=== PATIENT | male | born 1940 | race Caucasian/White ===

== ENCOUNTER 2024-10-03 23:11 | Inpatient (IN) | payer OTHER, SELFPAY ==
[2024-10-03] VITALS (21 sets, daily range): BP systolic 63–106; BP diastolic 36–62; BMI 32.9
[2024-10-03 18:25] LABS: % Basophils 0.9 % (0-2); % Eosinophils 1.9 % (0-6); % Immature Granulocytes 0.3 % (0-0.5); % Lymphocytes 10.5 % (20.5-51.1); % Monocytes 11.3 % (1.7-9.3); % Neutrophils 75.1 % (42.2-75.2); Absolute Basophils 0.1 10^3/uL (0-0.2); Absolute Eosinophils 0.1 10^3/uL (0-0.7); Absolute Lymphocytes 0.7 10^3/uL (1.2-3.4); Absolute Monocytes 0.7 10^3/uL (0.1-0.6); Absolute Neutrophils 4.9 10^3/uL (1.4-6.5); Hemoglobin 9.8 g/dL (13.0-18.0); Mean Corp Hgb Conc. 30.6 g/dL (33.0-37.0); Mean Corpuscular Hgb 30.9 pg (27.0-31.0); Mean Corpuscular Volume 100.9 fL (80.0-94.0); Mean Platelet Volume 10.1 fL (7.4-10.4); Nucleated Red Blood Cells % 0 % (-); Platelet Count 202 10^3/uL (130-400); Red Blood Cell Count 3.17 10^6/uL (4.70-6.10); White Blood Cell Count 6.5 10^3/uL (4.8-10.8)
[2024-10-03 18:32] LABS: ALT (SGPT) 16 U/L (0-50); AST (SGOT) 26 U/L (17-59); Albumin 3.2 g/dl (3.5-5.0); Alkaline Phosphatase 149 U/L (38-126); Blood Urea Nitrogen 16 mg/dl (9-20); Calcium 9.2 mg/dl (8.4-10.2); Carbon Dioxide 31 mmol/L (22-30); Chloride 95 mmol/L (98-107); Glucose 102 mg/dl (70-99); Potassium 4.2 mmol/L (3.5-5.1); Sodium 132 mmol/L (135-145); Total Protein 6.1 g/dl (6.3-8.2); eGFR 28.81
[2024-10-03 19:33] LABS: NT-proBNP > 27000 pg/ml
--- NOTE | 2024-10-03 21:00 | ED.GENMED ---
History of Present Illness
General
Chief Complaint: Breathing Problem
Source: patient and records
Exam Limitations: none
Time Seen by Provider: 10/03/24 20:30
History of Present Illness
History of Present Illness:
84-year-old male with COPD on 2 L chronically A-fib status post bypass surgery end-stage renal disease on dialysis had dialysis today with short of breath afterward, received a neb now is feeling better, has chronic low blood pressure on midodrine,
states he maybe had some fevers, denies vomiting he makes no urine
Past History
Past History
ED Past Medical History: Arrthythmia, COPD and Renal failure
ED Past Surgical History: Cardiac
Social History
Tobacco: Non-smoker
Alcohol: None
Drug: None
Living: usp
Employment: Not employed
Review of Systems
Review of Systems
All Other Systems: Not applicable
Constitutional: Reports fatigue; Denies fever
Respiratory: Reports cough and trouble breathing
Cardiac: Reports no symptoms
ABD/GI: Reports no symptoms
: Reports no symptoms
Musculoskeletal: Reports no symptoms
Phy Exam
Physical Exam
Physical Exam:
Physical Exam
General: Chronically ill-appearing male
Neck: No jaundice
Heart: Regular
Lungs: Rhonchi right greater than
Abdomen: Obese nontender
Neuro: alert and oriented. no focal neurological deficits
Skin: no rash
Psychiatric: ooperative
Extremities: 1+ edema
Scores
Heart Failure Risk
Heart Failure Risk Score: Not Applicable
Course
Orders/Labs/Results
Orders:
Orders
10/03/24 18:09
Complete Blood Count/With Diff Urgent
Comprehensive Metabolic Panel Urgent
NT-proBNP Urgent
Comment: ADD ON
Troponin I Urgent
Comment: ADD ON
10/03/24 18:12
Add On- LAB Urgent
Tests Added?: Pro-bnp on SST
10/03/24 20:30
CR Chest Portable - 1 View Urgent
Comment:
Reason For Exam: sooob
Reason Study Needs to be Portable: Patient Unstable
10/03/24 21:08
0.9% Sodium Chloride 500 ml [Nss] 500 ml IV BOLUS
Ipratropium/Albuterol Sulfate [Duoneb] 3 ml INH R NOW STA
10/03/24 21:26
Prothrombin Time Urgent
10/03/24 21:32
Rectal Temp- Treatment ONCE
10/03/24 21:33
Piperacillin/Tazo 2.25 Gram [Zosyn] 2.25 grams in 50 ml IV NOW
Vancomycin 1 Gram/200 ml [Vancocin] 1 gram in 200 ml IV NOW
10/03/24 21:34
Influenza A+B Rapid Molecular Urgent
MANISHA Source: Nasal Swab
Specimen Description:
10/03/24 21:45
Lactic Acid Q4H
Comment: CANCEL 2nd LACTIC ACID IF 1st LACTIC ACID IS LESS THAN 2
Blood Culture Q30M
MANISHA Source: Blood/Venous
Specimen Description:
10/03/24 21:49
Add On- LAB Urgent
Tests Added?: procal
COVID-19 Antigen Urgent
Source: Nasal Swab
10/03/24 21:58
Add On- LAB Urgent
Tests Added?: troponin
EKG [Electrocardiogram (*1)] Urgent
Reason for Study: Shortness of Breath
10/03/24 22:15
Blood Culture Q30M
MANISHA Source: Blood/Venous
Specimen Description:
10/04/24 01:45
Lactic Acid Q4H
Comment: CANCEL 2nd LACTIC ACID IF 1st LACTIC ACID IS LESS THAN 2
Abnormal Lab Results
10/03/24 10/03/24
18:09 21:26
RBC 3.17 L 10^6/uL
(4.70-6.10)
Hgb 9.8 L g/dL
(13.0-18.0)
Hct 32.0 L %
(39.0-52.0)
MCV 100.9 H fL
(80.0-94.0)
MCHC 30.6 L g/dL
(33.0-37.0)
RDW 16.0 H %
(11.5-14.5)
Absolute Lymphs (auto) 0.7 L 10^3/uL
(1.2-3.4)
Absolute Monos (auto) 0.7 H 10^3/uL
(0.1-0.6)
Lymphocytes % 10.5 L %
(20.5-51.1)
Monocytes % 11.3 H %
(1.7-9.3)
PT 18.4 H Sec
(11.4-14.6)
Sodium 132 L mmol/L
(135-145)
Chloride 95 L mmol/L
(98-107)
Carbon Dioxide 31 H mmol/L
(22-30)
Creatinine 2.2 H mg/dL
(0.7-1.3)
Glucose 102 H mg/dl
(70-99)
Alkaline Phosphatase 149 H U/L
(38-126)
Total Protein 6.1 L g/dl
(6.3-8.2)
Albumin 3.2 L g/dl
(3.5-5.0)
10/03/24 18:09
10/03/24 18:09
Vital Signs
Initial and Last Documented VS:
Initial Vital Signs
Temp Pulse Resp BP Pulse Ox
98 F 70 18 88/48 96
10/03/24 17:58 10/03/24 17:58 10/03/24 17:58 10/03/24 17:58 10/03/24 17:58
Last Documented Vital Signs
Temp Pulse Resp BP Pulse Ox
98 F 61 28 89/55 94
10/03/24 17:58 10/03/24 21:16 10/03/24 21:16 10/03/24 21:16 10/03/24 21:16
MDM/Problems Addressed
Differential Diagnosis Includes:
Heart failure pneumonia valvulopathy pericardial effusion pleural effusion PE sepsis
MDM/Problems Addressed:
Shortness of breath low blood pressure
Chronic conditions affecting care: CAD, Cardiomyopathy, Arrhythmia, COPD and Kidney disease
Acute Exacerbation and/or Progression of Chronic Illness: CAD, Cardiomyopathy, Arrhythmia, COPD and Kidney disease
*Radiology
Radiology exam reviewed: preliminary read by ED provider
*Pulse Oximetry
Patient hypoxic: no
*EKG
Interpreted by ED Provider?: Yes
Interpretation: abnormal
Comparison EKG: no comparison EKG present
Heart Rate: 78
Rate: normal
Rhythm: sinus
Ischemia: non-specific ST changes
*Industrial Retrofit Designer Interpretation
Rate: normal
Interpretation: normal
Heart Rate: 74
Rhythm: sinus
*Critical Care Note
Total Time (30-74mins, 75-104mins- exclusive of procedures): 34
Data Reviewed
Review of Other/Old Records Reveals: Records
Update Note
Update Note:
935 chest x-ray noted poor inspiration looks like it could be pneumonia on the right will start on antibiotics give volume admit
ED Attending Note
-
Portions of this chart may have been created with voice recognition software.� Occasional wrong word or��sound alike� substitutions may have occurred due to the inherent limitations of voice recognition software.
Discharge Plan
Departure
Patient Disposition: Admit
Date of Disposition: 10/03/24
Time of Disposition: 21:35
Admit to: IMU
Presentation/result/management discussed w/ accepting MD/DO: Hospitalist
Patient with high blood pressure during this ER visit?: No
Condition: Fair
Covid-19: Not Applicable
Discharge Problem:
Pneumonia, Sepsis, End-stage renal disease (ESRD), Low blood pressure
Prescriptions:
No Action
atorvastatin 40 MG tablet
40 mg PO QPM
omeprazole 20 MG capsule,delayed release(DR/EC)
20 mg PO HS
acetaminophen 325 MG tablet
650 mg PO Q6HPRN PRN (Reason: mild pain/fever) Qty: 0 0RF
aspirin 81 MG tablet,delayed release (DR/EC)
81 mg PO DAILY Qty: 0 0RF
sennosides [senna] 8.6 mg Tablet
8.6 mg PO DAILY
sodium chloride 3 % Solution For Nebulization
4 ml INHALATION R DAILYPRN PRN (Reason: sob)
cyanocobalamin (vitamin B-12) 1,000 mcg Tablet
1,000 mcg PO DAILY
allopurinol 100 mg Tablet
100 mg PO DAILY
bisacodyl 10 mg Suppository
10 mg ID DAILYPRN PRN (Reason: constipation if sorbitol is ineffective)
Fleet Enema 19-7 gram/118 mL Enema
118 ml ID DAILYPRN PRN (Reason: if suppository is ineffective)
gabapentin 100 mg Capsule
100 mg PO DAILY
gabapentin 100 mg Capsule
200 mg PO HS
levalbuterol HCl 1.25 mg/3 mL Solution For Nebulization
1.25 mg INHALATION R Q8HPRN PRN (Reason: sob)
sorbitol 70 % Solution
30 ml PO [id number] PRN (Reason: if no bm x3 days)
ipratropium bromide 0.02 % Solution
2.5 ml INHALATION R Q4HPRN PRN (Reason: sob)
midodrine 10 mg Tablet
10 mg PO Q2HPRN PRN (Reason: hypotension during dialysis)
midodrine 10 mg Tablet
10 mg PO MOWEFR
metoprolol tartrate 25 mg Tablet
25 mg PO BID
calcium acetate 667 mg Tablet
1,334 mg PO MEALS
Referrals:
Stuart Martinez, DO [Family Provider] -
Interventions
Interventions:
*Risk Screen - Suicide Last Done: 10/03/24 17:58
*General Assessment Last Done: 10/03/24 17:58
*Neglect/Abuse Screening Last Done: 10/03/24 17:58
*ED- Fall Risk Assessment Last Done: 10/03/24 21:08
*ED COVID-19 Vaccine History Last Done: 10/03/24 21:08
ED- Cardiac Assessment Last Done: 10/03/24 21:08
ED- Pulmonary Assessment Last Done: 10/03/24 21:08
Discharge Date and Time
Print Language: PERSIAN
[2024-10-03] MEDS: NSS 500 IV (21:11)
[2024-10-03] MEDS: DUONEB 3 ML INH (21:14)
[2024-10-03 21:44] LABS: INR 1.51; PT 18.4 Sec (11.4-14.6)
--- NOTE | 2024-10-03 21:44 | HPS.HSE ---
Family Physician
-
Family Physician: Stuart Martinez, DO
Chief Complaint
-
Shortness of breath, leg edema, hypotension
History of Present Illness
84-year-old male who reports shortness of breath after dialysis today,but improved after a nebulizer treatment.He reports a chronic productive yellow cough, chills sob. He was admitted to [facility] 09/21 - 09/26/2024 for FLu A and unspecified PNA. He
then was transferred to [facility] 2 weeks ago on 09/26/24. He reports chronic hypotension with sbp baseline is 104-106 range and is on midodrine 10mg tid but only took once today at 7pm. He is fluid overloaded with 10 pound wt gain
with leg edema +3 edema from lower legs up to mons pubis area. He has a dry slightly excoriated scrotum that is tender to touch. Preventive ointment was applied which seemed to help the pain. I spoke with the patient's nurse Katelyn who states she
was off of the past couple days during that time there was an order placed into the chart from cardiology to stop patient's Coumadin and start aspirin 81 mg on 09/29/2024. There is no explanation as to why the Coumadin was being stopped she was
unable to find any progress note from cardiology and or the attending nurse practitioner. She states his last INR was 2.57 on 09/29. She denies any falls since his arrival at the facility on 09/26/2024.
He has past medical history of COPD 2 liters depdendent , end-stage renal disease on dialysis MoWeFR x 2 years via dialysis cath left upper chest wall, anemia of CKD, HTN, HLD, permanent A-fib, BOBBY noncompliant CPAP, Pulm HTN, DM2, obesity, CAD/CABG
x 3 vessel left internal mammary to LAD and saphenous vein graft to obtuse marginal 1 sequentially to obtuse marginal [address]. Salmeron 03/26/2015.
Medical History
Past Medical History
Past Medical History: Reports Other
Additional Past Medical History:
COPD 2 liters dependent
end-stage renal disease on dialysis MoWeFR x 2 years via dialysis cath left upper chest wall
anemia of CKD
HTN
Orthostatic hypotension with dialysis
HLD
permanent A-fib
BOBBY noncompliant CPAP
Pulm HTN
Obesity
CAD/CABG x 3 vessel left internal mammary to LAD and saphenous vein graft to obtuse marginal 1 sequentially to obtuse marginal [address]. Salmeron 03/26/2015.
Past Surgical History: Reports Other
Additional Past Surgical History:
CAD/CABG x 3 vessel left internal mammary to LAD and saphenous vein graft to obtuse marginal 1 sequentially to obtuse marginal [address] Salmeron 03/26/2015.
Septoplasty
Kidney stone extraction 1970s
Social History
Tobacco: Former Smoker (15 years 1/2 pack/day quit 50 years ago)
Alcohol: None
Drug: None
Living: Other (Currently at [facility] post influenza A and unspecified pneumonia)
Employment: Retired
Family History
Family History: Other (Father age 45 alcohol abuse [place], mother age 86 [place])
Allergies / Home Medications
Allergies reflects when Allergies were last updated in [employer].
Home Medications with original date entered in [employer]
Allergy/Medication List:
Allergies
Allergy/AdvReac Type Severity Reaction Status Date / Time
No Known Allergies Allergy Unverified 03/25/15 08:48
Home Medications
atorvastatin 40 mg tablet 40 mg PO QPM 03/09/15
omeprazole 20 mg capsule,delayed release 20 mg PO HS 03/09/15
acetaminophen 325 mg tablet 650 mg (2 x 325 mg) PO Q6HPRN PRN mild pain/fever ##0 04/01/15
aspirin 81 mg tablet,delayed release 81 mg PO DAILY ##0 04/01/15
allopurinol 100 mg tablet 100 mg PO DAILY 10/03/24
bisacodyl 10 mg rectal suppository 10 mg UT DAILYPRN PRN constipation if sorbitol is ineffective 10/03/24
calcium acetate 667 mg tablet 1,334 mg PO MEALS 10/03/24
cyanocobalamin (vitamin B-12) 1,000 mcg tablet 1,000 mcg PO DAILY 10/03/24
gabapentin 100 mg capsule 100 mg PO DAILY 10/03/24
gabapentin 100 mg capsule 200 mg PO HS 10/03/24
ipratropium bromide 0.02 % solution for inhalation 2.5 ml inhalation R Q4HPRN PRN sob 10/03/24
levalbuterol HCl 1.25 mg/3 mL solution for nebulization 1.25 mg inhalation R Q8HPRN PRN sob 10/03/24
metoprolol tartrate 25 mg tablet 25 mg PO BID 10/03/24
midodrine 10 mg tablet 10 mg PO MOWEFR 10/03/24
midodrine 10 mg tablet 10 mg PO Q2HPRN PRN hypotension during dialysis 10/03/24
sennosides 8.6 mg tablet (senna) 8.6 mg PO DAILY 10/03/24
sodium chloride 3 % for nebulization 4 ml inhalation R DAILYPRN PRN sob 10/03/24
sodium phosphates 19 gram-7 gram/118 mL enema (Fleet Enema) 118 ml UT DAILYPRN PRN if suppository is ineffective 10/03/24
sorbitol 70 % solution 30 ml PO [id number] PRN if no bm x3 days 10/03/24
Review of Systems
-
History Source: Patient and Family (Son at bedside)
A 12 point ROS was completed and negative except as noted: Yes
Constitutional: Reports Weight Gain (10 pounds) and Chills
EENT: Denies Sore Throat or Runny Nose
Respiratory: Reports Cough (Productive yellow in color) and Trouble Breathing
Cardiac: Denies Chest Pain, Diaphoresis, Palpitations or Syncope
Abdomen/GI: Denies Abdominal Pain, Nausea, Vomiting, Diarrhea, Constipated, Bloody Stools or Black Stools
: Reports Other (Patient does not make urine, scrotum is dry and excoriated and tender there is no fungal rash)
Musculoskeletal: Reports Edema (+3 pitting edema from feet up to mons pubis); Denies Joint Pain
Skin: Denies Itching or Rash
Neurological: Reports Headache; Denies Dizzy
Endocrine: Reports No Symptoms
Hematologic/Lymphatic: Reports No Symptoms
Psych: Reports Calm
Physical Exam
Vital Signs
Vital Signs
Temp Pulse Resp BP Pulse Ox
98 F 61 28 89/55 94
10/03/24 17:58 10/03/24 21:16 10/03/24 21:16 10/03/24 21:16 10/03/24 21:16
Physical Exam
General: Conversant, Obese and Other (Short of breath with chronic cough); No Pain or Fever
HEENT: NormoCephalic, Anicteric, Moist mucous membranes, PERRLA, Burke Conjunctivae, No Ptosis, Neck Nontender and Oxygen (2 L nasal cannula); No Pharyngeal Erythema
Respiratory: Rales (Right lower to mid lung, left lung)
Cardiac: S1/S2, Murmur (Holosystolic 2 out of 6) and Peripheral Edema (+3 pitting feet up to thighs and mons pubis); No Rub or Gallop
Breast: Deferred by me
GI: Soft, Non Tender, Non Distended, Normal Bowel Sounds and No Hepatosplenomegaly
Rectal: Deferred by Provider
Genito-urinary: Other (Patient does not make urine, scrotum is dry and excoriated and tender there is no fungal rash)
Musculoskeletal: No Clubbing, No Cyanosis, Edema, Left Lower Extremity (+3 pedal up to knees up to thighs and mons pubis) and Edema, Right Lower Extremity (+3 pedal up to knees up to thighs and mons pubis); No Edema, Left Upper Extremity or Edema,
Right Upper Extremity
Skin: Warm and Dry; No Rash
Neuro: AO x 3, No Motor Deficits, Cranial Nerves Intact, No Sensory Deficits and Other; No Slurred Speech, Facial Droop, Tremors or Sedated
Psych: Calm
Laboratory Results
-
10/03/24 18:09
10/03/24 18:09
Laboratory Results
Total Bilirubin 1.0 mg/dl (0.2-1.3) 10/03/24 18:09
AST 26 U/L (17-59) 10/03/24 18:09
ALT 16 U/L (0-50) 10/03/24 18:09
Alkaline Phosphatase 149 U/L (38-126) H 10/03/24 18:09
Data Reviewed
-
Lab Data: Labs Reviewed by me
Impression/Plan
-
Impression/plan:
Admit to IMU
#Septic shock secondary to PNA
#Acute dyspnea secondary to right lower lobe PNA possible left lower lung PNA
#Recent influenza A/unspecified PNA [facility] 09/21 - 09/26/2024
Check COVID and flu swab
Check lactic acid, Pro-Remi, blood cultures x 2
-Check EKG, troponin
94% RA
-Vanco, Zosyn renal dose
-sputum culture
follow cbc, cmp,
PT/OT/case mgmt
CXR:Limited examination with hypoinflation.
Parenchymal airspace opacity within both lower lungs, main differential considerations of atelectasis and/or pneumonia.
Cardiomegaly. Vasculature does not appear to be actively congested.
#Hypotension secondary to septic shock/Hx essential HTN/orthostatic hypotension post dialysis
Pt reports baseline sbp is 104-106
BP 63/38 > 89/55 after 1 L IV NSS
-Continue midodrine 10 mg Sunday and 10 mg every 2 hours as needed during dialysis with hypotension
- Give Stat Midodrin 10 mg now
- levophed start
#End-stage renal disease with volume overload secondary to acute on chronic hypotension
on dialysis MoweFR x 2 years via dialysis cath left upper chest wall
-Had dialysis today 10/03/2024
-Patient does not make urine
-Consult Nephro
-Continue calcium acetate 1334 mg p.o. with meals
#Excoriation to scrotum
-Nursing to apply prevention barrier ointment twice daily
#Permanent A-fib HX
His coumdin was stoppe on 09-29-24 By a cardiology order at [facility] and he was placed on Asa 81 mg but NO REASON was Listed. I spoke with the Nurse who cannot find any Cardiology progress note or Note in chart
#COPD- no acute exacerbation
-Continue lev albuterol 2.5 mL every 4 hours as needed shortness of breath
#Anemia of CKD
-Hgb 9.8 appears baseline
#Neuropathy
-Continue gabapentin 100 mg in a.m., 200 mg at bedtime
#GERD
-Continue omeprazole 20 mg at bedtime
#HLD
- no currrent meds
# BOBBY noncompliant CPAP
#Pulm HTN obesity
#CAD/CABG x 3 vessel
#left internal mammary to LAD and saphenous vein graft to obtuse marginal 1 sequentially to obtuse marginal [address] Dr. salmeron 03/26/2015
-Continue aspirin 81 mg daily, atorvastatin 40 mg every afternoon hold metoprolol tartrate 25 mg twice daily secondary to Hypotension
#Vit B12 deficiency
-Continue B12 supplement
#Gout
-Continue allopurinol 100 mg daily
dvt proph
Sq heparin q12h
Full code
--- NOTE | 2024-10-03 22:07 | W.PN.UPDATE ---
Update Note
Progress Note Update
Patient seen in conjunction with MOBILE PARAMEDICAL EXAMINER. I agree the findings and physical and concur with assessment plan listed otherwise.
Briefly, this is a 84-year-old with past medical history of CAD status post CABG, diastolic CHF, ESRD on hemodialysis Sunday, chronic hypotension requiring midodrine, COPD on 2 to 3 L home O2, permanent atrial fibrillation who was
well up until recently on anticoagulation with Coumadin 1.5 mg daily DC'd about 5 days ago and history of recent admission and discharge at [facility] for influenza or pneumonia who presents to the emergency department with episode of
worsening shortness of breath after finishing dialysis today.
Patient reported that after discharge from [facility] he had continued to have productive cough and shortness of breath with dyspnea on exertion. He reports more recently over the last 3 to 4 days intermittent chills with Tmax of 99 at the rehab
facility where he was discharged 2. He reports that he has gained about 10 pounds from his baseline of around 189 pounds to 199 pounds recently. He does not know his usual UF and dry weight after dialysis. Patient reports that he arose this
morning generally in his usual state of health with ongoing cough and some shortness of breath underwent his usual dialysis without any complications but reported feeling cold at dialysis. Afterwards he had an episode of cough and shortness of
breath at the nurses at rehab. He was given 2 neb treatments and he reported some improvement however patient was transferred to the emergency department. No record of increased oxygen requirement but on arrival in the emergency department the
patient was on 3 L of oxygen.
He denied having any chest pain. He denied palpitations. He denied feeling lightheaded or dizzy. He reports intermittent constipation but had normal bowel movements recently.
On arrival here in the emergency department he was hypotensive to low BP at 63/38, currently 89/53 with a pulse of 61 and irregular. He is satting 93 to 98% on 3 L. CBC was unremarkable for him with a white count of 6.5 hemoglobin of 9.8 and
platelet of 202. His electrolytes are consistent with his recent hemodialysis session showing no acute abnormalities. His chest x-ray shows right lower lobe and right middle lobe rounded opacity which could be a new infiltrate, sequela of prior
pneumonia or atelectasis. There is some findings of opacity as well on the left side and some increased interstitial markings suggestive of some [place] [address].
On my exam the patient has and no significant JVD appreciated. He has a right lower lobe crackles. There are no wheezes on exam auscultation. His heart was irregular but otherwise unremarkable. Abdomen appears to be bloated slightly distended.
He has pitting edema to the knees 2+ bilaterally.
Disease 84-year-old male with complex past medical history including ESRD, COPD on 2 L, diastolic CHF, chronic hypotension requiring midodrine, permanent atrial fibrillation on anticoagulation, recent influenza and pneumonia admission at [facility] 2 weeks ago who comes in with worsening of his baseline shortness of breath and ongoing productive cough. X-ray is suggestive of a right sided pneumonia with pulmonary edema and some pleural effusion. He clearly appears total body
volume overloaded and his BNP is markedly elevated. He is intermittently hypotensive here and his last dose of midodrine was over 12 hours ago.
Assessment and plan
1. SOB - Possible post infectious pneumonia with volume overload. No evidence of COPD. Hypotension could be sepsis versus his chronic low BP.
- admit to imu
- blood cultures
- sputum cultures
- check covid 19 ag
- check mrsa
- continue vancomycin/zosyn
- check procalcitonin, lactic acid
- O2 appears at baseline
- continue nebs RTC and prn. No indication for steroids
2. Hypotension - sepsis versus chronic hypotension. He is volume overloaded despite dialysis today
- Midodrine BID for now
- admit to imu, will start on levophed to keep MAP > 60, SBP > 90
3. AFIB - permanent afib rate controlled
- states off coumadin 1.5mg daily since 5 days for unclear reason (will obtain records fromrehab), question falls
- hold coumadin for now
- aspirin 81
- hold metoprolol for now
4. CHF - chronic diastolic CHF, no renal function. 10 Ib weight gain and appears volume overloaded on exam. May need additional UF as tolerated
- fluid/salt restriction
- renal consult for possible additional UF as bp tolerates
- check tsh
- BP cannot tolerage GDMT unfortunately
DVT PPX - heparin sq
Code status - Full Code
[2024-10-03] MEDS: ProAmatine 10 MG PO (23:00)
[2024-10-03 23:04] LABS: COVID-19 Antigen Negative (Negative)
[2024-10-03 23:07] LABS: Troponin I 0.039 ng/ml
[2024-10-03] MEDS: ZOSYN 50 IV (23:30)
[2024-10-03] MEDS: FLUSH (NSS) 1 FLUSH IV (23:33)
[2024-10-03] MEDS: LEVOPHED 250 IV (23:37)
[2024-10-03 23:39] LABS: Lactic Acid 1.4 mmol/L (0.7-2.0)
[2024-10-03] MEDS: VANCOCIN 200 IV (23:57)
[2024-10-04] VITALS (51 sets, daily range): BP systolic 46–124; BP diastolic 23–85; BMI 32.9; BMI 32.6
--- NOTE | 2024-10-04 00:54 | PTCARENOTE ---
Received pt from ED via stretcher. Pt oriented but lethargic; falling asleep during conversation. No slurred or garbled speech. Pupils reactive. Levo running at 5mcg/min to maintain MAP >65. +2 pitting edema in lower extremities up to scrotum.
Foam applied to sacral area for protection; healed wound on sacrum. Pt SOB on 3L NC with pulse ox 92%. Lungs b/l crackles; occasional moist cough. Resting in bed with call zapata in reach.
[2024-10-04] MEDS: VANCOCIN 200 IV (02:01)
[2024-10-04] MEDS: NEURONTIN PO (02:02)
[2024-10-04 02:33] LABS: Troponin I 0.032 ng/ml
[2024-10-04 05:15] LABS: % Basophils 1.2 % (0-2); % Eosinophils 2.7 % (0-6); % Immature Granulocytes 0.4 % (0-0.5); % Lymphocytes 11.1 % (20.5-51.1); % Monocytes 13.9 % (1.7-9.3); % Neutrophils 70.7 % (42.2-75.2); Absolute Basophils 0.1 10^3/uL (0-0.2); Absolute Eosinophils 0.2 10^3/uL (0-0.7); Absolute Lymphocytes 0.8 10^3/uL (1.2-3.4); Absolute Neutrophils 5.3 10^3/uL (1.4-6.5); Hematocrit 32.9 % (39.0-52.0); Hemoglobin 10.2 g/dL (13.0-18.0); Mean Corpuscular Hgb 31.5 pg (27.0-31.0); Mean Corpuscular Volume 101.5 fL (80.0-94.0); Nucleated Red Blood Cells % 0 % (-); Platelet Count 233 10^3/uL (130-400); Red Blood Cell Count 3.24 10^6/uL (4.70-6.10); Red Cell Dist. Width 16.1 % (11.5-14.5); White Blood Cell Count 7.5 10^3/uL (4.8-10.8)
[2024-10-04 05:42] LABS: ALT (SGPT) 16 U/L (0-50); AST (SGOT) 23 U/L (17-59); Albumin 3.4 g/dl (3.5-5.0); Alkaline Phosphatase 152 U/L (38-126); Blood Urea Nitrogen 18 mg/dl (9-20); Calcium 8.8 mg/dl (8.4-10.2); Carbon Dioxide 29 mmol/L (22-30); Chloride 94 mmol/L (98-107); Estimated Creatinine Clearance 22 ml/min; Glucose 139 mg/dl (70-99); HDL Cholesterol 35 mg/dl; LDL Cholesterol, Calculated 43 mg/dl; Magnesium 1.9 mg/dl (1.6-2.3); Phosphorus 3.2 mg/dl (2.5-4.5); Potassium 4.2 mmol/L (3.5-5.1); Sodium 132 mmol/L (135-145); Total Bilirubin 1.2 mg/dl (0.2-1.3); Total Cholesterol 96 mg/dl (50-199); Total Protein 6.2 g/dl (6.3-8.2); Triglyceride 93 mg/dl (10-149); Very Low Density Lipoprotein 18 mg/dl (0-30); eGFR 23.58
[2024-10-04] MEDS: ZOSYN 50 IV ×3 (06:03→18:11)
--- NOTE | 2024-10-04 08:58 | PTCARENOTE ---
Patient received from paralegal supervisor. Patient resting comfortably in bed. AAO although drowsy, VSS on Levo. No events noted overnight. No complaints of pain at this time. Currently on 4L N/C, will attempt to wean. Levo @ 7 mcg/min, will attempt
to wean based off MAPs. HD planned for late morning. No further testing at this time. Call zapata in reach.
[2024-10-04] MEDS: PHOSLO 1334 MG PO ×3 (09:35→18:11)
[2024-10-04] MEDS: HEPARIN 5000 UNITS SC ×2 (09:35→20:14)
[2024-10-04] MEDS: ZYLOPRIM 100 MG PO (09:37)
[2024-10-04] MEDS: ASPIR LOW (ENTERIC COATED) PO ×2 (09:37→09:39)
[2024-10-04] MEDS: VITAMIN B-12 1000 MCG PO (09:37)
[2024-10-04] MEDS: NEURONTIN 100 MG PO (09:37)
[2024-10-04] MEDS: LEVOPHED 250 IV ×2 (10:07→20:15)
--- NOTE | 2024-10-04 10:56 | W.CON.NEPH ---
Consultation
-
Date/Time Consultation Requested: 10/04/2024 7 AM
Date/Time Consultation Performed: 10/04/2024 10 AM
Requesting Provider: Dr. Mckinnon
Performing Provider: Dr. Sky
Reason for Consultation: ESRD
Medical History
-
Chief Complaint: Shortness of breath
History of Present Illness:
This is an 84-year-old gentleman who has been on dialysis for 2 years time. He believes his ESRD was caused by cardiac issues. He does have a left upper extremity AV fistula though this has been poorly functional and he currently is dialyzing
through a right chest wall catheter. He previously dialyzed up in [place] at [facility]. He had 2 admissions to [facility] recently. Both were for respiratory issues. It appears that he was diagnosed with influenza A during the
first admission. He ultimately was sent to rehab here [place] but then was readmitted to [facility] for respiratory issues again. With the second admission he says that his ability to walk worsened. He had already been using a walker and
electric wheelchair at home but but now even weaker. He was then sent to [facility] for further rehab. He had dialysis on Sunday he believes without incident but then developed severe shortness of breath and productive cough and was sent back to
the emergency room this time to [place]. He is being treated presumptively for pneumonia. We are asked to assist with management of his ESRD
Past Medical History
COPD 2 liters dependent
end-stage renal disease on dialysis MoWeFR x 2 years via dialysis cath left upper chest wall
anemia of CKD
Orthostatic hypotension with dialysis
HLD
permanent A-fib
BOBBY noncompliant CPAP
Pulm HTN
Obesity
CAD/CABG x 3 vessel left internal mammary to LAD and saphenous vein graft to obtuse marginal 1 sequentially to obtuse marginal [address] Salmeron 03/26/2015.
Septoplasty
Kidney stone extraction 1970s
Social History
Tobacco: Former Smoker
Alcohol: None
Family History
Family History: Not Pertinent
Allergies / Home Medications
Allergy/AdvReac Type Severity Reaction Status Date / Time
No Known Allergies Allergy Unverified 03/25/15 08:48
�Medication �Instructions �Recorded �Confirmed �Type
atorvastatin 40 mg tablet 40 mg PO QPM 03/09/15 10/03/24 History
omeprazole 20 mg capsule,delayed 20 mg PO HS 03/09/15 10/03/24 History
release
acetaminophen 325 mg tablet 650 mg (2 x 325 mg) PO Q6HPRN PRN 04/01/15 10/03/24 Rx
mild pain/fever ##0
aspirin 81 mg tablet,delayed 81 mg PO DAILY ##0 04/01/15 10/03/24 Rx
release
allopurinol 100 mg tablet 100 mg PO DAILY 10/03/24 10/03/24 History
bisacodyl 10 mg rectal suppository 10 mg NE DAILYPRN PRN constipation 10/03/24 10/03/24 History
if sorbitol is ineffective
calcium acetate 667 mg tablet 1,334 mg PO MEALS 10/03/24 10/03/24 History
cyanocobalamin (vitamin B-12) 1,000 mcg PO DAILY 10/03/24 10/03/24 History
1,000 mcg tablet
gabapentin 100 mg capsule 100 mg PO DAILY 10/03/24 10/03/24 History
gabapentin 100 mg capsule 200 mg PO HS 10/03/24 10/03/24 History
ipratropium bromide 0.02 % 2.5 ml inhalation R Q4HPRN PRN sob 10/03/24 10/03/24 History
solution for inhalation
levalbuterol HCl 1.25 mg/3 mL 1.25 mg inhalation R Q8HPRN PRN sob 10/03/24 10/03/24 History
solution for nebulization
metoprolol tartrate 25 mg tablet 25 mg PO BID 10/03/24 10/03/24 History
midodrine 10 mg tablet 10 mg PO MOWEFR 10/03/24 10/03/24 History
midodrine 10 mg tablet 10 mg PO Q2HPRN PRN hypotension 10/03/24 10/03/24 History
during dialysis
sennosides 8.6 mg tablet (senna) 8.6 mg PO DAILY 10/03/24 10/03/24 History
sodium chloride 3 % for 4 ml inhalation R DAILYPRN PRN sob 10/03/24 10/03/24 History
nebulization
sodium phosphates 19 gram-7 118 ml NE DAILYPRN PRN if 10/03/24 10/03/24 History
gram/118 mL enema (Fleet Enema) suppository is ineffective
sorbitol 70 % solution 30 ml PO [id number] PRN if no bm x3 10/03/24 10/03/24 History
days
Review of Systems
-
Mild shortness of breath. No chest pain. No urine output
All other systems: Negative unless noted
Physical Exam
Vital Signs
Vital Signs
Temp Pulse Resp BP Pulse Ox
97.6 F 84 25 98/58 95
10/04/24 07:42 10/04/24 08:45 10/04/24 08:45 10/04/24 08:30 10/04/24 09:58
Lab Results
WBC 7.5 10^3/uL (4.8-10.8) 10/04/24 04:55
RBC 3.24 10^6/uL (4.70-6.10) L 10/04/24 04:55
Hgb 10.2 g/dL (13.0-18.0) L 10/04/24 04:55
Hct 32.9 % (39.0-52.0) L 10/04/24 04:55
Plt Count 233 10^3/uL (130-400) 10/04/24 04:55
Sodium 132 mmol/L (135-145) L 10/04/24 04:55
Potassium 4.2 mmol/L (3.5-5.1) 10/04/24 04:55
Chloride 94 mmol/L (98-107) L 10/04/24 04:55
Carbon Dioxide 29 mmol/L (22-30) 10/04/24 04:55
BUN 18 mg/dl (9-20) 10/04/24 04:55
Creatinine 2.6 mg/dL (0.7-1.3) H 10/04/24 04:55
eGFR 23.58 10/04/24 04:55
Glucose 139 mg/dl (70-99) H 10/04/24 04:55
Calcium 8.8 mg/dl (8.4-10.2) 10/04/24 04:55
Phosphorus 3.2 mg/dl (2.5-4.5) 10/04/24 04:55
Euf-O-Ylwtnupeljp Pept > 23171 pg/ml 10/03/24 18:09
Albumin 3.4 g/dl (3.5-5.0) L 10/04/24 04:55
Physical Exam
Patient is awake alert oriented and in no distress. Mood and affect were pleasant, insight and judgment were good. Pupils are equal round and reactive to light, extraocular movements are intact, sclera were anicteric. Hearing was normal, ears and
nose are intact. Oropharynx was clear. Neck was supple with trachea midline and no thyromegaly. Heart was regular rate and rhythm without rubs. Lower extremities with 2+ edema. Lungs were coarse with rhonchi to auscultation bilaterally and with
normal excursion. Abdomen was soft, nontender, with normal active bowel sounds, and no hepatosplenomegaly. Skin was without rash and with normal turgor. AV fistula left upper arm was with thrill and bruit
Data Reviewed
-
Radiology: Image Personally Visualized and interpreted (Chest x-ray 10/03/2024 by my reading shows hypoinflation, vascular prominence, bilateral lower lobe opacity)
Medical Tests (Nuc Med, Echo etc): Image Personally Visualized and interpreted (EKG 10/03/2024 by my reading showsWide QRS rhythm with PVCs )
Labs: Labs Reviewed by me
Old Records: Requested
Assessment/Plan
-
Assessment
ESRD
Volume overload
Shortness of breath
Hypotension
Heart failure preserved EF
Coronary artery disease
Plan
Ultrafiltration treatment today, remove 3 kg as possible
Next dialysis Sunday
Antibiotics per primary team
Midodrine with dialysis
Pressors as required
Critical care time spent 31 minutes
[2024-10-04] MEDS: ProAmatine 10 MG PO (11:28)
[2024-10-04 11:55] LABS: Vancomycin Random 24.9 ug/ml
--- NOTE | 2024-10-04 12:33 | PHA.VAN.IN ---
Assessment
- Assessment
Renal Function: Patient has ESRD, on chronic Hemodialysis
Hemodialysis Schedule: MWF
Concomitant Antimicrobials: PIPERACILLIN/TAZOBACTAM
Plan
- Plan
Initial / Loading Dose: SPLIT LOAD VANCO 1000MG X2, 10/04 RANDOM LEVEL PRIOR TO HD 24.9
Monitoring: RANDOM 10/06 @0600
Pharmacokinetics Vancomycin I
- -
Patient Age: 84
Patient Sex: Male
Vancomycin Day #: 1
Indication: Pulmonary/Respiratory
Requesting Provider: DENIS SALMON
Height / Weight:
Height 5 ft 6 in
Actual Weight 91.6 kg
Pertinent Past Medical History: ESRD - HD MWF, COPD
- Vital Signs / Lab Results
Temp Pulse Resp BP Pulse Ox
97.6 F 66 25 105/59 95
10/04/24 07:42 10/04/24 11:28 10/04/24 08:45 10/04/24 11:28 10/04/24 09:58
Lab Results - Hematology
10/03/24 10/04/24
18:09 04:55
WBC 6.5 7.5
Lab Results - Chemistry
10/03/24 10/04/24
18:09 04:55
BUN 16 18
Creatinine 2.2 H 2.6 H
Estimated Creat Clear 22
Albumin 3.2 L 3.4 L
10/03/24 10/04/24
22:33 01:45
Lactic Acid 1.4 Cancelled
Microbiology Results
10/03/24 22:33 Influenza Types A & B (JOHN) - Final
Nasal Swab Negative for Influenza A & B, NAAT
Negative results must be combined with clinical observations
and patient history.
Nucleic Acid Amplification test (NAAT)performed on the
[employer] platform.
--- NOTE | 2024-10-04 12:42 | CM ---
Reviewed the chart notes and spoke with the patient at the bedside. Patient receives HD at [facility]. The patient reports being in [facility] and transferred to [facility] two weeks ago. Prior to SNF/rehab placement the
patient resided alone in a one story home with a ramp to enter. The patient reports being on continuous O2. The patient has a rolling walker, wheelchair, and an electric wheelchair. CM continues to be available to patient/family and is monitoring
medical plan for needs at discharge.
Plan: Discharge plans will depend on the patient's progress. Most likely back to [facility] for rehab.
[2024-10-04] MEDS: HEPARIN 5100 UNITS INTRACATH (13:14)
--- NOTE | 2024-10-04 13:36 | W.PN.HOSP.TC ---
Today's Communication/Plan
-
see outlined plan
Assessment / Plan
Assessment / Plan
Assessment:
Septic shock
- on Levophed @ 7mcg/hr - wean as able
- source: HAP (bilateral). Noted recent hospitalization at [facility] early September 2024 for influenza A and pneumonia
- continue Vancomycin - requires intensive monitoring of levels
- continue Zosyn
- follow cultures
Acute on chronic hypoxic respiratory failure
- wean O2 to 2L baseline
Multifactorial hypotension from known orthostasis with active sepsis
- continue Midodrine
- wean pressors as able
- baseline BP low 100s
ESRD on HD M//
- Nephrology following
- for UF today 3kg goal
- resume usual HD Sunday
Hyponatremia, acute
- monitor
Nonischemic myocardial injury in setting of sepsis in ESRD patient
- trop peaked .039
CAD/CABG x 3 vessel
- continue BB/Statin
- patient reports not being on ASA
Chronic HFpEF
Permanent A. Fib
- per records, taken off Coumadin and patient himself reports not on ASA
- obtain records
COPD- no acute exacerbation
- Continue lev albuterol 2.5 mL every 4 hours as needed shortness of breath
Anemia of CKD
- Hb 9.8 appears baseline
Neuropathy
- continue gabapentin 100 mg in a.m., 200 mg at bedtime
GERD
- continue omeprazole 20 mg at bedtime
HLD
- no currrent meds
BOBBY noncompliant CPAP
Pulm HTN
obesity
Vit B12 deficiency
- continue B12 supplement
Gout
- continue allopurinol 100 mg daily
DVT ppx: SC heparin
Code: Full
Total Critical Care Time 45 minutes. I was immediately available to the patient and staff. I personally examined, reviewed labs, diagnostic images/reports, interpretations, treatment plans, discussed patient care with other providers and family
or caregivers (if patient is unable to make decisions), entered orders as appropriate and documented the medical record.
Anticipated Discharge: > 48 hours
Subjective/Interval History
-
Date of Service: October 04, 2024
on UF, tolerating well
no complaints
Objective Data
-
Labs:
Laboratory Results
10/04/24
04:55
WBC 7.5
Hgb 10.2 L
Hct 32.9 L
Plt Count 233
Sodium 132 L
Potassium 4.2
Chloride 94 L
Carbon Dioxide 29
BUN 18
Creatinine 2.6 H
Glucose 139 H
Calcium 8.8
Total Bilirubin 1.2
AST 23
ALT 16
Alkaline Phosphatase 152 H
Vital Signs:
Vital Signs
Temp Pulse Resp BP Pulse Ox
97.6 F 66 25 105/59 95
10/04/24 11:31 10/04/24 11:28 10/04/24 08:45 10/04/24 11:28 10/04/24 09:58
Physical Exam
-
General: No Apparent Distress
HEENT: Normocephalic and Atraumatic
Respiratory: Rhonchi
Cardiac: Irregular Rhythm
GI: Soft
Genito-urinary: No Costovertebral Tender
Neuro: AO x 3
Hematologic / Lymphatic: No Lymphadenopathy
Psych: Calm
Data Reviewed
-
Critical Care Time (in minutes): 45
Labs: Labs Reviewed by me
--- NOTE | 2024-10-04 14:11 | W.PN.NEPH.HD ---
Assessment
-
Seen on HD. no new complaints. VSS, access ok
Progress Note - Hemodialysis
-
Date of Service: October 04, 2024
Duration: 2 hours
Opti-Dialyzer: 160
Ultrafiltration: Other (3kg)
Blood Flow: 250
Heparin: 0
EPO: 0
[2024-10-04] MEDS: LIPITOR 40 MG PO (18:11)
[2024-10-04] MEDS: PROTONIX 40 MG PO (20:15)
[2024-10-04] MEDS: NEURONTIN 200 MG PO (20:15)
[2024-10-04] MEDS: SENOKOT-S 1 TABLET PO (21:39)
[2024-10-04] MEDS: TYLENOL 650 MG PO (21:39)
[2024-10-05] VITALS (30 sets, daily range): BP systolic 70–116; BP diastolic 17–94; PULSE 81–92; O2SAT 96–97; BMI 32.7
[2024-10-05] MEDS: ZOSYN 50 IV ×4 (00:13→16:48)
[2024-10-05 05:00] LABS: % Basophils 1.5 % (0-2); % Eosinophils 2.9 % (0-6); % Immature Granulocytes 0.3 % (0-0.5); % Lymphocytes 11.8 % (20.5-51.1); % Monocytes 15.6 % (1.7-9.3); % Neutrophils 67.9 % (42.2-75.2); Absolute Basophils 0.1 10^3/uL (0-0.2); Absolute Eosinophils 0.2 10^3/uL (0-0.7); Absolute Lymphocytes 0.7 10^3/uL (1.2-3.4); Absolute Monocytes 0.9 10^3/uL (0.1-0.6); Hematocrit 30.4 % (39.0-52.0); Hemoglobin 9.5 g/dL (13.0-18.0); Mean Corp Hgb Conc. 31.3 g/dL (33.0-37.0); Mean Corpuscular Hgb 31.1 pg (27.0-31.0); Mean Corpuscular Volume 99.7 fL (80.0-94.0); Mean Platelet Volume 9.8 fL (7.4-10.4); Nucleated Red Blood Cells % 0 % (-); Platelet Count 174 10^3/uL (130-400); Red Blood Cell Count 3.05 10^6/uL (4.70-6.10); Red Cell Dist. Width 15.9 % (11.5-14.5); White Blood Cell Count 5.9 10^3/uL (4.8-10.8)
[2024-10-05] MEDS: LEVOPHED 250 IV ×2 (05:05→13:59)
--- NOTE | 2024-10-05 05:07 | PTCARENOTE ---
Received pt at change of shift. Pt AAOx3. Minimal lethargy at start of shift. Pt states difficulty sleeping. Attempted to wean Levo down to 7 mcg/min. Pts MAP did not maintain goal of >65. Levo back up to 8 mcg/min. Difficulty obtaining BPs
with b/l limb alert from previous fistula in left arm and new midline in right upper arm. Pt resting in bed with call zapata in reach.
[2024-10-05 05:17] LABS: ALT (SGPT) 14 U/L (0-50); AST (SGOT) 19 U/L (17-59); Albumin 3.2 g/dl (3.5-5.0); Alkaline Phosphatase 132 U/L (38-126); Blood Urea Nitrogen 25 mg/dl (9-20); Calcium 8.7 mg/dl (8.4-10.2); Carbon Dioxide 27 mmol/L (22-30); Chloride 92 mmol/L (98-107); Estimated Creatinine Clearance 18 ml/min; Glucose 140 mg/dl (70-99); Potassium 4.3 mmol/L (3.5-5.1); Sodium 130 mmol/L (135-145); Total Protein 5.8 g/dl (6.3-8.2); eGFR 18.38
[2024-10-05] MEDS: HEPARIN 5000 UNITS SC ×2 (08:20→20:40)
[2024-10-05] MEDS: PHOSLO 1334 MG PO ×3 (08:20→16:48)
[2024-10-05] MEDS: NEURONTIN 100 MG PO (08:20)
[2024-10-05] MEDS: VITAMIN B-12 1000 MCG PO (08:20)
[2024-10-05] MEDS: ZYLOPRIM 100 MG PO (08:20)
[2024-10-05] MEDS: MIRALAX 17 GRAMS PO (08:20)
[2024-10-05] MEDS: ASPIR LOW (ENTERIC COATED) 81 MG PO (08:20)
[2024-10-05] MEDS: ProAmatine 10 MG PO ×2 (09:31→16:48)
--- NOTE | 2024-10-05 09:48 | W.PN.NEPH.PH ---
Today's Communication / Plan
-
Dialysis tomorrow
Assessment/Plan
-
Assessment
ESRD
Volume overload
Shortness of breath
Hypotension
Heart failure preserved EF
Coronary artery disease
Plan
Next dialysis Sunday
Antibiotics per primary team
Midodrine with dialysis
Add midodrine [id number]
Pressors as required, wean as possible
Critical care time spent 31 minutes
-
-
Date of Service: October 05, 2024
CC / HPI / ROS
-
Chief Complaint:
ESRD
History of Present Illness:
Tolerated ultrafiltration yesterday
BP remains low, on Levophed drip
Critically ill
Hemoglobin stable 9.5
Remains on supplemental oxygen
Review of Systems:
No chest pain, no fever
Labs
-
Labs:
WBC 5.9 10^3/uL (4.8-10.8) 10/05/24 04:36
RBC 3.05 10^6/uL (4.70-6.10) L 10/05/24 04:36
Hgb 9.5 g/dL (13.0-18.0) L 10/05/24 04:36
Hct 30.4 % (39.0-52.0) L 10/05/24 04:36
Plt Count 174 10^3/uL (130-400) D 10/05/24 04:36
Sodium 130 mmol/L (135-145) L 10/05/24 04:36
Potassium 4.3 mmol/L (3.5-5.1) 10/05/24 04:36
Chloride 92 mmol/L (98-107) L 10/05/24 04:36
Carbon Dioxide 27 mmol/L (22-30) 10/05/24 04:36
BUN 25 mg/dl (9-20) H 10/05/24 04:36
Creatinine 3.2 mg/dL (0.7-1.3) H 10/05/24 04:36
eGFR 18.38 10/05/24 04:36
Glucose 140 mg/dl (70-99) H 10/05/24 04:36
Calcium 8.7 mg/dl (8.4-10.2) 10/05/24 04:36
Phosphorus 3.2 mg/dl (2.5-4.5) 10/04/24 04:55
Zje-W-Smyrcruzyrw Pept > 45706 pg/ml 10/03/24 18:09
Albumin 3.2 g/dl (3.5-5.0) L 10/05/24 04:36
Physical Exam
-
Vital Signs:
Vital Signs
Temp Pulse Resp BP Pulse Ox
98.9 F 95 28 98/81 91
10/05/24 08:04 10/05/24 09:31 10/05/24 09:15 10/05/24 09:31 10/05/24 09:15
Cardiovascular:: Regular rate and rhythm
Respiratory:: Bilateral: Coarse
Lung Excursion:: Normal
Abdomen:: Nontender and Soft
Bowel Sounds:: Normal
Extremity Edema:: +3: Bilateral:
[2024-10-05] MEDS: ProAmatine PO (10:29)
--- NOTE | 2024-10-05 10:42 | W.PN.HOSP.TC ---
Today's Communication/Plan
-
Zosyn monotherapy, stop Vanco with negative MRSA swab
wean pressors; make midodrine TID
Bowel regimen scheduled
Assessment / Plan
Assessment / Plan
Assessment:
Septic shock
- on Levophed @ 7mcg/hr - wean as able
- source: HAP (bilateral). Noted recent hospitalization at [facility] early September 2024 for influenza A and pneumonia
- continue Zosyn, day 2
- Vanco stopped; negative MRSA swab
- follow cultures
Acute on chronic hypoxic respiratory failure
- wean O2 to 2L baseline
Multifactorial hypotension from known orthostasis with active sepsis
- continue Midodrine - now increased to TID
- wean pressors as able
- baseline BP low 100s
ESRD on HD M/W/
- Nephrology following
- s/p UF today (3kg) on 10/04
- resume usual HD Sunday
Hyponatremia, acute
- monitor
Nonischemic myocardial injury in setting of sepsis in ESRD patient
- trop peaked .039
CAD/CABG x 3 vessel
- continue BB/Statin
- patient reports not being on ASA
Chronic HFpEF
Permanent A. Fib
- per records, taken off Coumadin and patient himself reports not on ASA
- obtain records
COPD- no acute exacerbation
- Continue lev albuterol 2.5 mL every 4 hours as needed shortness of breath
Anemia of CKD
- Hb 9.5 appears baseline
Neuropathy
- continue gabapentin 100 mg in a.m., 200 mg at bedtime
GERD
- continue omeprazole 20 mg at bedtime
HLD
- no currrent meds
BOBBY noncompliant CPAP
Pulm HTN
obesity
Vit B12 deficiency
- continue B12 supplement
Gout
- continue allopurinol 100 mg daily
DVT ppx: SC heparin
Code: Full
Total Critical Care Time 44 minutes. I was immediately available to the patient and staff. I personally examined, reviewed labs, diagnostic images/reports, interpretations, treatment plans, discussed patient care with other providers and family
or caregivers (if patient is unable to make decisions), entered orders as appropriate and documented the medical record.
Anticipated Discharge: > 48 hours
Subjective/Interval History
-
Date of Service: October 05, 2024
anxious and SOB due to anxiety
no cough
reports constipation otherwise no complaints
Objective Data
-
Labs:
Laboratory Results
10/05/24
04:36
WBC 5.9
Hgb 9.5 L
Hct 30.4 L
Plt Count 174 D
Sodium 130 L
Potassium 4.3
Chloride 92 L
Carbon Dioxide 27
BUN 25 H
Creatinine 3.2 H
Glucose 140 H
Calcium 8.7
Total Bilirubin 1.0
AST 19
ALT 14
Alkaline Phosphatase 132 H
Vital Signs:
Vital Signs
Temp Pulse Resp BP Pulse Ox
98.9 F 95 28 98/81 91
10/05/24 08:04 10/05/24 09:31 10/05/24 09:15 10/05/24 09:31 10/05/24 09:15
I&O
10/04/24 10/05/24 10/06/24
06:59 06:59 06:59
Intake Total 1927
Balance 1927
Physical Exam
-
General: No Apparent Distress
HEENT: Normocephalic and Atraumatic
Respiratory: Rhonchi
Cardiac: Irregular Rhythm
GI: Soft and Nontender
Neuro: AO x 3
Psych: Anxious
Data Reviewed
-
Critical Care Time (in minutes): 44
Labs: Labs Reviewed by me
[2024-10-05] MEDS: MIRALAX PO (11:28)
[2024-10-05] MEDS: SENOKOT-S 1 TABLET PO ×2 (13:06→20:40)
[2024-10-05] MEDS: LIPITOR 40 MG PO (16:48)
[2024-10-05 19:59] LABS: Hepatitis B Surface Antigen Negative (Negative)
[2024-10-05 20:17] LABS: Hepatitis B Surface Antibody Positive
[2024-10-05] MEDS: PROTONIX 40 MG PO (22:38)
[2024-10-05] MEDS: NEURONTIN 200 MG PO (22:38)
--- NOTE | 2024-10-05 23:23 | PTCARENOTE ---
Assumed care of pt from day shift RN. pt AAOx3. afib on monitor. Pt remains on levo gtt, currently running at 6 mcg/min, per orders to keep map >65. see medication titration intervention on worklist. HS oral care complete. Assessment as documented.
Call light in reach.
[2024-10-06] VITALS (52 sets, daily range): BP systolic 39–137; BP diastolic 14–127; BMI 33.1
[2024-10-06] MEDS: ZOSYN 50 IV ×4 (00:14→23:04)
[2024-10-06] MEDS: LEVOPHED 250 IV ×2 (00:42→15:54)
[2024-10-06] MEDS: ProAmatine 10 MG PO ×4 (02:18→17:32)
[2024-10-06] MEDS: MIRALAX 17 GRAMS PO (08:06)
[2024-10-06] MEDS: HEPARIN 5000 UNITS SC ×2 (08:07→20:09)
[2024-10-06] MEDS: NEURONTIN 100 MG PO (08:07)
[2024-10-06] MEDS: ZYLOPRIM 100 MG PO (08:07)
[2024-10-06] MEDS: PHOSLO 1334 MG PO ×3 (08:07→17:32)
[2024-10-06] MEDS: ASPIR LOW (ENTERIC COATED) 81 MG PO (08:07)
[2024-10-06 08:36] LABS: % Basophils 0.9 % (0-2); % Immature Granulocytes 0.6 % (0-0.5); % Lymphocytes 12.4 % (20.5-51.1); % Monocytes 11.7 % (1.7-9.3); % Neutrophils 72.4 % (42.2-75.2); Absolute Basophils 0.1 10^3/uL (0-0.2); Absolute Eosinophils 0.1 10^3/uL (0-0.7); Absolute Lymphocytes 0.9 10^3/uL (1.2-3.4); Absolute Monocytes 0.8 10^3/uL (0.1-0.6); Hematocrit 32.7 % (39.0-52.0); Hemoglobin 10.1 g/dL (13.0-18.0); Mean Corp Hgb Conc. 30.9 g/dL (33.0-37.0); Mean Corpuscular Hgb 31.5 pg (27.0-31.0); Mean Corpuscular Volume 101.9 fL (80.0-94.0); Mean Platelet Volume 10.1 fL (7.4-10.4); Nucleated Red Blood Cells % 0 % (-); Platelet Count 186 10^3/uL (130-400); Red Blood Cell Count 3.21 10^6/uL (4.70-6.10); Red Cell Dist. Width 15.9 % (11.5-14.5); White Blood Cell Count 6.9 10^3/uL (4.8-10.8)
[2024-10-06] MEDS: MANNITOL 25% 12.5 GRAMS IV ×2 (08:47→09:58)
[2024-10-06] MEDS: FLEXBUMIN 25% FOR HEMODIALYSIS 12.5 GRAMS IV ×2 (08:47→09:58)
--- NOTE | 2024-10-06 08:47 | W.PN.HOSP.TC ---
Addendum entered and electronically signed by Mal Hall DO 10/06/24 15:43:
Still trying to figure out whether or not this patient should be on warfarin and why was it stopped recently.
I spoke to his daughter and she does not know why. She believes that warfarin should continue.
I spoke with his refractory specialist's office and the last record that they have is that he should stay on warfarin.
I then called [facility] and the nurse told me that it was discontinued recently and aspirin was started but she could not explain why this was done. I gave her my cell phone number for the nurse practitioner or physician at the
facility to call me with more information.
Original Note:
Today's Communication/Plan
-
Bowel regimen
PT/OT
Chest x-ray
Assessment / Plan
Assessment / Plan
Gen-AAOx3, NAD
HEENT-NC, AT, anicteric, clear oral mm
Neck-supple
CV-reg, no M, +S1/S2
Lungs-clear B/L
Abd-soft, NT, ND
Ext-1+ bilateral lower extremity edema, hyperpigmentation
Musculoskeletal-no cyanosis, clubbing
Skin-warm and dry
Neuro-grossly non-focal
Psych-calm, cooperative
Shock -improved on vasopressors. I am not convinced that he has septic shock. Difficult to assess volume status but may be intravascularly depleted with third spacing. Did not meet any SIRS criteria on presentation. Procalcitonin unreliable in
the setting of ESRD. Blood cultures negative. At baseline patient runs hypotensive according to him.
-Wean Levophed, continue midodrine.
-Reportedly recently bolus to [facility] for pneumonia/influenza. Has had a cough since. Patient states cough has improved since admission to our hospital.
COVID/influenza negative. Will check chest x-ray two-view today.
Acute on chronic hypoxic respiratory failure
- wean O2 to 2L baseline
ESRD on HD M/W/F
- Nephrology following
- s/p UF today (3kg) on 10/04
Hyponatremia, acute
- monitor
Acute nonischemic myocardial injury in setting of sepsis in ESRD patient
- trop peaked .039
CAD/CABG x 3 vessel
- continue BB/Statin
- patient reports not being on ASA
Chronic HFpEF
Permanent A. Fib
- per records, taken off Coumadin and patient himself reports not on ASA
-His refractory specialist is Dr. Diamond, will try to contact.
COPD without exacerbation -uses 2 L nasal cannula oxygen at home chronically. Currently on [facility]. He is
- Continue lev albuterol 2.5 mL every 4 hours as needed shortness of breath
Chronic anemia of CKD
- Hb 9.5 appears baseline
Peripheral neuropathy
- continue gabapentin 100 mg in a.m., 200 mg at bedtime
GERD
- continue omeprazole 20 mg at bedtime
HLD
- no currrent meds
BOBBY noncompliant CPAP
Pulm HTN
Obesity due to excess calories
Vit B12 deficiency
- continue B12 supplement
Gout
- continue allopurinol 100 mg daily
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
DVT ppx: SC heparin
Full code
Dispo -PT/OT to be consulted. Patient prefers to go home from the hospital, not interested in going back to his [facility]. His grandson stays with him in the house but grandson does work full-time. Does not appear to be a safe discharge,
discussed with patient. Will ask case management to intervene.
Anticipated Discharge: > 48 hours
Subjective/Interval History
-
Date of Service: October 06, 2024
Patient seen and examined. Currently on dialysis. No complaints.
Objective Data
-
Labs:
Laboratory Results
10/06/24
08:22
WBC 6.9
Hgb 10.1 L
Hct 32.7 L
Plt Count 186
Sodium Pending
Potassium Pending
Chloride Pending
Carbon Dioxide Pending
BUN Pending
Creatinine Pending
Glucose Pending
Calcium Pending
Total Bilirubin Pending
AST Pending
ALT Pending
Alkaline Phosphatase Pending
Vital Signs:
Vital Signs
Temp Pulse Resp BP Pulse Ox
97.5 F 93 23 93/73 98
10/06/24 03:30 10/06/24 05:37 10/06/24 05:37 10/06/24 05:37 10/06/24 05:37
I&O
10/05/24 10/06/24 10/07/24
06:59 06:59 06:59
Intake Total 1927
Balance 1927
Review of Systems
-
History Source: Patient
All other systems: Reviewed and negative
[2024-10-06] MEDS: RETACRIT 10000 UNITS IV (09:17)
--- NOTE | 2024-10-06 09:24 | PTCARENOTE ---
Order received for 2view CXR. D/W Dr. Hall, as pt is on levo at this time; okay to wait for XR until weaned off drip.
[2024-10-06 10:38] LABS: ALT (SGPT) 13 U/L (0-50); AST (SGOT) 20 U/L (17-59); Albumin 3.4 g/dl (3.5-5.0); Alkaline Phosphatase 133 U/L (38-126); Blood Urea Nitrogen 33 mg/dl (9-20); Calcium 8.7 mg/dl (8.4-10.2); Carbon Dioxide 26 mmol/L (22-30); Chloride 92 mmol/L (98-107); Estimated Creatinine Clearance 14 ml/min; Glucose 152 mg/dl (70-99); Potassium 4.8 mmol/L (3.5-5.1); Sodium 128 mmol/L (135-145); Total Protein 6.5 g/dl (6.3-8.2); eGFR 13.65
--- NOTE | 2024-10-06 10:42 | W.PN.NEPH.HD ---
Assessment
-
Seen on dialysis stable ultrafiltration 3.5 L continue midodrine
Progress Note - Hemodialysis
-
Date of Service: October 06, 2024
Duration: 30 minutes and 3 hours
Potassium Bath: 2
Calcium Bath: 2.5
Opti-Dialyzer: 160
Ultrafiltration: Other (3kg)
Blood Flow: 350
Dialysate Flow: 600
Heparin: 0
EPO: 0
[2024-10-06] MEDS: HEPARIN 5100 UNITS INTRACATH (11:28)
[2024-10-06] MEDS: SENOKOT-S 1 TABLET PO ×2 (12:25→20:08)
[2024-10-06] MEDS: VITAMIN B-12 1000 MCG PO (12:26)
--- NOTE | 2024-10-06 13:20 | PTCARENOTE ---
Pt's assessment as documented. Tolerated HD. Levo titrated per protocol to keep map over 65, see intervention. NSR with PVC's on tele monitor. Sating low 90's on 5L NC. Ringing appropriately, call zapata within reach.
--- NOTE | 2024-10-06 14:06 | PTCARENOTE ---
Addendum entered by Callie Gaytan 10/06/24 15:03:
Pt to [facility] for PICC placement.
Original Note:
IVT at bedside to exchange midline for PICC.
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
--- NOTE | 2024-10-06 17:25 | PTCARENOTE ---
Per [facility], PICC placed under fluro- okay to use. Levo switched to PICC.
[2024-10-06] MEDS: LIPITOR 40 MG PO (17:32)
[2024-10-06] MEDS: PROTONIX 40 MG PO (20:08)
[2024-10-06] MEDS: NEURONTIN 200 MG PO (20:09)
--- NOTE | 2024-10-06 21:38 | PTCARENOTE ---
patient has upper right and upper left arm restrictions. BPs are taken on legs. Cannot get good reading with bp on leg, CERTIFIED ORTHOTIC FITTER made aware. Manual taken and was 94/58 map of 70. Levo at 5.
[2024-10-07] VITALS (29 sets, daily range): BP systolic 61–140; BP diastolic 20–85; BMI 32.6
[2024-10-07] MEDS: ProAmatine 10 MG PO ×3 (01:59→17:39)
[2024-10-07 03:40] LABS: % Basophils 1.2 % (0-2); % Eosinophils 1.2 % (0-6); % Immature Granulocytes 0.6 % (0-0.5); % Lymphocytes 11.2 % (20.5-51.1); % Monocytes 13.6 % (1.7-9.3); % Neutrophils 72.2 % (42.2-75.2); Absolute Basophils 0.1 10^3/uL (0-0.2); Absolute Eosinophils 0.1 10^3/uL (0-0.7); Absolute Lymphocytes 0.8 10^3/uL (1.2-3.4); Absolute Monocytes 0.9 10^3/uL (0.1-0.6); Absolute Neutrophils 4.8 10^3/uL (1.4-6.5); Hematocrit 29.8 % (39.0-52.0); Hemoglobin 9.3 g/dL (13.0-18.0); Mean Corp Hgb Conc. 31.2 g/dL (33.0-37.0); Mean Corpuscular Hgb 31.5 pg (27.0-31.0); Mean Platelet Volume 9.9 fL (7.4-10.4); Nucleated Red Blood Cells % 0 % (-); Platelet Count 176 10^3/uL (130-400); Red Blood Cell Count 2.95 10^6/uL (4.70-6.10); Red Cell Dist. Width 16.1 % (11.5-14.5); White Blood Cell Count 6.7 10^3/uL (4.8-10.8)
[2024-10-07 04:06] LABS: ALT (SGPT) 11 U/L (0-50); AST (SGOT) 16 U/L (17-59); Albumin 3.3 g/dl (3.5-5.0); Alkaline Phosphatase 120 U/L (38-126); Blood Urea Nitrogen 22 mg/dl (9-20); Calcium 9.1 mg/dl (8.4-10.2); Carbon Dioxide 29 mmol/L (22-30); Chloride 94 mmol/L (98-107); Estimated Creatinine Clearance 20 ml/min; Glucose 198 mg/dl (70-99); Potassium 4.4 mmol/L (3.5-5.1); Sodium 129 mmol/L (135-145); Total Bilirubin 0.9 mg/dl (0.2-1.3); Total Protein 5.9 g/dl (6.3-8.2); eGFR 20.68
[2024-10-07] MEDS: LEVOPHED 250 IV ×2 (05:34→23:36)
[2024-10-07] MEDS: DULCOLAX 10 MG RECTAL (06:09)
--- NOTE | 2024-10-07 06:13 | PTCARENOTE ---
patient complaining of constipation and discomfort, prn suppository given.
[2024-10-07] MEDS: ZOSYN 50 IV (08:00)
[2024-10-07] MEDS: NEURONTIN 100 MG PO (08:02)
[2024-10-07] MEDS: PHOSLO 1334 MG PO ×3 (08:02→17:49)
[2024-10-07] MEDS: ASPIR LOW (ENTERIC COATED) 81 MG PO (08:02)
[2024-10-07] MEDS: ZYLOPRIM 100 MG PO (08:02)
[2024-10-07] MEDS: MIRALAX 17 GRAMS PO (08:02)
[2024-10-07] MEDS: VITAMIN B-12 1000 MCG PO (08:03)
[2024-10-07] MEDS: HEPARIN 5000 UNITS SC (08:03)
[2024-10-07] MEDS: SENOKOT-S 1 TABLET PO ×2 (08:03→20:36)
--- NOTE | 2024-10-07 08:25 | PN.CDI ---
CDI
- -
CDI:
Physician Documentation Request
Admit Date: 10/03/24 23:11
Dear Doctor Isabel,
Please review the following and provide your response in the progress notes.
Clinical Indicators:
- Patient admit with shortness of breath after dialysis
- 10/03 H&P 'fluid overloaded with 10 pound wt gain with leg edema +3 edema from lower legs up to mons pubis area'
- pmh ESRD and HFpEF on midodrine
- 10/06 PN indicates shock
Laboratory Tests
10/03/24
18:09
Mxm-Q-Eomkhavjzmr Pept > 81086
Please clarify which of the following accurately represents the acuity of the HFpEF
Acute on chronic HFpEF
Chronic HFpEF
Other (please specify)
Use of terms such as suspected, likely, concern for, or probable (associated with a specific diagnosis that is being evaluated, monitored, or treated as if it exists) are acceptable and can be coded in the inpatient setting, when documented at the
time of discharge.
Thank you,
Travis Degroot RN
CDI Specialist
Please use your independent medical judgment in providing your response.
--- NOTE | 2024-10-07 09:05 | W.PN.HOSP.TC ---
Today's Communication/Plan
-
Stop antibiotics
Abdominal ultrasound
Assessment / Plan
Assessment / Plan
Gen-AAOx3, NAD
HEENT-NC, AT, anicteric, clear oral mm
Neck-supple
CV-reg, no M, +S1/S2
Lungs-clear B/L
Abd-soft, NT, mild distention
Ext-1+ bilateral lower extremity edema, hyperpigmentation
Musculoskeletal-no cyanosis, clubbing
Skin-warm and dry
Neuro-grossly non-focal
Psych-calm, cooperative
Shock -improved on vasopressors. I am not convinced that he has septic shock. Difficult to assess volume status but may be intravascularly depleted with third spacing. Did not meet any SIRS criteria on presentation. Procalcitonin unreliable in
the setting of ESRD. Blood cultures negative. At baseline patient runs hypotensive according to him.
-Wean Levophed, continue midodrine. I do not believe his blood pressures are accurate as we cannot use left upper extremity due to AV fistula, cannot use right upper extremity due to PICC line, we are left with lower extremity pressures which are
unreliable.
-Reportedly recently bolus to [facility] for pneumonia/influenza. Has had a cough since. Patient states cough has improved since admission to our hospital.
COVID/influenza negative.
Chest x-ray 10/06 demonstrates improvement in the right basilar opacity. Left basilar opacification obscured by left hemidiaphragm.
Clinically doubt pneumonia. Will hold further antibiotics and observe closely.
Acute on chronic hypoxic respiratory failure -suspect related to pulmonary edema due to ESRD, possible component of acute on chronic heart failure.
Currently on 5 L nasal cannula oxygen.
- wean O2 to 2L baseline as able.
ESRD on HD M/W/F
- Nephrology following
- s/p UF today (3kg) on 10/04
Hyponatremia, acute
- monitor
Acute nonischemic myocardial injury in setting of sepsis in ESRD patient
- trop peaked .039
CAD/CABG x 3 vessel
- continue BB/Statin
- patient reports not being on ASA
Acute on chronic HFpEF -weight appears to be down 1.5 kg overnight. Continue hemodialysis. Still looks volume overloaded with bilateral lower extremity edema.
Check abdominal ultrasound as patient states he has had paracentesis in the past.
Permanent A. Fib
- per records, taken off Coumadin and patient himself reports not on ASA
I managed to contact his shelter physician (Dr. Lanie Salinas, ) and she states that she will call me back with information regarding his warfarin.
COPD without exacerbation -uses 2 L nasal cannula oxygen at home chronically. Currently on [facility]. He is
- Continue lev albuterol 2.5 mL every 4 hours as needed shortness of breath
Chronic anemia of CKD
- Hb appears baseline
Peripheral neuropathy
- continue gabapentin 100 mg in a.m., 200 mg at bedtime
GERD
- continue omeprazole 20 mg at bedtime
HLD
- no currrent meds
BOBBY noncompliant CPAP
Pulm HTN
Obesity due to excess calories
Vit B12 deficiency
- continue B12 supplement
Gout
- continue allopurinol 100 mg daily
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
DVT ppx: SC heparin
Full code
Dispo -PT/OT to be consulted. Patient prefers to go home from the hospital, not interested in going back to his shelter. His grandson stays with him in the house but grandson does work full-time. Does not appear to be a safe discharge,
discussed with patient. Will ask case management to intervene.
Anticipated Discharge: 24 - 48 hours
Subjective/Interval History
-
Date of Service: October 07, 2024
Patient seen and examined. No new complaints.
Objective Data
-
Labs:
Laboratory Results
10/07/24
03:32
WBC 6.7
Hgb 9.3 L
Hct 29.8 L
Plt Count 176
Sodium 129 L
Potassium 4.4
Chloride 94 L
Carbon Dioxide 29
BUN 22 H
Creatinine 2.9 H
Glucose 198 H
Calcium 9.1
Total Bilirubin 0.9
AST 16 L
ALT 11
Alkaline Phosphatase 120
Vital Signs:
Vital Signs
Temp Pulse Resp BP Pulse Ox
97.8 F 96 29 86/23 97
10/07/24 07:54 10/07/24 08:11 10/07/24 08:11 10/07/24 08:11 10/07/24 01:00
I&O
10/06/24 10/07/24 10/08/24
06:59 06:59 06:59
Intake Total 530 / 530
Balance 530 / 530
Review of Systems
-
History Source: Patient
All other systems: Reviewed and negative
--- NOTE | 2024-10-07 09:43 | PTCARENOTE ---
Low BP noted, pt AAOx3, asymptomatic- adjusted Levophed gtt - HD RN came and checking BP on HD noted much higher . Will taper Levo per HD VS.
--- NOTE | 2024-10-07 10:54 | W.PN.NEPH.HD ---
Assessment
-
Patient seen on dialysis extra ultrafiltration only today 2 L blood pressure stable
Dialysis again tomorrow
Progress Note - Hemodialysis
-
Date of Service: October 07, 2024
Duration: 30 minutes and 3 hours
Potassium Bath: 2
Calcium Bath: 2.5
Opti-Dialyzer: 160
Ultrafiltration: Other (3kg)
Blood Flow: 350
Dialysate Flow: 600
Heparin: 0
EPO: 0
--- NOTE | 2024-10-07 11:58 | CM ---
Patient with Hx ESRD on HD with Dx Acute on chronic hypoxic respiratory failure. O2 5L. PICC. Receiving Levophed gtt, midodrine. Receiving HD today.
Spoke with Frida Hutton [facility] ([phone] x [phone]); they are interested in the patient however he would need to provide his own transport to his HD Center for dialysis.
Spoke with Micheline, patient's daughter; she would be interested in [facility] however there is no one available in the family who can provide transport at this time to HD, and daughter is home sick with the flu.
Met with patient and spoke with Micheline about [facility]; both agree to this SNF as they do in-house HD.
Spoke with [facility]; they are able to accept. HD flow sheets need to be faxed to them at [phone] and they will forward them to [facility] (sent).
Plan [facility] when medically ready.
--- NOTE | 2024-10-07 14:45 | PTCARENOTE ---
BP were not correlating with HD- Dinamap used and better readings obtained- manually entering into vs and Levophed flow sheet. Timeful came and recalibrated X2 box- will monitor
[2024-10-07] MEDS: LIPITOR 40 MG PO (17:39)
[2024-10-07] MEDS: COUMADIN 3 MG PO (17:40)
--- NOTE | 2024-10-07 18:44 | PTCARENOTE ---
BP reading more accurate since calibrated- right calf reg cuff. Remains on Levo IV at 4mcg keeping maps >65 via PICC right arm. LAV fistula weak thrill noted. Appetite good. US requested portably d/t levo and inaccurate BP.
[2024-10-07] MEDS: NEURONTIN 200 MG PO (20:37)
[2024-10-07] MEDS: PROTONIX 40 MG PO (20:37)
--- NOTE | 2024-10-07 22:41 | PTCARENOTE ---
Abdominal Ultrasound down at bedside without issue. Patient resting in bed with call zapata in reach.
--- NOTE | 2024-10-07 23:42 | PTCARENOTE ---
Addendum entered by Deisy Hoang RN 10/07/24 23:43:
bp of 128/39 with a map of 69
Original Note:
patient bp low on monitor, bp being taken onleg due to upper extremities restrictions. Took bp using dinamap and got 128/39 with a map of 60
[2024-10-08] VITALS (19 sets, daily range): BP systolic 84–135; BP diastolic 23–82; BMI 31.8
[2024-10-08] MEDS: ProAmatine 10 MG PO ×3 (02:47→17:31)
--- NOTE | 2024-10-08 04:23 | DOWNTIME ---
There was a [employer] Manager Downtime on 10/08/2024 from 0100 to 10/09/2023 at 0420 . Downtime documentation of patient's care, including medication administrations, has been reconciled in the electronic record per guidelines. Refer to the
patient's paper chart under the miscellaneous tab to see printed paper medication records and downtime forms.
--- NOTE | 2024-10-08 04:28 | PTCARENOTE ---
Taking bp with dinamap on left calf every hour and entering manually. maps have sustained over 65. Levo still at 4.
[2024-10-08 05:13] LABS: INR 1.29; PT 16.3 Sec (11.4-14.6)
[2024-10-08 05:18] LABS: % Basophils 1.1 % (0-2); % Eosinophils 1.3 % (0-6); % Immature Granulocytes 0.9 % (0-0.5); % Lymphocytes 12.1 % (20.5-51.1); % Monocytes 13.7 % (1.7-9.3); % Neutrophils 70.9 % (42.2-75.2); Absolute Basophils 0.1 10^3/uL (0-0.2); Absolute Eosinophils 0.1 10^3/uL (0-0.7); Absolute Immature Granulocytes 0.1 10^3/uL (0-0.05); Absolute Lymphocytes 0.9 10^3/uL (1.2-3.4); Absolute Neutrophils 5.3 10^3/uL (1.4-6.5); Hematocrit 31.4 % (39.0-52.0); Hemoglobin 9.6 g/dL (13.0-18.0); Mean Corp Hgb Conc. 30.6 g/dL (33.0-37.0); Mean Corpuscular Hgb 31.1 pg (27.0-31.0); Mean Corpuscular Volume 101.6 fL (80.0-94.0); Mean Platelet Volume 9.8 fL (7.4-10.4); Nucleated Red Blood Cells % 0 % (-); Platelet Count 207 10^3/uL (130-400); Red Blood Cell Count 3.09 10^6/uL (4.70-6.10); White Blood Cell Count 7.4 10^3/uL (4.8-10.8)
[2024-10-08 05:29] LABS: ALT (SGPT) < 10 U/L (0-50); AST (SGOT) 14 U/L (17-59); Albumin 3.3 g/dl (3.5-5.0); Alkaline Phosphatase 118 U/L (38-126); Blood Urea Nitrogen 28 mg/dl (9-20); Calcium 9.6 mg/dl (8.4-10.2); Carbon Dioxide 25 mmol/L (22-30); Chloride 93 mmol/L (98-107); Estimated Creatinine Clearance 16 ml/min; Glucose 196 mg/dl (70-99); Potassium 4.5 mmol/L (3.5-5.1); Sodium 129 mmol/L (135-145); Total Bilirubin 0.8 mg/dl (0.2-1.3); eGFR 15.44
[2024-10-08] MEDS: PHOSLO 1334 MG PO ×2 (08:05→17:31)
[2024-10-08] MEDS: VITAMIN B-12 1000 MCG PO (08:05)
[2024-10-08] MEDS: ASPIR LOW (ENTERIC COATED) 81 MG PO (08:05)
[2024-10-08] MEDS: MIRALAX 17 GRAMS PO (08:05)
[2024-10-08] MEDS: SENOKOT-S 1 TABLET PO ×2 (08:06→20:45)
[2024-10-08] MEDS: ZYLOPRIM 100 MG PO (08:06)
[2024-10-08] MEDS: NEURONTIN 100 MG PO (08:06)
--- NOTE | 2024-10-08 08:39 | W.PN.HOSP.TC ---
Addendum entered and electronically signed by Mal Hall DO 10/08/24 13:38:
Paracentesis completed, 4.9 L of fluid removed. IV albumin ordered.
Echocardiogram completed, LVEF 42%, RV dilation with reduced systolic function, biatrial enlargement, mild to moderate MR. Moderate to severe TR. I requested previous echocardiogram from patient's diver's tender, Dr. Diamond.
Will check CT chest to rule out pulm embolism. Nephrology okay with contrast exposure.
Original Note:
Today's Communication/Plan
-
IR consult
Echo
Assessment / Plan
Assessment / Plan
Gen-AAOx3, NAD
HEENT-NC, AT, anicteric, clear oral mm
Neck-supple
CV-reg, no M, +S1/S2, rub
Lungs-clear B/L
Abd-soft, NT, mild distention
Ext-1+ bilateral lower extremity edema, hyperpigmentation
Musculoskeletal-no cyanosis, clubbing
Skin-warm and dry
Neuro-grossly non-focal
Psych-calm, cooperative
Shock -improved on vasopressors. I am not convinced that he has septic shock. Difficult to assess volume status but may be intravascularly depleted with third spacing. Did not meet any SIRS criteria on presentation. Procalcitonin unreliable in
the setting of ESRD. Blood cultures negative. At baseline patient runs hypotensive according to him.
-Wean Levophed, continue midodrine. I do not believe his blood pressures are accurate as we cannot use left upper extremity due to AV fistula, cannot use right upper extremity due to PICC line, we are left with lower extremity pressures which are
unreliable.
-Reportedly recently bolus to [facility] for pneumonia/influenza. Has had a cough since. Patient states cough has improved since admission to our hospital.
COVID/influenza negative.
Chest x-ray 10/06 demonstrates improvement in the right basilar opacity. Left basilar opacification obscured by left hemidiaphragm.
Clinically doubt pneumonia. Will hold further antibiotics and observe closely.
Acute on chronic hypoxic respiratory failure -suspect related to pulmonary edema due to ESRD, possible component of acute on chronic heart failure.
Currently on 5 L nasal cannula oxygen.
- wean O2 to 2L baseline as able.
ESRD on HD M/W/F
- Nephrology following
- s/p UF today (3kg) on 10/04
Hyponatremia, acute
- monitor
Acute nonischemic myocardial injury in setting of sepsis in ESRD patient
- trop peaked .039
CAD/CABG x 3 vessel
- continue BB/Statin
- patient reports not being on ASA
Acute on chronic HFpEF -weight trending down, 89 kg today. Continue hemodialysis. Still looks volume overloaded with bilateral lower extremity edema.
Abdominal ultrasound confirms moderate to large amount of ascites. Consult IR for paracentesis.
Check Echo.
Permanent A. Fib
- per records, taken off Coumadin and patient himself reports not on ASA
I managed to contact his snf physician (Dr. Lanie Salinas, ) and she states that when the patient came to the snf from the hospital he was not discharged on warfarin for unclear reasons. Patient denies bleeding
history. Warfarin resumed in the hospital now. Monitor INR.
COPD without exacerbation -uses 2 L nasal cannula oxygen at home chronically. Currently on [facility]. He is
- Continue lev albuterol 2.5 mL every 4 hours as needed shortness of breath
Chronic anemia of CKD
- Hb appears baseline
Peripheral neuropathy
- continue gabapentin 100 mg in a.m., 200 mg at bedtime
GERD
- continue omeprazole 20 mg at bedtime
HLD
- no currrent meds
BOBBY noncompliant CPAP
Pulm HTN
Obesity due to excess calories
Vit B12 deficiency
- continue B12 supplement
Gout
- continue allopurinol 100 mg daily
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
DVT ppx: SC heparin
Full code
Dispo -SNF when medically stable.
Anticipated Discharge: > 48 hours
Subjective/Interval History
-
Date of Service: October 08, 2024
Patient seen and examined. Complaining of abdominal distention. Shortness of breath.
Objective Data
-
Labs:
Laboratory Results
10/08/24
04:39
WBC 7.4
Hgb 9.6 L
Hct 31.4 L
Plt Count 207
PT 16.3 H
INR 1.29
Sodium 129 L
Potassium 4.5
Chloride 93 L
Carbon Dioxide 25
BUN 28 H
Creatinine 3.7 H
Glucose 196 H
Calcium 9.6
Total Bilirubin 0.8
AST 14 L
ALT < 10
Alkaline Phosphatase 118
Vital Signs:
Vital Signs
Temp Pulse Resp BP Pulse Ox
97.7 F 93 23 109/49 97
10/08/24 06:37 10/08/24 08:00 10/08/24 08:00 10/08/24 08:31 10/08/24 08:00
I&O
10/07/24 10/08/24 10/09/24
06:59 06:59 06:59
Intake Total 530 / 530 240 / 240
Balance 530 / 530 240 / 240
Review of Systems
-
History Source: Patient
All other systems: Reviewed and negative
[2024-10-08 10:50] LABS: Body Fluid Mononuclear 62.3 %; Body Fluid Polymorphonuclear 37.7 %; Body Fluid WBC 435 /CUMM
[2024-10-08 10:55] LABS: Body Fluid Second Tech AMA
--- NOTE | 2024-10-08 11:17 | PTCARENOTE ---
Late entry: 0840 Escorted via bed to IRAD, remains on Levophed at 3mcg, MAP 69- O2 at 5L NC sao2 93%, slightly labored breathing this am, RR26-30, diminished throughout. AF/ frequent ectopy -couplets/ bigeminy/ trigeminy/ MF PVCs. Handoff to
Vipra in IRAD.
1110 Escorted with Vipra back to 3347. Sleepy, arouses with stimulation- BP 114/52 MAP 73. Unchanged on tele. Pox 95% on 5L- failed attempted to wean 89% on 3-4L). Will encourage pulm toileting. Strong harsh moist prod cough noted- uses
Cristiana to expectorate at times. Echo being done bedside- HD scheduled for noon today.
[2024-10-08 11:28] LABS: Body Fluid Albumin 1.7 g/dl; Body Fluid LDH < 90 U/L; Body Fluid Protein 3.4 g/dl
[2024-10-08] MEDS: PHOSLO PO (12:02)
[2024-10-08] MEDS: FLEXBUMIN 100 IV (12:34)
[2024-10-08 13:08] LABS: Glucose - Point of Care 160 mg/dl (70-99)
--- NOTE | 2024-10-08 14:22 | CON.CAR ---
Addendum entered and electronically signed by Everett Briggs MD 10/08/24 16:53:
I saw and examined the patient.
The Manager Training's note was reviewed and I agree with the note.
Comment: Briefly, 84-year-old man past medical history of ischemic cardiomyopathy with prior CABG in 2014, permanent atrial fibrillation on warfarin and end-stage renal disease on dialysis who was brought in from his rehab facility with worsening
dyspnea and cough admitted for volume overload which has been managed with paracentesis as well as aggressive hemodialysis.
Transthoracic echocardiogram checked yesterday with mildly reduced left ventricular systolic function, dilated and hypokinetic right ventricle and severely elevated PA systolic pressures
Unfortunately GDMT for systolic heart failure is severely limited given his marginal blood pressure, patient is currently requiring pressor support with norepinephrine as well as midodrine 10 mg 3 times daily
Recommend aggressive volume removal via dialysis as planned
Continue aspirin and high intensity statin given known CAD
Resume warfarin for permanent atrial fibrillation, INR has been subtherapeutic here
Should follow-up with his primary registered nurse maternal child at [facility] following discharge
Original Note:
Consultation
Consultation Request
Date/Time Consultation Performed: 10/08/24
Requesting Provider: Dr. Hall
Performing Provider: Adia Medley PA-C for Dr. Briggs
Reason for Consultation: CHF
Medical History
-
Chief Complaint: SOB
History of Present Illness:
Patient is an 84 yo M with PMH of CAD s/p CABG 2014, permanent atrial fibrillation on chronic coumadin therapy, right sided heart failure, HTN, untreated BOBBY, HLD, DM2, ESRD on HD for ~2 years. He reports he has had 2 recent admissions to [facility]. Initial was for influenza A and he was sent to a rehab facility in [place], however then readmitted with continued respiratory issues. He was then discharged to [facility] for further rehab. After dialysis on Tuesday 10/03 he
developed significant shortness of breath and cough and was sent to [facility] ER and admitted. proBNP greater than 27,000. Also had significant ascites and underwent paracentesis for 4900 cc earlier today. Cardiology consulted for
evaluation. Currently requiring midodrine 10 mg every 8 hours and levo at 3. Echo completed this admission with EF 42%.
PMH:
CAD status post CABG x 3 03/2015 DIGNA, SVG�[id number]
Permanent atrial fibrillation
Chronic Coumadin therapy
Chronic right-sided heart failure with pulmonary hypertension
Hypertension
Hyperlipidemia
Type 2 diabetes
History of bradycardia on metoprolol during dialysis
Untreated obstructive sleep apnea
ESRD on hemodialysis, approximately 2 years
Chronic venous insufficiency
History of falls
Past Medical History
Past Medical History: Other (in HPI)
Social History
Tobacco: Former Smoker
Alcohol: None
Living: [facility] (SNF post recent hospitalizations)
Employment: Retired
Family History
Family History: Reviewed & Not Pertinent
Allergies / Home Medications
Allergy/AdvReac Type Severity Reaction Status Date / Time
No Known Allergies Allergy Unverified 03/25/15 08:48
�Medication �Instructions �Recorded �Confirmed �Type
atorvastatin 40 mg tablet 40 mg PO QPM High Cholesterol 03/09/15 10/03/24 History
omeprazole 20 mg capsule,delayed 20 mg PO HS Gastrointestinal Issue 03/09/15 10/03/24 History
release
acetaminophen 325 mg tablet 650 mg (2 x 325 mg) PO Q6HPRN PRN 04/01/15 10/03/24 Rx
mild pain/fever ##0
aspirin 81 mg tablet,delayed 81 mg PO DAILY ##0 04/01/15 10/03/24 Rx
release
allopurinol 100 mg tablet 100 mg PO DAILY Gout 10/03/24 10/03/24 History
bisacodyl 10 mg rectal suppository 10 mg WA DAILYPRN PRN constipation 10/03/24 10/03/24 History
if sorbitol is ineffective
calcium acetate 667 mg tablet 1,334 mg PO MEALS Supplement 10/03/24 10/03/24 History
cyanocobalamin (vitamin B-12) 1,000 mcg PO DAILY Supplement 10/03/24 10/03/24 History
1,000 mcg tablet
gabapentin 100 mg capsule 100 mg PO DAILY Pain 10/03/24 10/03/24 History
gabapentin 100 mg capsule 200 mg PO HS Pain 10/03/24 10/03/24 History
ipratropium bromide 0.02 % 2.5 ml inhalation R Q4HPRN PRN sob 10/03/24 10/03/24 History
solution for inhalation
levalbuterol HCl 1.25 mg/3 mL 1.25 mg inhalation R Q8HPRN PRN sob 10/03/24 10/03/24 History
solution for nebulization
metoprolol tartrate 25 mg tablet 25 mg PO BID Heart 10/03/24 10/03/24 History
Disease/Condition
midodrine 10 mg tablet 10 mg PO MOWEFR Blood Pressure 10/03/24 10/03/24 History
midodrine 10 mg tablet 10 mg PO Q2HPRN PRN hypotension 10/03/24 10/03/24 History
during dialysis
sennosides 8.6 mg tablet (senna) 8.6 mg PO DAILY Constipation 10/03/24 10/03/24 History
sodium chloride 3 % for 4 ml inhalation R DAILYPRN PRN sob 10/03/24 10/03/24 History
nebulization
sodium phosphates 19 gram-7 118 ml WA DAILYPRN PRN if 10/03/24 10/03/24 History
gram/118 mL enema (Fleet Enema) suppository is ineffective
sorbitol 70 % solution 30 ml PO [id number] PRN if no bm x3 10/03/24 10/03/24 History
days
Review of Systems
-
History Source: Patient
All other systems: Negative unless noted
Physical Exam
Vital Signs
Temp Pulse Resp BP Pulse Ox
97.6 F 94 22 114/52 98
10/08/24 09:25 10/08/24 10:29 10/08/24 10:29 10/08/24 11:12 10/08/24 10:15
Lab Results
10/08/24 04:39
10/08/24 04:39
Troponin I 0.032 ng/ml 10/04/24 01:52
Mub-X-Pdohzefffsh Pept > 93497 pg/ml 10/03/24 18:09
Physical Exam
General: Other (lethargic. on supp O2. chronically ill appearing. on HD)
HEENT: Normocephalic, Anicteric and Moist Mucous Membranes
Respiratory: Crackles (at bases) and Non Labored Respirations
Cardiac: S1/S2 and Irregular Rhythm
GI: Soft, Non Tender, Non Distended and Normal Bowel Sounds
Musculoskeletal: No Clubbing, No Cyanosis and Edema (4+ edema to level of thighs B/L)
Skin: Warm, Dry and Other (L chest HD catheter)
Neuro: AO x 3
Impression / Plan
-
Primary Middleware Developer: Dr. Diamond of [facility]
Assessment:
Presentation with SOB
Acute HFrEF
Cardiomyopathy EF 42%
Chronic right-sided heart failure with pulmonary hypertension
Ascites s/p paracentesis for 4900cc 10/08/24
CAD status post CABG x 3 03/2015 BARRERA�LAD, SVG�OM1�OM2
Permanent atrial fibrillation
Chronic Coumadin therapy
Hypertension
Hyperlipidemia
Type 2 diabetes
History of bradycardia on metoprolol during dialysis
Untreated obstructive sleep apnea
ESRD on hemodialysis, approximately 2 years
Chronic venous insufficiency
Anemic of chronic disease
History of falls
Hyponatremia
Gout
Several admissions to [facility] in last several months by patient report, further details unknown
Echo 11/27/2023 at [facility]: EF 50 to 55%, severe RV dysfunction, moderate , severe TR, RVSP 64 mmHg, small pericardial effusion
ECHO 10/08/24: EF 42%, septal flattening due to RV pressure and volume overload, RV dilated, biatrial enlargement, mild to moderate MR, aortic sclerosis, moderate to severe TR, PASP 65 mmHg, mildly dilated ascending aorta 4.0 cm
Plan:
-Patient presented due to significant shortness of breath and coughing after HD completed on 10/03/2024
-proBNP greater than 27,000. Attempting aggressive ultrafiltration through dialysis. Medically complex as hypotension limiting this, currently on midodrine 10 mg every 8 hours as well as Levophed at 3
-also underwent paracentesis for 4900cc 10/08/24. awaiting fluid analysis
-Etiology of hypotension unclear. Several admissions to [facility] in last several months, initially for flu, then for ongoing respiratory issues. Would attempt to obtain records for review.
-Echocardiogram with results as above, EF newly reduced at 42%. Hypotension and end-stage renal disease significantly limit guideline directed medical therapy
-Troponin peaked at 0.039 on admission and downtrending. Patient without chest pain. does not presently appear to be a candidate for procedures/interventions such as cardiac cath
-He has permanent atrial fibrillation with frequent ectopy versus aberrancy on review of telemetry. Heart rates presently adequately controlled off outpatient lopressor 25mg BID. K stable. check mag
-Continue aspirin, Coumadin. INR today 1.29. will give 5mg coumadin tonight
-continue statin
-records obtained and reviewed from [facility] including last office note and EKG 04/28/24, last echo 11/27/23
-presently a full code
-d/w nursing, nephrology
Data Reviewed
-
EKG: Tracing Personally Visualized and interpreted
Medical Tests (Nuc Med, Echo etc): Report Reviewed by me
Labs: Labs Reviewed by me
Old Records: Requested and Reviewed
[2024-10-08] MEDS: RETACRIT 8000 UNITS IV (14:23)
--- NOTE | 2024-10-08 14:25 | W.PN.NEPH.HD ---
Assessment
-
Seen on HD. remains on levophed. VSS with ectopy. Access tunnelled CVC ok
Progress Note - Hemodialysis
-
Date of Service: October 08, 2024
Duration: 30 minutes and 3 hours
Potassium Bath: 3
Calcium Bath: 2.5
Opti-Dialyzer: 160
Ultrafiltration: Other (2.5)
Blood Flow: 400
Dialysate Flow: 600
Heparin: no
EPO: 8000 units
--- NOTE | 2024-10-08 14:27 | W.PN.NEPH.PH ---
Today's Communication / Plan
-
UF tomorrow
Assessment/Plan
-
Assessment
ESRD
Volume overload
Shortness of breath
Hypotension
Heart failure preserved EF
Coronary artery disease
Plan
Dialysis today, UF as allowed
Maintain Levophed for hypotension
Plan for ultrafiltration again tomorrow
He is volume overloaded, is uncertain whether or not this is because of inability to pull fluid off during outpatient dialysis or if there is a new issue
Check CT of the abdomen and pelvis given significant ascites that may not be entirely from heart failure
For CT chest PE protocol as well
IV albumin
Prognosis guarded
Critical care time spent 31 minutes
-
-
Date of Service: October 08, 2024
CC / HPI / ROS
-
Chief Complaint:
ESRD
History of Present Illness:
Tolerated ultrafiltration yesterday
BP remains low, on Levophed drip still
Critically ill
Hemoglobin stable 9.6
Remains on supplemental oxygen
s/p LVP /18 for 4.9L
Review of Systems:
No chest pain, no fever
ectopy on HD
Labs
-
Labs:
WBC 7.4 10^3/uL (4.8-10.8) 10/08/24 04:39
RBC 3.09 10^6/uL (4.70-6.10) L 10/08/24 04:39
Hgb 9.6 g/dL (13.0-18.0) L 10/08/24 04:39
Hct 31.4 % (39.0-52.0) L 10/08/24 04:39
Plt Count 207 10^3/uL (130-400) 10/08/24 04:39
Sodium 129 mmol/L (135-145) L 10/08/24 04:39
Potassium 4.5 mmol/L (3.5-5.1) 10/08/24 04:39
Chloride 93 mmol/L (98-107) L 10/08/24 04:39
Carbon Dioxide 25 mmol/L (22-30) 10/08/24 04:39
BUN 28 mg/dl (9-20) H 10/08/24 04:39
Creatinine 3.7 mg/dL (0.7-1.3) H 10/08/24 04:39
eGFR 15.44 10/08/24 04:39
Glucose 196 mg/dl (70-99) H 10/08/24 04:39
Calcium 9.6 mg/dl (8.4-10.2) 10/08/24 04:39
Phosphorus 3.2 mg/dl (2.5-4.5) 10/04/24 04:55
Qqs-K-Onekuagtrsx Pept > 50092 pg/ml 10/03/24 18:09
Albumin 3.3 g/dl (3.5-5.0) L 10/08/24 04:39
Physical Exam
-
Vital Signs:
Vital Signs
Temp Pulse Resp BP Pulse Ox
97.6 F 94 22 114/52 98
10/08/24 09:25 10/08/24 10:29 10/08/24 10:29 10/08/24 11:12 10/08/24 10:15
[2024-10-08] MEDS: FLEXBUMIN 25% FOR HEMODIALYSIS 12.5 GRAMS IV (15:13)
[2024-10-08] MEDS: HEPARIN 4000 UNITS INTRACATH (16:38)
[2024-10-08] MEDS: LEVOPHED 250 IV (17:30)
[2024-10-08] MEDS: COUMADIN 5 MG PO (17:31)
[2024-10-08] MEDS: LIPITOR 40 MG PO (17:31)
--- NOTE | 2024-10-08 19:45 | PTCARENOTE ---
Received pt from shazia PEÑA. Pt aaox3. afib on monitor with frequent PVCs. 95% on 5L NC. Pt has harsh productive cough with thick yellow sputum, pt utilizes yankauer. Levo infusing @ 3mcg. Hygiene completed. Pt resting in bed with bed alarm on and
call zapata in reach.
--- NOTE | 2024-10-08 19:45 | PTCARENOTE ---
Completed HD this afternoon and then escorted to CT scan. Remains on 5L NC, tele unchanged. IV Levo remains at 3mcg. LAV fistula has weak thrill. LCW HD cath patent and used for HD. IV Albumin given as ordered post paracentesis. He is more
awake and alert this pm.
[2024-10-08] MEDS: DULCOLAX 10 MG RECTAL (20:45)
[2024-10-08] MEDS: PROTONIX 40 MG PO (20:45)
[2024-10-08] MEDS: NEURONTIN 200 MG PO (20:45)
[2024-10-09] VITALS (89 sets, daily range): BP systolic 72–147; BP diastolic 20–122; BMI 29.5
[2024-10-09] MEDS: ProAmatine 10 MG PO ×3 (02:07→16:56)
--- NOTE | 2024-10-09 03:21 | W.PN.UPDATE ---
Update Note
Progress Note Update
~ 23:30 Notified by RN, Pt w/ beat run Vtach while bearing down trying to have a bowel movement.
Denies any symptoms such as palpitations, chest discomfort, SOB. Ordered EKG and Mag in am. Continue to monitor.
--- NOTE | 2024-10-09 03:38 | PTCARENOTE ---
Pt had a 28 beat run of VTach. Pt resting in bed and stated he was bearing down. Pt is now afib on monitor with frequent PVCs. ANJANA Ansari made aware. Received Rx for EKG and Mg to drawn with morning labs.
--- NOTE | 2024-10-09 08:17 | PTCARENOTE ---
Patient is in afb with a lot of pvc's, discussed with Dr. Hall. Patient is asymptomatic receiving dialysis at this time.
--- NOTE | 2024-10-09 09:00 | W.PN.HOSP.TC ---
Addendum entered and electronically signed by Mal Hall DO 10/09/24 18:11:
Patient was discharged from [facility] on warfarin 1.5 mg daily. I reviewed discharge records.
Unclear why warfarin was not continued in [facility].
INR today is 1.73. He received 5 mg of warfarin last night. Will give 3 mg tonight and check INR tomorrow.
Addendum entered and electronically signed by Mal Hall DO 10/09/24 18:00:
We obtain records from [facility] in [facility].
Ralf was admitted to the hospital on September 17 for shortness of breath, discharged September 26. Diagnosed with pneumonia in both lower lobes. There is mention that family signed the patient out AGAINST MEDICAL ADVICE from the skilled rehab facility
prior to admission to the hospital.
There was mention of a recent admission September 02 for influenza A infection.
CTA of chest was performed, no pulmonary embolus noted. Small right pleural effusion, trace left pleural effusion. Bibasilar airspace consolidation suspicious for pneumonia. Possibly related to aspiration. Probable right-sided heart failure
noted, unchanged mild mediastinal lymphadenopathy that is probably reactive, unchanged moderate upper abdominal ascites not be related to right-sided heart failure. Probable pulmonary hypertension.
Echocardiogram demonstrated LVEF 50 to 55%. Diastolic flattening of the interventricular septum consistent with RV volume overload. Moderate to severe TR, mild MR. Aortic valve area 1.43 cm�. RV size is moderate to severely dilated with
moderately reduced systolic function.
His active problems were pneumonia both lower lobes, with other diagnoses including chronic atrial fibrillation, chronic ascites, type 2 diabetes, ESRD on dialysis, hyponatremia, chronic anemia, chronic hypoxic respiratory failure, nonsustained
ventricular tachycardia. He was seen by nephrology and cardiology.
Cardiology mentioned that he has frequent ventricular ectopy with PVCs, couplets, rare triplets. Treated with Lopressor. Received 1 dose of amiodarone but cardiology did not continue.
He did undergo paracentesis on September 25, 4.4 L removed. Fluid was clear yellow.
Addendum entered and electronically signed by Mal Hall DO 10/09/24 14:50:
Shock -possibly multifactorial etiology including cardiogenic. Doubt septic shock.
Original Note:
Today's Communication/Plan
-
Continue current care
Assessment / Plan
Assessment / Plan
Gen-AAOx3, NAD
HEENT-NC, AT, anicteric, clear oral mm
Neck-supple
CV-reg, no M, +S1/S2, rub
Lungs-clear B/L
Abd-soft, NT, less distention
Ext-1+ bilateral lower extremity edema, hyperpigmentation
Musculoskeletal-no cyanosis, clubbing
Skin-warm and dry
Neuro-grossly non-focal
Psych-calm, cooperative
Shock -improved on vasopressors. Still on low-dose Levophed, 3 mcg. I am not convinced that he has septic shock. Did not meet any SIRS criteria on presentation. Procalcitonin unreliable in the setting of ESRD. Blood cultures negative. At
baseline patient runs hypotensive according to him.
-Wean Levophed, continue midodrine. I do not believe his blood pressures are accurate as we cannot use left upper extremity due to AV fistula, cannot use right upper extremity due to PICC line, we are left with lower extremity pressures which are
unreliable.
-Reportedly recently bolus to [facility] for pneumonia/influenza. Has had a cough since. Patient states cough has improved since admission to our hospital. Records requested, so far no luck.
COVID/influenza negative.
Chest x-ray 10/06 demonstrates improvement in the right basilar opacity. Left basilar opacification obscured by left hemidiaphragm.
Clinically doubt pneumonia. Will hold further antibiotics and observe closely. CT chest completed and does not demonstrate definitive findings of pneumonia. Atelectasis noted in the bases.
Acute on chronic hypoxic respiratory failure -suspect related to pulmonary edema due to ESRD, possible component of acute on chronic heart failure.
Currently on 5 L nasal cannula oxygen. Wean down as able.
-At baseline he is on 2 L of oxygen chronically.
ESRD on HD M/W/F- Nephrology following
Weight is down to 83 kg today, admission weight was 92 kg. 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 5 L removed.
Hyponatremia, acute
- monitor
Acute nonischemic myocardial injury -due to acute illness.
- trop peaked .039
CAD/CABG x 3 vessel
- continue BB/Statin
- patient reports not being on ASA
Acute on chronic HFpEF -weight trending down, 83 kg today. Continue hemodialysis. Still looks volume overloaded with bilateral lower extremity edema.
Recurrent ascites -suspect etiology is driven by ESRD as well as right heart failure. Paracentesis completed. Patient states he has had 3 paracenteses in the past. Records requested.
4.9 L removed via paracentesis by IR. Fluid analysis consistent with transudative source, suspect due to cardiogenic etiology given significant RV dilation on echocardiogram with moderate/severe TR.
Cardiology following.
CT abdomen/pelvis completed with no obvious explanation for ascites. Incidental bilateral kidney masses noted. Differential diagnosis includes hyperdense cysts versus renal cell carcinoma. Findings discussed with patient's family and recommend
outpatient follow-up.
Permanent A. Fib
- per records, taken off Coumadin prior to admission for unclear reasons.
I managed to contact his [facility] physician (Dr. Lanie Salinas, ) and she states that when the patient came to the [facility] from the hospital he was not discharged on warfarin for unclear reasons. Patient denies bleeding
history. Warfarin resumed in the hospital now. Monitor INR.
Runs of asymptomatic ventricular tachycardia overnight. Electrolytes ordered and pending.
COPD without exacerbation -uses 2 L nasal cannula oxygen at home chronically. Currently on [facility]. He is
- Continue lev albuterol 2.5 mL every 4 hours as needed shortness of breath
Chronic anemia of CKD
- Hb appears baseline
Peripheral neuropathy
- continue gabapentin 100 mg in a.m., 200 mg at bedtime
GERD
- continue omeprazole 20 mg at bedtime
HLD
- no currrent meds
BOBBY noncompliant CPAP
Pulm HTN
Obesity due to excess calories
Vit B12 deficiency
- continue B12 supplement
Gout
- continue allopurinol 100 mg daily
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
DVT ppx: SC heparin
Full code
Dispo -SNF when medically stable.
Goals of care addressed with patient today and I gave him the option of hospice if he gets tired of fighting. This would mean he would have to discontinue dialysis. At this point in time he is not willing to do so and wants to continue active
treatment. We discussed that it is unlikely that we can manage to completely keep all his fluid off and I suspect that he will have recurrent ascites and will require recurrent paracentesis in the future.
At his age and his comorbidities including heart failure and ESRD his prognosis is poor. This was discussed with patient and family. Updated nephrology.
Updated patient's [id number] Micheline on the phone. All questions answered.
Anticipated Discharge: > 48 hours
Subjective/Interval History
-
Date of Service: October 09, 2024
Patient seen and examined. Denies shortness of breath. Complaining of diarrhea.
Objective Data
-
Labs:
Laboratory Results
10/09/24 10/09/24
06:00 07:54
WBC Pending
Hgb Pending
Hct Pending
Plt Count Pending
PT Pending
INR Pending
Sodium Pending
Potassium Pending
Chloride Pending
Carbon Dioxide Pending
Vital Signs:
Vital Signs
Temp Pulse Resp BP Pulse Ox
97.8 F 99 26 120/56 96
10/09/24 03:05 10/09/24 06:16 10/09/24 06:16 10/09/24 06:16 10/09/24 06:16
I&O
10/08/24 10/09/24 10/10/24
06:59 06:59 06:59
Intake Total 240 / 240 935.6 / 935.6
Output Total 0 / 0
Balance 240 / 240 935.6 / 935.6
Review of Systems
-
History Source: Patient
All other systems: Reviewed and negative
[2024-10-09 09:43] LABS: Hematocrit 32.9 % (39.0-52.0); Hemoglobin 9.9 g/dL (13.0-18.0); Mean Corp Hgb Conc. 30.1 g/dL (33.0-37.0); Mean Corpuscular Hgb 30.7 pg (27.0-31.0); Mean Corpuscular Volume 102.2 fL (80.0-94.0); Mean Platelet Volume 10.4 fL (7.4-10.4); Platelet Count 232 10^3/uL (130-400); Red Blood Cell Count 3.22 10^6/uL (4.70-6.10); Red Cell Dist. Width 16.4 % (11.5-14.5); White Blood Cell Count 9.3 10^3/uL (4.8-10.8)
--- NOTE | 2024-10-09 09:47 | W.PN.NEPH.PH ---
Today's Communication / Plan
-
UF
Assessment/Plan
-
Assessment
ESRD
Volume overload
Shortness of breath
Hypotension
Heart failure preserved EF
Coronary artery disease
Plan
Ultrafiltration today
Dialysis tomorrow
Maintain Levophed for hypotension increase to maintain mean arterial pressure
He is volume overloaded. The cause of his severe volume overload is uncertain. It does appear that this may be multifactorial as no individual issue can explain the severity of his volume retention
Check CT of the abdomen and pelvis given significant ascites that may not be entirely from heart failure
We will discuss with cardiology if catheterization has utility given his persistent ectopy
Prognosis guarded
Critical care time spent 31 minutes
-
-
Date of Service: October 09, 2024
CC / HPI / ROS
-
Chief Complaint:
ESRD
History of Present Illness:
Tolerated ultrafiltration yesterday
BP remains low, on Levophed drip still, dose increased on dialysis
Critically ill
Hemoglobin stable 9.9
Remains on supplemental oxygen
s/p LVP 3/18 for 4.9L
Prolonged VT overnight
Review of Systems:
No chest pain, no fever
ectopy on HD
Labs
-
Labs:
WBC 9.3 10^3/uL (4.8-10.8) 10/09/24 07:54
RBC 3.22 10^6/uL (4.70-6.10) L 10/09/24 07:54
Hgb 9.9 g/dL (13.0-18.0) L 10/09/24 07:54
Hct 32.9 % (39.0-52.0) L 10/09/24 07:54
Plt Count 232 10^3/uL (130-400) 10/09/24 07:54
BUN 28 mg/dl (9-20) H 10/08/24 04:39
Creatinine 3.7 mg/dL (0.7-1.3) H 10/08/24 04:39
eGFR 15.44 10/08/24 04:39
Glucose 196 mg/dl (70-99) H 10/08/24 04:39
Calcium 9.6 mg/dl (8.4-10.2) 10/08/24 04:39
Phosphorus 3.2 mg/dl (2.5-4.5) 10/04/24 04:55
Rjd-B-Nloxadvlwxd Pept > 09477 pg/ml 10/03/24 18:09
Albumin 3.3 g/dl (3.5-5.0) L 10/08/24 04:39
Physical Exam
-
Vital Signs:
Vital Signs
Temp Pulse Resp BP Pulse Ox
97.6 F 94 30 94/62 92
10/09/24 07:02 10/09/24 09:17 10/09/24 09:17 10/09/24 09:17 10/09/24 09:17
Cardiovascular:: Regular rate and rhythm
Respiratory:: Bilateral: Coarse
Lung Excursion:: Normal
Abdomen:: Nontender and Soft
Bowel Sounds:: Normal
Extremity Edema:: +3: Bilateral:
--- NOTE | 2024-10-09 09:49 | W.PN.NEPH.HD ---
Assessment
-
Seen on HD. no new complaints. VSS on levophed, access ok
Progress Note - Hemodialysis
-
Date of Service: October 09, 2024
Duration: 2 hours
Ultrafiltration: Other (2.5)
Blood Flow: 250
Heparin: No
EPO: No
--- NOTE | 2024-10-09 10:07 | PTCARENOTE ---
During dialysis patient blood pressure dropped to 89/48. Levophed drip increased to 4 mcg and Midodrine 10mg administered. Blood press is now 116/64, MAP 78.
[2024-10-09] MEDS: HEPARIN 5100 UNITS INTRACATH (10:09)
[2024-10-09 10:10] LABS: Carbon Dioxide 29 mmol/L (22-30); Chloride 92 mmol/L (98-107); Potassium 4.4 mmol/L (3.5-5.1); Sodium 132 mmol/L (135-145)
--- NOTE | 2024-10-09 10:10 | PN.CDI ---
CDI
- -
CDI:
Physician Documentation Request
Admit Date: 10/03/24 23:11
Dear Doctor Isabel,
Please review the following and provide your response in the progress notes.
Current documentation includes a diagnosis of Shock.
Clinical Indicators:
- 10/03 H&P 'Septic shock secondary to PNA'
- 10/09 PN 'Shock -improved on vasopressors...I am not convinced that he has septic shock'
- 'Clinically doubt pneumonia'
- Fluid overload on admission
- 10/03-10/09 levophed, labile MAPs
Please clarify which of the following is the most likely etiology of the above symptoms and treatment rendered:
Septic shock
Cardiogenic shock
Shock, unknown type
Other
Use of terms such as suspected, likely, concern for, or probable (associated with a specific diagnosis that is being evaluated, monitored, or treated as if it exists) are acceptable and can be coded in the inpatient setting, when documented at the
time of discharge.
Thank you,
Travis Degroot RN
CDI Specialist
Please use your independent medical judgment in providing your response.
[2024-10-09] MEDS: ZYLOPRIM 100 MG PO (11:02)
[2024-10-09] MEDS: VITAMIN B-12 1000 MCG PO (11:02)
[2024-10-09] MEDS: ASPIR LOW (ENTERIC COATED) 81 MG PO (11:02)
[2024-10-09] MEDS: PHOSLO 1334 MG PO ×2 (11:02→17:09)
[2024-10-09] MEDS: SENOKOT-S 1 TABLET PO ×2 (11:03→20:28)
[2024-10-09] MEDS: NEURONTIN 100 MG PO (11:03)
[2024-10-09] MEDS: MIRALAX 17 GRAMS PO (11:03)
--- NOTE | 2024-10-09 12:07 | W.PN.CARDCBS ---
Addendum entered and electronically signed by Donis Sanchez MD 10/09/24 13:42:
I saw and examined the patient.
The Elevator Starter's note was reviewed and I agree with the note.
Comment:
GEN: No distress, awake
HEENT: supple, anicteric, mmm
LUNGS: CTA, no wheezes/rales
CV: Irreg, S1/S2, 1/6 syst LSB, S3+
ABD: soft, BS+, NT/ND
EXT: No edema
NEURO: Gross non-focal
SKIN: No rash
PLan:
Overall doing very poorly. Blood pressure remains marginal. Volume removal through hemodialysis and recent paracentesis.
Remains on Levophed. Mental status seems poor as well.
Afterload reduction is limited due to hypotension.
Could consider inotrope for help with RV failure, although no clear long-term benefit for this.
Would continue goals of care discussions. Palliative care/hospice would be reasonable.
Original Note:
Today's Communication / Plan
-
continue attempts at volume removal through UF/HD
hypotension limiting GDMT of CHF/CM
goal of care conversations ongoing. currently remains full code
prognosis poor
Impression / Plan
-
Primary Inspector Crystal: Dr. Diamond of [facility]
Assessment:
Presentation with SOB
Acute HFrEF
Cardiomyopathy EF 42%
Chronic right-sided heart failure with pulmonary hypertension
Ascites s/p paracentesis for 4900cc 10/08/24
CAD status post CABG x 3 03/2015 DIGNA, [id number]
Permanent atrial fibrillation
Chronic Coumadin therapy
Hypertension
Hyperlipidemia
Type 2 diabetes
History of bradycardia on metoprolol during dialysis
Untreated obstructive sleep apnea
ESRD on hemodialysis, approximately 2 years
Chronic venous insufficiency
Anemic of chronic disease
History of falls
Hyponatremia
Gout
Several admissions to [facility] in last several months by patient report, further details unknown
Echo 11/27/2023 at [facility]: EF 50 to 55%, severe RV dysfunction, moderate , severe TR, RVSP 64 mmHg, small pericardial effusion
ECHO 10/08/24: EF 42%, septal flattening due to RV pressure and volume overload, RV dilated, biatrial enlargement, mild to moderate MR, aortic sclerosis, moderate to severe TR, PASP 65 mmHg, mildly dilated ascending aorta 4.0 cm
Plan:
-Patient presented due to significant shortness of breath and coughing after HD completed on 10/03/2024
-proBNP greater than 27,000. Attempting aggressive ultrafiltration through dialysis. Medically complex as hypotension limiting this, currently on midodrine 10 mg every 8 hours as well as Levophed at 4 and remains with low BP, 72/30 most recently.
patient somnolent
-also underwent paracentesis for 4900cc 10/08/24.
-Etiology of hypotension unclear. Several admissions to [facility] in last several months, initially for flu, then for ongoing respiratory issues. Would attempt to obtain records for review.
-Echocardiogram with results as above, EF newly reduced at 42%. Hypotension and end-stage renal disease significantly limit guideline directed medical therapy
-Troponin peaked at 0.039 on admission and downtrending. Patient without chest pain. does not presently appear to be a candidate for procedures/interventions such as cardiac cath
-He has permanent atrial fibrillation with frequent ectopy versus aberrancy on review of telemetry. Heart rates presently adequately controlled off outpatient lopressor 25mg BID. K/mag stable.
-Continue aspirin, Coumadin. INR pending 10/09.
-continue statin
-presently a full code. d/w patient's daugther in law Micheline via telephone for 5:40. We discussed that treatment of his cardiac conditions is limited by hypotension requiring pressors and high dose midodrine and his end-stage renal disease. We
discussed that at this point he would be very high risk for any procedures including cardiac catheterization. Discussed poor prognosis. She states he has been adamant about not wanting hospice. We discussed daily re-evaluation, but expressed
concerns for him tolerating HD outside of hospital setting at this time and that he is high risk for readmissions. She expressed understanding and stated she would talk to her about this.
Progress Note - Inspector Crystal
Subjective
Date of Service: October 09, 2024
patient somnolent.
Objective
Labs:
10/09/24 07:54
10/09/24 07:54
Labs
Hgb 9.9 g/dL (13.0-18.0) L 10/09/24 07:54
Hct 32.9 % (39.0-52.0) L 10/09/24 07:54
Plt Count 232 10^3/uL (130-400) 10/09/24 07:54
PT 16.3 Sec (11.4-14.6) H 10/08/24 04:39
INR 1.29 10/08/24 04:39
Sodium 132 mmol/L (135-145) L 10/09/24 07:54
Potassium 4.4 mmol/L (3.5-5.1) 10/09/24 07:54
BUN 28 mg/dl (9-20) H 10/08/24 04:39
Creatinine 3.7 mg/dL (0.7-1.3) H 10/08/24 04:39
Glucose 196 mg/dl (70-99) H 10/08/24 04:39
Vital Signs and I&O:
Vital Signs
Temp Pulse Resp BP Pulse Ox
97.8 F 104 24 122/74 94
10/09/24 11:40 10/09/24 11:00 10/09/24 11:00 10/09/24 11:00 10/09/24 11:18
Vital Signs
Temp Pulse Resp BP Pulse Ox
97.8 F 104 24 122/74 94
10/09/24 11:40 10/09/24 11:00 10/09/24 11:00 10/09/24 11:00 10/09/24 11:18
Intake & Output
10/07/24 10/08/24 10/09/24 10/10/24
07:59 07:59 07:59 07:59
Intake Total 530 / 530 240 / 240 935.6 / 935.6 360 / 360
Output Total 0 / 0
Balance 530 / 530 240 / 240 935.6 / 935.6 360 / 360
Physical Exam
Physical Exam
GEN: No distress, somnolent. on supp O2. chronically ill appearing. somewhat awakens to sternal rub
HEENT: supple, mmm
LUNGS: Decreased BS B/L, no wheezes
CV: Irreg, S1/S2, no murmur
ABD: soft, BS+, NT/ND
EXT: No cyanosis, clubbing. 2+ edema of B/L LE
NEURO: somnolent
SKIN: Warm, pink, dry. No rash. L chest HD catheter
[2024-10-09] MEDS: PHOSLO PO (13:34)
--- NOTE | 2024-10-09 13:37 | PTCARENOTE ---
Discussed the inability to monitor blood pressure on arms due to restrictions, blood pressure readings are variable from leg sites, Levophed continues to be titrated. Discussed with Dr. Hall, IV team to attempt peripheral site and remove PICC
line so arm blood pressures can be resumed on arms.
[2024-10-09] MEDS: LEVOPHED 250 IV (13:52)
--- NOTE | 2024-10-09 14:57 | PTCARENOTE ---
Bedside discussion regarding blood pressure monitoring limitations with IV team and nurse educator. Orders obtained to monitor blood pressure via right forearm for 24 hours to wean Levophed.
[2024-10-09] MEDS: LIPITOR 40 MG PO (16:56)
--- NOTE | 2024-10-09 17:01 | CM ---
Patient with Hx ESRD on HD with Dx Acute on chronic hypoxic respiratory failure, paracentesis yesterday. Per MD notes: goals of care conversations ongoing. O2 5. PICC. Receiving Levophed gtt, midodrine. Seen by PT/OT 10/05; recommend skilled
rehab -PT/OT on hold due to low BP.
Spoke with [facility]; provided update that patient is not medically ready for d/c.
Plan [facility] when medically ready.
[2024-10-09 18:09] LABS: INR 1.73; PT 20.7 Sec (11.4-14.6)
[2024-10-09] MEDS: COUMADIN 3 MG PO (18:18)
--- NOTE | 2024-10-09 18:41 | PTCARENOTE ---
Patient has been successfully weaned down to 3 liters oxygen via nasal cannula and Levophed weaned to 1mcg with blood pressure monitoring on right forearm as per doctors orders. Will endorse to next shift.
[2024-10-09] MEDS: PROTONIX 40 MG PO (20:28)
[2024-10-09] MEDS: NEURONTIN 200 MG PO (20:28)
[2024-10-10] VITALS (19 sets, daily range): BP systolic 82–136; BP diastolic 46–108; BMI 29.3
--- NOTE | 2024-10-10 00:30 | PTCARENOTE ---
Assumed care of pt from shazia RN. Pt aaox3 and is MARSHALL. Pt afib on monitor. 95% on 3L NC. Pt is incontinent and has had multiple bowel movements so far this shift. Hygiene completed including CHG wipes. Levophed gtt off at 2020 since pt remained
at goal. MAP has remained >65. Pt resting in bed with call zapata in reach.
[2024-10-10] MEDS: ProAmatine 10 MG PO ×3 (01:23→17:05)
[2024-10-10 04:18] LABS: INR 2.22; PT 25.1 Sec (11.4-14.6)
[2024-10-10 04:27] LABS: Blood Urea Nitrogen 25 mg/dl (9-20); Calcium 9.7 mg/dl (8.4-10.2); Carbon Dioxide 26 mmol/L (22-30); Chloride 90 mmol/L (98-107); Estimated Creatinine Clearance 16 ml/min; Glucose 119 mg/dl (70-99); Potassium 5.1 mmol/L (3.5-5.1); Sodium 128 mmol/L (135-145); eGFR 19.09
--- NOTE | 2024-10-10 08:09 | W.PN.HOSP.TC ---
Today's Communication/Plan
-
Change bowel medications to as needed only
Assessment / Plan
Assessment / Plan
Gen-AAOx3, NAD
HEENT-NC, AT, anicteric, clear oral mm
Neck-supple
CV-reg, no M, +S1/S2, rub
Lungs-clear B/L
Abd-soft, NT, less distention
Ext-bilateral lower extremity edema improving
Musculoskeletal-no cyanosis, clubbing
Skin-warm and dry
Neuro-grossly non-focal
Psych-calm, cooperative
Iatrogenic diarrhea -will change bowel medications to as needed only.
Shock -resolved. Off IV vasopressors. Continue midodrine.
I am not convinced that he has septic shock. Did not meet any SIRS criteria on presentation. Procalcitonin unreliable in the setting of ESRD. Blood cultures negative. At baseline patient runs hypotensive according to him.
I do not believe his blood pressures are accurate as we cannot use left upper extremity due to AV fistula, cannot use right upper extremity due to PICC line, we are left with lower extremity pressures which are unreliable.
COVID/influenza negative.
Chest x-ray 10/06 demonstrates improvement in the right basilar opacity. Left basilar opacification obscured by left hemidiaphragm.
Clinically doubt pneumonia. Will hold further antibiotics and observe closely. CT chest completed and does not demonstrate definitive findings of pneumonia. Atelectasis noted in the bases.
Acute on chronic hypoxic respiratory failure -suspect related to pulmonary edema due to ESRD, possible component of acute on chronic heart failure.
Currently on 3 L nasal cannula oxygen. Wean down as able.
-At baseline he is on 2 L of oxygen chronically.
ESRD on HD M/W/F- Nephrology following
Weight is down to 82 kg today, admission weight was 92 kg. 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 5 L removed.
Hyponatremia -sodium 128. Defer to nephrology. Getting dialysis.
Acute nonischemic myocardial injury -due to acute illness.
- trop peaked .039
CAD/CABG x 3 vessel
- continue BB/Statin
- patient reports not being on ASA
Acute on chronic HFpEF -clinically improving. Shortness of breath resolved. Oxygenation improving. Weight is down. Lower extremity edema improving.
NSVT -electrolytes are normal. This was noted in [facility] recently and he was treated with metoprolol 25 mg twice daily. Currently not on metoprolol as he has been hypotensive, although blood pressures may not be completely accurate.
Can resume if okay with cardiology.
Recurrent ascites -suspect etiology is driven by ESRD as well as right heart failure. Paracentesis completed. Patient states he has had 3 paracenteses in the past. Records requested.
4.9 L removed via paracentesis by IR. Fluid analysis consistent with transudative source, suspect due to cardiogenic etiology given significant RV dilation on echocardiogram with moderate/severe TR.
Cardiology following.
CT abdomen/pelvis completed with no obvious explanation for ascites. Incidental bilateral kidney masses noted. Differential diagnosis includes hyperdense cysts versus renal cell carcinoma. Findings discussed with patient's family and recommend
outpatient follow-up.
Permanent A. Fib -warfarin resumed, 1.5 mg daily. This was the discharge dose from [facility]. Records reviewed. INR now therapeutic, 2.2 to.
I managed to contact his senior living physician (Dr. Lanie Salinas, ) and she states that when the patient came to the senior living from the hospital he was not discharged on warfarin for unclear reasons. Patient denies bleeding
history.
COPD without exacerbation -uses 2 L nasal cannula oxygen at home chronically. Currently on [facility]. He is
- Continue lev albuterol 2.5 mL every 4 hours as needed shortness of breath
Chronic anemia of CKD
- Hb appears baseline
Peripheral neuropathy
- continue gabapentin 100 mg in a.m., 200 mg at bedtime
GERD
- continue omeprazole 20 mg at bedtime
HLD
- no currrent meds
BOBBY noncompliant CPAP
Pulm HTN
Obesity due to excess calories
Vit B12 deficiency
- continue B12 supplement
Gout
- continue allopurinol 100 mg daily
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
DVT ppx: SC heparin
Full code
Dispo -SNF when medically stable, possibly in the next 24 to 48 hours if he remains stable. Today he looks clinically better than he has in the past few days.
Left a voicemail for patient's [id number] to call me back.
Anticipated Discharge: 24 - 48 hours
Subjective/Interval History
-
Date of Service: October 10, 2024
Patient seen and examined, complaining of diarrhea. Denies shortness of breath.
Objective Data
-
Labs:
Laboratory Results
10/10/24
03:42
PT 25.1 H
INR 2.22
Sodium 128 L
Potassium 5.1
Chloride 90 L
Carbon Dioxide 26
BUN 25 H
Creatinine 3.1 H
Glucose 119 H
Calcium 9.7
Vital Signs:
Vital Signs
Temp Pulse Resp BP Pulse Ox
97.5 F 84 22 101/62 95
10/09/24 23:45 10/10/24 06:19 10/10/24 06:19 10/10/24 06:19 10/10/24 06:19
I&O
10/09/24 10/10/24 10/11/24
06:59 06:59 06:59
Intake Total 935.6 / 935.6 600 / 600
Output Total 0 / 0
Balance 935.6 / 935.6 600 / 600
Review of Systems
-
History Source: Patient
All other systems: Reviewed and negative
[2024-10-10] MEDS: ZYLOPRIM 100 MG PO (08:35)
[2024-10-10] MEDS: PHOSLO 1334 MG PO ×3 (08:35→17:05)
[2024-10-10] MEDS: NEURONTIN 100 MG PO (08:35)
[2024-10-10] MEDS: ASPIR LOW (ENTERIC COATED) 81 MG PO (08:35)
[2024-10-10] MEDS: VITAMIN B-12 1000 MCG PO (08:35)
[2024-10-10] MEDS: FLEXBUMIN 25% FOR HEMODIALYSIS 12.5 GRAMS IV ×2 (09:08→10:49)
[2024-10-10] MEDS: RETACRIT 8000 UNITS IV (09:08)
[2024-10-10] MEDS: MANNITOL 25% 12.5 GRAMS IV ×2 (09:08→10:49)
[2024-10-10] MEDS: MIRALAX PO (09:34)
[2024-10-10] MEDS: SENOKOT-S PO (09:35)
[2024-10-10] MEDS: HEPARIN 5100 UNITS INTRACATH (11:31)
--- NOTE | 2024-10-10 12:34 | W.PN.NEPH.HD ---
Assessment
-
Seen on dialysis next planned treatment will be Sunday unless otherwise indicated through the weekend
Progress Note - Hemodialysis
-
Date of Service: October 10, 2024
Duration: 3 hours
Potassium Bath: 2
Calcium Bath: 2.5
Opti-Dialyzer: 160
Ultrafiltration: Other (2.5)
Blood Flow: 350
Dialysate Flow: 600
Heparin: No
EPO: No
--- NOTE | 2024-10-10 14:31 | W.PN.CARDCBS ---
Addendum entered and electronically signed by Donis Sanchez MD 10/10/24 17:15:
I saw and examined the patient.
[employer]'s note was reviewed and I agree with the note.
Comment:
GEN: No distress, awake, Ox3
HEENT: supple, anicteric, mmm
LUNGS: CTA, no wheezes/rales
CV: Reg, S1/S2, 1/6 syst LSB, no gallop
ABD: soft, BS+, +mild distended
EXT: No edema
NEURO: Gross non-focal
SKIN: No rash
Plan:
Continues to do poorly. Blood pressure is slightly improved today. Continue volume removal via hemodialysis/ultrafiltration.
Ultimately hopefully adding low-dose beta-cristine if blood pressure tolerates. Remains on high-dose midodrine 10 mg p.o. 3 times daily
Continue aspirin and Coumadin.
Long-term prognosis is very poor.
Original Note:
Today's Communication / Plan
-
continue volume removal through HD/UF
follow BPs. hopefully can add low dose toprol prior to DC
continue asa, coumadin
Impression / Plan
-
Primary Supervisor Remelt: Dr. Diamond of [facility]
Assessment:
Presentation with SOB
Acute HFrEF
Cardiomyopathy EF 42%
Chronic right-sided heart failure with pulmonary hypertension
Ascites s/p paracentesis for 4900cc 10/08/24
CAD status post CABG x 3 03/2015 BARRERA�LAD, [id number]
Permanent atrial fibrillation
Chronic Coumadin therapy
Hypertension
Hyperlipidemia
Type 2 diabetes
History of bradycardia on metoprolol during dialysis
Untreated obstructive sleep apnea
ESRD on hemodialysis, approximately 2 years
Chronic venous insufficiency
Anemic of chronic disease
History of falls
Hyponatremia
Gout
Several admissions to [facility] in last several months by patient report, further details unknown
Echo 11/27/2023 at [facility]: EF 50 to 55%, severe RV dysfunction, moderate , severe TR, RVSP 64 mmHg, small pericardial effusion
ECHO 10/08/24: EF 42%, septal flattening due to RV pressure and volume overload, RV dilated, biatrial enlargement, mild to moderate MR, aortic sclerosis, moderate to severe TR, PASP 65 mmHg, mildly dilated ascending aorta 4.0 cm
Plan:
-Patient presented due to significant shortness of breath and coughing after HD completed on 10/03/2024
-Records obtained and reviewed from [facility] as with several admissions there in the last several months. He was admitted to [facility] 09/02 - 09/09/2024 for influenza A. He was discharged to SNF. His family reportedly signed him out AMA on
09/17/2024 and he was brought back to the emergency room and admitted from 09/17 through 09/26/2024 for pneumonia. During this admission he was seen by cardiology due to frequent ectopy noted on telemetry. He was considered for amiodarone, however
this was never started. He was maintained on Lopressor 25 mg twice daily. He is chronically on Coumadin for permanent atrial fibrillation. During that admission he was noted to have non-FL troponin elevation in addition which was medically
managed. He has noted to have history of chronic ascites which occasionally requires paracenteses.
-proBNP greater than 27,000. Continue aggressive ultrafiltration through dialysis.
-Appears to be improving. He was able to be weaned off levo. Continues on midodrine. He is the most alert I have seen him this admission today.
-also underwent paracentesis for 4900cc 10/08/24.
-Echocardiogram with results as above, EF newly reduced at 42%. Hypotension and end-stage renal disease significantly limit guideline directed medical therapy
-Troponin peaked at 0.039 on admission and downtrending. Patient without chest pain. does not presently appear to be a candidate for procedures/interventions such as cardiac cath
-He has permanent atrial fibrillation with frequent ectopy on review of telemetry. Heart rates presently adequately controlled off outpatient lopressor 25mg BID. K/mag stable. Given low EF, would attempt to place on Toprol if blood pressure allows
prior to discharge.
-Continue aspirin, Coumadin. INR 2.22 on 10/10.
-continue statin
-presently a full code. Will continue ongoing discussions regarding goals of care pending patient's clinical progress. Patient's daughter in law relayed 10/09 that patient historically has been against hospice
-will need PT/OT
Progress Note - Supervisor Remelt
Subjective
Date of Service: October 10, 2024
Reports shortness of breath improving from admission. No chest pain
Objective
Labs:
10/09/24 07:54
10/10/24 03:42
Labs
Hgb 9.9 g/dL (13.0-18.0) L 10/09/24 07:54
Hct 32.9 % (39.0-52.0) L 10/09/24 07:54
Plt Count 232 10^3/uL (130-400) 10/09/24 07:54
PT 25.1 Sec (11.4-14.6) H 10/10/24 03:42
INR 2.22 10/10/24 03:42
Sodium 128 mmol/L (135-145) L 10/10/24 03:42
Potassium 5.1 mmol/L (3.5-5.1) 10/10/24 03:42
BUN 25 mg/dl (9-20) H 10/10/24 03:42
Creatinine 3.1 mg/dL (0.7-1.3) H 10/10/24 03:42
Glucose 119 mg/dl (70-99) H 10/10/24 03:42
Vital Signs and I&O:
Vital Signs
Temp Pulse Resp BP Pulse Ox
97.4 F 84 24 129/86 96
10/10/24 11:33 10/10/24 13:00 10/10/24 13:00 10/10/24 12:25 10/10/24 13:00
Vital Signs
Temp Pulse Resp BP Pulse Ox
97.4 F 84 24 129/86 96
10/10/24 11:33 10/10/24 13:00 10/10/24 13:00 10/10/24 12:25 10/10/24 13:00
Intake & Output
10/08/24 10/09/24 10/10/24 10/11/24
07:59 07:59 07:59 07:59
Intake Total 240 / 240 935.6 / 935.6 600 / 600
Output Total 0 / 0
Balance 240 / 240 935.6 / 935.6 600 / 600
Physical Exam
Physical Exam
GEN: No distress, awake, alert, oriented to self, place. on supp O2. chronically ill appearing.
HEENT: supple, mmm, eomi
LUNGS: Decreased BS B/L, no wheezes
CV: Irreg with ectopy, S1/S2, no murmur
ABD: soft, BS+, NT/ND
EXT: No cyanosis, clubbing. 2+ edema of B/L LE
NEURO: somnolent
SKIN: Warm, pink, dry. No rash. L chest HD catheter
--- NOTE | 2024-10-10 14:59 | PTOTSP ---
Dysphagia Evaluation
Patient has acute on chronic dysphagia risk factors (i.e., acute on chronic respiratory failure, acute on chronic heart failure; COPD, GERD). History of dysphagia noted per transfer records from [place] [facility]. Patient denied this.
Patient with non-productive cough x1 w/ puree. Cannot r/o unrelated cough (from COPD, CHF) vs aspiration bedside. Passed 3 oz swallow. Continue diet below.
Recommend:
1. Regular, Thin Liquids
2. Medications: as best tolerated
3. Strategies: upright to 90 degrees, small single sips/bites, slow rate w/ breaks for breathing, reflux precautions
4. Oral care 3-5x daily
5. If concerned for aspiration component consider video swallow study given risk factors. Patient consented to this as needed.
--- NOTE | 2024-10-10 16:32 | W.PN.NEPH.PH ---
Today's Communication / Plan
-
completed hd today , nxt tx sunday unless needed for UF over wknd
Assessment/Plan
-
Assessment
ESRD
Volume overload
Shortness of breath
Hypotension
Heart failure preserved EF
Coronary artery disease
Plan
HD earlier today tolerated 2L
re eval through wknd for furthur UF as needed
Maintain Levophed for hypotension increase to maintain mean arterial pressure
s/p para 4.9 L 10/08
Critical care time spent 31 minutes
Total Time Spent with Patient (in minutes): 31
-
-
Date of Service: October 10, 2024
CC / HPI / ROS
-
Chief Complaint:
ESRD
History of Present Illness:
Tolerated ultrafiltration yesterday
BP remains low, on Levophed drip still, dose increased on dialysis
Critically ill
Hemoglobin stable 9.9
Remains on supplemental oxygen
s/p LVP 10/07 for 4.9L
Prolonged VT overnight
Review of Systems:
No chest pain, no fever
ectopy on HD
Labs
-
Labs:
WBC 9.3 10^3/uL (4.8-10.8) 10/09/24 07:54
RBC 3.22 10^6/uL (4.70-6.10) L 10/09/24 07:54
Hgb 9.9 g/dL (13.0-18.0) L 10/09/24 07:54
Hct 32.9 % (39.0-52.0) L 10/09/24 07:54
Plt Count 232 10^3/uL (130-400) 10/09/24 07:54
Sodium 128 mmol/L (135-145) L 10/10/24 03:42
Potassium 5.1 mmol/L (3.5-5.1) 10/10/24 03:42
Chloride 90 mmol/L (98-107) L 10/10/24 03:42
Carbon Dioxide 26 mmol/L (22-30) 10/10/24 03:42
BUN 25 mg/dl (9-20) H 10/10/24 03:42
Creatinine 3.1 mg/dL (0.7-1.3) H 10/10/24 03:42
eGFR 19.09 10/10/24 03:42
Glucose 119 mg/dl (70-99) H 10/10/24 03:42
Calcium 9.7 mg/dl (8.4-10.2) 10/10/24 03:42
Phosphorus 3.2 mg/dl (2.5-4.5) 10/04/24 04:55
Aez-A-Pfxvllzcavl Pept > 18318 pg/ml 10/03/24 18:09
Albumin 3.3 g/dl (3.5-5.0) L 10/08/24 04:39
Physical Exam
-
Vital Signs:
Vital Signs
Temp Pulse Resp BP Pulse Ox
97.4 F 84 24 129/86 96
10/10/24 11:33 10/10/24 13:00 10/10/24 13:00 10/10/24 12:25 10/10/24 13:00
Respiratory:: Bilateral: Coarse
[2024-10-10] MEDS: LIPITOR 40 MG PO (17:05)
[2024-10-10] MEDS: COUMADIN 1.5 MG PO (17:08)
--- NOTE | 2024-10-10 19:11 | PTCARENOTE ---
AAOx3, tolerated HD today. Dozing intermittently . O2 2L NC 95% failed further weaning (89% on 1.5L) . LCTA encouraged IS acupella. 1 BM this am no further stool today. Anuric. Appetite good. Some BPs done on Dinamap and HD machine and
manually placed in vital signs.
[2024-10-10] MEDS: NEURONTIN 200 MG PO (20:21)
[2024-10-10] MEDS: PROTONIX 40 MG PO (20:21)
--- NOTE | 2024-10-10 21:28 | PTCARENOTE ---
Caring for pt overnight. aaox3, forgetful. NSR PVC, 2LNC. LAVF LUE restriction. Q2T. Incontinent BM. Denies pain or SOB. Took pills whole with water, no issues. Pt currently sleeping, BA on. Will continue to monitor.
[2024-10-11] VITALS (28 sets, daily range): BP systolic 88–160; BP diastolic 36–101; BMI 29.2
[2024-10-11] MEDS: ProAmatine 10 MG PO ×3 (02:45→17:33)
[2024-10-11 05:40] LABS: INR 3.06; PT 31.5 Sec (11.4-14.6)
[2024-10-11 06:12] LABS: Blood Urea Nitrogen 16 mg/dl (9-20); Calcium 9.6 mg/dl (8.4-10.2); Carbon Dioxide 25 mmol/L (22-30); Chloride 94 mmol/L (98-107); Estimated Creatinine Clearance 21 ml/min; Glucose 132 mg/dl (70-99); Potassium 4.6 mmol/L (3.5-5.1); Sodium 129 mmol/L (135-145); eGFR 25.96
[2024-10-11] MEDS: ASPIR LOW (ENTERIC COATED) 81 MG PO (07:51)
[2024-10-11] MEDS: PHOSLO 1334 MG PO ×3 (07:51→17:33)
[2024-10-11] MEDS: NEURONTIN 100 MG PO (07:51)
[2024-10-11] MEDS: VITAMIN B-12 1000 MCG PO (07:52)
[2024-10-11] MEDS: ZYLOPRIM 100 MG PO (07:52)
--- NOTE | 2024-10-11 08:10 | W.PN.HOSP.TC ---
Today's Communication/Plan
-
Hold warfarin
Continue current care
Assessment / Plan
Assessment / Plan
Gen-AAOx3, NAD
HEENT-NC, AT, anicteric, clear oral mm
Neck-supple
CV-reg, no M, +S1/S2, rub
Lungs-clear B/L
Abd-soft, NT, less distention
Ext-bilateral lower extremity edema improving
Musculoskeletal-no cyanosis, clubbing
Skin-warm and dry
Neuro-grossly non-focal
Psych-calm, cooperative
Iatrogenic diarrhea -will change bowel medications to as needed only. Should start improving.
Shock -resolved. Off IV vasopressors. Continue midodrine.
I am not convinced that he has septic shock. Did not meet any SIRS criteria on presentation. Procalcitonin unreliable in the setting of ESRD. Blood cultures negative. At baseline patient runs hypotensive according to him.
I do not believe his blood pressures are accurate as we cannot use left upper extremity due to AV fistula, cannot use right upper extremity due to PICC line, we are left with lower extremity pressures which are unreliable.
COVID/influenza negative.
Chest x-ray 10/06 demonstrates improvement in the right basilar opacity. Left basilar opacification obscured by left hemidiaphragm.
Clinically doubt pneumonia. Will hold further antibiotics and observe closely. CT chest completed and does not demonstrate definitive findings of pneumonia. Atelectasis noted in the bases.
Acute on chronic hypoxic respiratory failure -suspect related to pulmonary edema due to ESRD, possible component of acute on chronic heart failure.
Currently on 2 L nasal cannula oxygen. Wean down as able.
-At baseline he is on 2 L of oxygen chronically.
ESRD on HD M/W/F- Nephrology following
Weight is down to 82 kg today, admission weight was 92 kg. Paracentesis was the primary fleet driver for his weight loss. 5 L removed.
Hyponatremia -sodium 129. Defer to nephrology. Getting dialysis.
Acute nonischemic myocardial injury -due to acute illness.
- trop peaked .039
CAD/CABG x 3 vessel
- continue BB/Statin
- patient reports not being on ASA
Acute on chronic HFpEF -clinically improving. Shortness of breath resolved. Oxygenation improving. Weight is down. Lower extremity edema improving.
NSVT -electrolytes are normal. This was noted in [facility] recently and he was treated with metoprolol 25 mg twice daily. Currently not on metoprolol as he has been hypotensive, although blood pressures may not be completely accurate.
Can resume if okay with cardiology.
Recurrent ascites -suspect etiology is driven by ESRD as well as right heart failure. Paracentesis completed. Patient states he has had 3 paracenteses in the past. Records reviewed.
4.9 L removed via paracentesis by IR. Fluid analysis consistent with transudative source, suspect due to cardiogenic etiology given significant RV dilation on echocardiogram with moderate/severe TR. Fluid culture negative.
Cardiology following.
CT abdomen/pelvis completed with no obvious explanation for ascites. Incidental bilateral kidney masses noted. Differential diagnosis includes hyperdense cysts versus renal cell carcinoma. Findings discussed with patient's family and recommend
outpatient follow-up.
Permanent A. Fib -warfarin resumed, 1.5 mg daily. This was the discharge dose from [facility]. Records reviewed. INR elevated at 3.06 today, will hold warfarin tonight. INR was 2.2 yesterday. Recheck INR in the morning.
I managed to contact his long-term physician (Dr. Lanie Salinas, ) and she states that when the patient came to the long-term from the hospital he was not discharged on warfarin for unclear reasons. Patient denies bleeding
history.
COPD without exacerbation -uses 2 L nasal cannula oxygen at home chronically. Currently on [facility].
- Continue lev albuterol 2.5 mL every 4 hours as needed shortness of breath
Chronic anemia of CKD
- Hb appears baseline
Peripheral neuropathy
- continue gabapentin 100 mg in a.m., 200 mg at bedtime
GERD
- continue omeprazole 20 mg at bedtime
HLD
- no currrent meds
BOBBY noncompliant CPAP
Pulm HTN
Obesity due to excess calories
Vit B12 deficiency
- continue B12 supplement
Gout
- continue allopurinol 100 mg daily
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
DVT ppx: SC heparin
Full code -I had a long discussion with patient regarding goals of care and he is adamant that he wants to remain a full code as he does not want to upset his grandson. I explained to the patient that it is not his grandson's decision, it is the
patient's decision and if he ends up having a cardiopulmonary arrest requiring CPR and ventilation that it is very unlikely he would survive and very unlikely he would come off a ventilator. Patient seems to understand but wants to remain a full
code despite my recommendation.
Dispo -SNF when medically stable, possibly in the next 24 to 48 hours if he remains stable. Today he looks clinically better than he has in the past few days.
Left a voicemail on October 10 for patient's [id number] to call me back.
Anticipated Discharge: > 48 hours
Subjective/Interval History
-
Date of Service: October 11, 2024
Patient seen and examined. No new complaints.
Objective Data
-
Labs:
Laboratory Results
10/11/24
05:22
PT 31.5 H
INR 3.06
Sodium 129 L
Potassium 4.6
Chloride 94 L
Carbon Dioxide 25
BUN 16
Creatinine 2.4 H
Glucose 132 H
Calcium 9.6
Vital Signs:
Vital Signs
Temp Pulse Resp BP Pulse Ox
97.8 F 94 21 120/78 96
10/11/24 07:20 10/11/24 06:00 10/11/24 06:00 10/11/24 06:00 10/11/24 06:00
I&O
10/10/24 10/11/24 10/12/24
06:59 06:59 06:59
Intake Total 600 / 600
Balance 600 / 600
Review of Systems
-
History Source: Patient
All other systems: Reviewed and negative
--- NOTE | 2024-10-11 08:54 | W.PN.CARDCBS ---
Today's Communication / Plan
-
Clinically improved and weight is down. Continue midodrine.
Continue volume removal via ultrafiltration and hemodialysis
If BP stable, would add low dose Toprol 12.5mg daily.
Hold coumadin today
Impression / Plan
-
Primary Senior Telecommunications Consultant: Dr. Diamond of [facility]
Assessment:
Presentation with SOB
Acute HFrEF
Cardiomyopathy EF 42%
Chronic right-sided heart failure with pulmonary hypertension
Ascites s/p paracentesis for 4900cc 10/08/24
CAD status post CABG x 3 03/2015 BARRERA�LAYe, [id number]
Permanent atrial fibrillation
Chronic Coumadin therapy
Hypertension
Hyperlipidemia
Type 2 diabetes
History of bradycardia on metoprolol during dialysis
Untreated obstructive sleep apnea
ESRD on hemodialysis, approximately 2 years
Chronic venous insufficiency
Anemic of chronic disease
History of falls
Hyponatremia
Gout
Several admissions to [facility] in last several months by patient report, further details unknown
Echo 11/27/2023 at [facility]: EF 50 to 55%, severe RV dysfunction, moderate , severe TR, RVSP 64 mmHg, small pericardial effusion
ECHO 10/08/24: EF 42%, septal flattening due to RV pressure and volume overload, RV dilated, biatrial enlargement, mild to moderate MR, aortic sclerosis, moderate to severe TR, PASP 65 mmHg, mildly dilated ascending aorta 4.0 cm
Plan:
-Patient presented due to significant shortness of breath and coughing after HD completed on 10/03/2024
-Records obtained and reviewed from [facility] as with several admissions there in the last several months. He was admitted to [facility] 09/02 - 09/09/2024 for influenza A. He was discharged to SNF. His family reportedly signed him out AMA on
09/17/2024 and he was brought back to the emergency room and admitted from 09/17 through 09/26/2024 for pneumonia. During this admission he was seen by cardiology due to frequent ectopy noted on telemetry. He was considered for amiodarone, however
this was never started. He was maintained on Lopressor 25 mg twice daily. He is chronically on Coumadin for permanent atrial fibrillation. During that admission he was noted to have non-PR troponin elevation in addition which was medically
managed. He has noted to have history of chronic ascites which occasionally requires paracenteses.
-His weight is overall down to 180 pounds. He is more alert and feels better today. His blood pressure is stable and he is now on the midodrine and off pressors.
-also underwent paracentesis for 4900cc 10/08/24.
-Echocardiogram with results as above, EF newly reduced at 42%. Hypotension and end-stage renal disease significantly limit guideline directed medical therapy
-Troponin peaked at 0.039 on admission and downtrending. Patient without chest pain. does not presently appear to be a candidate for procedures/interventions such as cardiac cath
-He has permanent atrial fibrillation with frequent ectopy on review of telemetry. Heart rates presently adequately controlled off outpatient lopressor 25mg BID. K/mag stable. Given low EF, would attempt to place on Toprol if blood pressure allows
prior to discharge.
-Continue aspirin, hold Coumadin today with INR 3.06
-continue statin
-presently a full code. Will continue ongoing discussions regarding goals of care pending patient's clinical progress. Patient's daughter in law relayed 10/09 that patient historically has been against hospice
-will need PT/OT
Progress Note - Senior Telecommunications Consultant
Subjective
Date of Service: October 11, 2024
Denies chest pain and seems more alert today.
Objective
Labs:
10/09/24 07:54
10/11/24 05:22
Labs
Hgb 9.9 g/dL (13.0-18.0) L 10/09/24 07:54
Hct 32.9 % (39.0-52.0) L 10/09/24 07:54
Plt Count 232 10^3/uL (130-400) 10/09/24 07:54
PT 31.5 Sec (11.4-14.6) H 10/11/24 05:22
INR 3.06 10/11/24 05:22
Sodium 129 mmol/L (135-145) L 10/11/24 05:22
Potassium 4.6 mmol/L (3.5-5.1) 10/11/24 05:22
BUN 16 mg/dl (9-20) 10/11/24 05:22
Creatinine 2.4 mg/dL (0.7-1.3) H 10/11/24 05:22
Glucose 132 mg/dl (70-99) H 10/11/24 05:22
Vital Signs and I&O:
Vital Signs
Temp Pulse Resp BP Pulse Ox
97.8 F 94 21 120/78 96
10/11/24 07:20 10/11/24 06:00 10/11/24 06:00 10/11/24 06:00 10/11/24 06:00
Vital Signs
Temp Pulse Resp BP Pulse Ox
97.8 F 94 21 120/78 96
10/11/24 07:20 10/11/24 06:00 10/11/24 06:00 10/11/24 06:00 10/11/24 06:00
Intake & Output
10/09/24 10/10/24 10/11/24 10/12/24
06:59 06:59 06:59 06:59
Intake Total 935.6 / 935.6 600 / 600
Output Total 0 / 0
Balance 935.6 / 935.6 600 / 600
Physical Exam
Physical Exam
GEN: No distress, awake, Ox3
HEENT: supple, anicteric, mmm
LUNGS: CTA, no wheezes/rales
CV: Reg, S1/S2, 1/6 syst LSB, S3+
ABD: soft, BS+, NT/ND
EXT: No edema
NEURO: Gross non-focal
SKIN: No rash
--- NOTE | 2024-10-11 12:24 | W.PN.NEPH.PH ---
Today's Communication / Plan
-
Daily weights dialysis Sunday
Assessment/Plan
-
Assessment
ESRD
Volume overload
Shortness of breath
Hypotension
Heart failure preserved EF
Coronary artery disease
Plan
HD earlier today tolerated 2L
re eval through wknd for furthur UF as needed
Maintain Levophed for hypotension increase to maintain mean arterial pressure
s/p para 4.9 L 10/08
No acute need for dialysis today
Critical care time spent 31 minutes
-
-
Date of Service: October 11, 2024
CC / HPI / ROS
-
Chief Complaint:
ESRD
History of Present Illness:
Tolerated ultrafiltration yesterday
BP remains low, on Levophed drip still, dose increased on dialysis
Critically ill
Hemoglobin stable 9.9
Remains on supplemental oxygen
s/p LVP 10/07 for 4.9L
Prolonged VT overnight
Review of Systems:
No chest pain, no fever
ectopy on HD
Labs
-
Labs:
WBC 9.3 10^3/uL (4.8-10.8) 10/09/24 07:54
RBC 3.22 10^6/uL (4.70-6.10) L 10/09/24 07:54
Hgb 9.9 g/dL (13.0-18.0) L 10/09/24 07:54
Hct 32.9 % (39.0-52.0) L 10/09/24 07:54
Plt Count 232 10^3/uL (130-400) 10/09/24 07:54
Sodium 129 mmol/L (135-145) L 10/11/24 05:22
Potassium 4.6 mmol/L (3.5-5.1) 10/11/24 05:22
Chloride 94 mmol/L (98-107) L 10/11/24 05:22
Carbon Dioxide 25 mmol/L (22-30) 10/11/24 05:22
BUN 16 mg/dl (9-20) 10/11/24 05:22
Creatinine 2.4 mg/dL (0.7-1.3) H 10/11/24 05:22
eGFR 25.96 10/11/24 05:22
Glucose 132 mg/dl (70-99) H 10/11/24 05:22
Calcium 9.6 mg/dl (8.4-10.2) 10/11/24 05:22
Phosphorus 3.2 mg/dl (2.5-4.5) 10/04/24 04:55
Dcf-K-Gycwwgysryt Pept > 65742 pg/ml 10/03/24 18:09
Albumin 3.3 g/dl (3.5-5.0) L 10/08/24 04:39
Physical Exam
-
Vital Signs:
Vital Signs
Temp Pulse Resp BP Pulse Ox
97.8 F 92 27 126/87 98
10/11/24 07:20 10/11/24 10:47 10/11/24 09:00 10/11/24 10:47 10/11/24 11:05
Respiratory:: Bilateral: Coarse
--- NOTE | 2024-10-11 14:46 | PTCARENOTE ---
Patient sat on side of the bed this morning to eat breakfast. Patient is denying pain when asked. Compliant with plan of care. Incontinent of stool. Blanchable redness to sacrum.
[2024-10-11] MEDS: LIPITOR 40 MG PO (17:33)
[2024-10-11] MEDS: PROTONIX 40 MG PO (22:45)
[2024-10-11] MEDS: NEURONTIN 200 MG PO (22:46)
[2024-10-12] VITALS (25 sets, daily range): BP systolic 85–122; BP diastolic 41–92; BMI 29.2
[2024-10-12] MEDS: ProAmatine 10 MG PO ×3 (02:13→18:14)
--- NOTE | 2024-10-12 06:11 | PTCARENOTE ---
Received pt from shazia RN. Pt aaox3. afib on monitor. 95% on 2L NC. VS and assessment as documented. Pt incontinent of bowel and had a large BM. Hygiene completed including CHG wipes. Pt resting in bed with call zapata in reach.
[2024-10-12 06:17] LABS: % Basophils 1.1 % (0-2); % Eosinophils 3.6 % (0-6); % Immature Granulocytes 0.5 % (0-0.5); % Lymphocytes 12.3 % (20.5-51.1); % Monocytes 12.6 % (1.7-9.3); % Neutrophils 69.9 % (42.2-75.2); Absolute Basophils 0.1 10^3/uL (0-0.2); Absolute Eosinophils 0.2 10^3/uL (0-0.7); Absolute Lymphocytes 0.8 10^3/uL (1.2-3.4); Absolute Monocytes 0.8 10^3/uL (0.1-0.6); Absolute Neutrophils 4.4 10^3/uL (1.4-6.5); Hematocrit 33.4 % (39.0-52.0); Hemoglobin 10.2 g/dL (13.0-18.0); Mean Corp Hgb Conc. 30.5 g/dL (33.0-37.0); Mean Corpuscular Hgb 30.7 pg (27.0-31.0); Mean Corpuscular Volume 100.6 fL (80.0-94.0); Mean Platelet Volume 9.9 fL (7.4-10.4); Nucleated Red Blood Cells % 0 % (-); Platelet Count 259 10^3/uL (130-400); Red Blood Cell Count 3.32 10^6/uL (4.70-6.10); Red Cell Dist. Width 17.3 % (11.5-14.5); White Blood Cell Count 6.4 10^3/uL (4.8-10.8)
[2024-10-12 06:30] LABS: INR 3.69; PT 36.3 Sec (11.4-14.6)
[2024-10-12 06:47] LABS: Blood Urea Nitrogen 25 mg/dl (9-20); Calcium 9.8 mg/dl (8.4-10.2); Carbon Dioxide 26 mmol/L (22-30); Chloride 93 mmol/L (98-107); Estimated Creatinine Clearance 15 ml/min; Glucose 117 mg/dl (70-99); Potassium 4.8 mmol/L (3.5-5.1); Sodium 128 mmol/L (135-145); eGFR 17.09
--- NOTE | 2024-10-12 08:29 | W.PN.HOSP.TC ---
Today's Communication/Plan
-
Continue current care
discharge planning
Assessment / Plan
Assessment / Plan
Gen-AAOx3, NAD
HEENT-NC, AT, anicteric, clear oral mm
Neck-supple
CV-reg, no M, +S1/S2, rub
Lungs-clear B/L
Abd-soft, NT, less distention
Ext-bilateral lower extremity edema improving
Musculoskeletal-no cyanosis, clubbing
Skin-warm and dry
Neuro-grossly non-focal
Psych-calm, cooperative
Iatrogenic diarrhea -improved. Bowel meds changed to as needed only.
Shock -resolved. Off IV vasopressors. Continue midodrine.
I am not convinced that he has septic shock. Did not meet any SIRS criteria on presentation. Procalcitonin unreliable in the setting of ESRD. Blood cultures negative. At baseline patient runs hypotensive according to him.
I do not believe his blood pressures are accurate as we cannot use left upper extremity due to AV fistula, cannot use right upper extremity due to PICC line, we are left with lower extremity pressures which are unreliable.
COVID/influenza negative.
Chest x-ray 10/06 demonstrates improvement in the right basilar opacity. Left basilar opacification obscured by left hemidiaphragm.
Clinically doubt pneumonia. Will hold further antibiotics and observe closely. CT chest completed and does not demonstrate definitive findings of pneumonia. Atelectasis noted in the bases.
Acute on chronic hypoxic respiratory failure -suspect related to pulmonary edema due to ESRD, possible component of acute on chronic heart failure.
Currently on 2 L nasal cannula oxygen. Wean down as able.
-At baseline he is on 2 L of oxygen chronically.
ESRD on HD M/W/F- Nephrology following
Weight is down to 82 kg today, admission weight was 92 kg. Paracentesis was the primary furniture delivery driver for his weight loss. 5 L removed.
Hyponatremia -sodium 128. Defer to nephrology. Getting dialysis.
Acute nonischemic myocardial injury -due to acute illness.
- trop peaked .039
CAD/CABG x 3 vessel
- continue BB/Statin
- patient reports not being on ASA
Acute on chronic HFpEF -clinically improving. Shortness of breath resolved. Oxygenation improving. Weight is down. Lower extremity edema improving.
NSVT -electrolytes are normal. This was noted in [facility] recently and he was treated with metoprolol 25 mg twice daily. Currently not on metoprolol as he has been hypotensive, although blood pressures may not be completely accurate.
Can resume if okay with cardiology.
Recurrent ascites -suspect etiology is driven by ESRD as well as right heart failure. Paracentesis completed. Patient states he has had 3 paracenteses in the past. Records reviewed.
4.9 L removed via paracentesis by IR. Fluid analysis consistent with transudative source, suspect due to cardiogenic etiology given significant RV dilation on echocardiogram with moderate/severe TR. Fluid culture negative.
Cardiology following.
CT abdomen/pelvis completed with no obvious explanation for ascites. Incidental bilateral kidney masses noted. Differential diagnosis includes hyperdense cysts versus renal cell carcinoma. Findings discussed with patient's family and recommend
outpatient follow-up.
Permanent A. Fib -warfarin resumed, 1.5 mg daily. This was the discharge dose from [facility]. Records reviewed. INR elevated at 3.06 today, will hold warfarin tonight. INR was 2.2 yesterday. Recheck INR in the morning.
I managed to contact his half-way physician (Dr. Lanie Salinas, ) and she states that when the patient came to the half-way from the hospital he was not discharged on warfarin for unclear reasons. Patient denies bleeding
history.
COPD without exacerbation -uses 2 L nasal cannula oxygen at home chronically. Currently on [facility].
- Continue lev albuterol 2.5 mL every 4 hours as needed shortness of breath
Chronic anemia of CKD
- Hb appears baseline
Peripheral neuropathy
- continue gabapentin 100 mg in a.m., 200 mg at bedtime
GERD
- continue omeprazole 20 mg at bedtime
HLD
- no currrent meds
BOBBY noncompliant CPAP
Pulm HTN
Obesity due to excess calories
Vit B12 deficiency
- continue B12 supplement
Gout
- continue allopurinol 100 mg daily
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
DVT ppx: SC heparin
Full code -I had a long discussion with patient regarding goals of care and he is adamant that he wants to remain a full code as he does not want to upset his grandson. I explained to the patient that it is not his grandson's decision, it is the
patient's decision and if he ends up having a cardiopulmonary arrest requiring CPR and ventilation that it is very unlikely he would survive and very unlikely he would come off a ventilator. Patient seems to understand but wants to remain a full
code despite my recommendation.
Dispo -SNF when medically stable, likely Sunday if bed available. Updated case management.
Left a voicemail on October 10 for patient's [id number] to call me back.
Anticipated Discharge: Within 24 hours
Subjective/Interval History
-
Date of Service: October 12, 2024
Patient seen and examined. No complaints.
Objective Data
-
Labs:
Laboratory Results
10/12/24
05:45
WBC 6.4
Hgb 10.2 L
Hct 33.4 L
Plt Count 259
PT 36.3 H
INR 3.69
Sodium 128 L
Potassium 4.8
Chloride 93 L
Carbon Dioxide 26
BUN 25 H
Creatinine 3.4 H
Glucose 117 H
Calcium 9.8
Vital Signs:
Vital Signs
Temp Pulse Resp BP Pulse Ox
97.3 F 86 27 85/64 95
10/12/24 07:00 10/12/24 06:00 10/12/24 06:00 10/12/24 06:00 10/12/24 06:06
I&O
10/11/24 10/12/24 10/13/24
06:59 06:59 06:59
Intake Total 700 / 700
Balance 700 / 700
Review of Systems
-
History Source: Patient
All other systems: Reviewed and negative
[2024-10-12] MEDS: ZYLOPRIM 100 MG PO (08:35)
[2024-10-12] MEDS: VITAMIN B-12 1000 MCG PO (08:35)
[2024-10-12] MEDS: NEURONTIN 100 MG PO (08:35)
[2024-10-12] MEDS: ASPIR LOW (ENTERIC COATED) 81 MG PO (08:35)
[2024-10-12] MEDS: PHOSLO 1334 MG PO ×3 (08:35→18:14)
--- NOTE | 2024-10-12 11:51 | W.PN.CARDCBS ---
Today's Communication / Plan
-
Continue volume removal with hemodialysis. Blood pressure currently stable on midodrine.
We will hold off on restarting beta-cristine.
Okay for discharge from cardiology standpoint. Will sign off.
Impression / Plan
-
Primary Instructional Technology Teacher: Dr. Diamond of [facility]
Assessment:
Presentation with SOB
Acute HFrEF
Cardiomyopathy EF 42%
Chronic right-sided heart failure with pulmonary hypertension
Ascites s/p paracentesis for 4900cc 10/08/24
CAD status post CABG x 3 03/2015 BARRERA�LAD, [id number]
Permanent atrial fibrillation
Chronic Coumadin therapy
Hypertension
Hyperlipidemia
Type 2 diabetes
History of bradycardia on metoprolol during dialysis
Untreated obstructive sleep apnea
ESRD on hemodialysis, approximately 2 years
Chronic venous insufficiency
Anemic of chronic disease
History of falls
Hyponatremia
Gout
Several admissions to [facility] in last several months by patient report, further details unknown
Echo 11/27/2023 at [facility]: EF 50 to 55%, severe RV dysfunction, moderate , severe TR, RVSP 64 mmHg, small pericardial effusion
ECHO 10/08/24: EF 42%, septal flattening due to RV pressure and volume overload, RV dilated, biatrial enlargement, mild to moderate MR, aortic sclerosis, moderate to severe TR, PASP 65 mmHg, mildly dilated ascending aorta 4.0 cm
Plan:
-Patient presented due to significant shortness of breath and coughing after HD completed on 10/03/2024
-Records obtained and reviewed from [facility] as with several admissions there in the last several months. He was admitted to [facility] 09/02 - 09/09/2024 for influenza A. He was discharged to SNF. His family reportedly signed him out AMA on
09/17/2024 and he was brought back to the emergency room and admitted from 09/17 through 09/26/2024 for pneumonia. During this admission he was seen by cardiology due to frequent ectopy noted on telemetry. He was considered for amiodarone, however
this was never started. He was maintained on Lopressor 25 mg twice daily. He is chronically on Coumadin for permanent atrial fibrillation. During that admission he was noted to have non-CO troponin elevation in addition which was medically
managed. He has noted to have history of chronic ascites which occasionally requires paracenteses.
-His weight is overall down to 180 pounds. He is more alert and feels better today. His blood pressure is stable and he is now on the midodrine and off pressors.
-also underwent paracentesis for 4900cc 10/08/24.
-Echocardiogram with results as above, EF newly reduced at 42%. Hypotension and end-stage renal disease significantly limit guideline directed medical therapy
-Troponin peaked at 0.039 on admission and downtrending. Patient without chest pain. does not presently appear to be a candidate for procedures/interventions such as cardiac cath
-He has permanent atrial fibrillation with frequent ectopy on review of telemetry. Heart rates presently adequately controlled off outpatient lopressor 25mg BID. K/mag stable. Given low EF, would attempt to place on Toprol if blood pressure allows
prior to discharge.
-Continue aspirin, hold Coumadin today with INR 3.69
-continue statin
-presently a full code. Will continue ongoing discussions regarding goals of care pending patient's clinical progress. Patient's daughter in law relayed 10/09 that patient historically has been against hospice
-will need PT/OT
Progress Note - Instructional Technology Teacher
Subjective
Date of Service: October 12, 2024
He denies chest pains or dizziness
Objective
Labs:
10/12/24 05:45
10/12/24 05:45
Labs
Hgb 10.2 g/dL (13.0-18.0) L 10/12/24 05:45
Hct 33.4 % (39.0-52.0) L 10/12/24 05:45
Plt Count 259 10^3/uL (130-400) 10/12/24 05:45
PT 36.3 Sec (11.4-14.6) H 10/12/24 05:45
INR 3.69 10/12/24 05:45
Sodium 128 mmol/L (135-145) L 10/12/24 05:45
Potassium 4.8 mmol/L (3.5-5.1) 10/12/24 05:45
BUN 25 mg/dl (9-20) H 10/12/24 05:45
Creatinine 3.4 mg/dL (0.7-1.3) H 10/12/24 05:45
Glucose 117 mg/dl (70-99) H 10/12/24 05:45
Vital Signs and I&O:
Vital Signs
Temp Pulse Resp BP Pulse Ox
97.7 F 87 27 109/87 95
10/12/24 11:07 10/12/24 11:24 10/12/24 06:00 10/12/24 11:24 10/12/24 06:06
Vital Signs
Temp Pulse Resp BP Pulse Ox
97.7 F 87 27 109/87 95
10/12/24 11:07 10/12/24 11:24 10/12/24 06:00 10/12/24 11:24 10/12/24 06:06
Intake & Output
10/10/24 10/11/24 10/12/24 10/13/24
06:59 06:59 06:59 06:59
Intake Total 600 / 600 700 / 700
Balance 600 / 600 700 / 700
Physical Exam
Physical Exam
GEN: No distress, awake, Ox3
HEENT: supple, anicteric, mmm
LUNGS: CTA, no wheezes/rales
CV: Reg, S1/S2, 1/6 syst LSB, no gallop
ABD: soft, BS+, NT/ND
EXT: No edema
NEURO: Gross non-focal
SKIN: No rash
--- NOTE | 2024-10-12 13:54 | W.PN.NEPH.PH ---
Today's Communication / Plan
-
Dialysis Sunday no acute need today
Assessment/Plan
-
Assessment
ESRD
Volume overload
Shortness of breath
Hypotension
Heart failure preserved EF
Coronary artery disease
Plan
HD earlier today tolerated 2L
re eval through wknd for furthur UF as needed
Maintain Levophed for hypotension increase to maintain mean arterial pressure
s/p para 4.9 L 10/08
No acute need for dialysis today
Critical care time spent 31 minutes
Total Time Spent with Patient (in minutes): 31
-
-
Date of Service: October 12, 2024
CC / HPI / ROS
-
Chief Complaint:
ESRD
History of Present Illness:
Critically ill
Remains on supplemental oxygen
s/p LVP 10/07 for 4.9L
Review of Systems:
No chest pain, no fever
ectopy on HD
Labs
-
Labs:
WBC 6.4 10^3/uL (4.8-10.8) 10/12/24 05:45
RBC 3.32 10^6/uL (4.70-6.10) L 10/12/24 05:45
Hgb 10.2 g/dL (13.0-18.0) L 10/12/24 05:45
Hct 33.4 % (39.0-52.0) L 10/12/24 05:45
Plt Count 259 10^3/uL (130-400) 10/12/24 05:45
Sodium 128 mmol/L (135-145) L 10/12/24 05:45
Potassium 4.8 mmol/L (3.5-5.1) 10/12/24 05:45
Chloride 93 mmol/L (98-107) L 10/12/24 05:45
Carbon Dioxide 26 mmol/L (22-30) 10/12/24 05:45
BUN 25 mg/dl (9-20) H 10/12/24 05:45
Creatinine 3.4 mg/dL (0.7-1.3) H 10/12/24 05:45
eGFR 17.09 10/12/24 05:45
Glucose 117 mg/dl (70-99) H 10/12/24 05:45
Calcium 9.8 mg/dl (8.4-10.2) 10/12/24 05:45
Phosphorus 3.2 mg/dl (2.5-4.5) 10/04/24 04:55
Lvq-N-Jyorkjulunr Pept > 76234 pg/ml 10/03/24 18:09
Albumin 3.3 g/dl (3.5-5.0) L 10/08/24 04:39
Physical Exam
-
Vital Signs:
Vital Signs
Temp Pulse Resp BP Pulse Ox
97.7 F 87 27 109/87 94
10/12/24 11:07 10/12/24 11:24 10/12/24 06:00 10/12/24 11:24 10/12/24 12:18
[2024-10-12] MEDS: LIPITOR 40 MG PO (18:14)
--- NOTE | 2024-10-12 18:21 | PTCARENOTE ---
Rec'd pt this AM. Pt able to sit on side of the bed to eat meals. all vital signs stable today. BP normotensive.
[2024-10-12] MEDS: NEURONTIN 200 MG PO (21:08)
[2024-10-12] MEDS: PROTONIX 40 MG PO (21:08)
--- NOTE | 2024-10-12 22:40 | PTCARENOTE ---
assumed care of patient. pt is AAOx3, [facility] and flat affect. 97% 2L. oliguric per report. incontinent of stool. pt cleaned up. PVD brown legs. able to turn self in bed. pt aware he has HD at 7am tomorrow. able to take pills without issues with water.
care ongoing.
[2024-10-13] VITALS (50 sets, daily range): BP systolic 74–161; BP diastolic 31–143; PULSE 88; BMI 30.3
[2024-10-13] MEDS: ProAmatine PO ×2 (02:11→18:17)
[2024-10-13] MEDS: ProAmatine 10 MG PO ×2 (08:05→20:06)
[2024-10-13] MEDS: NEURONTIN 100 MG PO (08:13)
[2024-10-13] MEDS: PHOSLO 1334 MG PO ×3 (08:13→18:17)
[2024-10-13] MEDS: ASPIR LOW (ENTERIC COATED) 81 MG PO (08:13)
[2024-10-13] MEDS: ZYLOPRIM 100 MG PO (08:13)
[2024-10-13] MEDS: VITAMIN B-12 PO (08:44)
[2024-10-13 08:51] LABS: Hematocrit 32.3 % (39.0-52.0); Hemoglobin 10.2 g/dL (13.0-18.0)
[2024-10-13 09:11] LABS: INR 2.93; PT 30.5 Sec (11.4-14.6)
[2024-10-13 09:34] LABS: Carbon Dioxide 27 mmol/L (22-30); Potassium 5.1 mmol/L (3.5-5.1); Sodium 126 mmol/L (135-145)
--- NOTE | 2024-10-13 09:52 | W.PN.NEPH.HD ---
Assessment
-
pt seen during HD
vitals stable SBP 106
UF as toelrates
still edema, 7kg down since admit
wean O2 as able
[id number]-edotmp FR
CVC functions well
Progress Note - Hemodialysis
-
Date of Service: October 13, 2024
Duration: 30 minutes and 3 hours
Potassium Bath: 3
Calcium Bath: 2.5
Opti-Dialyzer: 160
Ultrafiltration: Other (3kg)
Blood Flow: 400
Dialysate Flow: 600
Heparin: no
EPO: no
[2024-10-13] MEDS: MANNITOL 25% 12.5 GRAMS IV (10:08)
[2024-10-13 11:41] LABS: Chloride 92 mmol/L (98-107)
--- NOTE | 2024-10-13 14:35 | PTCARENOTE ---
Rec'd pt this AM. pt tolerated HD very well. BP stable. eating all meals, sitting on side of bed. remains on 2L NC. Daughter and grandson called to inquire about david. RN updated grandson, Ralf who stated he will update pt's daughter, Micheline.
[2024-10-13] MEDS: MANNITOL 25% IV (14:44)
--- NOTE | 2024-10-13 14:53 | CM ---
Addendum entered by Irais Linder 10/13/24 15:16:
Waiting on PT/OT to obtain Auth.
Original Note:
manager sap reviewed patient's chart and plan is for patient to transfer to [facility], per physician patient is stable, patient received HD today and his HD schedule is Sun, update provided to [facility], per
admissions they need Auth, last PT note is 10/09, need updated PT/OT notes in order to obtain Auth.
Plan; Transfer to [facility] pending Auth. Need updated PT/OT notes to obtain Auth.
--- NOTE | 2024-10-13 15:21 | W.PN.HOSP.TC ---
Today's Communication/Plan
-
Discharge
Assessment / Plan
Assessment / Plan
Assessment:
Iatrogenic diarrhea - improved. Bowel meds changed to as needed only.
Shock -resolved. Off IV vasopressors. Continue midodrine.
- with cultures negative and not meeting SIRS criteria, was not felt to be septic shock.
Acute on chronic hypoxic respiratory failure -suspect related to pulmonary edema due to ESRD, possible component of acute on chronic heart failure.
Currently on 2 L nasal cannula oxygen. Wean down as able.
- At baseline he is on 2 L of oxygen chronically.
ESRD on HD M/W/F- Nephrology following
Weight is down to 85 kg today, admission weight was 92 kg. Paracentesis was the primary motor coach driver for his weight loss. 5 L removed.
Hyponatremia - sodium 126. Defer to nephrology. Getting dialysis.
Acute nonischemic myocardial injury -due to acute illness.
- trop peaked .039
CAD/CABG x 3 vessel
- continue BB/Statin
- patient reports not being on ASA
Acute on chronic HFpEF - clinically improving. Shortness of breath resolved. Oxygenation improving. Lower extremity edema improving.
NSVT - electrolytes are normal. This was noted in [facility] recently and he was treated with metoprolol 25 mg twice daily. Currently not on metoprolol as he has been hypotensive, although blood pressures may not be completely accurate.
Hold per Cardiology
Recurrent ascites - suspect etiology is driven by ESRD as well as right heart failure. Paracentesis completed. Patient states he has had 3 paracenteses in the past. Records reviewed.
4.9 L removed via paracentesis by IR. Fluid analysis consistent with transudative source, suspect due to cardiogenic etiology given significant RV dilation on echocardiogram with moderate/severe TR. Fluid culture negative.
Cardiology following.
CT abdomen/pelvis completed with no obvious explanation for ascites. Incidental bilateral kidney masses noted. Differential diagnosis includes hyperdense cysts versus renal cell carcinoma. Findings discussed with patient's family and recommend
outpatient follow-up.
Permanent A. Fib - warfarin resumed as 1mg daily. Follow INR. Noted was not discharged from [facility] with Coumadin.
COPD without exacerbation -uses 2 L nasal cannula oxygen at home chronically. Currently on [facility].
- Continue lev albuterol 2.5 mL every 4 hours as needed shortness of breath
Chronic anemia of CKD
- Hb appears baseline
Peripheral neuropathy
- continue gabapentin 100 mg in a.m., 200 mg at bedtime
GERD
- continue omeprazole 20 mg at bedtime
HLD
- no currrent meds
BOBBY noncompliant CPAP
Pulm HTN
Obesity due to excess calories
Vit B12 deficiency
- continue B12 supplement
Gout
- continue allopurinol 100 mg daily
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
DVT ppx: SC heparin
Full code - per Dr. Hall 'I had a long discussion with patient regarding goals of care and he is adamant that he wants to remain a full code as he does not want to upset his grandson. I explained to the patient that it is not his grandson's
decision, it is the patient's decision and if he ends up having a cardiopulmonary arrest requiring CPR and ventilation that it is very unlikely he would survive and very unlikely he would come off a ventilator. Patient seems to understand but wants
to remain a full code despite my recommendation.'
Dispo: medically stable for DC after discussions with nephrology, cardiology, family. Patient considering appeal.
Anticipated Discharge: > 48 hours
Subjective/Interval History
-
Date of Service: October 13, 2024
denies any new complaints at present
Objective Data
-
Labs:
Laboratory Results
10/13/24 10/13/24
08:22 08:52
Hgb 10.2 L
Hct 32.3 L
PT 30.5 H
INR 2.93
Sodium 126 L
Potassium 5.1
Chloride 92 L
Carbon Dioxide 27
Vital Signs:
Vital Signs
Temp Pulse Resp BP Pulse Ox
97.5 F 88 24 96/66 100
10/13/24 05:25 10/13/24 12:15 10/13/24 12:15 10/13/24 12:15 10/13/24 12:15
I&O
10/12/24 10/13/24 10/14/24
06:59 06:59 06:59
Intake Total 700 / 700
Balance 700 / 700
Physical Exam
-
General: No Apparent Distress
HEENT: Normocephalic and Atraumatic
Respiratory: Negative Wheezes
Cardiac: Regular Rhythm and S1/S2
GI: Soft
Musculoskeletal: Edema, Right Lower Extrem and Edema, Left Lower Extrem
Neuro: AO x 3
Psych: Calm
Data Reviewed
-
Total Time Spent with Patient (in minutes): 51
Labs: Labs Reviewed by me
[2024-10-13] MEDS: COUMADIN 1 MG PO (18:17)
[2024-10-13] MEDS: LIPITOR 40 MG PO (18:17)
[2024-10-13] MEDS: PROTONIX 40 MG PO (20:05)
[2024-10-13] MEDS: NEURONTIN 200 MG PO (20:05)
--- NOTE | 2024-10-13 22:09 | PTCARENOTE ---
assumed care of patient. pt is AAOx3 [place], able to make needs known. VSS. pt concerned over BP, assured patient his BP was okay. able to take pills without issues. no complaints of pain. 97% 2L NC. care ongoing.
[2024-10-14] VITALS (9 sets, daily range): BP systolic 95–129; BP diastolic 48–66; PULSE 73; O2SAT 96; BMI 29.9
[2024-10-14] MEDS: ProAmatine 10 MG PO ×3 (02:04→17:05)
--- NOTE | 2024-10-14 04:15 | PTCARENOTE ---
pt tele level of care, moved to room 2126, report given to Rom PEÑA. pt moved with all belongings from room without issues.
[2024-10-14] MEDS: ZYLOPRIM 100 MG PO (07:55)
[2024-10-14] MEDS: NEURONTIN 100 MG PO (07:55)
[2024-10-14] MEDS: PHOSLO 1334 MG PO ×3 (07:55→17:05)
[2024-10-14] MEDS: VITAMIN B-12 1000 MCG PO (07:55)
[2024-10-14] MEDS: ASPIR LOW (ENTERIC COATED) 81 MG PO (07:55)
[2024-10-14 08:08] LABS: Hemoglobin 10.2 g/dL (13.0-18.0); Mean Corp Hgb Conc. 30.9 g/dL (33.0-37.0); Mean Corpuscular Hgb 31.6 pg (27.0-31.0); Mean Corpuscular Volume 102.2 fL (80.0-94.0); Mean Platelet Volume 9.8 fL (7.4-10.4); Platelet Count 259 10^3/uL (130-400); Red Blood Cell Count 3.23 10^6/uL (4.70-6.10); Red Cell Dist. Width 17.8 % (11.5-14.5); White Blood Cell Count 6.4 10^3/uL (4.8-10.8)
[2024-10-14 08:27] LABS: PT 26.2 Sec (11.4-14.6)
--- NOTE | 2024-10-14 08:35 | CM ---
Patient has appealed his discharge IMM given at 4pm, 10/13/24 and patient has contacted [facility], patient's chart will be faxed to [facility] this morning, plan is for patient to transfer to [facility] half-way facility, patient receives HD
Sun. Patient needs Auth for skilled placement.
Plan; Await [facility] appeal outcome and then proceed with Auth for [facility].
[2024-10-14 08:41] LABS: Blood Urea Nitrogen 27 mg/dl (9-20); Calcium 9.7 mg/dl (8.4-10.2); Carbon Dioxide 28 mmol/L (22-30); Chloride 95 mmol/L (98-107); Estimated Creatinine Clearance 19 ml/min; Glucose 121 mg/dl (70-99); Potassium 5.2 mmol/L (3.5-5.1); Sodium 133 mmol/L (135-145); eGFR 19.86
--- NOTE | 2024-10-14 11:25 | W.PN.HOSP.TC ---
Today's Communication/Plan
-
continues to remain medically stable for dc pending patient appeal
Assessment / Plan
Assessment / Plan
Assessment:
Iatrogenic diarrhea - improved. Bowel meds changed to as needed only.
Shock -resolved. Off IV vasopressors. Continue midodrine.
- with cultures negative and not meeting SIRS criteria, was not felt to be septic shock.
Acute on chronic hypoxic respiratory failure -suspect related to pulmonary edema due to ESRD, possible component of acute on chronic heart failure.
Currently on 2 L nasal cannula oxygen. Wean down as able.
- At baseline he is on 2 L of oxygen chronically.
ESRD on HD M/W/F- Nephrology following
Weight is down to 84 kg today, admission weight was 92 kg. Paracentesis was the primary concrete pile driver operator for his weight loss. 5 L removed.
Hyponatremia - sodium 133. Defer to nephrology. Getting dialysis.
Acute nonischemic myocardial injury -due to acute illness.
- trop peaked .039
CAD/CABG x 3 vessel
- continue BB/Statin
- patient reports not being on ASA
Acute on chronic HFpEF - clinically improving. Shortness of breath resolved. Oxygenation improving. Lower extremity edema improving.
NSVT - electrolytes are normal. This was noted in [facility] recently and he was treated with metoprolol 25 mg twice daily. Currently not on metoprolol as he has been hypotensive, although blood pressures may not be completely accurate.
Hold per Cardiology
Recurrent ascites - suspect etiology is driven by ESRD as well as right heart failure. Paracentesis completed. Patient states he has had 3 paracenteses in the past. Records reviewed.
4.9 L removed via paracentesis by IR. Fluid analysis consistent with transudative source, suspect due to cardiogenic etiology given significant RV dilation on echocardiogram with moderate/severe TR. Fluid culture negative.
Cardiology following.
CT abdomen/pelvis completed with no obvious explanation for ascites. Incidental bilateral kidney masses noted. Differential diagnosis includes hyperdense cysts versus renal cell carcinoma. Findings discussed with patient's family and recommend
outpatient follow-up.
Permanent A. Fib - warfarin resumed as 1mg daily. Follow INR. Noted was not discharged from [facility] with Coumadin.
COPD without exacerbation -uses 2 L nasal cannula oxygen at home chronically. Currently on [facility].
- Continue lev albuterol 2.5 mL every 4 hours as needed shortness of breath
Chronic anemia of CKD
- Hb appears baseline
Peripheral neuropathy
- continue gabapentin 100 mg in a.m., 200 mg at bedtime
GERD
- continue omeprazole 20 mg at bedtime
HLD
- no currrent meds
BOBBY noncompliant CPAP
Pulm HTN
Obesity due to excess calories
Vit B12 deficiency
- continue B12 supplement
Gout
- continue allopurinol 100 mg daily
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
DVT ppx: SC heparin
Full code - per Dr. Hall 'I had a long discussion with patient regarding goals of care and he is adamant that he wants to remain a full code as he does not want to upset his grandson. I explained to the patient that it is not his grandson's
decision, it is the patient's decision and if he ends up having a cardiopulmonary arrest requiring CPR and ventilation that it is very unlikely he would survive and very unlikely he would come off a ventilator. Patient seems to understand but wants
to remain a full code despite my recommendation.'
Dispo: medically stable for DC after discussions with nephrology, cardiology, family. Patient has appealed
Anticipated Discharge: 24 - 48 hours
Subjective/Interval History
-
Date of Service: October 14, 2024
denies any new complaints
awaiting appeal outcomes
Objective Data
-
Labs:
Laboratory Results
10/14/24
07:25
WBC 6.4
Hgb 10.2 L
Hct 33.0 L
Plt Count 259
PT 26.2 H
INR 2.40
Sodium 133 L
Potassium 5.2 H
Chloride 95 L
Carbon Dioxide 28
BUN 27 H
Creatinine 3.0 H
Glucose 121 H
Calcium 9.7
Vital Signs:
Vital Signs
Temp Pulse Resp BP Pulse Ox
97.8 F 89 16 95/48 92
10/14/24 07:11 10/14/24 07:11 10/14/24 07:11 10/14/24 07:11 10/14/24 10:53
I&O
10/13/24 10/14/24 10/15/24
06:59 06:59 06:59
Intake Total 480 / 480
Balance 480 / 480
Physical Exam
-
General: No Apparent Distress
HEENT: Normocephalic and Atraumatic
Respiratory: Negative Wheezes
Cardiac: Regular Rhythm and S1/S2
GI: Soft and Nontender
Neuro: AO x 3
Hematologic / Lymphatic: No Lymphadenopathy
Psych: Calm
Data Reviewed
-
Total Time Spent with Patient (in minutes): 41
Labs: Labs Reviewed by me
[2024-10-14] MEDS: LIPITOR 40 MG PO (17:06)
[2024-10-14] MEDS: COUMADIN 1 MG PO (17:06)
--- NOTE | 2024-10-14 17:19 | W.PN.NEPH.PH ---
Today's Communication / Plan
-
HD tomorrow
Assessment/Plan
-
Assessment
ESRD
Volume overload
Shortness of breath
Hypotension
Heart failure preserved EF
Coronary artery disease
Plan
HD tomorrow
echo normal EF, pulm HTN
All edema not amenable to UF
BP stable on scheduled midodrine
s/p para 4.9 L 10/08
strict renal diet and FR
-
-
Date of Service: October 14, 2024
CC / HPI / ROS
-
Chief Complaint:
ESRD
History of Present Illness:
BP stable, k 5.2
no fever
Review of Systems:
No chest pain, no fever
no sob
Labs
-
Labs:
WBC 6.4 10^3/uL (4.8-10.8) 10/14/24 07:25
RBC 3.23 10^6/uL (4.70-6.10) L 10/14/24 07:25
Hgb 10.2 g/dL (13.0-18.0) L 10/14/24 07:25
Hct 33.0 % (39.0-52.0) L 10/14/24 07:25
Plt Count 259 10^3/uL (130-400) 10/14/24 07:25
Sodium 133 mmol/L (135-145) L 10/14/24 07:25
Potassium 5.2 mmol/L (3.5-5.1) H 10/14/24 07:25
Chloride 95 mmol/L (98-107) L 10/14/24 07:25
Carbon Dioxide 28 mmol/L (22-30) 10/14/24 07:25
BUN 27 mg/dl (9-20) H 10/14/24 07:25
Creatinine 3.0 mg/dL (0.7-1.3) H 10/14/24 07:25
eGFR 19.86 10/14/24 07:25
Glucose 121 mg/dl (70-99) H 10/14/24 07:25
Calcium 9.7 mg/dl (8.4-10.2) 10/14/24 07:25
Phosphorus 3.2 mg/dl (2.5-4.5) 10/04/24 04:55
Foe-Z-Utdtmehlmoh Pept > 02534 pg/ml 10/03/24 18:09
Albumin 3.3 g/dl (3.5-5.0) L 10/08/24 04:39
Physical Exam
-
Vital Signs:
Vital Signs
Temp Pulse Resp BP Pulse Ox
97.9 F 86 22 125/58 97
10/14/24 15:00 10/14/24 17:05 10/14/24 15:00 10/14/24 17:05 10/14/24 15:00
Cardiovascular:: Regular rate and rhythm
Respiratory:: Bilateral: Rales
Lung Excursion:: Normal
Abdomen:: Nontender and Soft
Extremity Edema:: +3: Bilateral:
Kang Catheter: No
--- NOTE | 2024-10-14 18:41 | PTCARENOTE ---
Patient OOB to chair for majority of shift, air cushion under patient, sacrum foam applied for blanchable bottom. POX stable on chronic 2L, patient orally suctioning self PRN d/t moist productive cough, tolerating diet and meds whole in applesauce.
Patient oliguric, no BM this shift, call zapata within reach, patient ringing appropriately. HD scheduled for tomorrow.
[2024-10-14] MEDS: NEURONTIN 200 MG PO (21:15)
[2024-10-14] MEDS: PROTONIX 40 MG PO (21:15)
[2024-10-15] VITALS (8 sets, daily range): BP systolic 115–134; BP diastolic 52–75; PULSE 93–94; O2SAT 93
[2024-10-15] MEDS: ProAmatine 10 MG PO ×3 (02:13→17:35)
[2024-10-15 06:44] LABS: INR 2.02
[2024-10-15 06:45] LABS: Hemoglobin 10.1 g/dL (13.0-18.0); Mean Corp Hgb Conc. 31.6 g/dL (33.0-37.0); Mean Corpuscular Hgb 31.7 pg (27.0-31.0); Mean Corpuscular Volume 100.3 fL (80.0-94.0); Mean Platelet Volume 9.8 fL (7.4-10.4); Platelet Count 260 10^3/uL (130-400); Red Blood Cell Count 3.19 10^6/uL (4.70-6.10); Red Cell Dist. Width 17.8 % (11.5-14.5); White Blood Cell Count 6.5 10^3/uL (4.8-10.8)
[2024-10-15 06:54] LABS: Blood Urea Nitrogen 38 mg/dl (9-20); Calcium 9.5 mg/dl (8.4-10.2); Carbon Dioxide 25 mmol/L (22-30); Chloride 93 mmol/L (98-107); Estimated Creatinine Clearance 14 ml/min; Glucose 126 mg/dl (70-99); Potassium 5.5 mmol/L (3.5-5.1); Sodium 131 mmol/L (135-145); eGFR 14.49
[2024-10-15] MEDS: ASPIR LOW (ENTERIC COATED) 81 MG PO (09:42)
[2024-10-15] MEDS: VITAMIN B-12 1000 MCG PO (09:42)
[2024-10-15] MEDS: PHOSLO 1334 MG PO ×3 (09:42→17:34)
[2024-10-15] MEDS: NEURONTIN 100 MG PO (09:42)
[2024-10-15] MEDS: ZYLOPRIM 100 MG PO (09:42)
--- NOTE | 2024-10-15 12:30 | W.PN.HOSP.TC ---
Addendum entered and electronically signed by Katy Solis MD 10/15/24 12:39:
mucous production, thick
- check COVID/FLU and CXR
Original Note:
Today's Communication/Plan
-
dc to SNF when appeals process complete
HD today
Assessment / Plan
Assessment / Plan
Assessment:
Iatrogenic diarrhea - improved. Bowel meds changed to as needed only.
Shock - resolved. off IV vasopressors. continue midodrine.
- with cultures negative and not meeting SIRS criteria, was not felt to be septic shock.
Acute on chronic hypoxic respiratory failure -suspect related to pulmonary edema due to ESRD, possible component of acute on chronic heart failure.
Currently on 2 L nasal cannula oxygen. Wean down as able.
- At baseline he is on 2 L of oxygen chronically.
ESRD on HD M/W/F- Nephrology following
Weight is down to 84 kg today, admission weight was 92 kg. 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 5 L removed.
Hyponatremia - sodium 133. Defer to nephrology. Getting dialysis.
Acute nonischemic myocardial injury -due to acute illness.
- trop peaked .039
CAD/CABG x 3 vessel
- continue BB/Statin
- patient reports not being on ASA
Acute on chronic HFpEF - clinically improving. Shortness of breath resolved. Oxygenation improving. Lower extremity edema improving.
NSVT - electrolytes are normal. This was noted in [facility] recently and he was treated with metoprolol 25 mg twice daily. Currently not on metoprolol as he has been hypotensive, although blood pressures may not be completely accurate.
Hold per Cardiology
Recurrent ascites - suspect etiology is driven by ESRD as well as right heart failure. Paracentesis completed. Patient states he has had 3 paracenteses in the past. Records reviewed.
4.9 L removed via paracentesis by IR. Fluid analysis consistent with transudative source, suspect due to cardiogenic etiology given significant RV dilation on echocardiogram with moderate/severe TR. Fluid culture negative.
Cardiology following.
CT abdomen/pelvis completed with no obvious explanation for ascites. Incidental bilateral kidney masses noted. Differential diagnosis includes hyperdense cysts versus renal cell carcinoma. Findings discussed with patient's family and recommend
outpatient follow-up.
Permanent A. Fib - warfarin resumed as 1mg daily. Follow INR. Noted was not discharged from [facility] with Coumadin.
COPD without exacerbation -uses 2 L nasal cannula oxygen at home chronically. Currently on [facility].
- Continue lev albuterol 2.5 mL every 4 hours as needed shortness of breath
Chronic anemia of CKD
- Hb appears baseline
Peripheral neuropathy
- continue gabapentin 100 mg in a.m., 200 mg at bedtime
GERD
- continue omeprazole 20 mg at bedtime
HLD
- no currrent meds
BOBBY noncompliant CPAP
Pulm HTN
Obesity due to excess calories
Vit B12 deficiency
- continue B12 supplement
Gout
- continue allopurinol 100 mg daily
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
DVT ppx: SC heparin
Full code - per Dr. Hall 'I had a long discussion with patient regarding goals of care and he is adamant that he wants to remain a full code as he does not want to upset his grandson. I explained to the patient that it is not his grandson's
decision, it is the patient's decision and if he ends up having a cardiopulmonary arrest requiring CPR and ventilation that it is very unlikely he would survive and very unlikely he would come off a ventilator. Patient seems to understand but wants
to remain a full code despite my recommendation.'
Dispo: medically stable for DC after discussions with nephrology, cardiology, family. Patient has appealed
Anticipated Discharge: Within 24 hours
Subjective/Interval History
-
Date of Service: October 15, 2024
no complaints
for HD today
Objective Data
-
Labs:
Laboratory Results
03/26/25
05:26
WBC 6.5
Hgb 10.1 L
Hct 32.0 L
Plt Count 260
PT 23.0 H
INR 2.02
Sodium 131 L
Potassium 5.5 H
Chloride 93 L
Carbon Dioxide 25
BUN 38 H
Creatinine 3.9 H
Glucose 126 H
Calcium 9.5
Vital Signs:
Vital Signs
Temp Pulse Resp BP Pulse Ox
97.6 F 95 18 125/75 96
10/15/24 11:27 10/15/24 11:27 10/15/24 11:27 10/15/24 11:27 10/15/24 11:27
I&O
10/14/24 10/15/24 10/16/24
06:59 06:59 06:59
Intake Total 480 / 480 720 / 720
Balance 480 / 480 720 / 720
Physical Exam
-
General: No Apparent Distress
HEENT: Normocephalic and Atraumatic
Cardiac: Regular Rhythm and S1/S2
Genito-urinary: No Costovertebral Tender
Hematologic / Lymphatic: No Lymphadenopathy
Psych: Calm
Data Reviewed
-
Total Time Spent with Patient (in minutes): 41
Labs: Labs Reviewed by me
--- NOTE | 2024-10-15 13:07 | CM ---
Addendum entered by Risa Stockton 10/17/24 09:12:
Correction to below note
spoke with daughter Micheline who stated that she did not call for reconsideration and that family and patient did not either.
Original Note:
Patient seen at bedside with grandmargi Arambula discussed appeal.
[employer] determination received & they agreed with hospital discharge.
Patient called for reconsideration & waiting for [employer] to review.
Spoke with Irais at [facility] - they have a bed but no dialysis chair
She stated she spoke with Lyubov at [facility] & the patient still has his chair time at 10:40am [id number]
Irais states [facility] can transport him to [facility].
tt Dr. oSlis & Dr. Whittington
PLAN: [facility] once determination of appeal reconsideration - CM will need to obtain ins auth
[2024-10-15] MEDS: ProAmatine 5 MG PO (13:28)
--- NOTE | 2024-10-15 14:06 | W.PN.NEPH.HD ---
Assessment
-
Seen on dialysis tolerating treatment and Maral planned for Sunday likely outpatient dialysis Sunday
Progress Note - Hemodialysis
-
Date of Service: October 15, 2024
Duration: 30 minutes and 3 hours
Potassium Bath: 3
Calcium Bath: 2.5
Opti-Dialyzer: 160
Ultrafiltration: Other (3kg)
Blood Flow: 400
Dialysate Flow: 600
Heparin: no
EPO: no
[2024-10-15 14:35] LABS: COVID-19 Antigen Negative (Negative)
[2024-10-15] MEDS: COUMADIN 1 MG PO (17:34)
[2024-10-15] MEDS: LIPITOR 40 MG PO (17:35)
[2024-10-15] MEDS: PROTONIX 40 MG PO (22:09)
[2024-10-15] MEDS: NEURONTIN 200 MG PO (22:09)
[2024-10-16] VITALS (8 sets, daily range): BP systolic 115–128; BP diastolic 59–67; BMI 29.2
[2024-10-16] MEDS: ProAmatine 10 MG PO ×3 (02:45→17:21)
[2024-10-16] MEDS: VITAMIN B-12 1000 MCG PO (09:40)
[2024-10-16] MEDS: NEURONTIN 100 MG PO (09:40)
[2024-10-16] MEDS: PHOSLO 1334 MG PO ×3 (09:40→17:21)
[2024-10-16] MEDS: ZYLOPRIM 100 MG PO (09:40)
[2024-10-16] MEDS: ASPIR LOW (ENTERIC COATED) 81 MG PO (09:40)
--- NOTE | 2024-10-16 09:56 | CM ---
Addendum entered by Risa Stockton 10/16/24 15:30:
Call back from Caryl at /[facility] APPROVED - Authorization approval #: [id number]
Start date 10/16 for 5 days NRD: 10/20/24
Call with updates [phone]
Left message with daughter Micheline
Original Note:
Spoke with Irais from [facility] NPI #: [id number]
Dr. Peterson Wilson NPI #: [id number]
Initiatiated auth-Called /[facility] [phone]
Spoke with Caryl and will get back to .
Spoke with Sona from [facility] [phone] they [facility] can do [facility] on Sunday - [facility] will transfer
tt hospitalist & Dr. Whittington
PLAN: [facility] once auth approved
Report #: [phone]
Fax #: [phone]
[facility] Fax #: [phone]
--- NOTE | 2024-10-16 12:49 | W.PN.HOSP.TC ---
Today's Communication/Plan
-
doxy for possible bronchitis
hold bowel regimen
dc planning to SNF
Assessment / Plan
Assessment / Plan
Assessment:
Iatrogenic diarrhea - improved. Bowel meds changed to as needed only.
Shock - resolved. off IV vasopressors. continue midodrine.
- with cultures negative and not meeting SIRS criteria, was not felt to be septic shock.
Acute on chronic hypoxic respiratory failure -suspect related to pulmonary edema due to ESRD, possible component of acute on chronic heart failure.
Currently on 2 L nasal cannula oxygen. Wean down as able.
- At baseline he is on 2 L of oxygen chronically.
ESRD on HD M/W/F- Nephrology following
Weight is down to 84 kg today, admission weight was 92 kg. Paracentesis was the primary cdl company driver for his weight loss. 5 L removed.
Acute bronchitis
- start Doxy 5 day course
Hyponatremia - sodium 131. Defer to nephrology. Getting dialysis.
Acute nonischemic myocardial injury -due to acute illness.
- trop peaked .039
CAD/CABG x 3 vessel
- continue BB/Statin
- patient reports not being on ASA
Acute on chronic HFpEF - clinically improving. Shortness of breath resolved. Oxygenation improving. Lower extremity edema improving.
NSVT - electrolytes are normal. This was noted in [facility] recently and he was treated with metoprolol 25 mg twice daily. Currently not on metoprolol as he has been hypotensive, although blood pressures may not be completely accurate.
Hold per Cardiology
Recurrent ascites - suspect etiology is driven by ESRD as well as right heart failure. Paracentesis completed. Patient states he has had 3 paracenteses in the past. Records reviewed.
4.9 L removed via paracentesis by IR. Fluid analysis consistent with transudative source, suspect due to cardiogenic etiology given significant RV dilation on echocardiogram with moderate/severe TR. Fluid culture negative.
Cardiology following.
CT abdomen/pelvis completed with no obvious explanation for ascites. Incidental bilateral kidney masses noted. Differential diagnosis includes hyperdense cysts versus renal cell carcinoma. Findings discussed with patient's family and recommend
outpatient follow-up.
Permanent A. Fib - warfarin resumed as 1mg daily. Follow INR. Noted was not discharged from [facility] with Coumadin.
COPD without exacerbation -uses 2 L nasal cannula oxygen at home chronically. Currently on [facility].
- Continue lev albuterol 2.5 mL every 4 hours as needed shortness of breath
Chronic anemia of CKD
- Hb appears baseline
Peripheral neuropathy
- continue gabapentin 100 mg in a.m., 200 mg at bedtime
GERD
- continue omeprazole 20 mg at bedtime
HLD
- no currrent meds
BOBBY noncompliant CPAP
Pulm HTN
Obesity due to excess calories
Vit B12 deficiency
- continue B12 supplement
Gout
- continue allopurinol 100 mg daily
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
DVT ppx: SC heparin
Full code - per Dr. Hall 'I had a long discussion with patient regarding goals of care and he is adamant that he wants to remain a full code as he does not want to upset his grandson. I explained to the patient that it is not his grandson's
decision, it is the patient's decision and if he ends up having a cardiopulmonary arrest requiring CPR and ventilation that it is very unlikely he would survive and very unlikely he would come off a ventilator. Patient seems to understand but wants
to remain a full code despite my recommendation.'
Dispo: medically stable for DC after discussions with nephrology, cardiology, family. Patient has appealed - follow CM notes.
Anticipated Discharge: > 48 hours
Subjective/Interval History
-
Date of Service: October 16, 2024
reports loose stools, no abd pain, tolerating diet
Objective Data
-
Vital Signs:
Vital Signs
Temp Pulse Resp BP Pulse Ox
97.8 F 83 18 124/67 95
10/16/24 11:55 10/16/24 11:55 10/16/24 11:55 10/16/24 11:55 10/16/24 11:55
I&O
10/15/24 10/16/24 10/17/24
06:59 06:59 06:59
Intake Total 720 / 720 1020 / 1020
Balance 720 / 720 1020 / 1020
Physical Exam
-
General: No Apparent Distress
HEENT: Normocephalic and Atraumatic
Respiratory: Negative Wheezes
Cardiac: Regular Rhythm and S1/S2
GI: Soft
Musculoskeletal: No Edema
Neuro: AO x 3
Psych: Calm
Data Reviewed
-
Total Time Spent with Patient (in minutes): 42
Labs: Labs Reviewed by me
--- NOTE | 2024-10-16 13:47 | CM ---
MIC Brewer at [facility]- reconsideration initiated. Please note 1-14 days liability is not protected.
[2024-10-16] MEDS: VIBRAMYCIN 100 MG PO ×2 (13:48→22:08)
[2024-10-16 14:03] LABS: Blood Urea Nitrogen 27 mg/dl (9-20); Calcium 9.3 mg/dl (8.4-10.2); Carbon Dioxide 28 mmol/L (22-30); Chloride 93 mmol/L (98-107); Estimated Creatinine Clearance 17 ml/min; Glucose 171 mg/dl (70-99); Potassium 4.7 mmol/L (3.5-5.1); Sodium 131 mmol/L (135-145); eGFR 20.68
--- NOTE | 2024-10-16 15:14 | W.PN.NEPH.PH ---
Today's Communication / Plan
-
Dialysis tomorrow
Assessment/Plan
-
Assessment
ESRD
Volume overload
Shortness of breath
Hypotension
Heart failure preserved EF
Coronary artery disease
Plan
echo normal EF, pulm HTN
All edema not amenable to UF
BP stable on scheduled midodrine
s/p para 4.9 L 10/08
strict renal diet and FR.
Dialysis tomorrow then plan for discharge with a TTS schedule outpatient
-
-
Date of Service: October 16, 2024
CC / HPI / ROS
-
Chief Complaint:
ESRD
History of Present Illness:
BP stable, k 5.2
no fever
Review of Systems:
No chest pain, no fever
no sob
Labs
-
Labs:
WBC 6.5 10^3/uL (4.8-10.8) 10/15/24 05:26
RBC 3.19 10^6/uL (4.70-6.10) L 10/15/24 05:26
Hgb 10.1 g/dL (13.0-18.0) L 10/15/24 05:26
Hct 32.0 % (39.0-52.0) L 10/15/24 05:26
Plt Count 260 10^3/uL (130-400) 10/15/24 05:26
Sodium 131 mmol/L (135-145) L 10/16/24 13:31
Potassium 4.7 mmol/L (3.5-5.1) 10/16/24 13:31
Chloride 93 mmol/L (98-107) L 10/16/24 13:31
Carbon Dioxide 28 mmol/L (22-30) 10/16/24 13:31
BUN 27 mg/dl (9-20) H 10/16/24 13:31
Creatinine 2.9 mg/dL (0.7-1.3) H 10/16/24 13:31
eGFR 20.68 10/16/24 13:31
Glucose 171 mg/dl (70-99) H 10/16/24 13:31
Calcium 9.3 mg/dl (8.4-10.2) 10/16/24 13:31
Phosphorus 3.2 mg/dl (2.5-4.5) 10/04/24 04:55
Vsi-X-Oljkncaqnbu Pept > 17915 pg/ml 10/03/24 18:09
Albumin 3.3 g/dl (3.5-5.0) L 10/08/24 04:39
Physical Exam
-
Vital Signs:
Vital Signs
Temp Pulse Resp BP Pulse Ox
97.8 F 83 18 124/67 95
10/16/24 11:55 10/16/24 11:55 10/16/24 11:55 10/16/24 11:55 10/16/24 11:55
Cardiovascular:: Regular rate and rhythm
Respiratory:: Bilateral: CTA
Lung Excursion:: Normal
Abdomen:: Nontender and Soft
Extremity Edema:: +3: Bilateral:
Kang Catheter: No
[2024-10-16] MEDS: LIPITOR 40 MG PO (17:21)
[2024-10-16] MEDS: COUMADIN 1 MG PO (17:21)
[2024-10-16] MEDS: PROTONIX 40 MG PO (22:08)
[2024-10-16] MEDS: NEURONTIN 200 MG PO (22:08)
[2024-10-17] MEDS: ProAmatine 10 MG PO ×2 (02:47→10:06)
[2024-10-17] MEDS: VISBIOME 2 CAP PO (03:06)
[2024-10-17 03:18] VITALS: BP 114/63
[2024-10-17 07:03] VITALS: BP 120/65
[2024-10-17 07:16] LABS: Hematocrit 30.8 % (39.0-52.0); Hemoglobin 10.2 g/dL (13.0-18.0); Mean Corp Hgb Conc. 33.1 g/dL (33.0-37.0); Mean Corpuscular Hgb 31.6 pg (27.0-31.0); Mean Corpuscular Volume 95.4 fL (80.0-94.0); Mean Platelet Volume 10.1 fL (7.4-10.4); Platelet Count 247 10^3/uL (130-400); Red Blood Cell Count 3.23 10^6/uL (4.70-6.10); Red Cell Dist. Width 17.2 % (11.5-14.5)
[2024-10-17 07:24] LABS: INR 2.09
--- NOTE | 2024-10-17 09:15 | CM ---
CM attempted to call daughter iMcheline & was unable to leave message as voicemail was full. Able to leave SMS phone number.
--- NOTE | 2024-10-17 10:02 | W.PN.NEPH.HD ---
Assessment
-
Patient seen on dialysis
Systolic blood pressure stable with current UF
Patient complains of ongoing abdominal distention
Progress Note - Hemodialysis
-
Date of Service: October 17, 2024
Duration: 30 minutes and 3 hours
Potassium Bath: 2
Calcium Bath: 2.5
Opti-Dialyzer: 160
Ultrafiltration: Other (3kg as hemodynamically tolerated)
Blood Flow: 400
Dialysate Flow: 600
Heparin: None
EPO: None
[2024-10-17] MEDS: VIBRAMYCIN 100 MG PO (10:03)
[2024-10-17] MEDS: NEURONTIN 100 MG PO (10:03)
[2024-10-17] MEDS: PHOSLO 1334 MG PO ×2 (10:03→13:24)
[2024-10-17] MEDS: ASPIR LOW (ENTERIC COATED) 81 MG PO (10:03)
[2024-10-17] MEDS: ZYLOPRIM 100 MG PO (10:05)
[2024-10-17] MEDS: VITAMIN B-12 1000 MCG PO (10:05)
--- NOTE | 2024-10-17 10:35 | CM ---
Addendum entered by Risa Stockton 10/17/24 14:07:
3pm transport
[facility] liaison notified
Original Note:
Met with patient and grandson at bedside along with hospitalist
Daughter Jericho was on speaker phone
Patient and daughter agreeable with discharge today to [facility] after discussion with hospitalist
IMM signed. & in chart
Patient having HD today
[facility] from [facility] given authorization approval information - updated careport
[facility] will transport patient to his dialysis T-TH-SAT at [facility] as he still has his chair there at 10:40am
PLAN: [facility] SNF
Report #: [id number]
Fax #: [phone]
[facility] Fax #: [phone]
transportation forms on chart, facility request early afternoon
--- NOTE | 2024-10-17 11:11 | W.PN.HOSP.TC ---
Addendum entered and electronically signed by Katy Solis MD 10/22/24 10:59:
_Acute on chronic HFpEF__ was present on admission
Original Note:
Today's Communication/Plan
-
dc to SNF today
Assessment / Plan
Assessment / Plan
Assessment:
Iatrogenic diarrhea - improved. Bowel meds changed to as needed only. most recent BMs formed.
Shock - resolved. off IV vasopressors. continue midodrine.
- with cultures negative and not meeting SIRS criteria, was not felt to be septic shock.
Acute on chronic hypoxic respiratory failure -suspect related to pulmonary edema due to ESRD, possible component of acute on chronic heart failure.
Currently on 2 L nasal cannula oxygen. Wean down as able.
- At baseline he is on 2 L of oxygen chronically.
ESRD on HD M/W/F- Nephrology following
Weight is down to 84 kg today, admission weight was 92 kg. 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 5 L removed.
Acute bronchitis
- continue Doxy, day 2
Hyponatremia - sodium 131. Defer to nephrology. Getting dialysis.
Acute nonischemic myocardial injury -due to acute illness.
- trop peaked .039
CAD/CABG x 3 vessel
- continue BB/Statin
- patient reports not being on ASA
Acute on chronic HFpEF - clinically improving. Shortness of breath resolved. Oxygenation improving. Lower extremity edema improving.
NSVT - electrolytes are normal. This was noted in [facility] recently and he was treated with metoprolol 25 mg twice daily. Currently not on metoprolol as he has been hypotensive, although blood pressures may not be completely accurate.
Hold per .Cardiology
Recurrent ascites - suspect etiology is driven by ESRD as well as right heart failure. Paracentesis completed. Patient states he has had 3 paracenteses in the past. Records reviewed.
4.9 L removed via paracentesis by IR. Fluid analysis consistent with transudative source, suspect due to cardiogenic etiology given significant RV dilation on echocardiogram with moderate/severe TR. Fluid culture negative.
Cardiology following.
CT abdomen/pelvis completed with no obvious explanation for ascites. Incidental bilateral kidney masses noted. Differential diagnosis includes hyperdense cysts versus renal cell carcinoma. Findings discussed with patient's family and recommend
outpatient follow-up.
- outpatient Abd US to determine as needed paracentesis.
Permanent A. Fib - warfarin resumed as 1mg daily. Follow INR. Noted was not discharged from [facility] with Coumadin.
COPD without exacerbation -uses 2 L nasal cannula oxygen at home chronically. Currently on [facility].
- Continue lev albuterol 2.5 mL every 4 hours as needed shortness of breath
Chronic anemia of CKD
- Hb appears baseline
Peripheral neuropathy
- continue gabapentin 100 mg in a.m., 200 mg at bedtime
GERD
- continue omeprazole 20 mg at bedtime
HLD
- no currrent meds
BOBBY noncompliant CPAP
Pulm HTN
Obesity due to excess calories
Vit B12 deficiency
- continue B12 supplement
Gout
- continue allopurinol 100 mg daily
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
DVT ppx: SC heparin
Full code - per Dr. Hall 'I had a long discussion with patient regarding goals of care and he is adamant that he wants to remain a full code as he does not want to upset his grandson. I explained to the patient that it is not his grandson's
decision, it is the patient's decision and if he ends up having a cardiopulmonary arrest requiring CPR and ventilation that it is very unlikely he would survive and very unlikely he would come off a ventilator. Patient seems to understand but wants
to remain a full code despite my recommendation.'
Dispo: medically stable for DC after discussions with nephrology, cardiology, family. Patient appealed, upheld for DC. DC today
More than 30 minutes spent in discharge including
Final examination of the patient
Summarizing hospital stay
Instructions for continuing care to all relevant caregivers
Preparation of discharge records, prescriptions, and referral forms
Total time spent (in minutes):41
Anticipated Discharge: Today
Subjective/Interval History
-
Date of Service: October 17, 2024
on HD, tolerating
no other complaints
Objective Data
-
Labs:
Laboratory Results
10/17/24
06:55
WBC 6.0
Hgb 10.2 L
Hct 30.8 L
Plt Count 247
PT 24.0 H
INR 2.09
Vital Signs:
Vital Signs
Temp Pulse Resp BP Pulse Ox
97.6 F 90 18 121/56 98
10/17/24 07:03 10/17/24 10:06 10/17/24 07:03 10/17/24 10:06 10/17/24 10:32
I&O
10/16/24 10/17/24 10/18/24
06:59 06:59 06:59
Intake Total 1020 / 1020 990 / 990
Balance 1020 / 1020 990 / 990
Physical Exam
-
General: No Apparent Distress
HEENT: Normocephalic and Atraumatic
Respiratory: Negative Wheezes
Cardiac: Regular Rhythm and S1/S2
GI: Soft
Neuro: AO x 3
Hematologic / Lymphatic: No Lymphadenopathy
Psych: Calm
Data Reviewed
-
Total Time Spent with Patient (in minutes): 41
Labs: Labs Reviewed by me
[2024-10-17 11:20] VITALS: BP 122/63
--- NOTE | 2024-10-17 11:20 | W.DS.TRANS ---
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
-
Discharge Instructions:
Discharge Diagnosis/Procedures shock - resolved, acute hypoxic from volume
overload from ESRD state. Ascites s/p
paracentesis
Diet Restrict fluids to 48 oz,2 Gram Sodium
Additional Diets 2 gram potassium
Activity As tolerated
Other Services OT,PT
Instructions:
Stand-Alone Forms:
Changes to Home Medications: No
Discharge Medications:
DC Medications w/original date entered in Equivalent DATA
atorvastatin 40 mg tablet 40 mg PO QPM High Cholesterol 03/09/15
omeprazole 20 mg capsule,delayed release 20 mg PO HS Gastrointestinal Issue 03/09/15
acetaminophen 325 mg tablet 650 mg (2 x 325 mg) PO Q6HPRN PRN mild pain/fever ##0 04/01/15
aspirin 81 mg tablet,delayed release 81 mg PO DAILY ##0 04/01/15
allopurinol 100 mg tablet 100 mg PO DAILY Gout 10/03/24
bisacodyl 10 mg rectal suppository 10 mg ME DAILYPRN PRN constipation if sorbitol is ineffective 10/03/24
calcium acetate 667 mg tablet 1,334 mg PO MEALS Supplement 10/03/24
cyanocobalamin (vitamin B-12) 1,000 mcg tablet 1,000 mcg PO DAILY Supplement 10/03/24
gabapentin 100 mg capsule 100 mg PO DAILY Pain 10/03/24
gabapentin 100 mg capsule 200 mg PO HS Pain 10/03/24
ipratropium bromide 0.02 % solution for inhalation 2.5 ml inhalation R Q4HPRN PRN sob 10/03/24
levalbuterol HCl 1.25 mg/3 mL solution for nebulization 1.25 mg inhalation R Q8HPRN PRN sob 10/03/24
sodium phosphates 19 gram-7 gram/118 mL enema (Fleet Enema) 118 ml ME DAILYPRN PRN if suppository is ineffective 10/03/24
sorbitol 70 % solution 30 ml PO [id number] PRN if no bm x3 days 10/03/24
Lactobac/Bifidobac [Visbiome] 1 cap PO DAILY #30 caps 10/17/24
doxycycline hyclate 100 mg capsule 100 mg PO Q12 #8 caps 10/17/24
midodrine 5 mg tablet 10 mg (2 x 5 mg) PO Q8H #90 tabs 10/17/24
warfarin 1 mg tablet (Jantoven) 1 mg PO QPM #30 tabs 10/17/24
Home Medication Changes
Pending Results: No
Total time spent discharging patient (in min): 41
[2024-10-17 14:57] VITALS: BP 112/64
--- NOTE | 2024-10-20 14:02 | PN.CDI ---
CDI
- -
CDI:
Physician Documentation Request
Admit Date: 10/03/24 23:11
Dear Doctor Will,
Please review the following and provide your response in the progress notes.
Clinical Indicators:
- 10/03 H&P 'End-stage renal disease with volume overload secondary to acute on chronic hypotension'
- 10/04 Nephrology consult 'Ultrafiltration treatment today, remove 3 kg as possible'
- 10/06 PN indicates chronic HFpEF
- 10/07 PN indicates acute on chronic HFpEF
- Admission proBNP >60835
Please clarify the following:
_Acute on chronic HFpEF__ was present on admission
_Acute on chronic HFpEF__ was not present on admission
Unable to determine
Use of terms such as suspected, likely, concern for, or probable (associated with a specific diagnosis that is being evaluated, monitored, or treated as if it exists) are acceptable and can be coded in the inpatient setting, when documented at the
time of discharge.
Thank you,
Travis Degroot RN
CDI Specialist
Please use your independent medical judgment in providing your response.
== END 2024-10-17 16:00 | DRG 291 ==
LOC: 2 NORTH 23:11
PROVIDERS: Clinical Nurse Specialist Family Health; Emergency Medicine; Hospitalist; Internal Medicine; Internal Medicine Nephrology; Radiology Vascular & Interventional Radiology; Specialist; ADMITTING PHYSICIAN Internal Medicine; ATTENDING PHYSICIAN Internal Medicine; CONSULT PHYSICIAN Internal Medicine Cardiovascular Disease; CONSULT PHYSICIAN Specialist; EMERGENCY PHYSICIAN Emergency Medicine; FAMILY PHYSICIAN Internal Medicine
PROC: 5A1D70Z Performance of Urinary Filtration, Intermittent, Less than 6 Hours Per Day (ICD-10-PCS; 2024-10-04)
PROC: 02HV33Z Insertion of Infusion Device into Superior Vena Cava, Percutaneous Approach (ICD-10-PCS; 2024-10-06)
PROC: 05PY33Z Removal of Infusion Device from Upper Vein, Percutaneous Approach (ICD-10-PCS; 2024-10-06)
PROC: 0W9G3ZZ Drainage of Peritoneal Cavity, Percutaneous Approach (ICD-10-PCS; 2024-10-08)
DX: I13.2 Hypertensive heart and chronic kidney disease with heart failure and with stage 5 chronic kidney disease, or end stage renal disease (principal); I50.43 Acute on chronic combined systolic (congestive) and diastolic (congestive) heart failure; N18.6 End stage renal disease; J96.21 Acute and chronic respiratory failure with hypoxia; R57.8 Other shock; I48.21 Permanent atrial fibrillation; R18.8 Other ascites; J44.0 Chronic obstructive pulmonary disease with (acute) lower respiratory infection; I47.20 Ventricular tachycardia, unspecified; T82.524A Displacement of infusion catheter, initial encounter; E87.1 Hypo-osmolality and hyponatremia; E87.70 Fluid overload, unspecified; I5A Non-ischemic myocardial injury (non-traumatic); D63.1 Anemia in chronic kidney disease; G47.33 Obstructive sleep apnea (adult) (pediatric); I27.29 Other secondary pulmonary hypertension; I25.10 Atherosclerotic heart disease of native coronary artery without angina pectoris; I50.82 Biventricular heart failure; J20.9 Acute bronchitis, unspecified; S30.813A Abrasion of scrotum and testes, initial encounter; X58.XXXA Exposure to other specified factors, initial encounter; Y84.8 Other medical procedures as the cause of abnormal reaction of the patient, or of later complication, without mention of misadventure at the time of the procedure; E78.00 Pure hypercholesterolemia, unspecified; E11.22 Type 2 diabetes mellitus with diabetic chronic kidney disease; E66.9 Obesity, unspecified; I25.5 Ischemic cardiomyopathy; E11.40 Type 2 diabetes mellitus with diabetic neuropathy, unspecified; I87.2 Venous insufficiency (chronic) (peripheral); R19.7 Diarrhea, unspecified; K21.9 Gastro-esophageal reflux disease without esophagitis; E53.8 Deficiency of other specified B group vitamins; M10.9 Gout, unspecified; F44.4 Conversion disorder with motor symptom or deficit; Z11.52 Encounter for screening for COVID-19; Z68.30 Body mass index [BMI] 30.0-30.9, adult; Z79.01 Long term (current) use of anticoagulants; Z79.82 Long term (current) use of aspirin; Z79.899 Other long term (current) drug therapy; Z82.49 Family history of ischemic heart disease and other diseases of the circulatory system; Z87.01 Personal history of pneumonia (recurrent); Z87.891 Personal history of nicotine dependence; Z91.81 History of falling; Z91.198 Patient's noncompliance with other medical treatment and regimen for other reason; Z95.1 Presence of aortocoronary bypass graft; Z99.2 Dependence on renal dialysis; Z99.81 Dependence on supplemental oxygen; I95.3 Hypotension of hemodialysis
CPT/HCPCS: 88305; 36584; 49083; 71045; 71275; 74177; 76705; 80048; 80051; 80053; 80061; 80202; 82042; 82962; 83605; 83615; 83735; 83880; 84100; 84145; 84157; 84484; 85014; 85018; 85025; 85027; 85610; 86706; 87015; 87040; 87070; 87205; 87340; 87502; 87811; 88112; 89051; 92526; 92610; 93005; 93306; 94640; 96365; 96367; 96375; 97163; 97167; 97530; 97535; 99291; C1751; C1769; G0257; P9047; Q5106; Q9967

== ENCOUNTER 2024-10-19 12:09 | Inpatient (IN) | payer OTHER, SELFPAY ==
[2024-10-19] VITALS (10 sets, daily range): BP systolic 110–127; BP diastolic 51–71; BMI 30.4
--- NOTE | 2024-10-19 08:38 | ED.GENMED ---
History of Present Illness
General
Chief Complaint: Breathing Problem
Source: patient and records
Time Seen by Provider: 10/19/24 08:19
History of Present Illness
History of Present Illness:
84-year-old male chronically ill with longstanding past medical history of end-stage renal disease (dialysis Sunday, Sunday, Sunday), COPD (chronically on 2 L nasal cannula), atrial fibrillation, CHF, CAD, aff-idpfwrk-vdvinzlrk diabetes who was
recently admitted at this facility for extended admission due to volume overload, shock and hypotension recently discharged on October [address] [place] [address] presenting back to the ER stating he still does not feel well. When
asked exactly what patient means by not feeling well he states he is just generally fatigued and feels as if he cannot do any activities. Patient does note that he does not feel any different today than when he was discharged from the hospital on
October 17. He is denying any current chest pain, palpitations, worsening shortness of breath, fevers, chills, abdominal pain, nausea, vomiting. Patient reportedly did have a full dialysis session on Sunday. He also had paracentesis while he was
admitted at this facility.
Past History
Past History
ED Past Medical History: Arrthythmia, CAD, CHF, COPD, NIDDM and Renal failure
ED Past Surgical History: Cardiac and Other
Social History
Tobacco: Non-smoker
Alcohol: None
Drug: None
Personal:
Living: correction
Employment: Not employed
Review of Systems
Review of Systems
All Other Systems: ROS reviewed and negative except as documented in HPI and ROS
Phy Exam
Physical Exam
Physical Exam:
GENERAL: Alert , in no apparent distress, appears older than stated age, deconditioned
HEAD: Normocephalic atraumatic
EYE: Clear conjunctiva
NECK: Supple
ENT: mmm.
CARDIAC: Regular rate and rhythm, harsh systolic murmur right second intercostal space and left sternal border.
LUNGS: Rhonchorous lung sounds, O2 sat between 94 and 96% on 2 L via nasal cannula, wet sounding cough but nonproductive, speaking full sentences.
ABDOMEN: Soft, without focal tenderness, no r/g, no cvat
NEUROLOGICAL: Alert and oriented
SKIN: Warm and dry, skin intact.
MUSCULOSKELETAL: Trace ankle edema, mild erythema to bilateral ankles is baseline per patient
PSYCH: Normal and appropriate interaction.
Scores
Heart Failure Risk
Heart Failure Risk Score: Not Applicable
Heart Score for Chest Pain Patients
STEMI patient?: Not applicable
Withdrawal Assessment of Alcohol
Withdrawal Assessment Completed?: Not applicable
Course
Orders/Labs/Results
Orders:
Orders
10/19/24 08:32
Electrocardiogram (*1) Urgent
Reason for Study: Shortness of Breath
EKG- Treatment ONCE
10/19/24 08:33
CR Chest - 2 Views Urgent
Comment:
Reason For Exam: SOB
10/19/24 08:41
Complete Blood Count/With Diff Urgent
Comprehensive Metabolic Panel Urgent
Troponin I Urgent
10/19/24 08:57
Cefepime HCl [Maxipime] 2,000 mg IV NOW STA
10/19/24 09:39
Vancomycin [Vancocin] 1,500 mg 0.9% Sodium Chloride 500 ml [Nss] 500 ml IV NOW
10/19/24 09:42
Lactic Acid Q4H
Comment: CANCEL 2nd LACTIC ACID IF 1st LACTIC ACID IS LESS THAN 2
Blood Culture Q30M
MANISHA Source: Blood/Venous
Specimen Description:
Blood Culture Q30M
MANISHA Source: Blood/Venous
Specimen Description:
10/19/24 10:09
COVID-19 Antigen Urgent
Source: Nasal Swab
Influenza A+B Rapid Molecular Urgent
MANISHA Source: Nasal Swab
Specimen Description:
Abnormal Lab Results
10/19/24
08:41
RBC 3.39 L 10^6/uL
(4.70-6.10)
Hgb 10.5 L g/dL
(13.0-18.0)
Hct 33.7 L %
(39.0-52.0)
MCV 99.4 H fL
(80.0-94.0)
MCHC 31.2 L g/dL
(33.0-37.0)
RDW 17.5 H %
(11.5-14.5)
Absolute Lymphs (auto) 0.8 L 10^3/uL
(1.2-3.4)
Absolute Monos (auto) 0.8 H 10^3/uL
(0.1-0.6)
Lymphocytes % 12.2 L %
(20.5-51.1)
Monocytes % 13.3 H %
(1.7-9.3)
Sodium 133 L mmol/L
(135-145)
Potassium 5.2 H mmol/L
(3.5-5.1)
Chloride 95 L mmol/L
(98-107)
BUN 37 H mg/dl
(9-20)
Creatinine 3.6 H mg/dL
(0.7-1.3)
Glucose 123 H mg/dl
(70-99)
Alkaline Phosphatase 153 H U/L
(38-126)
10/19/24 08:41
10/19/24 08:41
Vital Signs
Initial and Last Documented VS:
Initial Vital Signs
Temp Pulse Resp BP Pulse Ox
97.6 F 105 24 122/60 94
10/19/24 08:17 10/19/24 08:17 10/19/24 08:17 10/19/24 08:17 10/19/24 08:17
Last Documented Vital Signs
Temp Pulse Resp BP Pulse Ox
97.6 F 76 25 125/61 93
10/19/24 08:17 10/19/24 10:30 10/19/24 10:30 10/19/24 10:00 10/19/24 10:30
MDM/Problems Addressed
Differential Diagnosis Includes:
Deconditioning secondary to recent prolonged hospitalization, exacerbation of chronic kidney disease, volume overload, cardiac dysrhythmia, medication interaction
MDM/Problems Addressed:
84-year-old male presenting to the emergency department for evaluation after being discharged from this facility 2 days ago, still noting he does not feel better. Patient is admitting that he did not feel better prior to being discharged and does
not feel much different today than he did on Sunday. Patient is hemodynamically stable. Blood pressure is 120/70, pulse between 80 and 90 bpm and oxygen saturation between 94 and 96% on his baseline 2 L nasal cannula. Overall I suspect patient's
presentation is mostly a combination of his chronic medical conditions and recent prolonged hospitalization. Will check labs, EKG and chest x-ray. Disposition pending
Chronic conditions affecting care: CAD, Cardiomyopathy, Arrhythmia and Kidney disease
*Radiology
Radiology exam reviewed: preliminary read by ED provider (Suspected right lower lung pneumonia with bilateral small pleural effusions)
*Pulse Oximetry
Patient hypoxic: no
*Wedding Designer Interpretation
Rate: normal
Rhythm: sinus
*Critical Care Note
Total Time (30-74mins, 75-104mins- exclusive of procedures): Not Applicable
Data Reviewed
Review of Other/Old Records Reveals: Labs, Records and Discharge Summary
Patient Management
Discussion with other providers: Hospitalist
Escalation/DeEscalation of care consider admission/obs:
Patient's labs are mostly unchanged from his discharge however chest x-ray does appear to show new small bilateral pleural effusions and a right lower lung pneumonia suspected. Given his comorbidities combined with overall ill appearance and
deconditioned state will readmit to the hospital for IV antibiotics. Due to patient's multiple risk factors for hospital-acquired pneumonia and drug-resistant infection we will treat with Maxipime and vancomycin. Will avoid Levaquin due to
patient's current anticoagulated state. Hospitalist team accepts for continued evaluation and treatment.
ED Attending Note
-
Portions of this chart may have been created with voice recognition software.� Occasional wrong word or��sound alike� substitutions may have occurred due to the inherent limitations of voice recognition software.
Discharge Plan
Departure
Patient Disposition: Admit
Date of Disposition: 10/19/24
Time of Disposition: 10:12
Presentation/result/management discussed w/ accepting MD/DO: Hospitalist
Discharge Problem:
Pneumonia, CKD (chronic kidney disease), Pleural effusion
Prescriptions:
No Action
atorvastatin 40 MG tablet
40 mg PO QPM
omeprazole 20 MG capsule,delayed release(DR/EC)
20 mg PO HS
acetaminophen 325 MG tablet
650 mg PO Q6HPRN PRN (Reason: mild pain/fever) Qty: 0 0RF
aspirin 81 MG tablet,delayed release (DR/EC)
81 mg PO DAILY Qty: 0 0RF
cyanocobalamin (vitamin B-12) 1,000 mcg Tablet
1,000 mcg PO DAILY
allopurinol 100 mg Tablet
100 mg PO DAILY
bisacodyl 10 mg Suppository
10 mg MO DAILYPRN PRN (Reason: constipation if sorbitol is ineffective)
Fleet Enema 19-7 gram/118 mL Enema
118 ml MO DAILYPRN PRN (Reason: if suppository is ineffective)
gabapentin 100 mg Capsule
100 mg PO DAILY
gabapentin 100 mg Capsule
200 mg PO HS
levalbuterol HCl 1.25 mg/3 mL Solution For Nebulization
1.25 mg INHALATION R Q8HPRN PRN (Reason: sob)
sorbitol 70 % Solution
30 ml PO [id number] PRN (Reason: if no bm x3 days)
ipratropium bromide 0.02 % Solution
2.5 ml INHALATION R Q4HPRN PRN (Reason: sob)
calcium acetate 667 mg Tablet
1,334 mg PO MEALS
doxycycline hyclate 100 mg Capsule
100 mg PO Q12 Qty: 8 0RF
midodrine 5 mg Tablet
10 mg PO Q8H Qty: 90 0RF
warfarin [Jantoven] 1 mg Tablet
1 mg PO QPM Qty: 30 0RF
Lactobac/Bifidobac [Visbiome]
1 cap PO DAILY Qty: 30 0RF
Referrals:
NONE,* [Family Provider] -
Interventions
Interventions:
*Risk Screen - Suicide Last Done: 10/19/24 08:24
*General Assessment Last Done: 10/19/24 08:24
*Neglect/Abuse Screening Last Done: 10/19/24 08:24
*ED- Fall Risk Assessment Last Done: 10/19/24 08:24
*ED COVID-19 Vaccine History Last Done: 10/19/24 08:24
ED- Cardiac Assessment Last Done: 10/19/24 08:24
ED- Pulmonary Assessment Last Done: 10/19/24 08:24
Discharge Date and Time
Print Language: ESTONIAN
[2024-10-19 08:55] LABS: % Basophils 1.3 % (0-2); % Eosinophils 2.9 % (0-6); % Immature Granulocytes 0.5 % (0-0.5); % Lymphocytes 12.2 % (20.5-51.1); % Monocytes 13.3 % (1.7-9.3); % Neutrophils 69.8 % (42.2-75.2); Absolute Basophils 0.1 10^3/uL (0-0.2); Absolute Eosinophils 0.2 10^3/uL (0-0.7); Absolute Lymphocytes 0.8 10^3/uL (1.2-3.4); Absolute Monocytes 0.8 10^3/uL (0.1-0.6); Absolute Neutrophils 4.4 10^3/uL (1.4-6.5); Hematocrit 33.7 % (39.0-52.0); Hemoglobin 10.5 g/dL (13.0-18.0); Mean Corp Hgb Conc. 31.2 g/dL (33.0-37.0); Mean Corpuscular Volume 99.4 fL (80.0-94.0); Mean Platelet Volume 9.9 fL (7.4-10.4); Nucleated Red Blood Cells % 0 % (-); Platelet Count 271 10^3/uL (130-400); Red Blood Cell Count 3.39 10^6/uL (4.70-6.10); Red Cell Dist. Width 17.5 % (11.5-14.5); White Blood Cell Count 6.3 10^3/uL (4.8-10.8)
[2024-10-19 09:07] LABS: ALT (SGPT) 11 U/L (0-50); AST (SGOT) 25 U/L (17-59); Albumin 3.7 g/dl (3.5-5.0); Alkaline Phosphatase 153 U/L (38-126); Blood Urea Nitrogen 37 mg/dl (9-20); Calcium 9.4 mg/dl (8.4-10.2); Carbon Dioxide 29 mmol/L (22-30); Chloride 95 mmol/L (98-107); Estimated Creatinine Clearance 16 ml/min; Glucose 123 mg/dl (70-99); Potassium 5.2 mmol/L (3.5-5.1); Sodium 133 mmol/L (135-145); Total Protein 6.7 g/dl (6.3-8.2); eGFR 15.96
[2024-10-19 09:18] LABS: Troponin I 0.034 ng/ml
[2024-10-19] MEDS: MAXIPIME 2000 MG IV (09:38)
[2024-10-19] MEDS: VANCOCIN 530 MG IV (10:03)
[2024-10-19 10:07] LABS: Lactic Acid 1.3 mmol/L (0.7-2.0)
[2024-10-19 10:32] LABS: COVID-19 Antigen Negative (Negative)
--- NOTE | 2024-10-19 10:32 | HPS.HSE ---
Family Physician
-
Family Physician: * NONE
Chief Complaint
-
Weakness and fatigue/failure to thrive at [facility]
History of Present Illness
84 years old male who was recently discharged from the hospital, 2 days ago after( Prolonged hospitalization 2 weeks) and was treated for volume overload and shock, requiring titration of his midodrine and a pressors. Initially felt to be septic
shock, but antibiotics were quickly de-escalated and so were pressors. He was resumed on dialysis, which helped improve his volume overload. He also underwent paracentesis with 5 L removed. His course was
complicated by acute bronchitis and he was placed on doxycycline. He was discharged to SNF on 10/17. [facility] was [facility] to [facility] with hope to be able to under rehab. He had high risk for readmission and his family was made aware.
Upon interviewing the patient, he denied chest pain or abdominal pain. He reported tailbone pain from a fall while ago. His grandson and in the room and also help with history. No history of fever or cough. In the ER, he did not have
leukocytosis. Normal lactic acid. Chest x-ray showed bilateral lower lung atelectasis. Patient had hemodialysis on Sunday with no complications.
Medical History
Past Medical History
Past Medical History: Reports Other (Hypotension, hypoxic respiratory failure, ESRD on dialysis, history of bronchitis, hyponatremia, nonischemic myocardial injury, coronary artery disease, heart failure, NSVT, ascites, permanent A-fib, COPD, anemia
of chronic disease, peripheral neuropathy, gait dysfunction with functional paraparesis)
Past Surgical History: Reports Other (No recent major surgery )
Social History
Tobacco: Former Smoker
Alcohol: None
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
Employment: Retired
Family History
Family History: Other (Father age 45 alcohol abuse OR, mother age 86 OR)
Allergies / Home Medications
Allergies reflects when Allergies were last updated in [employer].
Home Medications with original date entered in [employer]
Allergy/Medication List:
Allergies
Allergy/AdvReac Type Severity Reaction Status Date / Time
No Known Allergies Allergy Verified 10/19/24 08:12
Home Medications
atorvastatin 40 mg tablet 40 mg PO QPM High Cholesterol 03/09/15
omeprazole 20 mg capsule,delayed release 20 mg PO HS Gastrointestinal Issue 03/09/15
acetaminophen 325 mg tablet 650 mg (2 x 325 mg) PO Q6HPRN PRN mild pain/fever ##0 04/01/15
aspirin 81 mg tablet,delayed release 81 mg PO DAILY ##0 04/01/15
allopurinol 100 mg tablet 100 mg PO DAILY Gout 10/03/24
bisacodyl 10 mg rectal suppository 10 mg NH DAILYPRN PRN constipation if sorbitol is ineffective 10/03/24
calcium acetate 667 mg tablet 1,334 mg PO MEALS Supplement 10/03/24
cyanocobalamin (vitamin B-12) 1,000 mcg tablet 1,000 mcg PO DAILY Supplement 10/03/24
gabapentin 100 mg capsule 100 mg PO DAILY Pain 10/03/24
gabapentin 100 mg capsule 200 mg PO HS Pain 10/03/24
ipratropium bromide 0.02 % solution for inhalation 2.5 ml inhalation R Q4HPRN PRN sob 10/03/24
levalbuterol HCl 1.25 mg/3 mL solution for nebulization 1.25 mg inhalation R Q8HPRN PRN sob 10/03/24
sodium phosphates 19 gram-7 gram/118 mL enema (Fleet Enema) 118 ml NH DAILYPRN PRN if suppository is ineffective 10/03/24
sorbitol 70 % solution 30 ml PO [id number] PRN if no bm x3 days 10/03/24
Lactobac/Bifidobac [Visbiome] 1 cap PO DAILY #30 caps 10/17/24
doxycycline hyclate 100 mg capsule 100 mg PO Q12 #8 caps 10/17/24
midodrine 5 mg tablet 10 mg (2 x 5 mg) PO Q8H #90 tabs 10/17/24
warfarin 1 mg tablet (Jantoven) 1 mg PO QPM #30 tabs 10/17/24
Review of Systems
-
History Source: Patient
A 12 point ROS was completed and negative except as noted: Yes
Constitutional: Denies Fever or Chills
EENT: Denies Sore Throat
Respiratory: Denies Cough or Trouble Breathing
Cardiac: Denies Chest Pain
Abdomen/GI: Denies Abdominal Pain or Nausea
: Denies Bleeding
Musculoskeletal: Reports Other (low back pain/ chronic )
Skin: Denies Itching
Neurological: Reports Weakness; Denies Numbness
Endocrine: Denies Temp Intolerance
Hematologic/Lymphatic: Denies Bruising
Psych: Denies Panic Disorder
Physical Exam
Vital Signs
Vital Signs
Temp Pulse Resp BP Pulse Ox
97.6 F 105 24 122/60 94
10/19/24 08:17 10/19/24 08:17 10/19/24 08:17 10/19/24 08:17 10/19/24 08:17
Physical Exam
General: Appears Chronically Ill
HEENT: Moist mucous membranes and Atraumatic
Respiratory: Rales (at bases ) and Decreased Breath Sounds
Cardiac: S1/S2
GI: Soft, Non Tender and Non Distended
Rectal: No Maroon Stools
Genito-urinary: No Bloody Urine
Musculoskeletal: Edema, Left Lower Extremity and Edema, Right Lower Extremity
Skin: No Jaundice
Neuro: Awake, Alert and Oriented (to self and surroundings )
Psych: Calm; No Agitated
Laboratory Results
-
10/19/24 08:41
10/19/24 08:41
Laboratory Results
Lactic Acid 1.3 mmol/L (0.7-2.0) 10/19/24 09:42
Total Bilirubin 1.0 mg/dl (0.2-1.3) 10/19/24 08:41
AST 25 U/L (17-59) 10/19/24 08:41
ALT 11 U/L (0-50) 10/19/24 08:41
Alkaline Phosphatase 153 U/L (38-126) H 10/19/24 08:41
Troponin I 0.034 ng/ml 10/19/24 08:41
Impression/Plan
-
84 years old male was transferred back to the hospital for history of shortness of breath/failure to thrive/weakness
#Shortness of breath
Chronic hypoxic and hypercapnic respiratory failure
Patient currently denies shortness of breath or cough. he reports feeling normal. No worsening hypoxia, currently on 2 liters ( same baseline). Check blood gases. Chest x-ray seems consistent with bilateral atelectasis- volume overload, less
likely pneumonia. Absence of leukocytosis, fever. Normal lactic acid. Will do blood culture. Hold off antibiotics for now. Will ask pulmonary to evaluate if patient starts to have worsening hypoxia or high PCO2.
# Failure to thrive
Patient complains of tailbone pain. No specific complaint. Denies headache.
Patient was in the hospital for 2 weeks. Goal of care was discussed with patient and family. Per grandson, family understood the clinical status and the challenges. Patient might be unable to thrive outside of hospital setting. Will monitor his
vital signs. Continue dialysis. Monitor temperature curve. Follow-up with the blood cultures.
#History of Hypotension
c/w Midodrine
#End-stage renal disease with volume overload
on dialysis MoweFR x 2 years via dialysis cath left upper chest wall
-Patient does not make urine
-Consulted Nephro. ER [facility] spoke with telehealth nurse educator electric gas appliances demonstrator Dr Lyle. Help appreciated.
-Continue calcium acetate 1334 mg p.o. with meals
# hyperkalemia, Not critical
Check EKG, f/w nephrology recommendations.
f/w telemetry
# chronic hyponatremia
#Permanent A-fib HX
order INR stat
Per cardiology: remain off BB
#COPD- no acute exacerbation
c/w nebulizer
Check blood gases.
#Anemia of CKD
# Neuropathy
Function paraparesis
-Continue gabapentin but adjust the dose for renal function.
#GERD
-Continue PPI
#HLD
- no changes recommended.
# BOBBY noncompliant CPAP/ Pulm HTN
# obesity
#CAD/CABG x 3 vessel
Chronic HFrEF
ECHO 10/08/24: EF 42%, septal flattening due to RV pressure and volume overload, RV dilated, biatrial enlargement, mild to moderate MR, aortic sclerosis, moderate to severe TR, PASP 65 mmHg, mildly dilated ascending aorta 4.0 cm
-Continue aspirin 81 mg daily, atorvastatin 40 mg every afternoon
Known to have non-OR troponin elevation
No on GDMT due to intolerance/ severe hypotension
#Vit B12 deficiency
-Continue B12 supplement
#Gout
-Continue allopurinol 100 mg daily
# GOC
Will continue ongoing discussions regarding goals of care pending patient's clinical progress. Patient's daughter in law relayed 10/09 that patient historically has been against hospice and family was made aware recent admission that he had very
slim chance to thrive and do better.
dvt proph
on Coumadin
Total time spent to see the patient, examine the patient, review data and lab results, discuss treatment plan with patient, family, ER doctor and nursing staff around 75 minutes
--- NOTE | 2024-10-19 12:14 | W.CON.NEPH ---
Consultation
-
Date/Time Consultation Requested: 10/19/2024 12:00
Date/Time Consultation Performed: 10/19/2024 12:00
Requesting Provider: Dr. Quinones
Performing Provider: Dr. Lyle
Reason for Consultation: End-stage renal disease
Medical History
-
Chief Complaint: Shortness of breath
History of Present Illness:
This is an 84-year-old gentleman who has been on dialysis for 2 years time. He believes his ESRD was caused by cardiac issues. He does have a left upper extremity AV fistula though this has been poorly functional and he currently is dialyzing
through a right chest wall catheter. He previously dialyzed up in [place] at [facility]. He had 2 admissions to [facility] recently. Both were for respiratory issues. It appears that he was diagnosed with influenza A during the
first admission. He ultimately was sent to rehab here [place] but then was readmitted to [facility] for respiratory issues again. With the second admission he says that his ability to walk worsened. He had already been using a walker and
electric wheelchair at home but but now even weaker. He was then sent to [facility] for further rehab. He was recently admitted here with a prolonged admission for hypoxic respiratory with volume overload and likely pneumonia process and was
present here at the hospital from 10/03 to 10/17/2024. He was dialyzed on 10/17/2024. [facility] and then discharged to [facility] rehab. Unfortunately despite being discharged less than 48 hours ago he returns with sob and fatigue and
weakness. The patient has a history of significant COPD and is normally 2 L home oxygen dependent. He receives REY therapy for his anemia. He has extensive cardiovascular disease including previous CABG and pulmonary hypertension. Nephrology was
consulted for end-stage renal disease management.
Past Medical History
COPD 2 liters dependent
end-stage renal disease on dialysis MoWeFR x 2 years via dialysis cath left upper chest wall
anemia of CKD
Orthostatic hypotension with dialysis
HLD
permanent A-fib
BOBBY noncompliant CPAP
Pulm HTN
Obesity
CAD/CABG x 3 vessel left internal mammary to LAD and saphenous vein graft to obtuse marginal 1 sequentially to obtuse marginal [address] Salmeron 03/26/2015.
Septoplasty
Kidney stone extraction 1970s
Social History
Tobacco: Former Smoker
Alcohol: None
Family History
Family History: Not Pertinent
Allergies / Home Medications
Allergy/AdvReac Type Severity Reaction Status Date / Time
No Known Allergies Allergy Verified 10/19/24 08:12
�Medication �Instructions �Recorded �Confirmed �Type
atorvastatin 40 mg tablet 40 mg PO QPM High Cholesterol 03/09/15 10/03/24 History
omeprazole 20 mg capsule,delayed 20 mg PO HS Gastrointestinal Issue 03/09/15 10/03/24 History
release
acetaminophen 325 mg tablet 650 mg (2 x 325 mg) PO Q6HPRN PRN 04/01/15 10/03/24 Rx
mild pain/fever ##0
aspirin 81 mg tablet,delayed 81 mg PO DAILY ##0 04/01/15 10/03/24 Rx
release
allopurinol 100 mg tablet 100 mg PO DAILY Gout 10/03/24 10/03/24 History
bisacodyl 10 mg rectal suppository 10 mg OK DAILYPRN PRN constipation 10/03/24 10/03/24 History
if sorbitol is ineffective
calcium acetate 667 mg tablet 1,334 mg PO MEALS Supplement 10/03/24 10/03/24 History
cyanocobalamin (vitamin B-12) 1,000 mcg PO DAILY Supplement 10/03/24 10/03/24 History
1,000 mcg tablet
gabapentin 100 mg capsule 100 mg PO DAILY Pain 10/03/24 10/03/24 History
gabapentin 100 mg capsule 200 mg PO HS Pain 10/03/24 10/03/24 History
ipratropium bromide 0.02 % 2.5 ml inhalation R Q4HPRN PRN sob 10/03/24 10/03/24 History
solution for inhalation
levalbuterol HCl 1.25 mg/3 mL 1.25 mg inhalation R Q8HPRN PRN sob 10/03/24 10/03/24 History
solution for nebulization
sodium phosphates 19 gram-7 118 ml OK DAILYPRN PRN if 10/03/24 10/03/24 History
gram/118 mL enema (Fleet Enema) suppository is ineffective
sorbitol 70 % solution 30 ml PO [id number] PRN if no bm x3 10/03/24 10/03/24 History
days
Lactobac/Bifidobac [Visbiome] 1 cap PO DAILY #30 caps 10/17/24 Rx
doxycycline hyclate 100 mg capsule 100 mg PO Q12 #8 caps 10/17/24 Rx
midodrine 5 mg tablet 10 mg (2 x 5 mg) PO Q8H #90 tabs 10/17/24 Rx
warfarin 1 mg tablet (Jantoven) 1 mg PO QPM #30 tabs 10/17/24 Rx
Review of Systems
-
Mild shortness of breath. No chest pain. No urine output
All other systems: Negative unless noted
Respiratory: Cough and Trouble Breathing
Abdomen/GI: Other (Abdominal distention)
Musculoskeletal: Edema and Other (Tunneled hemodialysis catheter non functional AVF)
Neurological: Other (Baseline peripheral neuropathy)
Physical Exam
Vital Signs
Vital Signs
Temp Pulse Resp BP Pulse Ox
97.6 F 76 25 125/61 93
10/19/24 08:17 10/19/24 10:30 10/19/24 10:30 10/19/24 10:00 10/19/24 10:30
Lab Results
10/19/24 08:41
10/19/24 08:41
WBC 6.3 10^3/uL (4.8-10.8) 10/19/24 08:41
RBC 3.39 10^6/uL (4.70-6.10) L 10/19/24:41
Hgb 10.5 g/dL (13.0-18.0) L 10/19/24 08:41
Hct 33.7 % (39.0-52.0) L 10/19/24 08:41
Plt Count 271 10^3/uL (130-400) 10/19/24 08:41
Sodium 133 mmol/L (135-145) L 10/19/24:41
Potassium 5.2 mmol/L (3.5-5.1) H 10/19/24:41
Chloride 95 mmol/L (98-107) L 10/19/24:41
Carbon Dioxide 29 mmol/L (22-30) 10/19/24 08:41
BUN 37 mg/dl (9-20) H 10/19/24:41
Creatinine 3.6 mg/dL (0.7-1.3) H 10/19/24:
eGFR 15.96 10/19/24 08:41
Glucose 123 mg/dl (70-99) H 10/19/24 08:41
Calcium 9.4 mg/dl (8.4-10.2) 10/19/24:41
Albumin 3.7 g/dl (3.5-5.0) 10/19/24 08:41
Physical Exam
Patient is awake alert oriented and in no distress. Mood and affect were pleasant, insight and judgment were good. Appears chronically ill, obese pupils are equal round and reactive to light, extraocular movements are intact, sclera were
anicteric. Hearing was normal, ears and nose are intact. Oropharynx was clear. Neck was supple with trachea midline and no thyromegaly. Heart was regular rate and rhythm with 4 out of 6 systolic ejection murmur noted at left sternal border. Lower
extremities with 2+ edema. Lungs were coarse with rhonchi to auscultation bilaterally and with normal excursion. Abdomen was soft, nontender, distended ,with normal active bowel sounds, and no hepatosplenomegaly. Skin was chronic venous stasis
changes along lower extremities AV fistula left upper arm was with thrill and bruit. Permcath anterior chest
Vascular Access: AVF
Data Reviewed
-
Radiology: Image Personally Visualized and interpreted (Chest x-ray personally reviewed shows left lower lung opacity increased vascularity sternal wires right IJ catheter)
Labs: Labs Reviewed by me (BMP CBC)
Old Records: Reviewed (I reviewed nephrology consultation from date 10/04/2024 for end-stage renal disease as well as discharge summary from last hospitalization in September 2024)
Assessment/Plan
-
Assessment
Presentation is with shortness of breath fatigue and weakness
ESRD
Volume overload vs PNA
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
Coronary artery disease with history of CAD
History of orthostatic hypotension
Heart failure preserved EF
Recurrent ascites
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
Peripheral neuropathy
Atrial fibrillation
Gout
Hyperphosphatemia
Plan
Will attempt higher UF on hemodialysis tomorrow for better volume control although this is complicated by his hypotension in the setting of his cardiomyopathy
Midodrine albumin will be given on dialysis to support UF
All edema not amenable to UF
May also require repeat paracentesis
strict renal diet and FR.
Vancomycin and cefepime to be renally dosed (patient already received 2 g of cefepime in the emergency)
Proper dietary restriction fluid restriction of 50 ounces daily and phosphate binders with meals in regards to hyperphosphatemia
[2024-10-19 13:08] LABS: INR 1.91; PT 22.1 Sec (11.4-14.6)
[2024-10-19 14:12] LABS: B.E. 1.2 mmol/L; HCO3 27.5 mmol/L (21-28); O2 Saturation % 97.2 % (94-98); PCO2 51 mmHg (35-48); PO2 76 mmHg (83-108); pH 7.34 (7.35-7.45)
[2024-10-19] MEDS: ProAmatine PO (15:40)
[2024-10-19] MEDS: PHOSLO 1334 MG PO (16:28)
[2024-10-19] MEDS: COUMADIN 1 MG PO (18:41)
[2024-10-19] MEDS: ProAmatine 10 MG PO (18:41)
[2024-10-19] MEDS: VIBRAMYCIN 100 MG PO (20:26)
[2024-10-19] MEDS: LIPITOR 40 MG PO (21:37)
[2024-10-20 03:00] VITALS: BP 117/62
[2024-10-20 06:00] VITALS: BMI 30.2
[2024-10-20] MEDS: ProAmatine 10 MG PO ×3 (07:48→18:25)
[2024-10-20 08:08] VITALS: BP 120/57
[2024-10-20] MEDS: RETACRIT 4000 UNITS IV (09:08)
[2024-10-20 09:12] LABS: Hematocrit 32.6 % (39.0-52.0); Hemoglobin 9.9 g/dL (13.0-18.0)
--- NOTE | 2024-10-20 09:23 | W.PN.HOSP.TC ---
Today's Communication/Plan
-
Hemodialysis today
f/w blood cultures
Assessment / Plan
Assessment / Plan
Physical Exam
General: Appears Chronically Ill
HEENT: Moist mucous membranes and Atraumatic
Respiratory: Rales (at bases ) and Decreased Breath Sounds
Cardiac: S1/S2
GI: Soft, Non Tender and Non Distended
Rectal: No Maroon Stools
Genito-urinary: No Bloody Urine
Musculoskeletal: Edema, Left Lower Extremity and Edema, Right Lower Extremity
Skin: No Jaundice
Neuro: Awake, Alert and Oriented (to self and surroundings )
Psych: Calm; No Agitated
84 years old male was transferred back to the hospital for history of shortness of breath/failure to thrive/weakness
#Shortness of breath
Resolved. No issues overnight
Chronic hypoxic and hypercapnic respiratory failure
Patient currently denies shortness of breath or cough. he reports feeling normal. No worsening hypoxia, currently on 2 liters ( same baseline). Blood gases reviewed, pH 7.3, pCO2 51, mildly elevated. Chest x-ray seems consistent with bilateral
atelectasis- volume overload, less likely pneumonia. Absence of leukocytosis, fever. Normal lactic acid. Follow-up with the blood culture, hold off antibiotics for now. Will ask pulmonary to evaluate if patient starts to have worsening hypoxia
or high PCO2.
# Fatigue, weakness, increased drowsiness, consistent with toxic encephalopathy, suspect also medication induced by gabapentin
His mentation improving
Stop gabapentin, discussed with family, patient usually does not have uncontrolled neuropathic pain, will reduce gabapentin, dosage per hemodialysis patient for now
# Failure to thrive
Patient complains of tailbone pain. No specific complaint. Denies headache.
Patient was in the hospital for > 2 weeks. Goal of care was discussed with patient and family. Per grandson, family understood the clinical status and the challenges. Patient might be unable to thrive outside of hospital setting. Will monitor
his vital signs. Continue dialysis. Monitor temperature curve. Follow-up with the blood cultures.
#History of Hypotension
c/w Midodrine
#End-stage renal disease with volume overload
on dialysis MoweFR x 2 years via dialysis cath left upper chest wall
-Patient does not make urine
-Consulted Nephro. ER MARIANA Jackson spoke with translator interpreter sanitation officer Dr Lyle. Help appreciated.
-Continue calcium acetate 1334 mg p.o. with meals
# hyperkalemia, Not critical
Resolved with dialysis
# chronic hyponatremia
#Permanent A-fib HX
order INR stat
Per cardiology: remain off BB
#COPD- no acute exacerbation
c/w nebulizer as needed
#Anemia of CKD
#Function paraparesis
-Continue gabapentin but adjust the dose for renal function.
#GERD
-Continue PPI
#HLD
- no changes recommended.
# BOBBY noncompliant CPAP/ Pulm HTN
# obesity
#CAD/CABG x 3 vessel
Chronic HFrEF
ECHO 10/08/24: EF 42%, septal flattening due to RV pressure and volume overload, RV dilated, biatrial enlargement, mild to moderate MR, aortic sclerosis, moderate to severe TR, PASP 65 mmHg, mildly dilated ascending aorta 4.0 cm
-Continue aspirin 81 mg daily, atorvastatin 40 mg every afternoon
Known to have non-PR troponin elevation
No on GDMT due to intolerance/ severe hypotension
#Vit B12 deficiency
-Continue B12 supplement
#Gout
-Continue allopurinol 100 mg daily
# GOC
Will continue ongoing discussions regarding goals of care pending patient's clinical progress. Patient's daughter in law relayed 10/09 that patient historically has been against hospice and family was made aware recent admission that he had very
slim chance to thrive and do better.
dvt proph
on Coumadin
Total time spent to see the patient, examine the patient, review data and lab results, discuss treatment plan with patient, family, and nursing staff around 55 minutes
Anticipated Discharge: 24 - 48 hours
Subjective/Interval History
-
Date of Service: October 20, 2024
Objective Data
-
Labs:
Laboratory Results
10/20/24
09:00
Hgb 9.9 L
Hct 32.6 L
Sodium Pending
Potassium Pending
Chloride Pending
Carbon Dioxide Pending
Vital Signs:
Vital Signs
Temp Pulse Resp BP Pulse Ox
97.3 F 80 20 120/57 96
10/20/24 08:08 10/20/24 08:08 10/20/24 08:08 10/20/24 08:08 10/20/24 08:08
I&O
10/19/24 10/20/24 10/21/24
06:59 06:59 06:59
Intake Total 720 / 720 480 / 480
Balance 720 / 720 480 / 480
[2024-10-20 09:25] LABS: Carbon Dioxide 26 mmol/L (22-30); Chloride 96 mmol/L (98-107); Sodium 132 mmol/L (135-145)
[2024-10-20] MEDS: ProAmatine 5 MG PO (10:47)
[2024-10-20] MEDS: MANNITOL 25% 12.5 GRAMS IV (10:50)
--- NOTE | 2024-10-20 11:07 | W.PN.NEPH.HD ---
Assessment
-
pt seen during HD
BP soft, s/p midodrine
UF as tolerates
may need paracentesis
cvc functions well
wean O2
renal diet and FR
Progress Note - Hemodialysis
-
Date of Service: October 20, 2024
Duration: 30 minutes and 3 hours
Potassium Bath: 2
Calcium Bath: 2.5
Opti-Dialyzer: 160
Ultrafiltration: Other (3kg)
Blood Flow: 400
Dialysate Flow: 600
Heparin: no
EPO: 4000
[2024-10-20] MEDS: HEPARIN 5100 UNITS INTRACATH (11:08)
[2024-10-20 11:27] VITALS: BP 105/55
[2024-10-20] MEDS: PHOSLO PO (11:51)
[2024-10-20] MEDS: PROTONIX 40 MG PO (12:13)
[2024-10-20] MEDS: VIBRAMYCIN 100 MG PO ×2 (12:13→20:06)
[2024-10-20] MEDS: ASPIR LOW (ENTERIC COATED) 81 MG PO (12:13)
[2024-10-20] MEDS: VISBIOME 1 CAP PO (12:13)
[2024-10-20] MEDS: ZYLOPRIM 100 MG PO (12:14)
[2024-10-20] MEDS: PHOSLO 1334 MG PO ×2 (12:47→18:24)
--- NOTE | 2024-10-20 14:11 | CM ---
Patient seen at bedside - son in room
CM consult completed - advanced directives - left in patient room
Left SMS message with daughter Micheline
patient was just discharged on 10/17 to [facility]
now with weakness/failure to thrive
Patient was to have dialysis on Sunday at [facility] (10:40am chair time) in which the facility was set to transport.
Per Irais diallo rescheduled dialysis that was to be done on Sunday
Dialysis was performed today
PLAN: Return to [facility]
[2024-10-20 14:35] VITALS: BP 116/53
[2024-10-20] MEDS: TYLENOL 650 MG PO (17:27)
[2024-10-20] MEDS: COUMADIN 1.5 MG PO (18:24)
[2024-10-20 19:00] VITALS: BP 109/52
[2024-10-20] MEDS: LIDOCAINE 4% PATCH 1 PATCH TOPICAL (21:16)
[2024-10-20] MEDS: LIPITOR 40 MG PO (21:16)
[2024-10-20 23:00] VITALS: BP 107/52
[2024-10-21] VITALS (7 sets, daily range): BP systolic 110–123; BP diastolic 52–66; PULSE 84–87; O2SAT 97–98; BMI 30.4
[2024-10-21] MEDS: TYLENOL 650 MG PO (04:04)
[2024-10-21] MEDS: ProAmatine 10 MG PO ×3 (08:06→18:08)
[2024-10-21] MEDS: VIBRAMYCIN 100 MG PO (08:06)
[2024-10-21] MEDS: PROTONIX 40 MG PO (08:06)
[2024-10-21] MEDS: VISBIOME 1 CAP PO (08:07)
[2024-10-21] MEDS: ZYLOPRIM 100 MG PO (08:07)
[2024-10-21] MEDS: ASPIR LOW (ENTERIC COATED) 81 MG PO (08:07)
[2024-10-21] MEDS: PHOSLO 1334 MG PO ×3 (08:11→17:12)
--- NOTE | 2024-10-21 08:41 | W.PN.HOSP.TC ---
Today's Communication/Plan
-
Consult PT/OT
Plan to dc back to SNF on 10/22
Check INR today
Assessment / Plan
Assessment / Plan
Physical Exam
General: Appears Chronically Ill
HEENT: Moist mucous membranes and Atraumatic
Respiratory: Rales (at bases ) and Decreased Breath Sounds
Cardiac: S1/S2
GI: Soft, Non Tender and Non Distended
Rectal: No Maroon Stools
Genito-urinary: No Bloody Urine
Musculoskeletal: Edema, Left Lower Extremity and Edema, Right Lower Extremity
Skin: No Jaundice
Neuro: Awake, Alert and Oriented, seems back to baseline per grandson. He followed commands.
Psych: Calm; No Agitated
84 years old male was transferred back to the hospital for history of shortness of breath/failure to thrive/weakness
#Shortness of breath
Resolved. No issues overnight
Chronic hypoxic and hypercapnic respiratory failure
Patient currently denies shortness of breath or cough. he reports feeling normal. No worsening hypoxia, currently on 2 liters ( same baseline). Blood gases reviewed, pH 7.3, pCO2 51, mildly elevated. Chest x-ray seems consistent with bilateral
atelectasis- volume overload, less likely pneumonia. Absence of leukocytosis, fever. Normal lactic acid. Follow-up with the blood culture, hold off antibiotics for now. Will ask pulmonary to evaluate if patient starts to have worsening hypoxia
or high PCO2.
# Toxic encephalopathy, suspect also medication induced by gabapentin
His mentation improving, seems back to baseline
Discussed with family, patient usually does not have uncontrolled neuropathic pain, stopped gabapentin.
# Failure to thrive
No specific complaint. Denied headache/ chest pain/ GI symptoms.
Patient was in the hospital for > 2 weeks. Goal of care was discussed with patient and family. Per grandson, family understood the clinical status and the challenges. Patient might be unable to thrive outside of hospital setting. Will monitor
his vital signs. Continue dialysis. Monitor temperature curve. Follow-up with the blood cultures.
# constipation
He had laxative induced diarrhea few days ago, now he feels he is passing gas but no BM, will do Dulcolax. I will add daily fiber and MiraLAX to hopefully regulate his bowel function.
#History of Hypotension
c/w Midodrine
#End-stage renal disease with volume overload
on dialysis MoweFR x 2 years via dialysis cath left upper chest wall
-Patient does not make urine
-Consulted Nephro. ER MARIANA Jackson spoke with chronometer repairer immigration associate Dr Lyle. Help appreciated.
-Continue calcium acetate 1334 mg p.o. with meals
# hyperkalemia, Not critical
Resolved with dialysis
# chronic hyponatremia
#Permanent A-fib HX
order INR stat
Per cardiology: remained off BB
#COPD- no acute exacerbation
c/w nebulizer as needed
#Anemia of CKD
#Function paraparesis
-Continue gabapentin but adjust the dose for renal function.
#GERD
-Continue PPI
#HLD
- no changes recommended.
# BOBBY noncompliant CPAP/ Pulm HTN
# obesity
#CAD/CABG x 3 vessel
Chronic HFrEF
ECHO 10/08/24: EF 42%, septal flattening due to RV pressure and volume overload, RV dilated, biatrial enlargement, mild to moderate MR, aortic sclerosis, moderate to severe TR, PASP 65 mmHg, mildly dilated ascending aorta 4.0 cm
-Continue aspirin 81 mg daily, atorvastatin 40 mg every afternoon
Known to have non-[place] troponin elevation
No on GDMT due to intolerance/ severe hypotension
#Vit B12 deficiency
-Continue B12 supplement
#Gout
-Continue allopurinol 100 mg daily
# GOC
Will continue ongoing discussions regarding goals of care pending patient's clinical progress. Patient's daughter in law relayed 10/09 that patient historically has been against hospice and family was made aware recent admission that he had very
slim chance to thrive and do better.
dvt proph
on Coumadin
Total time spent to see the patient, examine the patient, review data and lab results, discuss treatment plan with patient, family, and nursing staff around 55 minutes
Anticipated Discharge: Within 24 hours
Subjective/Interval History
-
Date of Service: October 21, 2024
No chest pain
No sob
Objective Data
-
Vital Signs:
Vital Signs
Temp Pulse Resp BP Pulse Ox
97.8 F 89 18 114/55 99
10/21/24 07:30 10/21/24 07:30 10/21/24 07:30 10/21/24 07:30 10/21/24 07:30
I&O
10/20/24 10/21/24 10/22/24
06:59 06:59 06:59
Intake Total 720 / 720 1060 / 1060
Balance 720 / 720 1060 / 1060
[2024-10-21] MEDS: DULCOLAX 10 MG PO (09:01)
[2024-10-21 10:25] LABS: INR 1.59; PT 19.2 Sec (11.4-14.6)
--- NOTE | 2024-10-21 12:15 | PN.CDI ---
Addendum entered and electronically signed by Ginette Peguero MD 10/21/24 12:33:
Volume overload only
Original Note:
CDI
- -
CDI:
Physician Documentation Request
Admit Date: 10/19/24 12:09
Dear Doctor Sudhir,
Please review the following and provide your response in the progress notes.
Clinical Indicators:
Pt admitted with SOB / chronic Hypoxic/Hypercapnic Respiratory Failure /ESRD on HD
Documented per ED, ' LUNGS: Rhonchorous lung sounds, O2 sat between 94 and 96% on 2 L via nasal cannula, wet sounding cough but nonproductive, speaking full sentences....Pleural effusion...'
Documented per H&P, ' ..Respiratory: Rales (at bases ) and Decreased Breath Sounds...Musculoskeletal: Edema, Left Lower Extremity and Edema, Right Lower Extremity...Chest x-ray seems consistent with bilateral atelectasis- volume
overload,....Chronic HFrEF....'
Nephrology consult, '....Presentation is with shortness of breath fatigue and weakness ESRD Volume overload...Will attempt higher UF on hemodialysis tomorrow for better volume control although this is complicated by his hypotension in the setting
of his cardiomyopathy Midodrine albumin will be given on dialysis to support UF ...'
Please provide a diagnosis for the above findings/treatment:
Acute on Chronic Systolic CHF -managed by HD with UF
Volume overload only
Other ( please specify)
Use of terms such as suspected, likely, concern for, or probable (associated with a specific diagnosis that is being evaluated, monitored, or treated as if it exists) are acceptable and can be coded in the inpatient setting, when documented at the
time of discharge.
Thank you,
Alannah Berger RN
CDI Specialist
[facility]
Please use your independent medical judgment in providing your response.
--- NOTE | 2024-10-21 12:26 | PN.CDI ---
Addendum entered and electronically signed by Ginette Peguero MD 10/21/24 12:34:
present on admission sacral pressure injury stage 1
Original Note:
CDI
- -
CDI:
Physician Documentation Request
Admit Date: 10/19/24 12:09
Dear Doctor Sudhir,
Please review the following and provide your response in the progress notes.
Clinical Indicators:
Pt admitted with SOB / chronic Hypoxic/Hypercapnic Respiratory Failure /ESRD on HD
Documented per nursing WOCN note 10/19, ' present on admission sacral pressure injury stage 1 ..treatment provided adhesive foam..'
Physician documentation of the type and location of wounds is required for compliant documentation. Based on the above clinical findings and your assessment, please provide the following in your progress note:
1. Location of the ulcer/wound, including laterality.
2. Type (etiology) of ulcer/wound:
- Pressure (decubitus) ulcer
- Non-pressure ulcer
- Other ( please specify)
Use of terms such as suspected, likely, concern for, or probable (associated with a specific diagnosis that is being evaluated, monitored, or treated as if it exists) are acceptable and can be coded in the inpatient setting, when documented at the
time of discharge.
Thank you,
Alannah Berger RN
CDI Specialist
[facility]
Please use your independent medical judgment in providing your response.
*Source: National Pressure Ulcer Advisory Panel (NPUAP)
--- NOTE | 2024-10-21 13:55 | CM ---
Addendum entered by Risa Stockton 10/21/24 15:50:
Spoke with Irais liaelli at [facility] - they do not have a dialysis chair at this time, they will transport patient to his chair at [facility] on T--SAT for his 10:40am chair time.
spoke with Dr. Mota regarding this.
IMM explained & signed. In chart
Addendum entered by Risa Stockton 10/21/24 14:33:
correction [facility]
Report #: [id number]
Fax #: [phone]
Original Note:
Met with patient and yoel Arambula at bedside
Came from skilled rehab at [facility], recent discharge from 10/17
Referral in [facility]
Requested POA paperwork to be emailed for chart
PLAN: [facility] when medically stable, will need insurance auth
Report #: [id number]
Fax #: [phone]
--- NOTE | 2024-10-21 16:22 | W.PN.NEPH.PH ---
Today's Communication / Plan
-
HD tomorrow
Assessment/Plan
-
Assessment
Presentation is with shortness of breath fatigue and weakness
ESRD
Volume overload vs PNA
Pulmonary hypertension/SHIFT MANAGER EF ~40%/severe reduced RV function with severe TR
Coronary artery disease with history of CAD
History of orthostatic hypotension
Heart failure preserved EF
Recurrent ascites
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
Peripheral neuropathy
Atrial fibrillation
Gout
Hyperphosphatemia
Plan
HD tomorrow
noted that he will be TTS after d/c at [place] till he gets chair at [facility]
UF as much he can tolerate
BP soft, midodrine with hd
All edema not amenable to UF
strict renal diet and FR.
d/c tomorrow
-
-
Date of Service: October 21, 2024
CC / HPI / ROS
-
Chief Complaint:
ESRD
History of Present Illness:
wt over all stable
on O2 2lit
BP stable, no fever
Review of Systems:
no cp or sob at rest
sleeping during visi t
Labs
-
Labs:
WBC 6.3 10^3/uL (4.8-10.8) 10/19/24 08:41
RBC 3.39 10^6/uL (4.70-6.10) L 10/19/24 08:41
Hgb 9.9 g/dL (13.0-18.0) L 10/20/24 09:00
Hct 32.6 % (39.0-52.0) L 10/20/24 09:00
Plt Count 271 10^3/uL (130-400) 10/19/24 08:41
Sodium 132 mmol/L (135-145) L 10/20/24 09:00
Potassium 5.0 mmol/L (3.5-5.1) 10/20/24 09:00
Chloride 96 mmol/L (98-107) L 10/20/24 09:00
Carbon Dioxide 26 mmol/L (22-30) 10/20/24 09:00
BUN 37 mg/dl (9-20) H 10/19/24 08:41
Creatinine 3.6 mg/dL (0.7-1.3) H 10/19/24 08:41
eGFR 15.96 10/19/24 08:41
Glucose 123 mg/dl (70-99) H 10/19/24 08:41
Calcium 9.4 mg/dl (8.4-10.2) 10/19/24 08:41
Albumin 3.7 g/dl (3.5-5.0) 10/19/24 08:41
Physical Exam
-
Vital Signs:
Vital Signs
Temp Pulse Resp BP Pulse Ox
97.9 F 83 18 111 97
10/21/24 11:40 10/21/24 12:52 10/21/24 11:40 10/21/24 12:52 10/21/24 11:40
Cardiovascular:: Regular rate and rhythm
Respiratory:: Bilateral: CTA (decreased)
Lung Excursion:: Normal
Abdomen:: Nontender and Soft
Extremity Edema:: +2: Bilateral:
Kang Catheter: No
[2024-10-21] MEDS: COUMADIN 1.5 MG PO (18:08)
[2024-10-21] MEDS: LIPITOR 40 MG PO (21:18)
[2024-10-21] MEDS: LIDOCAINE 4% PATCH 1 PATCH TOPICAL (21:19)
[2024-10-22] MEDS: ATROVENT NEBULES 0.5 MG INH ×2 (03:14→23:27)
[2024-10-22 05:27] VITALS: BMI 29.8
[2024-10-22 07:05] VITALS: BP 126/63
--- NOTE | 2024-10-22 07:47 | W.PN.HOSP.TC ---
Addendum entered and electronically signed by Ginette Peguero MD 10/22/24 13:26:
Addendum
I called the daughter this afternoon again and left voicemail
End
Original Note:
Today's Communication/Plan
-
Pt does not want to leave because his abdomen is uncomfortable, will ask IR to do tap
Known recurrent ascites related to kidney failure
Called daughter and left VM
Assessment / Plan
Assessment / Plan
Physical Exam
General: Appears Chronically Ill
HEENT: Moist mucous membranes and Atraumatic
Respiratory: No rales, decreased Breath Sounds
Cardiac: S1/S2
GI: Soft, Non Tender and Non Distended
Rectal: No Maroon Stools
Genito-urinary: No Bloody Urine
Musculoskeletal: Edema, Left Lower Extremity and Edema, Right Lower Extremity
Skin: No Jaundice
Neuro: Awake, Alert and Oriented, seems back to baseline per grandson. He followed commands.
Psych: Calm; No Agitated
84 years old male was transferred back to the hospital for history of shortness of breath/failure to thrive/weakness
#Shortness of breath
Resolved. No issues overnight
Chronic hypoxic and hypercapnic respiratory failure
Patient currently denies shortness of breath or cough. he reports feeling normal. No worsening hypoxia, currently on 2 liters ( same baseline). Blood gases reviewed, pH 7.3, pCO2 51, mildly elevated. Chest x-ray seems consistent with bilateral
atelectasis- volume overload, less likely pneumonia. Absence of leukocytosis, fever. Normal lactic acid. Follow-up with the blood culture, hold off antibiotics for now. Will ask pulmonary to evaluate if patient starts to have worsening hypoxia
or high PCO2.
# Toxic encephalopathy, suspect also medication induced by gabapentin
His mentation improving, seems back to baseline
Discussed with family, patient usually does not have uncontrolled neuropathic pain, stopped gabapentin.
# Failure to thrive
No specific complaint. Denied headache/ chest pain/ GI symptoms.
Patient was in the hospital for > 2 weeks. Goal of care was discussed with patient and family. Per grandson, family understood the clinical status and the challenges. Patient might be unable to thrive outside of hospital setting. Will monitor
his vital signs. Continue dialysis. Monitor temperature curve. Follow-up with the blood cultures.
# constipation
He had laxative induced diarrhea few days ago, now he feels he is passing gas but no BM, will do Dulcolax. I will add daily fiber and MiraLAX to hopefully regulate his bowel function.
# History of recurrent Ascites
Pt feels uncomfortable, no abd pain tenderness on exam
Will ask IR to do another para
Last para was 10/08
#History of Hypotension
c/w Midodrine
#End-stage renal disease with volume overload
on dialysis MoweFR x 2 years via dialysis cath left upper chest wall
-Patient does not make urine
-Consulted Nephro. ER MARIANA Jackson spoke with instructor of nursing workers compensation legal secretary Dr Lyle. Help appreciated.
-Continue calcium acetate 1334 mg p.o. with meals
# hyperkalemia, Not critical
Resolved with dialysis
# chronic hyponatremia
#Permanent A-fib HX
order INR stat
Per cardiology: remained off BB
#COPD- no acute exacerbation
c/w nebulizer as needed
#Anemia of CKD
#Function paraparesis
-Continue gabapentin but adjust the dose for renal function.
#GERD
-Continue PPI
#HLD
- no changes recommended.
# BOBBY noncompliant CPAP/ Pulm HTN
# obesity
#CAD/CABG x 3 vessel
Chronic HFrEF
ECHO 10/08/24: EF 42%, septal flattening due to RV pressure and volume overload, RV dilated, biatrial enlargement, mild to moderate MR, aortic sclerosis, moderate to severe TR, PASP 65 mmHg, mildly dilated ascending aorta 4.0 cm
-Continue aspirin 81 mg daily, atorvastatin 40 mg every afternoon
Known to have non-[place] troponin elevation
No on GDMT due to intolerance/ severe hypotension
#Vit B12 deficiency
-Continue B12 supplement
#Gout
-Continue allopurinol 100 mg daily
# GOC
Will continue ongoing discussions regarding goals of care pending patient's clinical progress. Patient's daughter in law relayed 10/09 that patient historically has been against hospice and family was made aware recent admission that he had very
slim chance to thrive and do better.
dvt proph
on Coumadin
Total time spent to see the patient, examine the patient, review data and lab results, discuss treatment plan with patient, family, and nursing staff around 55 minutes
Anticipated Discharge: Within 24 hours
Subjective/Interval History
-
Date of Service: October 22, 2024
No chest pain
feels his abdomen bloated and uncomfortable
Objective Data
-
Vital Signs:
Vital Signs
Temp Pulse Resp BP Pulse Ox
98.1 F 83 16 126/63 96
10/22/24 07:05 10/22/24 07:05 10/22/24 07:05 10/22/24 07:05 10/22/24 07:05
I&O
10/21/24 10/22/24 10/23/24
06:59 06:59 06:59
Intake Total 1060 / 1060 840 / 840
Balance 1060 / 1060 840 / 840
[2024-10-22] MEDS: HEPARIN 500 UNITS IV ×2 (08:10→09:10)
[2024-10-22] MEDS: PROTONIX 40 MG PO (08:35)
[2024-10-22] MEDS: VISBIOME 1 CAP PO (08:35)
[2024-10-22] MEDS: ZYLOPRIM 100 MG PO (08:35)
[2024-10-22] MEDS: ProAmatine 10 MG PO ×3 (08:35→17:50)
[2024-10-22] MEDS: PHOSLO 1334 MG PO ×3 (08:35→17:50)
[2024-10-22] MEDS: ASPIR LOW (ENTERIC COATED) 81 MG PO (08:35)
[2024-10-22 08:40] LABS: Hematocrit 32.8 % (39.0-52.0); Hemoglobin 10.2 g/dL (13.0-18.0)
[2024-10-22] MEDS: RETACRIT 2000 UNITS IV (09:13)
[2024-10-22] MEDS: MANNITOL 25% 12.5 GRAMS IV (09:13)
--- NOTE | 2024-10-22 09:18 | W.PN.NEPH.HD ---
Assessment
-
Patient seen on dialysis
Systolic blood pressure 120 at current UF
Next dialysis scheduled for Sunday
Progress Note - Hemodialysis
-
Date of Service: October 22, 2024
Duration: 30 minutes and 3 hours
Potassium Bath: 2
Calcium Bath: 2.5
Opti-Dialyzer: 160
Ultrafiltration: Other (3 kg)
Blood Flow: 400
Dialysate Flow: 600
Heparin: 500 x 2
EPO: 2000
[2024-10-22 09:26] LABS: Carbon Dioxide 27 mmol/L (22-30); Chloride 93 mmol/L (98-107); Potassium 4.1 mmol/L (3.5-5.1); Sodium 132 mmol/L (135-145)
[2024-10-22 14:53] VITALS: BP 92/40
[2024-10-22 16:14] VITALS: BP 113/59
[2024-10-22] MEDS: COUMADIN 1.5 MG PO (17:50)
[2024-10-22] MEDS: LIDOCAINE 4% PATCH 1 PATCH TOPICAL (21:00)
[2024-10-22] MEDS: LIPITOR 40 MG PO (21:00)
[2024-10-22 23:00] VITALS: BP 121/58
[2024-10-22] MEDS: TYLENOL 650 MG PO (23:09)
[2024-10-23] VITALS (8 sets, daily range): BP systolic 89–126; BP diastolic 53–79; PULSE 93–98; O2SAT 100; BMI 28.9
--- NOTE | 2024-10-23 02:15 | PTCARENOTE ---
Oral care was not performed on patient because he refused.
[2024-10-23] MEDS: ProAmatine 10 MG PO ×2 (08:03→12:06)
[2024-10-23] MEDS: VISBIOME 1 CAP PO (08:03)
[2024-10-23] MEDS: ASPIR LOW (ENTERIC COATED) 81 MG PO (08:03)
[2024-10-23] MEDS: ZYLOPRIM 100 MG PO (08:04)
[2024-10-23] MEDS: PROTONIX 40 MG PO (08:04)
[2024-10-23] MEDS: PHOSLO 1334 MG PO ×2 (08:04→12:06)
--- NOTE | 2024-10-23 10:38 | W.PN.HOSP.TC ---
Today's Communication/Plan
-
Discharge planning
Give extra dose of Coumadin, low INR
Assessment / Plan
Assessment / Plan
Physical Exam
General: Appears Chronically Ill
HEENT: Moist mucous membranes and Atraumatic
Respiratory: No rales, decreased Breath Sounds
Cardiac: S1/S2
GI: Soft, Non Tender and Non Distended
Rectal: No Maroon Stools
Genito-urinary: No Bloody Urine
Musculoskeletal: Edema, Left Lower Extremity and Edema, Right Lower Extremity
Skin: No Jaundice
Neuro: Awake, Alert and Oriented, seems back to baseline per grandson. He followed commands.
Psych: Calm; No Agitated
84 years old male was transferred back to the hospital for history of shortness of breath/failure to thrive/weakness
#Shortness of breath
Resolved. No issues overnight
Chronic hypoxic and hypercapnic respiratory failure
Patient currently denies shortness of breath or cough. he reports feeling normal. No worsening hypoxia, currently on 2 liters ( same baseline). Blood gases reviewed, pH 7.3, pCO2 51, mildly elevated. Chest x-ray seems consistent with bilateral
atelectasis- volume overload, not pneumonia. Absence of leukocytosis, fever. Normal lactic acid. Negative blood culture, hold off antibiotics for now.
# Toxic encephalopathy, suspect also medication induced by gabapentin
His mentation improved, back to baseline per grandson
Discussed with family, patient usually does not have uncontrolled neuropathic pain, stopped gabapentin.
# Failure to thrive
No specific complaint. Denied headache/ chest pain/ GI symptoms.
Patient was in the hospital for > 2 weeks. Goal of care was discussed with patient and family. Per grandson, family understood the clinical status and the challenges. Patient might be unable to thrive outside of hospital setting. Will monitor
his vital signs. Continue dialysis. Monitor temperature curve. Follow-up with the blood cultures.
# constipation
He had laxative induced diarrhea few days ago, now he feels he is passing gas but no BM, will do Dulcolax. I will add daily fiber and MiraLAX to hopefully regulate his bowel function.
# History of recurrent Ascites
Pt felt abdominal discomfort and bloating, no abd pain tenderness on exam. Status post paracentesis of 4500 mL 10/23
Last para was 10/08
#History of Hypotension
c/w Midodrine
#End-stage renal disease with volume overload
on dialysis MoweFR x 2 years via dialysis cath left upper chest wall but upon dc will be TTS
-Patient does not make urine
- Appreciate nephrology help
-Continue calcium acetate 1334 mg p.o. with meals
# hyperkalemia, Not critical
Resolved with dialysis
# chronic hyponatremia
#Permanent A-fib HX
INR is low, will give extra dose of Coumadin
Per cardiology: remained off BB
#COPD- no acute exacerbation
c/w nebulizer as needed
#Anemia of CKD
#Function paraparesis
Stopped gabapentin after encephalopathy. Pt denies pain
#GERD
-Continue PPI
#HLD
- no changes recommended.
# BOBBY noncompliant CPAP/ Pulm HTN
# obesity
#CAD/CABG x 3 vessel
Chronic HFrEF
ECHO 10/08/24: EF 42%, septal flattening due to RV pressure and volume overload, RV dilated, biatrial enlargement, mild to moderate MR, aortic sclerosis, moderate to severe TR, PASP 65 mmHg, mildly dilated ascending aorta 4.0 cm
-Continue aspirin 81 mg daily, atorvastatin 40 mg every afternoon
Known to have non-[place] troponin elevation
No on GDMT due to intolerance/ severe hypotension
#Vit B12 deficiency
-Continue B12 supplement
#Gout
-Continue allopurinol 100 mg daily
# GOC
. Patient's daughter in law relayed 10/09 that patient historically has been against hospice and family was made aware recent admission that he had very slim chance to thrive and do better.
dvt proph
on Coumadin
Total discharge time spent to see the patient, examine the patient, review data and lab results, discuss discharge plan with patient, family, and nursing staff around 67 minutes
Anticipated Discharge: Today
Subjective/Interval History
-
Date of Service: October 23, 2024
No chest pain
No sob
he reports diarrhea
Objective Data
-
Vital Signs:
Vital Signs
Temp Pulse Resp BP Pulse Ox
98.1 F 95 16 126/53 98
10/23/24 08:55 10/23/24 09:35 10/23/24 09:35 10/23/24 09:35 10/23/24 09:35
I&O
10/22/24 10/23/24 10/24/24
06:59 06:59 06:59
Intake Total 840 / 840 820 / 820 480 / 480
Balance 840 / 840 820 / 820 480 / 480
--- NOTE | 2024-10-23 10:46 | CM ---
Addendum entered by Risa Stockton 10/23/24 11:20:
IMM explained to patient and daughter & signed in chart.
Original Note:
CM to obtain insurance auth for discharge today to [facility]
tt hospitalist, nephrology - Patient will be transported to [facility]
hospitalist spoke with nephrology ok to discharge today with next dialysis on Sunday.
Spoke to Irais at [facility] & updated
PT/OT to eval today for ins auth.
Spoke with daughter Micheline [phone] and patient & updated of discharge today once auth obtained.
PLAN: [facility], once auth obtained today - await PT/OT evals
Report #: [phone]
Fax #: [phone]
TRANSPORTATION FORMS ON CHART
[2024-10-23 11:58] LABS: Body Fluid Mononuclear 87.9 %; Body Fluid Polymorphonuclear 12.1 %; Body Fluid WBC 528 /CUMM
[2024-10-23 11:59] LABS: Body Fluid Second Tech SS
--- NOTE | 2024-10-23 12:21 | CM ---
Addendum entered by Risa Stockton 10/23/24 12:41:
Correction: authorization start date today 10/23 (confirmed with Kelsea)
Original Note:
PT/OT evals completed today
Called [facility] [employer] [phone] for authorization [facility] and spoke with Fatemeh
[facility] NPI #[id number]
Dr. Peterson Wilson
AUTHORIZATION APPROVED #: [id number]
Start date 10/24/24 NRD 10/27/24
Call for updates at
Irais aguilar notified of authorization approval information
faxed dialysis sheets to [facility]
tt hospialist, nephrology
[facility]
Report #: [phone]
Fax #: [phone]
[facility] Fax #: [phone]
transportation forms on chart 2pm set up (Irais notified)
[2024-10-23] MEDS: COUMADIN 3 MG PO (13:14)
--- NOTE | 2024-10-24 12:36 | W.DCSUMMARY ---
Discharge Summary
Discharge Data
Date of Admission: 10/19/24
Date of Discharge: 10/23/24
-
Pending Results: No
Hospital Course
84 years old male was brought in from group home facility for lethargy. Patient did not have pain issues. He did not have acute cardiac or pulmonary issues. Patient has history of end-stage renal disease and on hemodialysis. Patient did not
have fever, leukocytosis or headaches. He was admitted to the hospital for observation. Blood culture did not show any growth. He was kept off antibiotics. He was noticed to be taking gabapentin daily basis without adjustment to his kidney
function. Gabapentin was discontinued. Mentation improved significantly and went back to baseline. Patient received hemodialysis without complications. He complained of bloating/abdominal distention had paracentesis without complications. He
remained hemodynamically stable and was discharged to group home facility in stable condition. Patient and family did not feel that he would need gabapentin anymore.
Discharge Plan
-
Patient Disposition: Retirement/SNF
Discharge Diagnosis/Procedures: Toxic encephalopathy, suspect medication induced by gabapentin, improved, back to baseline.
Chronic hypoxic and hypercapnic respiratory failure
Failure to thrive
Recurrent ascites
End-stage renal disease with volume overload
Hyponatremia
Permanent atrial fibrillation, anticoagulation with Coumadin
COPD
Anemia of chronic disease
GERD
Chronic heart failure with reduced ejection fraction,ECHO 10/08/24: EF 42%, septal flattening due to RV pressure and volume overload, RV dilated, biatrial enlargement, mild to moderate MR, aortic sclerosis, moderate to severe TR, PASP 65 mmHg, mildly
dilated ascending aorta 4.0 cm
Coronary artery disease
Gout
Vitamin B12 deficiency
Diet: Restrict fluids to 48 oz
Blood Work: INR on 10/24
Referrals:
NONE,* [Family Provider] -
Prescriptions:
Continued
atorvastatin 40 MG tablet
40 mg PO HS
omeprazole 20 MG capsule,delayed release(DR/EC)
20 mg PO DAILY
acetaminophen 325 MG tablet
650 mg PO Q6HPRN PRN (Reason: mild pain/fever) Qty: 0 0RF
aspirin 81 MG tablet,delayed release (DR/EC)
81 mg PO DAILY Qty: 0 0RF
cyanocobalamin (vitamin B-12) 1,000 mcg Tablet
1,000 mcg PO DAILY
allopurinol 100 mg Tablet
100 mg PO DAILY
bisacodyl 10 mg Suppository
10 mg TN DAILYPRN PRN (Reason: if mom is ineffective)
Fleet Enema 19-7 gram/118 mL Enema
118 ml TN DAILYPRN PRN (Reason: if suppository is ineffective)
levalbuterol HCl 1.25 mg/3 mL Solution For Nebulization
1.25 mg INHALATION R Q8HPRN PRN (Reason: sob)
sorbitol 70 % Solution
30 ml PO [id number] PRN (Reason: if no bm x3 days)
ipratropium bromide 0.02 % Solution
2.5 ml INHALATION R Q4HPRN PRN (Reason: sob)
calcium acetate 667 mg Tablet
1,334 mg PO AC
midodrine 5 mg Tablet
10 mg PO Q8H Qty: 90 0RF
Visbiome 112.5 billion cell Capsule
1 cap PO DAILY
Changed
warfarin [Jantoven] 1 mg Tablet
2 mg PO QPM Qty: 30 0RF
Discontinued
gabapentin 100 mg Capsule
100 mg PO DAILY
gabapentin 100 mg Capsule
200 mg PO HS
doxycycline hyclate 100 mg capsule
100 mg PO BID
Discharge Orders:
Discharge Patient (As Directed); Ordered 10/23/24
Ordered By: Ginette Peguero
Discharge Date and Time
Discharge Date/Time: 10/23/24 14:50
Print Language: WELSH
--- NOTE | 2024-10-24 15:11 | CM ---
HD flow sheets faxed to [facility] [phone].
== END 2024-10-23 14:50 | DRG 640 ==
LOC: 3 WEST ACU 12:09
PROVIDERS: Internal Medicine; Physician Assistant Medical; Radiology Diagnostic Radiology; ADMITTING PHYSICIAN Internal Medicine; CONSULT PHYSICIAN Specialist; EMERGENCY PHYSICIAN Emergency Medicine
PROC: 5A1D70Z Performance of Urinary Filtration, Intermittent, Less than 6 Hours Per Day (ICD-10-PCS; 2024-10-20)
PROC: 0W9G3ZZ Drainage of Peritoneal Cavity, Percutaneous Approach (ICD-10-PCS; 2024-10-23)
DX: E87.70 Fluid overload, unspecified (principal); G92.9 Unspecified toxic encephalopathy; N18.6 End stage renal disease; J96.12 Chronic respiratory failure with hypercapnia; J96.11 Chronic respiratory failure with hypoxia; I48.21 Permanent atrial fibrillation; J44.0 Chronic obstructive pulmonary disease with (acute) lower respiratory infection; G82.20 Paraplegia, unspecified; I50.42 Chronic combined systolic (congestive) and diastolic (congestive) heart failure; R18.8 Other ascites; I42.9 Cardiomyopathy, unspecified; J98.11 Atelectasis; I13.2 Hypertensive heart and chronic kidney disease with heart failure and with stage 5 chronic kidney disease, or end stage renal disease; E87.1 Hypo-osmolality and hyponatremia; Z11.52 Encounter for screening for COVID-19; E11.22 Type 2 diabetes mellitus with diabetic chronic kidney disease; Z87.891 Personal history of nicotine dependence; Z79.82 Long term (current) use of aspirin; Z79.899 Other long term (current) drug therapy; R62.7 Adult failure to thrive; Z68.28 Body mass index [BMI] 28.0-28.9, adult; E87.5 Hyperkalemia; K21.9 Gastro-esophageal reflux disease without esophagitis; G47.33 Obstructive sleep apnea (adult) (pediatric); Z91.199 Patient's noncompliance with other medical treatment and regimen due to unspecified reason; I27.20 Pulmonary hypertension, unspecified; E66.9 Obesity, unspecified; E53.8 Deficiency of other specified B group vitamins; M10.9 Gout, unspecified; E78.00 Pure hypercholesterolemia, unspecified; D63.1 Anemia in chronic kidney disease; E83.39 Other disorders of phosphorus metabolism; Z79.01 Long term (current) use of anticoagulants; Z99.2 Dependence on renal dialysis; Z99.81 Dependence on supplemental oxygen; L89.151 Pressure ulcer of sacral region, stage 1
CPT/HCPCS: 49083; 71046; 80051; 80053; 82805; 83605; 84484; 85014; 85018; 85025; 85610; 87040; 87070; 87502; 87811; 89051; 93005; 94640; 96374; 96375; 97116; 97163; 97167; 97530; 99285; G0257; P9047; Q5106

== ENCOUNTER 2024-10-29 02:19 | Inpatient (IN) | payer OTHER, SELFPAY ==
[2024-10-28 22:22] VITALS: BP 122/64
[2024-10-28 22:24] VITALS: BP 122/64; BMI 30.5
--- NOTE | 2024-10-28 22:29 | ED.GENMED ---
History of Present Illness
General
Chief Complaint: Chest Pain
Source: patient and ambulance crew
Time Seen by Provider: 10/28/24 22:19
History of Present Illness
History of Present Illness:
Patient presents with shortness of breath and chest pain that began approximately 30 minutes prior to arrival. He is on chronic O2, 2 L via nasal cannula. Patient was recently diagnosed with influenza. Patient is a full code.
Vital signs are stable. Patient not hypoxic While on BiPAP
Nursing note reviewed. I agree with nursing documentation up to this point in time.
Home Meds and allergies reviewed.
NUMBER AND COMPLEXITY OF PROBLEMS ADDRESSED AT THE ENCOUNTER
� Chronic conditions affecting care: CKD with dialysis Sunday, atrial fibrillation, congestive heart failure, COPD on 2 L of home O2, CAD, hypertension, GERD, diabetes,
� Acute Exacerbation and/or Progression of Chronic Illness:
� Differential Diagnosis includes: Pneumonia, fluid overload, CHF, COPD
AMOUNT AND/OR COMPLEXITY OF DATA TO BE REVIEWED AND ANALYZED
I performed an independent evaluation of the following and my interpretation is:
EKG: Sinus rhythm with a wide QRS complex 80 bpm PVCs present. Left axis deviation.
Pulse Ox: 90% on 2 L
Technology Intern: Sinus Rhythm
CT:
X-rays: CHF exacerbation, pneumonia
Ultrasound:
Laboratory Studies: Troponin of 0.04
Other:
Review of other/old records:
Clinical information was obtained by an independent historian:
Prescriptions/Medications Considered but not given:
Further testing considered but not performed:
RISK OF COMPLICATIONS AND/OR MORBIDITY OR MORTALITY OF PATIENT MANAGEMENT
Social determinants of health affecting care: Good Social Support
Discussion with other providers:
Escalation of care including admission/observation vs risk of discharge considered: After being observed in the emergency department, patient is unstable for discharge.
CRITICAL CARE NOTE:
Total Time (exclusive of procedures):
Update:
Past History
Past History
ED Past Medical History: Arrthythmia, CAD, CHF, COPD, NIDDM and Renal failure
ED Past Surgical History: Cardiac and Other
Social History
Tobacco: Non-smoker
Alcohol: None
Drug: None
Personal:
Living: [facility]
Employment: Not employed
Phy Exam
General Physical Exam
General Presentation: moderate distress
General age: appears older than age
General Skin: warm, dry and flushed
General Habitus: debilitated, elderly and frail
General Mental: alert
General Hydration: appears well hydrated
Cardiovascular Exam
Cardiovascular Exam: regular rate/rhythm and irregularly irregular
Pulmonary Exam
Pulmonary Exam: generalized wheezing and respiratory distress
Respiratory Effort: poor respiratory effort
Oxygen Status: BiPAP
Cough: coarse cough
Breath Sounds: Wheeze: generalized
Gastrointestinal Exam
Gastrointestinal Exam: normal bowel sounds, non tender, soft and non distended
Musculoskeletal Exam
Musculoskeletal Exam: full ROM
Skin Exam
Skin Exam: normal color and warm/dry
Psychiatric Exam
Psychiatric Exam: normal mood/affect
Scores
Heart Score for Chest Pain Patients
STEMI patient?: Not applicable
Course
Orders/Labs/Results
Orders:
Orders
10/28/24 22:05
Electrocardiogram (*1) Urgent
Reason for Study: Chest Pain
10/28/24 22:06
EKG- Treatment ONCE
10/28/24 22:26
Cardiac Monitoring- Treatment ONCE
Urinalysis Reflex To Culture Urgent
CR Chest Portable - 1 View Urgent
Comment:
Reason For Exam: fever, dyspnea
Reason Study Needs to be Portable: Unable to Transport
10/28/24 22:27
Electrocardiogram (*1) Stat
Reason for Study: Other
Other Reason for Exam: chest pain
EKG- Treatment ONCE
10/28/24 22:28
Furosemide [Lasix] 40 mg IV NOW STA
10/28/24 22:56
Complete Blood Count/With Diff Urgent
Comprehensive Metabolic Panel Urgent
Lactic Acid Q4H
Comment: CANCEL 2nd LACTIC ACID IF 1st LACTIC ACID IS LESS THAN 2
NT-proBNP Urgent
PTT Urgent
Prothrombin Time Urgent
Troponin I Urgent
Blood Culture Q30M
MANISHA Source: Blood/Venous
Specimen Description:
Blood Culture Q30M
MANISHA Source: Blood/Venous
Specimen Description:
10/28/24 22:58
Piperacillin/Tazo 3.375 Gram [Zosyn] 3.375 gram in 50 ml IV NOW
10/28/24 23:09
Nitroglycerin Ointment [Nitro-Bid] 1 inch TOPICAL NOW STA
10/28/24 23:17
ABG [Arterial Blood Gas] Urgent
%Oxygen/Room Air: bipap
10/28/24 23:56
Lorazepam [Ativan] 0.5 mg IV NOW STA
10/29/24 00:16
Albumin Human 25% 50 ml [Flexbumin 25% For Hemodialysis] 12.5 grams IV HD-Q1HPRN PRN
Heparin 500 units IV HD-ONCE ONE
Heparin 500 units IV HD-ONCE ONE
Heparin See Dose Instructions INTRACATH HD-ONCE ONE
Mannitol 25% 12.5 grams IV HD-Q1HPRN PRN
Midodrine [ProAmatine] 5 mg PO HD-ONCE ONE
Sodium Chloride [Sodium Chloride 4 Meq/ml For Hemodialysis] 10 ml IV HD-Q1HPRN PRN
Hemodialysis treatment As Directed
Treatment date:: 10/29/24
Treatment type: Hemodialysis
Ultrafiltration (kg): 3
Treatment time (duration): 3 hours 30 minutes
Use dialysis access:: Tunneled Cath
Dialyzer:: Optiflux 160
Blood flow rate minimum: 350
Blood flow rate maximum: 400
Dialysis flow rate: 600 mL/min
Dialysate temperature: 35 degrees Celsius
Sodium (Na): 140
Potassium (K): 2
Calcium (Ca): 2.5
Bicarbonate (HCO3): 35
10/29/24 00:17
Complete Blood Count/No Diff Urgent
Electrolytes Urgent
Comment: pre-Hemodialysis lab, to be drawn by HD nurse
10/29/24 01:33
Lactic Acid Q4H
Comment: CANCEL 2nd LACTIC ACID IF 1st LACTIC ACID IS LESS THAN 2
10/29/24 01:34
Admit/Transfer Patient As Directed
Co-Sign Provider:
Level of Care: Inpatient admission
Assign to:: IMU- Intermediate Care
Physician / Group: Guerrero
Diagnosis: Influenza Pneumonia, ESRD on HD / Volume Overload
Reason for Hospitalization: Influenza Pneumonia, ESRD on HD / Volume Overload
Expected length of stay greater than two midnights?: Yes
ELOS- Estimated Length of Stay in days: 4
I certify the patient meets the requirements for IP care: Yes
PRN Pain Medication Management As Directed
May give lesser potent ordered pain med per pt: Yes
preference::
Protocol:: Medication orders for pain may be administered in a
manner that supports deferring to patient preference
when the pt is:
- Requesting an ordered lesser potent pain medication.
Least to most potent pain medications are defined
as: acetaminophen < NSAID < tramadol < opioids
(morphine, oxycodone, hydromorphone).
- Requesting a lesser dose of the same medication IF
ORDERED.
- Requesting a less intrusive route of administration
if both routes are prescribed by the provider (PO <
IV).
10/29/24 01:36
Code Status As Directed
Resuscitation Status: Full Code
10/29/24 02:47
Troponin I Q6H
Acetaminophen [Tylenol] 650 mg PO Q4HPRN PRN
Albuterol Nebs [Ventolin Nebules] 2.5 mg INH R Q4HPRN PRN
10/29/24 02:47
NEPHROLOGY CONSULT Routine
Consulting Provider: Dominick Sky
Was physician already notified: Yes
Reason for consult: ESRD on HD
Activity As Directed
Activity Level: Ambulate
With Assistance
I/O [Intake/ Output] As Directed
Frequency: Per unit guidelines
Pneumatic Compression Sleeves As Directed
Type: Knee high
Precautions As Directed
Type of Precautions: Droplet
Vital Signs As Directed
Frequency: Per unit guidelines
Weight As Directed
Frequency: Daily
Oxygen Therapy [O2 Therapy] [RESP] Routine
Titrate/Wean O2 to maintain O2 sat greater than (%): 94
PT Consult [Pt Eval And Treat] Routine
Activity Level: Ambulate
With Assistance
DX Deep Vein Thrombosis Video Routine
10/29/24 Breakfast
Sodium, 2 Gram
Fluid Restriction: 1440 mL/day (48 oz)
Low Sodium: Potassium, 2 Gram
Basic Metabolic Panel IN AM
Complete Blood Count/No Diff IN AM
Magnesium IN AM
Phosphorus IN AM
Prothrombin Time IN AM
Nitroglycerin Ointment [Nitro-Bid] 0.5 inch TOPICAL Q6
10/29/24 07:30
Calcium Acetate [Phoslo] 1,334 mg PO AC
10/29/24 08:00
Allopurinol [Zyloprim] 100 mg PO DAILY
Aspirin Low Dose EC [Aspir Low (Enteric Coated)] 81 mg PO DAILY
Guaifenesin [Mucinex] 600 mg PO Q12
Midodrine [ProAmatine] 10 mg PO TID@0800,1200,1600
Simethicone [Mylicon] 80 mg PO BID
10/29/24 08:47
Troponin I Q6H
10/29/24 16:00
Oseltamivir Phosphate [Tamiflu] 30 mg PO MOWEFR
10/29/24 22:00
Atorvastatin [Lipitor] 40 mg PO HS
10/30/24 06:00
Prothrombin Time IN AM
10/31/24 06:00
Prothrombin Time IN AM
11/01/24 06:00
Prothrombin Time IN AM
Abnormal Lab Results
10/28/24 10/28/24 10/29/24
22:56 23:17 01:33
RBC 3.69 L 10^6/uL
(4.70-6.10)
Hgb 11.3 L g/dL
(13.0-18.0)
Hct 36.0 L %
(39.0-52.0)
MCV 97.6 H fL
(80.0-94.0)
MCHC 31.4 L g/dL
(33.0-37.0)
RDW 17.3 H %
(11.5-14.5)
Absolute Lymphs (auto) 0.6 L 10^3/uL
(1.2-3.4)
Neutrophils % 78.3 H %
(42.2-75.2)
Lymphocytes % 9.3 L %
(20.5-51.1)
Monocytes % 10.1 H %
(1.7-9.3)
PT 36.3 H Sec
(11.4-14.6)
APTT 54.6 H Sec
(23.4-35.0)
pH 7.48 H
(7.35-7.45)
pCO2 34 L mmHg
(35-48)
pO2 126 H mmHg
(83-108)
ABG O2 Sat (Measured) 99.6 H %
(94-98)
Sodium 129 L mmol/L
(135-145)
Potassium 5.6 H mmol/L
(3.5-5.1)
Chloride 94 L mmol/L
(98-107)
BUN 29 H mg/dl
(9-20)
Creatinine 3.1 H mg/dL
(0.7-1.3)
Glucose 157 H mg/dl
(70-99)
Lactic Acid 2.4 H mmol/L 2.1 H mmol/L
(0.7-2.0) (0.7-2.0)
Alkaline Phosphatase 138 H U/L
(38-126)
Troponin I 0.040 H* ng/ml
Vital Signs
Initial and Last Documented VS:
Initial Vital Signs
Temp Pulse Resp Pulse Ox
97.5 F 81 24 94
10/28/24 22:12 10/28/24 22:12 10/28/24 22:12 10/28/24 22:12
Last Documented Vital Signs
Temp Pulse Resp BP Pulse Ox
98.2 F 82 26 113/76 97
10/29/24 02:56 10/29/24 02:15 10/29/24 02:15 10/29/24 01:01 10/29/24 03:00
*Critical Care Note
Total Time (30-74mins, 75-104mins- exclusive of procedures): 34 (Critical care statement: A total of 34 minutes of critical care time was provided for this patient. This time is separate from time utilized to perform the aforementioned documented
procedures. Aggregate critical care time includes only time during which I was engaged in work directl)
Update Note
Update Note:
Patient put on BiPAP 06/26 and oxygen sat went from 90% to 99%
ED Attending Note
-
Portions of this chart may have been created with voice recognition software.� Occasional wrong word or��sound alike� substitutions may have occurred due to the inherent limitations of voice recognition software.
Discharge Plan
Departure
Patient Disposition: Admit
Date of Disposition: 10/28/24
Time of Disposition: 23:16
Admit to: Telemetry
Presentation/result/management discussed w/ accepting MD/DO: Hospitalist
Condition: Fair
Discharge Problem:
CHF exacerbation, End-stage renal disease (ESRD), Atrial fibrillation, On home oxygen therapy, Pneumonia, Influenza
Interventions
Interventions:
*Risk Screen - Suicide Last Done: 10/28/24 22:11
*General Assessment Last Done: 10/28/24 22:11
*Neglect/Abuse Screening Last Done: 10/28/24 22:11
*ED- Fall Risk Assessment Last Done: 10/28/24 22:11
*ED COVID-19 Vaccine History Last Done: 10/28/24 22:11
*Nursing Disposition Last Done: 10/29/24 02:41
ED- Cardiac Assessment Last Done: 10/28/24 23:23
Discharge Date and Time
Discharge Date/Time: 10/29/24 02:44
[2024-10-28 22:40] VITALS: PULSE 84
[2024-10-28 23:00] VITALS: BP 143/65
[2024-10-28 23:14] LABS: % Basophils 0.8 % (0-2); % Immature Granulocytes 0.5 % (0-0.5); % Lymphocytes 9.3 % (20.5-51.1); % Monocytes 10.1 % (1.7-9.3); % Neutrophils 78.3 % (42.2-75.2); Absolute Basophils 0.1 10^3/uL (0-0.2); Absolute Eosinophils 0.1 10^3/uL (0-0.7); Absolute Lymphocytes 0.6 10^3/uL (1.2-3.4); Absolute Monocytes 0.6 10^3/uL (0.1-0.6); Absolute Neutrophils 4.6 10^3/uL (1.4-6.5); Hemoglobin 11.3 g/dL (13.0-18.0); Mean Corp Hgb Conc. 31.4 g/dL (33.0-37.0); Mean Corpuscular Hgb 30.6 pg (27.0-31.0); Mean Corpuscular Volume 97.6 fL (80.0-94.0); Nucleated Red Blood Cells % 0 % (-); Platelet Count 278 10^3/uL (130-400); Red Blood Cell Count 3.69 10^6/uL (4.70-6.10); Red Cell Dist. Width 17.3 % (11.5-14.5); White Blood Cell Count 5.9 10^3/uL (4.8-10.8)
[2024-10-28 23:16] VITALS: BP 130/65
[2024-10-28] MEDS: NITRO-BID 1 INCH TOPICAL (23:16)
[2024-10-28] MEDS: ZOSYN 50 IV (23:16)
[2024-10-28 23:23] LABS: PT 36.3 Sec (11.4-14.6)
[2024-10-28 23:24] LABS: APTT 54.6 Sec (23.4-35.0)
[2024-10-28 23:25] LABS: Lactic Acid 2.4 mmol/L (0.7-2.0)
[2024-10-28 23:27] LABS: ALT (SGPT) 12 U/L (0-50); AST (SGOT) 20 U/L (17-59); Albumin 3.6 g/dl (3.5-5.0); Alkaline Phosphatase 138 U/L (38-126); Blood Urea Nitrogen 29 mg/dl (9-20); Calcium 9.6 mg/dl (8.4-10.2); Carbon Dioxide 25 mmol/L (22-30); Chloride 94 mmol/L (98-107); Estimated Creatinine Clearance 18 ml/min; Glucose 157 mg/dl (70-99); Potassium 5.6 mmol/L (3.5-5.1); Sodium 129 mmol/L (135-145); Total Bilirubin 0.8 mg/dl (0.2-1.3); Total Protein 6.4 g/dl (6.3-8.2); eGFR 19.09
[2024-10-28 23:29] LABS: HCO3 25.3 mmol/L (21-28); O2 Saturation % 99.6 % (94-98); PCO2 34 mmHg (35-48); PO2 126 mmHg (83-108); pH 7.48 (7.35-7.45)
[2024-10-28 23:33] LABS: O2 Therapy bipap
[2024-10-28 23:50] LABS: NT-proBNP > 27000 pg/ml
[2024-10-29] VITALS (34 sets, daily range): BP systolic 91–139; BP diastolic 43–76; PULSE 2–89; O2SAT 97; BMI 30.5; BMI 28.2
[2024-10-29] MEDS: ATIVAN 0.5 MG IV (00:06)
--- NOTE | 2024-10-29 01:41 | HPS.HSE ---
Family Physician
-
Family Physician: Maritza Murillo
Chief Complaint
-
SOB / Chest Pain
History of Present Illness
Patient is an 84y M with PMH significant for ESRD on HD, COPD / chronic hypoxemia and ASCVD who presents to ED from local [place] complaining of chest pain and SOB. Symptoms reportedly started about 30 minutes prior to arrival. Patient was
reportedly diagnosed with influenza by his PCP 2 days ago. He is currently residing at [facility] for SNF. Patient reports pain in the L chest and increased SOB. He notes that his symptoms are improving.
On initial arrival to the ED, patient was in distress and was placed on BiPAP.
At the time of my examination he appears comfortable after BiPAP and placement of NTP.
Medical History
Past Medical History
Past Medical History: Reports Other
Additional Past Medical History:
ASCVD
ESRD on HD
Chronic Hypotension
COPD
Chronic Hypoxemic respiratory Failure (2lpm home O2)
Chronic Hyponatremia
HFrEF
NSVT
Permanet Atrial Fibrillation
Anemia of CKD
Peripheral Neuropathy
Chronic Ambulatory Dysfunction
Past Surgical History: Reports Other (No recent major surgery )
Social History
Tobacco: Former Smoker
Alcohol: None
Living: Halfway
Employment: Retired
Family History
Family History: Other (Father age 45 alcohol abuse [place], mother age 86 [place])
Allergies / Home Medications
Allergies reflects when Allergies were last updated in [facility].
Home Medications with original date entered in [facility]
Allergy/Medication List:
Allergies
Allergy/AdvReac Type Severity Reaction Status Date / Time
No Known Allergies Allergy Verified 10/28/24 23:20
Home Medications
atorvastatin 40 mg tablet 40 mg PO HS High Cholesterol 03/09/15
aspirin 81 mg tablet,delayed release 81 mg PO DAILY ##0 04/01/15
allopurinol 100 mg tablet 100 mg PO DAILY Gout 10/03/24
bisacodyl 10 mg rectal suppository 10 mg DE DAILYPRN PRN if mom is ineffective 10/03/24
calcium acetate 667 mg tablet 1,334 mg PO AC Supplement 10/03/24
cyanocobalamin (vitamin B-12) 1,000 mcg tablet 1,000 mcg PO DAILY Supplement 10/03/24
ipratropium bromide 0.02 % solution for inhalation 2.5 ml inhalation R Q4 SOB 10/03/24
levalbuterol HCl 1.25 mg/3 mL solution for nebulization 1.25 mg inhalation R TID sob 10/03/24
sodium phosphates 19 gram-7 gram/118 mL enema (Fleet Enema) 118 ml DE DAILYPRN PRN if Bisacodyl is ineffective 10/03/24
sorbitol 70 % solution 30 ml PO [id number] PRN if no bm x3 days 10/03/24
Lactobac no.2-Bifidobac no.1-S. thermo 112.5 billion cell capsule (Visbiome) 1 cap PO DAILY probiotic 10/19/24
acetaminophen 325 mg tablet 650 mg PO Q6HPRN PRN mild pain/FEVER>100 10/28/24
midodrine 10 mg tablet 10 mg PO TID 10/28/24
omeprazole 20 mg tablet,delayed release 20 mg PO DAILY 10/28/24
simethicone 125 mg capsule 125 mg PO BID 10/28/24
warfarin 1 mg tablet 2 mg PO HS 10/28/24
Review of Systems
-
History Source: Patient
A 12 point ROS was completed and negative except as noted: Yes
Constitutional: Denies Fever or Chills
EENT: Denies Sore Throat
Respiratory: Reports Cough and Trouble Breathing
Cardiac: Reports Chest Pain; Denies Palpitations
Abdomen/GI: Denies Abdominal Pain, Nausea, Vomiting or Diarrhea
: Reports Other (Anuric)
Musculoskeletal: Reports Joint Pain (c/o coccygeal pain (chronic))
Neurological: Denies Dizzy or Headache
Physical Exam
Vital Signs
Vital Signs
Temp Pulse Resp BP Pulse Ox
97.5 F 81 27 130/63 96
10/28/24 22:12 10/29/24 01:00 10/29/24 01:00 10/29/24 00:00 10/29/24 01:00
Physical Exam
General: Other (84y M in no acute distress.)
HEENT: Moist mucous membranes and PERRLA
Respiratory: Clear; No Wheezes, Rales or Rhonchi
Cardiac: S1/S2, Irregular Rhythm and Murmur (II/ TIMOTHY)
GI: Soft, Non Tender, Non Distended and Normal Bowel Sounds
Musculoskeletal: No Clubbing, No Cyanosis and Other (1-2+ pitting edema b/l LEs. Psoriasis changes.)
Neuro: Awake and Alert
Laboratory Results
-
Laboratory Results
PT 36.3 Sec (11.4-14.6) H 10/28/24 22:56
INR 3.70 D 10/28/24 22:56
APTT 54.6 Sec (23.4-35.0) H 10/28/24 22:56
pH 7.48 (7.35-7.45) H 10/28/24 23:17
pCO2 34 mmHg (35-48) L 10/28/24 23:17
pO2 126 mmHg (83-108) H 10/28/24 23:17
HCO3 25.3 mmol/L (21-28) 10/28/24 23:17
Lactic Acid 2.4 mmol/L (0.7-2.0) H 10/28/24 22:56
Total Bilirubin 0.8 mg/dl (0.2-1.3) 10/28/24 22:56
AST 20 U/L (17-59) 10/28/24 22:56
ALT 12 U/L (0-50) 10/28/24 22:56
Alkaline Phosphatase 138 U/L (38-126) H 10/28/24 22:56
Troponin I 0.040 ng/ml H* 10/28/24 22:56
Impression/Plan
-
A/P: Patient is an 84y M with PMH significant for ESRD on HD, hypotension and COPD on chronic O2 who presents to ED complaining of chest pain and SOB.
Chest Pain
ASCVD
- Admit for further evaluation and treatment.
- EKG unchanged from prior / no evidence of acute ischemic.
- Troponin minimally elevated in this HD patient - follow to peak.
- Monitor for any new / worsening symptoms.
- Continue nitropaste for now.
- Continue usual CV med regimen.
- cardiology evaluation if recurrent chest pain, rising troponin, etc.
Acute on Chronic Hypoxemic Respiratory Failure
- Significant dyspnea on arrival - improved after BiPAP / NTP.
- Likely multifactorial and due to pulmonary edema / volume overload and influenza.
- Afebrile, non-toxic, no leukocytosis. CXR without focal infiltrate / opacity.
- Would observe off of further abx for now.
- Treat volume overload / ESRD and flu as noted below.
- Weaned from BiPAP in the ED and now back on usual O2.
Influenza
- Tamiflu 30mg after HD x 5 days.
- Follow proper precautions.
ESRD on HD
Volume Overload
Acute on Chronic HFrEF
Hyperkalemia
Hyponatremia
- Continue nitropaste for now.
- Patient is anuric by history.
- Nephrology consulted for HD / UF during hospital stay.
- Echo done last month with LVEF = 42% and evidence of RV dilation / overload.
- Follow daily weights. Follow for improvement in dyspnea.
Permanent Atrial Fibrillation
- Stable. Hold Coumadin acutely given supratherapeutic INR.
- Follow INR daily and redose / resume when appropriate.
Gout
- Stable. No current joint pain.
- Continue allopurinol.
DVT Prophylaxis: On Coumadin with therapeutic INR.
Code Status: Full
[2024-10-29 01:56] LABS: Lactic Acid 2.1 mmol/L (0.7-2.0)
--- NOTE | 2024-10-29 03:00 | PTCARENOTE ---
Patient received from ED, AAOX3. Afib on monitor, afebrile, blood pressure as documented. palpable pulses throughout, +2 edema to left forearm. Lungs with fine bibasilar crackles, pulse ox 97% on 2L. Abdomen round obese. Anuric. Multiple
bruises noted, left abdomen puncture site. #20g in RAC flushed and patent. Left chest wall HD cath. CHG bath given, call zapata within reach
[2024-10-29] MEDS: TYLENOL 650 MG PO ×2 (03:45→21:17)
[2024-10-29] MEDS: NITRO-BID 0.5 INCH TOPICAL ×2 (06:05→12:59)
[2024-10-29] MEDS: MYLICON 80 MG PO ×2 (08:15→20:50)
[2024-10-29] MEDS: PHOSLO 1334 MG PO ×3 (08:16→18:05)
[2024-10-29] MEDS: ZYLOPRIM 100 MG PO (08:17)
[2024-10-29] MEDS: ProAmatine 10 MG PO ×3 (08:17→16:35)
[2024-10-29] MEDS: MUCINEX 600 MG PO ×2 (08:17→20:50)
[2024-10-29] MEDS: ASPIR LOW (ENTERIC COATED) 81 MG PO (08:17)
[2024-10-29] MEDS: HEPARIN 500 UNITS IV ×2 (08:25→09:35)
[2024-10-29 08:39] LABS: Hematocrit 34.4 % (39.0-52.0); Hemoglobin 10.9 g/dL (13.0-18.0); Mean Corp Hgb Conc. 31.7 g/dL (33.0-37.0); Mean Corpuscular Hgb 31.1 pg (27.0-31.0); Mean Platelet Volume 9.9 fL (7.4-10.4); Platelet Count 253 10^3/uL (130-400); Red Blood Cell Count 3.51 10^6/uL (4.70-6.10); Red Cell Dist. Width 17.1 % (11.5-14.5); White Blood Cell Count 7.5 10^3/uL (4.8-10.8)
[2024-10-29] MEDS: FLEXBUMIN 25% FOR HEMODIALYSIS 12.5 GRAMS IV ×2 (08:40→09:50)
[2024-10-29] MEDS: MANNITOL 25% 12.5 GRAMS IV ×2 (08:45→09:53)
[2024-10-29 08:49] LABS: INR 3.79; PT 37.6 Sec (11.4-14.6)
--- NOTE | 2024-10-29 09:00 | PTCARENOTE ---
Rec'd pt at 0800 awake alert and oriented resting in bed. HD RN here and HD ready to start. Overall pt states he feels ok. Denies pain or discomfort. KLEIN. Speech is clear. Denies headache or dizziness. Pt on Droplet precautions for the flu. Skin is
warm and dry. Wounds as documented. Silicone border foam applied to abraised area L ramos. LE with dry skin- moisture lotion applied then SCD's placed per orders. Foam dressings intact on heels and sacrum. Bruising as documented. Respirs are
unlabored on 2l nc with sats of 95%. BS are decreased at the bases with few R base crackles. Coughing a moist prod cough for whitish/desouza secretions. Using the [id number]. Monitor AFib with PVC's. Denies chest pain. VS as documented. Scheduled dose of
Midodrine given for HD. + pulses. DP pulses with the doppler. Tr LE to +1 LE edema. +2 L arm edema. L lower arm AV fistula with = BRuit and thrill. Abd is obese/firm and distened with + BS. Good appetite for breakfast. Denies nausea. Bandaid intact
L abd. Pt is anuric. Capped int intact R ac. L chest HD cath site wnl. Pt turned and repositioned. Back care given. Plan of care reviewed with pt. Call zapata in reach
--- NOTE | 2024-10-29 09:04 | W.PN.UPDATE ---
Addendum entered and electronically signed by Katy Solis MD 10/29/24 09:18:
repeat trop flat at .040/.041 - no chest pain. hold off repeat unless develops chest pain
transfer Tele
Original Note:
Update Note
Progress Note Update
Non-billable addendum
H&P signed 1 AM
Admitted with chest pain and volume overload; intial trop .040 and repeat pending
Assessment:
Chest Pain
ASCVD
- EKG unchanged from prior/no evidence of acute ischemic.
- Troponin minimally elevated in this HD patient - follow to peak.
- Monitor for any new/worsening symptoms. At present is chest pain free
- Continue nitropaste for now.
- Continue usual CV med regimen.
- will consider cardiology evaluation if recurrent chest pain, rising troponin, etc.
Acute on Chronic Hypoxemic Respiratory Failure
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
- Significant dyspnea on arrival - improved after BiPAP/NTP.
- Likely multifactorial and due to pulmonary edema/volume overload and influenza.
- Afebrile, non-toxic, no leukocytosis. CXR without focal infiltrate/opacity.
- Would observe off of further abx for now.
- Treat volume overload/ESRD and flu as noted below.
- Weaned from BiPAP in the ED and now back on usual O2.
Influenza
- Tamiflu 30mg after HD x 5 days.
- Follow proper precautions.
ESRD on HD
Volume Overload
Acute on Chronic HFrEF
acute Hyperkalemia
acute Hyponatremia
Hyperphosphatemia
- Continue nitropaste for now.
- Patient is anuric by history.
- Nephrology following for HD/UF during hospital stay.
- Echo done last month with LVEF = 42% and evidence of RV dilation / overload.
- Follow daily weights. Follow for improvement in dyspnea.
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
History of orthostatic hypotension
- on Midodrine
history of recurrent ascites
- Abd US after HD; may need paracentesis
Permanent Atrial Fibrillation
- Stable. Hold Coumadin acutely given supratherapeutic INR.
- Follow INR daily and redose/resume when appropriate.
Gout
- Stable. No current joint pain.
- Continue allopurinol.
Peripheral neuropathy
DVT ppx: supratherapeutic INR with Coumadin on hold
Code: Full
[2024-10-29 09:13] LABS: Blood Urea Nitrogen 32 mg/dl (9-20); Calcium 9.1 mg/dl (8.4-10.2); Carbon Dioxide 22 mmol/L (22-30); Chloride 95 mmol/L (98-107); Estimated Creatinine Clearance 15 ml/min; Glucose 165 mg/dl (70-99); Magnesium 2.4 mg/dl (1.6-2.3); Phosphorus 3.3 mg/dl (2.5-4.5); Potassium 4.9 mmol/L (3.5-5.1); Sodium 131 mmol/L (135-145); eGFR 17.09
[2024-10-29 09:14] LABS: Troponin I 0.041 ng/ml
[2024-10-29] MEDS: ProAmatine 5 MG PO (09:26)
--- NOTE | 2024-10-29 09:40 | PTCARENOTE ---
Additional 5 mg Midodrine given as ordered for HD. BP 91/57. HD continues. No other changes.
--- NOTE | 2024-10-29 09:53 | W.CON.NEPH ---
Consultation
-
Date/Time Consultation Requested: 10/29/24 0247
Date/Time Consultation Performed: 10/29/24 5088
Requesting Provider: lincoln Shelby
Performing Provider: hudson Arriola
Reason for Consultation: ESRD
Medical History
-
Chief Complaint: SOB , CP
History of Present Illness:
This is an 84-year-old gentleman who has been on dialysis for 2 years time. He believes his ESRD was caused by cardiac issues. He does have a left upper extremity AV fistula though this has been poorly functional and he currently is dialyzing
through a right chest wall catheter. He previously dialyzed up in [place] at [facility]. He had 2 admissions to [facility] early 2024. Both were for respiratory issues and Flu. Since he became more weaker from baseline using
electric ended up in [facility] rehab and since then he had multiple admits to for respiratory issues and volume overload. He is currently at [facility] rehab but still getting HD at [facility] and he returns back with sob and CP after
recent d/c on 10/24. Reportedly symptoms started 30min prior to ER, and apparently he was diagnosed with Influenza 2days ago too. He was in acute resp distress and required BIPAP briefly. He is on O2 NC now, offers no fever, cough with sputum. SOB
improving and cp resolved. No abd pain or diarrhea. patient has a history of significant COPD and is normally 2 L home oxygen dependent. He has extensive cardiovascular disease including previous CABG and pulmonary hypertension. Nephrology was
consulted for end-stage renal disease management.
Past Medical History
COPD 2 liters dependent
end-stage renal disease on dialysis MoWeFR x 2 years via dialysis cath left upper chest wall
anemia of CKD
Orthostatic hypotension with dialysis
HLD
permanent A-fib
BOBBY noncompliant CPAP
Pulm HTN
Obesity
CAD/CABG x 3 vessel left internal mammary to LAD and saphenous vein graft to obtuse marginal 1 sequentially to obtuse marginal [address] Salmeron 03/26/2015.
Septoplasty
Kidney stone extraction 1970s
Social History
Tobacco: Former Smoker
Alcohol: None
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
Employment: Retired
Family History
Family History: Not Pertinent
Allergies / Home Medications
Allergy/AdvReac Type Severity Reaction Status Date / Time
No Known Allergies Allergy Verified 10/28/24 23:20
�Medication �Instructions �Recorded �Confirmed �Type
atorvastatin 40 mg tablet 40 mg PO HS High Cholesterol 03/09/15 10/28/24 History
aspirin 81 mg tablet,delayed 81 mg PO DAILY ##0 04/01/15 10/28/24 Rx
release
allopurinol 100 mg tablet 100 mg PO DAILY Gout 10/03/24 10/28/24 History
bisacodyl 10 mg rectal suppository 10 mg DE DAILYPRN PRN if mom is 10/03/24 10/28/24 History
ineffective
calcium acetate 667 mg tablet 1,334 mg PO AC Supplement 10/03/24 10/28/24 History
cyanocobalamin (vitamin B-12) 1,000 mcg PO DAILY Supplement 10/03/24 10/28/24 History
1,000 mcg tablet
ipratropium bromide 0.02 % 2.5 ml inhalation R Q4 SOB 10/03/24 10/28/24 History
solution for inhalation
levalbuterol HCl 1.25 mg/3 mL 1.25 mg inhalation R TID sob 10/03/24 10/28/24 History
solution for nebulization
sodium phosphates 19 gram-7 118 ml DE DAILYPRN PRN if 10/03/24 10/28/24 History
gram/118 mL enema (Fleet Enema) Bisacodyl is ineffective
sorbitol 70 % solution 30 ml PO [id number] PRN if no bm x3 10/03/24 10/28/24 History
days
Lactobac no.2-Bifidobac no.1-S. 1 cap PO DAILY probiotic 10/19/24 10/28/24 History
thermo 112.5 billion cell capsule
(Visbiome)
acetaminophen 325 mg tablet 650 mg PO Q6HPRN PRN mild 10/28/24 10/28/24 History
pain/FEVER>100
midodrine 10 mg tablet 10 mg PO TID 10/28/24 10/28/24 History
omeprazole 20 mg tablet,delayed 20 mg PO DAILY 10/28/24 10/28/24 History
release
simethicone 125 mg capsule 125 mg PO BID 10/28/24 10/28/24 History
warfarin 1 mg tablet 2 mg PO HS 10/28/24 10/28/24 History
Review of Systems
-
All other systems: Negative unless noted
Physical Exam
Vital Signs
Vital Signs
Temp Pulse Resp BP Pulse Ox
98 F 89 30 91/57 97
10/29/24 07:24 10/29/24 09:26 10/29/24 06:45 10/29/24 09:26 10/29/24 06:45
Lab Results
WBC 7.5 10^3/uL (4.8-10.8) 10/29/24 07:41
RBC 3.51 10^6/uL (4.70-6.10) L 10/29/24 07:41
Hgb 10.9 g/dL (13.0-18.0) L 10/29/24 07:41
Hct 34.4 % (39.0-52.0) L 10/29/24 07:41
Plt Count 253 10^3/uL (130-400) 10/29/24 07:41
Sodium 131 mmol/L (135-145) L 10/29/24 07:41
Potassium 4.9 mmol/L (3.5-5.1) 10/29/24 07:41
Chloride 95 mmol/L (98-107) L 10/29/24 07:41
Carbon Dioxide 22 mmol/L (22-30) 10/29/24 07:41
BUN 32 mg/dl (9-20) H 10/29/24 07:41
Creatinine 3.4 mg/dL (0.7-1.3) H 10/29/24 07:41
eGFR 17.09 10/29/24 07:41
Glucose 165 mg/dl (70-99) H 10/29/24 07:41
Calcium 9.1 mg/dl (8.4-10.2) 10/29/24 07:41
Phosphorus 3.3 mg/dl (2.5-4.5) 10/29/24 07:41
Xni-A-Kvmutxrtpzt Pept > 88534 pg/ml 10/28/24 22:56
Albumin 3.6 g/dl (3.5-5.0) 10/28/24 22:56
Physical Exam
General: Awake, Alert, Oriented, AOx3 and No Distress
HEENT: EOMI, Anicteric and Neck Supple
Respiratory: Normal Excursion, Nonlabored Respirations and Other (coarse BS)
Cardiac: S1/S2 and Other (irregular)
Breast: Deferred by me
Abdomen: Soft, Nontender and Nondistended
Musculoskeletal: Edema (trace -much improved from before)
Skin: No Rash and Other (chr skin changes in LEs)
Psych: Mood/afflect pleasant and Appropriate
Vascular Access: CVC
Data Reviewed
-
Radiology: Report Reviewed by me and Discussed with Patient
Labs: Labs Reviewed by me and Discussed with Patient
Assessment/Plan
-
Assessment:
Presentation is with shortness of breath and CP
Acute on Chronic Hypoxemic Respiratory Failure
Influenza
Hyperkalemia
Hyponatremia
ESRD-currently at [facility] rehab but still HD at [facility]
Volume overload vs PNA
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
Coronary artery disease with history of CAD
History of orthostatic hypotension
Heart failure preserved EF
Recurrent ascites
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
Peripheral neuropathy
Atrial fibrillation
Gout
Hyperphosphatemia
Plan:
A/w sob and CP, recent diagnosis of Flu
HD today and UF as tolerates
BP soft, midodrine with hd
strict renal diet and FR.
d/w pt
--- NOTE | 2024-10-29 10:30 | PTCARENOTE ---
Dozing off and on on HD. VS as documented. Does have frequent PVC's on HD
--- NOTE | 2024-10-29 10:44 | W.PN.NEPH.HD ---
Addendum entered and electronically signed by Елена Mota MD 10/29/24 11:09:
confirmed that he is at [facility] , MWF
Original Note:
Assessment
-
pt seen during HD
vitals stable with midodrine
UF as tolerates
edema seem much better than before
likely set new EDW
Suspect he is on TTS schedule at [facility]
CVC functiosn well
Progress Note - Hemodialysis
-
Date of Service: October 29, 2024
Duration: 30 minutes and 3 hours
Potassium Bath: 2
Calcium Bath: 2.5
Opti-Dialyzer: 160
Ultrafiltration: Other (2-3kg)
Blood Flow: 400
Dialysate Flow: 600
Heparin: yesx2
EPO: no
[2024-10-29 11:47] LABS: Lactic Acid 1.2 mmol/L (0.7-2.0)
[2024-10-29] MEDS: HEPARIN 5100 UNITS INTRACATH (12:17)
--- NOTE | 2024-10-29 12:50 | PTCARENOTE ---
HD completed around 1215. L chest wall HD cath site wnl. VS as documented. Pt turned and repostioned. Pts hair washed, shaved and pt did own mouth care. Assessment is otherwise unchanged. Coughs an intermittent moist prod cough for whitish/desouza
secretions. Call zapata in reach.
--- NOTE | 2024-10-29 13:15 | PTCARENOTE ---
US of abd being done currently. Good appetite for lunch. No other changes
--- NOTE | 2024-10-29 15:15 | PTCARENOTE ---
Worked with PT- per PT unable to stand. Pt states he is just tired. VS as documented. No other changes
--- NOTE | 2024-10-29 15:30 | CM ---
CM following re: discharge planning.
Reviewed pt's chart, met with pt, spoke to pt's son Jeremy and daughter in law Daniela.
Pt is an 84 year old male admitted with primary dx of Pneumonia, Influenza.
Pt reports he used to live with 19 year old grandson, son and daughter in law live across the street. Pt reports his another son , emotional support offered and provided. Pt reports he is on HD, [facility], , and Sat, 12:00 p.m.
chair time, son and grandson used to transport to and from HD treatment. Pt repprts he mostly uses power wheelchair, has a walker, has home oxygen.
Per son and daughter in law pt is admitted from [facility] where he was for a short term rehab just a few days and they requested pt returns back to [facility] to continue on skilled services and HD treatment onsite.
Pt's clinical faxed to [facility] for a review.
D/C plan: return back to [facility] for a short term rehab and HD treatment onsite. Pt will need an auth for SNF level of care.
CM will follow with discharge plan updates as hospitalization progresses
[2024-10-29] MEDS: TAMIFLU 30 MG PO (16:47)
--- NOTE | 2024-10-29 17:00 | PTCARENOTE ---
Resting this afteroon. States he is just tired. Assessment overall is unchanged. Dr. Solis updated on earlier US of the Abd. Turned and repositioned. Call zapata in reach. Awaiting telemetry bed
[2024-10-29] MEDS: FLUSH (NSS) 1 FLUSH IV (18:05)
--- NOTE | 2024-10-29 18:17 | PTCARENOTE ---
Good appetite for dinner. Report called to the 3rd floor will transfer pt shortly. No other changes
[2024-10-29] MEDS: LIPITOR 40 MG PO (21:00)
[2024-10-30] MEDS: TYLENOL 650 MG PO ×2 (03:05→13:44)
[2024-10-30 03:36] VITALS: BP 104/52; BMI 27.3
[2024-10-30 06:37] LABS: PT 33.9 Sec (11.4-14.6)
[2024-10-30 07:33] VITALS: BP 114/64
[2024-10-30] MEDS: PHOSLO 1334 MG PO ×3 (08:00→15:14)
[2024-10-30] MEDS: ProAmatine 10 MG PO ×3 (08:00→15:14)
[2024-10-30] MEDS: ASPIR LOW (ENTERIC COATED) 81 MG PO (08:00)
[2024-10-30] MEDS: MYLICON 80 MG PO ×2 (08:01→20:18)
[2024-10-30] MEDS: MUCINEX 600 MG PO ×2 (08:01→20:18)
[2024-10-30] MEDS: ZYLOPRIM 100 MG PO (08:01)
[2024-10-30 11:01] VITALS: BP 116/66
--- NOTE | 2024-10-30 11:03 | W.PN.HOSP.TC ---
Today's Communication/Plan
-
paracentesis today
bowel regimen
HD tomorrow
Assessment / Plan
Assessment / Plan
Assessment:
Chest Pain in setting of volume overload
ASCVD
- EKG unchanged from prior/no evidence of acute ischemic.
- Troponin flat at .040/.041 - no further chest pain. stop trending
- Monitor for any new/worsening symptoms. At present is chest pain free
- Continue usual CV med regimen.
- will consider cardiology evaluation if recurrent chest pain, rising troponin, etc.
Acute on Chronic Hypoxemic Respiratory Failure
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
- Significant dyspnea on arrival - improved after BiPAP/NTP.
- Likely multifactorial and due to pulmonary edema/volume overload and influenza.
- Afebrile, non-toxic, no leukocytosis. CXR without focal infiltrate/opacity.
- Would observe off of further abx for now.
- Treat volume overload/ESRD and flu as noted below.
- Weaned from BiPAP in the ED and now back on usual O2.
Influenza
- Tamiflu 30mg after HD x 5 days (//)
- Follow proper precautions.
ESRD on HD
Volume Overload
Acute on Chronic HFrEF
acute Hyperkalemia
acute Hyponatremia
Hyperphosphatemia
- Patient is anuric by history.
- Nephrology following for HD/UF during hospital stay.
- Echo done last month with LVEF = 42% and evidence of RV dilation / overload.
- Follow daily weights. Follow for improvement in dyspnea.
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
History of orthostatic hypotension
- on Midodrine
history of recurrent ascites
- Abd US: Moderate volume ascites with largest pocket of free fluid in the right lower quadrant.
- Paracentesis with labs planned today with IR
Permanent Atrial Fibrillation
- Stable. Hold Coumadin acutely given supratherapeutic INR.
- Follow INR daily and re-dose/resume when appropriate.
Gout
- Stable. No current joint pain.
- Continue allopurinol.
Peripheral neuropathy
Constipation
- add bowel regimen
DVT ppx: supratherapeutic INR with Coumadin on hold
Code: Full
Anticipated Discharge: Within 24 hours
Subjective/Interval History
-
Date of Service: October 30, 2024
reports some constipation
no other complaints
Objective Data
-
Labs:
Laboratory Results
10/30/24
05:55
PT 33.9 H
INR 3.30
Vital Signs:
Vital Signs
Temp Pulse Resp BP Pulse Ox
97.6 F 85 17 116/66 98
10/30/24 11:01 10/30/24 11:01 10/30/24 11:01 10/30/24 11:01 10/30/24 11:01
I&O
10/29/24 10/30/24 10/31/24
06:59 06:59 06:59
Intake Total 890 / 890
Balance 890 / 890
Physical Exam
-
General: No Apparent Distress
HEENT: Normocephalic and Atraumatic
Respiratory: Negative Wheezes
Cardiac: Regular Rhythm and S1/S2
GI: Nontender and Distended
Genito-urinary: No Costovertebral Tender
Neuro: AO x 3
Hematologic / Lymphatic: No Lymphadenopathy
Psych: Calm
Data Reviewed
-
Total Time Spent with Patient (in minutes): 42
Labs: Labs Reviewed by me
[2024-10-30] MEDS: MIRALAX 17 GRAMS PO (11:53)
[2024-10-30] MEDS: SENOKOT-S 1 TABLET PO ×2 (11:53→20:18)
--- NOTE | 2024-10-30 13:07 | W.PN.NEPH.PH ---
Today's Communication / Plan
-
HD tomorrow
Assessment/Plan
-
Assessment:
Presentation is with shortness of breath and CP
Acute on Chronic Hypoxemic Respiratory Failure
Influenza
Hyperkalemia
Hyponatremia
ESRD-currently at [facility] rehab
Volume overload vs PNA
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
Coronary artery disease with history of CAD
History of orthostatic hypotension
Heart failure preserved EF
Recurrent ascites
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
Peripheral neuropathy
Atrial fibrillation
Gout
Hyperphosphatemia
Plan:
A/w sob and CP, recent diagnosis of Flu
plan HD tomorrow
vol status seem stable, edema has significantly improved
BP soft, midodrine scheduled
strict renal diet and FR.
for paracentesis today
d/w pt
-
-
Date of Service: October 30, 2024
CC / HPI / ROS
-
Chief Complaint:
ESRD
History of Present Illness:
tolerated HD yesterday
Bp stable, wts down
on 2lit of O2
no fever
Review of Systems:
c/o sob and cough still
rectal pain possible constipation
Labs
-
Labs:
WBC 7.5 10^3/uL (4.8-10.8) 10/29/24 07:41
RBC 3.51 10^6/uL (4.70-6.10) L 10/29/24 07:41
Hgb 10.9 g/dL (13.0-18.0) L 10/29/24 07:41
Hct 34.4 % (39.0-52.0) L 10/29/24 07:41
Plt Count 253 10^3/uL (130-400) 10/29/24 07:41
Sodium 131 mmol/L (135-145) L 10/29/24 07:41
Potassium 4.9 mmol/L (3.5-5.1) 04 07:41
Chloride 95 mmol/L (98-107) L 10/29/24 07:41
Carbon Dioxide 22 mmol/L (22-30) 10/29/24 07:41
BUN 32 mg/dl (9-20) H 10/29/24 07:41
Creatinine 3.4 mg/dL (0.7-1.3) H 10/29/24 07:41
eGFR 17.09 10/29/24 07:41
Glucose 165 mg/dl (70-99) H 10/29/24 07:41
Calcium 9.1 mg/dl (8.4-10.2) 10/29/24 07:41
Phosphorus 3.3 mg/dl (2.5-4.5) 10/29/24 07:41
Jvg-X-Iesmpkmhcdq Pept > 29869 pg/ml 10/28/24 22:56
Albumin 3.6 g/dl (3.5-5.0) 10/28/24 22:56
Physical Exam
-
Vital Signs:
Vital Signs
Temp Pulse Resp BP Pulse Ox
97.6 F 85 17 116/66 98
10/30/24 11:01 10/30/24 11:01 10/30/24 11:01 10/30/24 11:01 10/30/24 11:01
Cardiovascular:: Irregular rate and rhythm
Respiratory:: Bilateral: Coarse and Bilateral: Rhonchi
Lung Excursion:: Normal
Abdomen:: Nontender and Soft
Extremity Edema:: +1: Bilateral:
Kang Catheter: No
--- NOTE | 2024-10-30 15:10 | CM ---
Addendum entered by Estefany Huntley 10/30/24 15:21:
CM called to patient daughter and VM left with daughter.
Original Note:
CM spoke with admissions at [facility] and await call back with regard to ability to accept. CM will speak with patient daughter and continue to follow for discharge planning needs.
[2024-10-30 15:11] VITALS: BP 121/69
[2024-10-30] MEDS: FLEET PHOSPHATE ENEMA-ADULT 135 ML RECTAL (15:35)
[2024-10-30 19:50] VITALS: BP 116/65
[2024-10-30] MEDS: LIPITOR 40 MG PO (21:56)
[2024-10-30 23:12] VITALS: BP 119/67
[2024-10-31] VITALS (12 sets, daily range): BP systolic 89–136; BP diastolic 28–73; PULSE 89; O2SAT 96–99; BMI 28.1
[2024-10-31] MEDS: TYLENOL 650 MG PO ×2 (00:58→08:13)
[2024-10-31 06:36] LABS: INR 2.92; PT 30.8 Sec (11.4-14.6)
[2024-10-31 06:39] LABS: Blood Urea Nitrogen 30 mg/dl (9-20); Calcium 9.4 mg/dl (8.4-10.2); Carbon Dioxide 25 mmol/L (22-30); Chloride 93 mmol/L (98-107); Estimated Creatinine Clearance 15 ml/min; Glucose 160 mg/dl (70-99); Potassium 4.9 mmol/L (3.5-5.1); Sodium 131 mmol/L (135-145); eGFR 17.71
[2024-10-31] MEDS: SENOKOT-S 1 TABLET PO ×2 (08:15→20:26)
[2024-10-31] MEDS: ASPIR LOW (ENTERIC COATED) 81 MG PO (08:15)
[2024-10-31] MEDS: ZYLOPRIM 100 MG PO (08:15)
[2024-10-31] MEDS: MIRALAX 17 GRAMS PO (08:15)
[2024-10-31] MEDS: ProAmatine 10 MG PO ×3 (08:15→15:40)
[2024-10-31] MEDS: MUCINEX 600 MG PO ×2 (08:15→20:25)
[2024-10-31] MEDS: MYLICON 80 MG PO ×2 (08:16→20:26)
[2024-10-31] MEDS: PHOSLO 1334 MG PO ×2 (08:16→11:54)
--- NOTE | 2024-10-31 08:43 | PTCARENOTE ---
Pt sent for paracentesis.
[2024-10-31 10:28] LABS: Body Fluid Albumin 1.7 g/dl; Body Fluid Amylase < 30 U/L; Body Fluid LDH 81 U/L; Body Fluid Protein 3.3 g/dl
[2024-10-31 10:46] LABS: Body Fluid WBC 430 /CUMM
[2024-10-31 10:47] LABS: Body Fluid Mononuclear 67.2 %; Body Fluid Polymorphonuclear 32.8 %
[2024-10-31] MEDS: ZOFRAN 4 MG IV (10:54)
[2024-10-31] MEDS: ALBUMIN 5% 250 IV ×2 (10:55→11:53)
[2024-10-31 11:05] LABS: Body Fluid Second Tech EM
--- NOTE | 2024-10-31 12:25 | CM ---
Insurance approval for skilled rehab
Approved 5 days skilled
Auth# [id number]
Start date 10/31/24, lcd 11/04/24
updates to [phone]
Ambulance auth with [facility]
Auth#[id number]
--- NOTE | 2024-10-31 12:29 | W.PN.HOSP.TC ---
Today's Communication/Plan
-
dc to SNF
Assessment / Plan
Assessment / Plan
Assessment:
Chest Pain in setting of volume overload
ASCVD
- EKG unchanged from prior/no evidence of acute ischemic.
- Troponin flat at .040/.041 - no further chest pain. stop trending
- Monitor for any new/worsening symptoms. At present is chest pain free
- Continue usual CV med regimen.
- will consider cardiology evaluation if recurrent chest pain, rising troponin, etc.
Acute on Chronic Hypoxemic Respiratory Failure
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
- Significant dyspnea on arrival - improved after BiPAP/NTP.
- Likely multifactorial and due to pulmonary edema/volume overload and influenza.
- Afebrile, non-toxic, no leukocytosis. CXR without focal infiltrate/opacity.
- Would observe off of further abx for now.
- Treat volume overload/ESRD and flu as noted below.
- Weaned from BiPAP in the ED and now back on usual O2.
Influenza
- Tamiflu 30mg after HD x 5 days (//) - last dose 11/03
- Follow proper precautions.
ESRD on HD
Volume Overload
Acute on Chronic HFrEF
acute Hyperkalemia
acute Hyponatremia
Hyperphosphatemia
- Patient is anuric by history.
- Nephrology following for HD/UF during hospital stay.
- Echo done last month with LVEF = 42% and evidence of RV dilation / overload.
- Follow daily weights. Follow for improvement in dyspnea.
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
History of orthostatic hypotension
- on Midodrine
history of recurrent ascites
- Abd US: Moderate volume ascites with largest pocket of free fluid in the right lower quadrant.
- Paracentesis with labs planned today with IR
Permanent Atrial Fibrillation
- Stable. Hold Coumadin acutely given supratherapeutic INR.
- Follow INR daily and re-dose/resume when appropriate.
Gout
- Stable. No current joint pain.
- Continue allopurinol.
Peripheral neuropathy
Constipation
- continue bowel regimen
DVT ppx: Coumadin
Code: Full
More than 30 minutes spent in discharge including
Final examination of the patient
Summarizing hospital stay
Instructions for continuing care to all relevant caregivers
Preparation of discharge records, prescriptions, and referral forms
Total time spent (in minutes): 41
Anticipated Discharge: Today
Subjective/Interval History
-
Date of Service: October 31, 2024
s/p paracentesis and also HD today prior to discharge
Objective Data
-
Labs:
Laboratory Results
10/31/24
05:56
PT 30.8 H
INR 2.92
Sodium 131 L
Potassium 4.9
Chloride 93 L
Carbon Dioxide 25
BUN 30 H
Creatinine 3.3 H
Glucose 160 H
Calcium 9.4
Vital Signs:
Vital Signs
Temp Pulse Resp BP Pulse Ox
97.9 F 84 20 136/70 100
10/31/24 11:00 10/31/24 11:00 10/31/24 11:00 10/31/24 11:54 10/31/24 11:00
I&O
10/30/24 10/31/24 11/01/24
06:59 06:59 06:59
Intake Total 890 / 890 1020 / 1020
Balance 890 / 890 1020 / 1020
Physical Exam
-
General: No Apparent Distress
HEENT: Normocephalic and Atraumatic
Respiratory: Negative Wheezes
Cardiac: Regular Rhythm
GI: Soft
Neuro: AO x 3
Psych: Calm
Data Reviewed
-
Total Time Spent with Patient (in minutes): 42
Labs: Labs Reviewed by me
--- NOTE | 2024-10-31 12:34 | W.DS.TRANS ---
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
-
Discharge Instructions:
Discharge Diagnosis/Procedures ascites s/p paracentesis. ESRD with volume
overload. Influenza A infection
Diet 2 Gram Sodium,Restrict fluids to 64 oz
Additional Diets 2 gram potassium restriction
Activity As tolerated
Blood Work repeat INR Sunday
Other Services OT,PT
Instructions:
Stand-Alone Forms:
Changes to Home Medications: No
Discharge Medications:
DC Medications w/original date entered in [employer]
atorvastatin 40 mg tablet 40 mg PO HS High Cholesterol 03/09/15
aspirin 81 mg tablet,delayed release 81 mg PO DAILY ##0 04/01/15
allopurinol 100 mg tablet 100 mg PO DAILY Gout 10/03/24
bisacodyl 10 mg rectal suppository 10 mg MI DAILYPRN PRN if mom is ineffective 10/03/24
calcium acetate 667 mg tablet 1,334 mg PO AC Supplement 10/03/24
cyanocobalamin (vitamin B-12) 1,000 mcg tablet 1,000 mcg PO DAILY Supplement 10/03/24
ipratropium bromide 0.02 % solution for inhalation 2.5 ml inhalation R Q4 SOB 10/03/24
levalbuterol HCl 1.25 mg/3 mL solution for nebulization 1.25 mg inhalation R TID sob 10/03/24
sodium phosphates 19 gram-7 gram/118 mL enema (Fleet Enema) 118 ml MI DAILYPRN PRN if Bisacodyl is ineffective 10/03/24
sorbitol 70 % solution 30 ml PO [id number] PRN if no bm x3 days 10/03/24
Lactobac no.2-Bifidobac no.1-S. thermo 112.5 billion cell capsule (Visbiome) 1 cap PO DAILY probiotic 10/19/24
acetaminophen 325 mg tablet 650 mg PO Q6HPRN PRN mild pain/FEVER>100 10/28/24
midodrine 10 mg tablet 10 mg PO TID Blood Pressure 10/28/24
omeprazole 20 mg tablet,delayed release 20 mg PO DAILY Gastrointestinal Issue 10/28/24
simethicone 125 mg capsule 125 mg PO BID Gastrointestinal Issue 10/28/24
warfarin 1 mg tablet 2 mg PO HS Blood Clot Prevention/Tx 10/28/24
guaifenesin 600 mg tablet, extended release 12 hr 600 mg PO Q12 #20 tabs 10/31/24
oseltamivir 30 mg capsule 30 mg PO MOWEFR #1 cap 10/31/24
polyethylene glycol 3350 17 gram oral powder packet 17 g PO DAILY #30 ea 10/31/24
sennosides 8.6 mg-docusate sodium 50 mg tablet 1 tab PO BID #60 tabs 10/31/24
Home Medication Changes
Pending Results: No
Total time spent discharging patient (in min): 42
[2024-10-31] MEDS: FLEXBUMIN 25% FOR HEMODIALYSIS 12.5 GRAMS IV ×2 (12:40→14:00)
[2024-10-31] MEDS: MANNITOL 25% 12.5 GRAMS IV (12:45)
[2024-10-31 12:55] LABS: Hematocrit 34.1 % (39.0-52.0); Hemoglobin 10.9 g/dL (13.0-18.0); Mean Corpuscular Hgb 31.1 pg (27.0-31.0); Mean Corpuscular Volume 97.2 fL (80.0-94.0); Mean Platelet Volume 10.8 fL (7.4-10.4); Platelet Count 230 10^3/uL (130-400); Red Blood Cell Count 3.51 10^6/uL (4.70-6.10); White Blood Cell Count 11.5 10^3/uL (4.8-10.8)
[2024-10-31 13:27] LABS: Blood Urea Nitrogen 31 mg/dl (9-20); Calcium 8.4 mg/dl (8.4-10.2); Carbon Dioxide 25 mmol/L (22-30); Chloride 92 mmol/L (98-107); Estimated Creatinine Clearance 15 ml/min; Glucose 148 mg/dl (70-99); Potassium 4.4 mmol/L (3.5-5.1); Sodium 130 mmol/L (135-145); eGFR 17.09
--- NOTE | 2024-10-31 13:41 | W.PN.NEPH.HD ---
Assessment
-
Seen on HD. no new complaints. VSS, access ok
awaiting dc planning
he was receiving HD at [facility] transported by [employer].
Show treatment today in short treatment again tomorrow discharge
Progress Note - Hemodialysis
-
Date of Service: October 31, 2024
Duration: 30 minutes and 2 hours
Potassium Bath: 2
Calcium Bath: 2.5
Opti-Dialyzer: 160
Ultrafiltration: Other (1kg)
Blood Flow: 400
Dialysate Flow: 600
Heparin: 500x2
EPO: 0
--- NOTE | 2024-10-31 13:46 | CM ---
Spoke with hospitalist/Dr. Sky regarding discharge
Left message with daughter Micheline WILKINSON
Per Irais from [facility] - patient does not have a dialysis chair at present.
States only was dialyzed there once between multiple hospitalizations
Patient has a community chair at [facility]-Sat at 10:40am which they will transport patient
tt Dr. Sky - patient will have dialysis here tomorrow & then transfer to [facility]
Auth obtained & information given to Irais
Insurance approval for skilled rehab
Approved 5 days skilled
Auth# [id number]
Start date 10/31/24, lcd 11/04/24
updates to [phone]
Ambulance auth with [facility]
Auth#[id number]
PLAN: [facility] tomorrow after dialysis
Report #: [phone]
Fax #: [phone]
[2024-10-31] MEDS: TAMIFLU 30 MG PO (15:40)
[2024-10-31] MEDS: PHOSLO PO (16:56)
--- NOTE | 2024-10-31 16:58 | PTCARENOTE ---
Prior to HD pt c/o nausea, 4mg IV Zofran given, pt w/ small emesis during HD. Pt c/o 8/10 mid low belly pain, denies feeling constipated. MD notified, Tramadol 50mg PO ordered.
[2024-10-31] MEDS: ULTRAM 50 MG PO (17:12)
[2024-10-31] MEDS: LIPITOR 40 MG PO (22:08)
[2024-11-01] MEDS: ULTRAM 50 MG PO (00:28)
[2024-11-01 03:15] VITALS: BP 118/56
[2024-11-01 08:06] VITALS: BP 94/49
[2024-11-01 08:20] LABS: Carbon Dioxide 31 mmol/L (22-30); Chloride 95 mmol/L (98-107); Potassium 4.3 mmol/L (3.5-5.1); Sodium 133 mmol/L (135-145)
[2024-11-01] MEDS: HEPARIN 500 UNITS IV ×2 (08:21→08:22)
[2024-11-01] MEDS: MANNITOL 25% 12.5 GRAMS IV (08:22)
[2024-11-01 08:24] LABS: Hematocrit 34.4 % (39.0-52.0); Hemoglobin 10.9 g/dL (13.0-18.0)
[2024-11-01 08:30] LABS: INR 3.91; PT 37.9 Sec (11.4-14.6)
[2024-11-01] MEDS: ProAmatine 10 MG PO ×3 (08:43→16:08)
--- NOTE | 2024-11-01 09:56 | W.PN.NEPH.HD ---
Assessment
-
Seen on HD. no complaints. VSS, access ok
dc after HD
Progress Note - Hemodialysis
-
Date of Service: November 01, 2024
Duration: 30 minutes and 2 hours
Potassium Bath: 2
Calcium Bath: 2.5
Opti-Dialyzer: 160
Ultrafiltration: Other (1.5)
Blood Flow: 400
Dialysate Flow: 600
Heparin: 500x2
EPO: 0
[2024-11-01] MEDS: HEPARIN 4000 UNITS INTRACATH (10:21)
[2024-11-01] MEDS: ZYLOPRIM 100 MG PO (12:15)
[2024-11-01] MEDS: ASPIR LOW (ENTERIC COATED) 81 MG PO (12:15)
[2024-11-01] MEDS: MIRALAX 17 GRAMS PO (12:15)
[2024-11-01] MEDS: MUCINEX 600 MG PO (12:15)
[2024-11-01] MEDS: SENOKOT-S 1 TABLET PO (12:16)
[2024-11-01] MEDS: MYLICON 80 MG PO (12:16)
[2024-11-01] MEDS: PHOSLO 1334 MG PO ×2 (12:18→16:08)
--- NOTE | 2024-11-01 12:27 | W.PN.HOSP.TC ---
Today's Communication/Plan
-
dc to SNF
Assessment / Plan
Assessment / Plan
Assessment:
Chest Pain in setting of volume overload
ASCVD
- EKG unchanged from prior/no evidence of acute ischemic.
- Troponin flat at .040/.041 - no further chest pain. stop trending
- Monitor for any new/worsening symptoms. At present is chest pain free
- Continue usual CV med regimen.
- will consider cardiology evaluation if recurrent chest pain, rising troponin, etc.
Acute on Chronic Hypoxemic Respiratory Failure
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
- Significant dyspnea on arrival - improved after BiPAP/NTP.
- Likely multifactorial and due to pulmonary edema/volume overload and influenza.
- Afebrile, non-toxic, no leukocytosis. CXR without focal infiltrate/opacity.
- Would observe off of further abx for now.
- Treat volume overload/ESRD and flu as noted below.
- Weaned from BiPAP in the ED and now back on usual O2.
Influenza
- Tamiflu 30mg after HD x 5 days (//) - last dose 11/03
- Follow proper precautions.
ESRD on HD
Volume Overload
Acute on Chronic HFrEF
acute Hyperkalemia
acute Hyponatremia
Hyperphosphatemia
- Patient is anuric by history.
- Nephrology following for HD/UF during hospital stay.
- Echo done last month with LVEF = 42% and evidence of RV dilation / overload.
- Follow daily weights. Follow for improvement in dyspnea.
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
History of orthostatic hypotension
- on Midodrine
history of recurrent ascites
- Abd US: Moderate volume ascites with largest pocket of free fluid in the right lower quadrant.
- Paracentesis with labs planned today with IR
Permanent Atrial Fibrillation
- Stable. Hold Coumadin acutely given supratherapeutic INR.
- Follow INR daily and re-dose/resume when appropriate.
Gout
- Stable. No current joint pain.
- Continue allopurinol.
Peripheral neuropathy
Constipation
- continue bowel regimen
DVT ppx: Coumadin
Code: Full
More than 30 minutes spent in discharge including
Final examination of the patient
Summarizing hospital stay
Instructions for continuing care to all relevant caregivers
Preparation of discharge records, prescriptions, and referral forms
Total time spent (in minutes): 41
Anticipated Discharge: Today
Subjective/Interval History
-
Date of Service: November 01, 2024
s/p short HD session did well no complaints
Objective Data
-
Labs:
Laboratory Results
11/01/24
07:36
Hgb 10.9 L
Hct 34.4 L
PT 37.9 H
INR 3.91
Sodium 133 L
Potassium 4.3
Chloride 95 L
Carbon Dioxide 31 H
Vital Signs:
Vital Signs
Temp Pulse Resp BP Pulse Ox
97.8 F 72 17 94/49 95
11/01/24 08:06 11/01/24 08:06 11/01/24 08:06 11/01/24 08:06 11/01/24 08:06
I&O
10/31/24 11/01/24 11/02/24
06:59 06:59 06:59
Intake Total 1020 / 1020 720 / 720
Balance 1020 / 1020 720 / 720
Physical Exam
-
General: No Apparent Distress and Appears Chronically Ill
HEENT: Normocephalic and Atraumatic
Respiratory: Negative Wheezes
Cardiac: Regular Rhythm and S1/S2
GI: Soft and Nontender
Genito-urinary: No Costovertebral Tender
Neuro: AO x 3
Psych: Calm
Data Reviewed
-
Total Time Spent with Patient (in minutes): 41
Labs: Labs Reviewed by me
[2024-11-01] MEDS: PHOSLO PO (12:48)
--- NOTE | 2024-11-01 13:04 | CM ---
HD today
Will discharge to [facility]
faxed dialysis flow sheets to [facility] [phone]
Patient has a community chair at [facility] at 10:40am which they will transport patient
Insurance approval for skilled rehab
Approved 5 days skilled
Auth# [id number]
Start date 10/31/24, lcd 11/04/24
updates to [phone]
Ambulance auth with [facility]
Auth#[id number]
PLAN: [facility]
Report #: [phone]
Fax #: [phone]
transportation forms on chart-1645 set - [facility] notified
[2024-11-01 15:38] VITALS: BP 90/50
[2024-11-01 16:05] VITALS: BP 102/58
--- NOTE | 2024-11-02 12:38 | W.CON.NEPH ---
Consultation
-
Date/Time Consultation Requested: 11/02/2024 11 AM
Date/Time Consultation Performed: 11/02/2024 12 PM
Requesting Provider: Dr Young
Performing Provider: Dr. Sky
Reason for Consultation: ESRD
Medical History
-
Chief Complaint: SOB , CP
History of Present Illness:
This is an 84-year-old gentleman who has been on dialysis since 2022. He believes his ESRD was caused by cardiac issues. He does have a left upper extremity AV fistula though this has been poorly functional and he currently is dialyzing through a
left chest wall catheter. He previously dialyzed up in [place] at [facility]. He had 2 admissions to [facility] early 2024. Both were for respiratory issues and Flu. Since he became more weaker from baseline using electric WC
ended up in [facility] rehab and since then he had multiple admits to for respiratory issues and volume overload. He is now at [facility] rehab but still getting HD at [facility]. He was recently in the hospital and discharged
yesterday. He returns again with reported chest pain in both shoulders. He says that he does have chronic back pain due to his spinal issues. He currently reports no chest pain or shoulder pain. He is still on his chronic O2 therapy and reports
no worsening shortness of breath. We are asked to assist with management of his ESRD.
Past Medical History
COPD 2 liters dependent
HFmrEF
end-stage renal disease on dialysis MoWeFR x 2 years via dialysis cath left upper chest wall
anemia of CKD
Hypotension
HLD
permanent A-fib
BOBBY noncompliant CPAP
Pulm HTN
Obesity
CAD/CABG x 3 vessel left internal mammary to LAD and saphenous vein graft to obtuse marginal 1 sequentially to obtuse marginal [address] Dr[address] Salmeron 03/26/2015.
Septoplasty
Kidney stone extraction 1970s
Social History
Tobacco: Former Smoker
Alcohol: None
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
Employment: Retired
Family History
Family History: Not Pertinent
Allergies / Home Medications
Allergy/AdvReac Type Severity Reaction Status Date / Time
No Known Allergies Allergy Verified 10/28/24 23:20
�Medication �Instructions �Recorded �Confirmed �Type
atorvastatin 40 mg tablet 40 mg PO HS High Cholesterol 03/09/15 10/28/24 History
aspirin 81 mg tablet,delayed 81 mg PO DAILY ##0 04/01/15 10/28/24 Rx
release
allopurinol 100 mg tablet 100 mg PO DAILY Gout 10/03/24 10/28/24 History
bisacodyl 10 mg rectal suppository 10 mg WI DAILYPRN PRN if mom is 10/03/24 10/28/24 History
ineffective
calcium acetate 667 mg tablet 1,334 mg PO AC Supplement 10/03/24 10/28/24 History
cyanocobalamin (vitamin B-12) 1,000 mcg PO DAILY Supplement 10/03/24 10/28/24 History
1,000 mcg tablet
ipratropium bromide 0.02 % 2.5 ml inhalation R Q4 SOB 10/03/24 10/28/24 History
solution for inhalation
levalbuterol HCl 1.25 mg/3 mL 1.25 mg inhalation R TID sob 10/03/24 10/28/24 History
solution for nebulization
sodium phosphates 19 gram-7 118 ml WI DAILYPRN PRN if 10/03/24 10/28/24 History
gram/118 mL enema (Fleet Enema) Bisacodyl is ineffective
sorbitol 70 % solution 30 ml PO [id number] PRN if no bm x3 10/03/24 10/28/24 History
days
Lactobac no.2-Bifidobac no.1-S. 1 cap PO DAILY probiotic 10/19/24 10/28/24 History
thermo 112.5 billion cell capsule
(Visbiome)
acetaminophen 325 mg tablet 650 mg PO Q6HPRN PRN mild 10/28/24 10/28/24 History
pain/FEVER>100
midodrine 10 mg tablet 10 mg PO TID Blood Pressure 10/28/24 10/28/24 History
omeprazole 20 mg tablet,delayed 20 mg PO DAILY Gastrointestinal 10/28/24 10/28/24 History
release Issue
simethicone 125 mg capsule 125 mg PO BID Gastrointestinal 10/28/24 10/28/24 History
Issue
warfarin 1 mg tablet 2 mg PO HS Blood Clot Prevention/Tx 10/28/24 10/28/24 History
guaifenesin 600 mg tablet, 600 mg PO Q12 #20 tabs 10/31/24 Rx
extended release 12 hr
oseltamivir 30 mg capsule 30 mg PO MOWEFR #1 cap 10/31/24 Rx
polyethylene glycol 3350 17 gram 17 g PO DAILY #30 ea 10/31/24 Rx
oral powder packet
sennosides 8.6 mg-docusate sodium 1 tab PO BID #60 tabs 10/31/24 Rx
50 mg tablet
Physical Exam
Vital Signs
Vital Signs
Temp Pulse Resp BP Pulse Ox
97.8 F 104 16 102/58 96
11/01/24 15:38 11/01/24 15:38 11/01/24 15:38 11/01/24 16:05 11/01/24 15:38
Lab Results
WBC 11.5 10^3/uL (4.8-10.8) H 10/31/24 12:42
RBC 3.51 10^6/uL (4.70-6.10) L 10/31/24 12:42
Hgb 10.9 g/dL (13.0-18.0) L 11/01/24 07:36
Hct 34.4 % (39.0-52.0) L 11/01/24 07:36
Plt Count 230 10^3/uL (130-400) 10/31/24 12:42
Sodium 133 mmol/L (135-145) L 11/01/24 07:36
Potassium 4.3 mmol/L (3.5-5.1) 11/01/24 07:36
Chloride 95 mmol/L (98-107) L 11/01/24 07:36
Carbon Dioxide 31 mmol/L (22-30) H 11/01/24 07:36
BUN 31 mg/dl (9-20) H 10/31/24 12:42
Creatinine 3.4 mg/dL (0.7-1.3) H 10/31/24 12:42
eGFR 17.09 10/31/24 12:42
Glucose 148 mg/dl (70-99) H 10/31/24 12:42
Calcium 8.4 mg/dl (8.4-10.2) 10/31/24 12:42
Phosphorus 3.3 mg/dl (2.5-4.5) 10/29/24 07:41
Neq-D-Lqrrlollfua Pept > 38746 pg/ml 10/28/24 22:56
Albumin 3.6 g/dl (3.5-5.0) 10/28/24 22:56
Physical Exam
Patient is awake alert oriented and in no distress. Mood and affect were pleasant, insight and judgment were good. Pupils are equal round and reactive to light, extraocular movements are intact, sclera were anicteric. Hearing was normal, ears and
nose are intact. Oropharynx was clear. Neck was supple with trachea midline and no thyromegaly. Heart was regular rate and rhythm without rubs. Lower extremities without edema. Lungs were coarse to auscultation bilaterally and with normal
excursion. Abdomen was soft, nontender, with normal active bowel sounds, and no hepatosplenomegaly. Skin was without rash and with normal turgor.
Data Reviewed
-
Radiology: Image Personally Visualized and interpreted (Chest x-ray 11/02/2024 by my reading shows cardiomegaly left pleural effusion vascular prominence)
Medical Tests (Nuc Med, Echo etc): Image Personally Visualized and interpreted (EKG 11/02/2024 by reading A-fib aberrancy left axis deviation nonspecific IVCD inferior Q lateral T wave abnormality) and Report Reviewed by me (Echocardiogram 10/08/2024
EF 42% moderate MR severe TR aortic sclerosis)
Labs: Labs Reviewed by me
Old Records: Reviewed
Assessment/Plan
-
Assessment:
Presentation is with shortness of breath and CP
ESRD TTS @[place]
Volume overload vs PNA
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
Coronary artery disease with history of CAD
hypotension on chronic midodrine
Recurrent ascites
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
Peripheral neuropathy
Atrial fibrillation
Gout
Hyperphosphatemia
Plan:
Regular dialysis treatment TTS
Will plan for ultrafiltration tomorrow
UF has always been limited by hypotension
Cardiology evaluation
== END 2024-11-01 18:20 | DRG 291 ==
LOC: 3 WEST ACU 02:19
PROVIDERS: Emergency Medicine; Radiology Vascular & Interventional Radiology; ADMITTING PHYSICIAN Hospitalist; ATTENDING PHYSICIAN Internal Medicine; CONSULT PHYSICIAN Specialist; EMERGENCY PHYSICIAN Student in an Organized Health Care Education/Training Program; FAMILY PHYSICIAN Family Medicine; OTHER PHYSICIAN Internal Medicine; REFERRING PHYSICIAN Internal Medicine
PROC: 5A09357 Assistance with Respiratory Ventilation, Less than 24 Consecutive Hours, Continuous Positive Airway Pressure (ICD-10-PCS; 2024-10-28)
PROC: 5A1D70Z Performance of Urinary Filtration, Intermittent, Less than 6 Hours Per Day (ICD-10-PCS; 2024-10-29)
PROC: 0W9G3ZZ Drainage of Peritoneal Cavity, Percutaneous Approach (ICD-10-PCS; 2024-10-31)
DX: I50.23 Acute on chronic systolic (congestive) heart failure (principal); J96.21 Acute and chronic respiratory failure with hypoxia; N18.6 End stage renal disease; R18.8 Other ascites; J44.0 Chronic obstructive pulmonary disease with (acute) lower respiratory infection; E87.1 Hypo-osmolality and hyponatremia; I48.21 Permanent atrial fibrillation; I47.20 Ventricular tachycardia, unspecified; J10.1 Influenza due to other identified influenza virus with other respiratory manifestations; Z99.81 Dependence on supplemental oxygen; Z99.2 Dependence on renal dialysis; E87.5 Hyperkalemia; E83.39 Other disorders of phosphorus metabolism; I27.20 Pulmonary hypertension, unspecified; I95.1 Orthostatic hypotension; M10.9 Gout, unspecified; E11.22 Type 2 diabetes mellitus with diabetic chronic kidney disease; E11.40 Type 2 diabetes mellitus with diabetic neuropathy, unspecified; K59.00 Constipation, unspecified; I25.10 Atherosclerotic heart disease of native coronary artery without angina pectoris; Z95.1 Presence of aortocoronary bypass graft; D63.1 Anemia in chronic kidney disease; Z87.891 Personal history of nicotine dependence; Z79.82 Long term (current) use of aspirin; R79.1 Abnormal coagulation profile; Z79.01 Long term (current) use of anticoagulants; E66.9 Obesity, unspecified; Z68.28 Body mass index [BMI] 28.0-28.9, adult; E78.00 Pure hypercholesterolemia, unspecified; G47.33 Obstructive sleep apnea (adult) (pediatric); G89.29 Other chronic pain; I07.1 Rheumatic tricuspid insufficiency; I95.3 Hypotension of hemodialysis; K21.9 Gastro-esophageal reflux disease without esophagitis; Z91.199 Patient's noncompliance with other medical treatment and regimen due to unspecified reason
CPT/HCPCS: 49083; 71045; 76705; 80048; 80051; 80053; 82042; 82150; 82805; 83605; 83615; 83735; 83880; 84100; 84157; 84484; 85014; 85018; 85025; 85027; 85610; 85730; 87015; 87040; 87070; 87205; 89051; 93005; 97163; 97167; 97530; 99291; G0257; P9045; P9047

== ENCOUNTER 2024-11-02 13:29 | Inpatient (IN) | payer OTHER, SELFPAY ==
[2024-11-02] VITALS (10 sets, daily range): BP systolic 90–110; BP diastolic 47–63
--- NOTE | 2024-11-02 07:27 | ED.GENMED ---
History of Present Illness
General
Chief Complaint: Chest Pain
Source: patient and ambulance crew
Exam Limitations: none
Time Seen by Provider: 11/02/24 07:03
Nursing documentation reviewed up to this point in time: agreed with
History of Present Illness
History of Present Illness:
84-year-old male presents emergency department due to chest pain that began at 5 AM. He describes as a pressure across his chest that radiates down both shoulders. He was discharged in the hospital yesterday, and had fluid overload and chest pain
for his admission.
Past History
Past History
ED Past Medical History: Arrthythmia, CAD, CHF, COPD, NIDDM and Renal failure
ED Past Surgical History: Cardiac and Other
Social History
Tobacco: Non-smoker
Alcohol: None
Drug: None
Personal:
Living: skilled nursing
Employment: Not employed
Review of Systems
Review of Systems
Allergies reviewed?: Yes
All Other Systems: Not applicable
Constitutional: Reports no symptoms
EENT: Reports no symptoms
Respiratory: Reports no symptoms
Cardiac: Reports chest pain
ABD/GI: Reports no symptoms
: Reports no symptoms
Musculoskeletal: Reports no symptoms
Skin: Reports no symptoms
Neurological: Reports no symptoms
Endocrine: Reports no symptoms
Hematologic/Lymphatic: Reports no symptoms
Psychiatric: Reports no symptoms
Phy Exam
Physical Exam
Physical Exam:
Physical Exam
General: no apparent distress, not acutely ill
Neck: supple. no meningeal signs. normal posterior pharynx
Heart: s1/s2 regular rate and rhythm, no murmur. equal radial
pulses.
HEENT: Pupils equal round reactive to light, EOMI
Lungs: no acute respiratory distress. clear bilaterally
Abdomen: normal bowel sounds. not tender. no CVAT
Neuro: alert and oriented. no focal neurological deficits cranial nerves II through XII intact
Skin: no rash
Psychiatric: well kept. interactive and cooperative
Extremities: no edema. no calf tenderness. negative homans. good distal pulses
Scores
Heart Failure Risk
Heart Failure Risk Score: Yes
History of Stroke or TIA: No
History of intubation for respiratory distress: No
Heart rate on ED arrival >/= 110: No
SaO2 <90% on arrival on room air: Yes
HR >/=110 during 3min walk test (or too ill to perform test): No
ECG has acute ischemic changes: No
Urea >/=12mmol/L (BUN 33.6mg/dL): No
Serum CO2>/=35mmol/L: No
Troponin I or T elevated to TN Level (0.4mg/dL): Yes
NT-proBNP >/=5,000ng/L (5,000pg/ml): Yes
HF Risk Score: 4
Admission Status: HIGH RISK 26.1% Consider SNF treatment or admission to hospital
Heart Score for Chest Pain Patients
STEMI patient?: No
History: Moderately Suspicious
ECG: Nonspecific Repolarization
Age: >/= 65 years
Risk Factors: >/= 3 Risk Factors or History of CAD
Troponin: >/= 3 x Normal Limit
Heart Score for Chest Pain Patients: 8
Heart Score Risk: 72.7 % MACE over next 6 weeks
Course
Orders/Labs/Results
Orders:
Orders
11/02/24 07:01
Electrocardiogram (*1) Urgent
Reason for Study: Chest Pain
EKG- Treatment ONCE
IV Insert/Care/Rem.- Treatment PRN
11/02/24 07:19
CR Chest - 2 Views Urgent
Comment:
Reason For Exam: chest pain
11/02/24 07:44
Complete Blood Count/With Diff Urgent
11/02/24 09:40
Comprehensive Metabolic Panel Urgent
NT-proBNP Urgent
Troponin I Urgent
11/02/24 Lunch
Potassium, 2 Gram
At Your Request: Limited, Blow Torch Operator Required
Does patient need a safe tray?: No
Fluid Restriction: 1500 mL/day (50 oz)
Low Potassium: Sodium, 2 Gram
11/02/24 10:28
Prothrombin Time Urgent
11/02/24 12:05
EKG [Electrocardiogram (*1)] Stat
Reason for Study: Chest Pain
CT Chest W/o Iv Contrast Urgent
Comment: influenza, with rising leukocytosis
Reason For Exam: possible pneumonia
CARDIOLOGY CONSULT Routine
Consulting Provider: Radha Manuel
Was physician already notified: Yes
11/02/24 12:24
Procalcitonin Stat
PCT Algorithmm Indication: Respiratory
Troponin I Stat
11/02/24 13:08
Admit/Transfer Patient As Directed
Co-Sign Provider:
Level of Care: Inpatient admission
Assign to:: Telemetry
Physician / Group: Katy Solis - Hospitalists
Diagnosis: Acute hypoxic respiratory failure, chest pain, possible pneumonia
Reason for Telemetry: Chest Pain syndromes
Date to Stop Telemetry: 11/04/24
Time to Stop Telemetry: 11:00
Reason for Hospitalization: Acute hypoxic respiratory failure, chest pain, possible pneumonia - HD, IV abx
Expected length of stay greater than two midnights?: Yes
ELOS- Estimated Length of Stay in days: 4
I certify the patient meets the requirements for IP care: Yes
PRN Pain Medication Management As Directed
May give lesser potent ordered pain med per pt: Yes
preference::
Protocol:: Medication orders for pain may be administered in a
manner that supports deferring to patient preference
when the pt is:
- Requesting an ordered lesser potent pain medication.
Least to most potent pain medications are defined
as: acetaminophen < NSAID < tramadol < opioids
(morphine, oxycodone, hydromorphone).
- Requesting a lesser dose of the same medication IF
ORDERED.
- Requesting a less intrusive route of administration
if both routes are prescribed by the provider (PO <
IV).
11/02/24 13:10
Code Status As Directed
Resuscitation Status: Full Code
11/02/24 13:29
Midodrine [ProAmatine] 10 mg PO NOW STA
11/02/24 14:12
Blood Culture Q30M
MANISHA Source: Blood/Venous
Specimen Description:
11/02/24 14:24
Blood Culture Q30M
MANISHA Source: Blood/Venous
Specimen Description:
11/02/24 14:43
Acetaminophen [Tylenol] 650 mg PO Q4HPRN PRN
Bisacodyl [Dulcolax] 10 mg RECTAL [id number] PRN
Docusate W/Senna [Senokot-S] 1 tablet PO BIDPRN PRN
Guaifenesin [Mucinex] 600 mg PO Q12H
Ondansetron Injectable [Zofran] 4 mg IV Q6HPRN PRN
Polyethylene Glycol Powder [Miralax] 17 grams PO DAILYPRN PRN
VANCOMYCIN Pharmacy to Dose [VANCOCIN Pharmacy to Dose] 1 each Pharmacy To Prepare [Call Pharmacy To Prepare] 0 ml IV PER PROTOCOL
11/02/24 14:43
NEPHROLOGY CONSULT Routine
Consulting Provider: Dominick Sky
Was physician already notified: Yes
Respiratory Culture/Gram Stain Routine
MANISHA Source: Sputum
Specimen Description:
Activity As Directed
Activity Level: As Tolerated
Intake/ Output As Directed
Frequency: q12h
Sequential Compression Device [Pneumatic Compression Sleeves] As Directed
Type: Knee high
Vital Signs As Directed
Frequency: Per unit guidelines
Weight As Directed
Frequency: Daily
Rx Incentive Spirometry [RESP] Routine
Frequency: q1h while awake
Speech Therapy Eval & Treat Routine
DX Deep Vein Thrombosis Video Routine
11/02/24 16:00
Ipratropium Nebs [Atrovent Nebules] 0.5 mg INH R Q4
Midodrine [ProAmatine] 10 mg PO TID@0800,1200,1600
11/02/24 16:30
Calcium Acetate [Phoslo] 1,334 mg PO AC
11/02/24 18:00
Troponin I Q6H
Cefepime HCl [Maxipime] 1,000 mg IV Q24H
11/02/24 20:00
Docusate W/Senna [Senokot-S] 1 tablet PO BID
Levalbuterol [Xopenex 1.25 mg Inhalant Solution] 1.25 mg INH R TID
Simethicone [Mylicon] 80 mg PO BID
11/02/24 22:00
Atorvastatin [Lipitor] 40 mg PO HS
11/03/24 00:00
Troponin I Q6H
11/03/24 06:00
Electrocardiogram (*1) IN AM
Reason for Study: Chest Pain
Complete Blood Count/No Diff IN AM
Comprehensive Metabolic Panel IN AM
Prothrombin Time IN AM
Troponin I Q6H
11/03/24 08:00
Allopurinol [Zyloprim] 100 mg PO DAILY
Aspirin Low Dose EC [Aspir Low (Enteric Coated)] 81 mg PO DAILY
Cyanocobalamin [Vitamin B-12] 1,000 mcg PO DAILY
Lactobac/Bifidobac [Visbiome] 1 cap PO DAILY
Oseltamivir Phosphate [Tamiflu] 30 mg PO DAILY
Pantoprazole [Protonix] 40 mg PO DAILY
11/04/24 06:00
Prothrombin Time IN AM
11/04/24 11:00
DC Protocol for Telemetry ONCE
11/05/24 06:00
Prothrombin Time IN AM
11/06/24 06:00
Prothrombin Time IN AM
Abnormal Lab Results
11/02/24 11/02/24 11/02/24
07:44 09:40 10:28
WBC 16.1 H 10^3/uL
(4.8-10.8)
RBC 3.69 L 10^6/uL
(4.70-6.10)
Hgb 11.3 L g/dL
(13.0-18.0)
Hct 34.9 L %
(39.0-52.0)
MCV 94.6 H fL
(80.0-94.0)
MCHC 32.4 L g/dL
(33.0-37.0)
RDW 16.8 H %
(11.5-14.5)
Abs Immat Gran (auto) 0.1 H 10^3/uL
(0-0.05)
Absolute Neuts (auto) 13.6 H 10^3/uL
(1.4-6.5)
Absolute Lymphs (auto) 0.7 L 10^3/uL
(1.2-3.4)
Absolute Monos (auto) 1.7 H 10^3/uL
(0.1-0.6)
Immature Gran % 0.6 H %
(0-0.5)
Neutrophils % 84.3 H %
(42.2-75.2)
Lymphocytes % 4.2 L %
(20.5-51.1)
Monocytes % 10.6 H %
(1.7-9.3)
PT 31.5 H Sec
(11.4-14.6)
Sodium 130 L mmol/L
(135-145)
Chloride 95 L mmol/L
(98-107)
BUN 24 H mg/dl
(9-20)
Creatinine 2.4 H mg/dL
(0.7-1.3)
Total Bilirubin 1.8 H mg/dl
(0.2-1.3)
Alkaline Phosphatase 156 H U/L
(38-126)
Troponin I 0.432 H* ng/ml
Total Protein 5.3 L g/dl
(6.3-8.2)
Albumin 2.9 L g/dl
(3.5-5.0)
Procalcitonin
11/02/24
12:24
WBC
RBC
Hgb
Hct
MCV
MCHC
RDW
Abs Immat Gran (auto)
Absolute Neuts (auto)
Absolute Lymphs (auto)
Absolute Monos (auto)
Immature Gran %
Neutrophils %
Lymphocytes %
Monocytes %
PT
Sodium
Chloride
BUN
Creatinine
Total Bilirubin
Alkaline Phosphatase
Troponin I 0.484 H* ng/ml
Total Protein
Albumin
Procalcitonin 8.21 H* ng/ml
(0.0-0.25)
11/02/24 07:44
11/02/24 09:40
Vital Signs
Initial and Last Documented VS:
Initial Vital Signs
Resp
22
11/02/24 06:29
Last Documented Vital Signs
Temp Pulse Resp BP Pulse Ox
98.2 F 92 23 106/84 86
11/02/24 06:31 11/02/24 14:06 11/02/24 13:30 11/02/24 14:06 11/02/24 11:00
MDM/Problems Addressed
Differential Diagnosis Includes:
ACS, fluid overload, CKD
MDM/Problems Addressed:
84-year-old male with NSTEMI, pleural effusion, likely fluid overload. Patient already anticoagulated with Coumadin. Discussed with hospitalist and production service manager. Admit to hospitalist.
Chronic conditions affecting care: CAD, Cardiomyopathy, Arrhythmia, COPD and Kidney disease
Acute Exacerbation and/or Progression of Chronic Illness: CAD, Cardiomyopathy, Arrhythmia, COPD and Kidney disease
*Radiology
Radiology exam reviewed: radiology read reviewed (Chest x-ray shows left lower effusion)
*Pulse Oximetry
Patient hypoxic: no
*EKG
Interpreted by ED Provider?: Yes
EKG Intrepretation Date: 11/02/24
EKG Intrepretation Time: 07:10
Interpretation: abnormal
Comparison EKG: changes noted
Heart Rate: 103
Rate: tachycardiac
Rhythm: a-fib
[place]: left axis deviation
Interval: normal interval
QRS Pattern: normal QRS
Ischemia: non-specific ST changes
*Do All Operator Interpretation
Rate: tachycardiac
Interpretation: abnormal
Heart Rate: 102
Rhythm: a-fib
*Critical Care Note
Total Time (30-74mins, 75-104mins- exclusive of procedures): 32
comment:
Critical care statement: A total of 32 minutes of critical care time was provided for this patient. This includes management of unstable vital signs, evaluation of the patient at bedside, reviewing the patient's pertinent medical records, discussion
with consultants, review of old EKGs and review of pertinent medical records. This time with separate from time utilized to perform the aforementioned documented procedures
Data Reviewed
Review of Other/Old Records Reveals: Labs and Progress Notes (Acute right heart failure, pulmonary hypertension, ascites, seen by Dr. Sanchez during October 14 admission)
Source: records
Further Testing Considered But Not Given:
CT chest not indicated
Patient Management
Social determinants of health affecting care: Living situation and Strong social support
Discussion with other providers: Hospitalist and Maintenance Mechanic Technician (Forecast Analyst Dr. Manuel)
Escalation/DeEscalation of care consider admission/obs:
Admission indicated
ED Attending Note
-
Portions of this chart may have been created with voice recognition software.� Occasional wrong word or��sound alike� substitutions may have occurred due to the inherent limitations of voice recognition software.
Discharge Plan
Departure
Patient Disposition: Admit
Date of Disposition: 11/02/24
Time of Disposition: 10:22
Admit to: IVU
Presentation/result/management discussed w/ accepting MD/DO: Hospitalist
Patient with high blood pressure during this ER visit?: No
Condition: Fair
Discharge Problem:
Non-ST elevation (NSTEMI) myocardial infarction, End-stage renal disease (ESRD), Pleural effusion
Interventions
Interventions:
*Risk Screen - Suicide Last Done: 11/02/24 14:40
*General Assessment Last Done: 11/02/24 14:40
*Neglect/Abuse Screening Last Done: 11/02/24 14:40
*ED- Fall Risk Assessment Last Done: 11/02/24 13:51
*ED COVID-19 Vaccine History Last Done: 11/02/24 06:52
*Nursing Disposition Last Done: 11/02/24 14:40
ED- Cardiac Assessment Last Done: 11/02/24 13:51
[2024-11-02 07:51] LABS: % Basophils 0.2 % (0-2); % Eosinophils 0.1 % (0-6); % Immature Granulocytes 0.6 % (0-0.5); % Lymphocytes 4.2 % (20.5-51.1); % Monocytes 10.6 % (1.7-9.3); % Neutrophils 84.3 % (42.2-75.2); Absolute Immature Granulocytes 0.1 10^3/uL (0-0.05); Absolute Lymphocytes 0.7 10^3/uL (1.2-3.4); Absolute Monocytes 1.7 10^3/uL (0.1-0.6); Absolute Neutrophils 13.6 10^3/uL (1.4-6.5); Hematocrit 34.9 % (39.0-52.0); Hemoglobin 11.3 g/dL (13.0-18.0); Mean Corp Hgb Conc. 32.4 g/dL (33.0-37.0); Mean Corpuscular Hgb 30.6 pg (27.0-31.0); Mean Corpuscular Volume 94.6 fL (80.0-94.0); Mean Platelet Volume 10.4 fL (7.4-10.4); Nucleated Red Blood Cells % 0 % (-); Platelet Count 221 10^3/uL (130-400); Red Blood Cell Count 3.69 10^6/uL (4.70-6.10); Red Cell Dist. Width 16.8 % (11.5-14.5); White Blood Cell Count 16.1 10^3/uL (4.8-10.8)
[2024-11-02 10:00] LABS: ALT (SGPT) 10 U/L (0-50); AST (SGOT) 22 U/L (17-59); Albumin 2.9 g/dl (3.5-5.0); Alkaline Phosphatase 156 U/L (38-126); Blood Urea Nitrogen 24 mg/dl (9-20); Carbon Dioxide 27 mmol/L (22-30); Chloride 95 mmol/L (98-107); Estimated Creatinine Clearance 21 ml/min; Glucose 80 mg/dl (70-99); Potassium 4.6 mmol/L (3.5-5.1); Sodium 130 mmol/L (135-145); Total Bilirubin 1.8 mg/dl (0.2-1.3); Total Protein 5.3 g/dl (6.3-8.2); eGFR 25.96
[2024-11-02 10:13] LABS: Troponin I 0.432 ng/ml
[2024-11-02 10:38] LABS: NT-proBNP > 27000 pg/ml
[2024-11-02 10:44] LABS: INR 3.06; PT 31.5 Sec (11.4-14.6)
--- NOTE | 2024-11-02 11:36 | CM ---
ED CM attempted bedside visit to pt
He deferred IA to dtr so he can rest
Call with dtr/Daniela
Pt with multiple readmissions this past month to PM
Discharged back to SNF under auth day prior
Pt a rehab resident from [facility] with HD needs
He attends outpt HD at [facility] Tues/Thr/Sat 1040 chair time- SNF has been transporting to outpt clinic
Prior to SNF stays, pt was residing alone in a rancher with ramp entrance
Pt has a WW/WC and electric chair
His grandson was staying overnight with him to provide assistance
Pt is 2L O2 [employer] baseline
His dtr/MADIE and grandson live across the street
Dtr in agreement with SNF return to [facility] on dc
She does not want to consider other SNFs at this time due to poor ratings
Poor past experience at [facility] and [facility]
Discharge Disposition- anticipate return to [facility] SNF
--- NOTE | 2024-11-02 12:14 | CON.CAR ---
Consultation
Consultation Request
Date/Time Consultation Requested: November 02, 2024
Date/Time Consultation Performed: 11/02/2024
Requesting Provider: Hospitalist
Performing Provider: Dr Vishal Manuel
Reason for Consultation: Chest pain and elevated troponin
Medical History
-
Chief Complaint: cheat pAIN
History of Present Illness:
He was recently admitted to [facility] from October 29 through November 01 with acute on chronic hypoxic respiratory failure and influenza. During that hospital stay he also had chest pain which was in the setting of marked volume overload.
During that hospital stay troponin values were 0.04 and 0.041. ECGs were unchanged and chest pain resolved with volume removal. He was initiated on Tamiflu 30 mg to be given after hemodialysis for 5 days (//), last dose 11/03.
He presents once again to [facility] on 11/02/24 with chest pain up to both shoulders. He reports chronic back pain due to his spinal issues.
He currently reports no chest pain or shoulder pain.
Evaluation at this presentation finds troponin is 0.43 and 0.48.
My interpretation of his ECG1 this presentation November 02, 2024 finds atrial fibrillation with mildly accelerated rate and occasional PVCs, nonspecific ST-T abnormality / ECG2 is without significant change
Procalcitonin is elevated at 8.2 and chest x-ray cannot exclude left lower lobe subsegmental atelectasis versus pneumonia
Previous recent admissions:
October 19 to October 24 with toxic encephalopathy suspected to be medication induced by gabapentin
October 02- with shock related to volume overload and pneumonia
He was admitted to [facility] 09/02 - 09/09/2024 for influenza A. He was discharged to SNF. His family reportedly signed him out AMA on 09/17/2024
Re-admitted 09/17 through 09/26/2024 for pneumonia.
PMH:
Influenza (currently completing Tamiflu)
ESRD on HD
Recurrent Chest Pain
CAD/CABG x 3 vessel left internal mammary to LAD and saphenous vein graft to obtuse marginal 1 sequentially to obtuse marginal [address] Salmeron 03/26/2015.
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
Permanent atrial fibrillation (on warfarin anticoagulation)
BOBBY noncompliant CPAP
Pulmonary hypertension
Heart failure with reduced ejection fraction
Recurrent ascites
Peripheral neuropathy
Gout
Anemia of chronic disease
ECHO 10/08/24: EF 42%, septal flattening due to RV pressure and volume overload, RV dilated, biatrial enlargement, mild to moderate MR, aortic sclerosis, moderate to severe TR, PASP 65 mmHg, mildly dilated ascending aorta 4.0 cm
Social History
Tobacco: Former Smoker
Alcohol: None
Drug: None
Living: [facility]
Employment: Retired
Family History
Family History: Reviewed & Not Pertinent
Allergies / Home Medications
Allergy/AdvReac Type Severity Reaction Status Date / Time
No Known Allergies Allergy Verified 10/28/24 23:20
�Medication �Instructions �Recorded �Confirmed �Type
atorvastatin 40 mg tablet 40 mg PO HS High Cholesterol 03/09/15 10/28/24 History
aspirin 81 mg tablet,delayed 81 mg PO DAILY ##0 04/01/15 10/28/24 Rx
release
allopurinol 100 mg tablet 100 mg PO DAILY Gout 10/03/24 10/28/24 History
bisacodyl 10 mg rectal suppository 10 mg LA DAILYPRN PRN if mom is 10/03/24 10/28/24 History
ineffective
calcium acetate 667 mg tablet 1,334 mg PO AC Supplement 10/03/24 10/28/24 History
cyanocobalamin (vitamin B-12) 1,000 mcg PO DAILY Supplement 10/03/24 10/28/24 History
1,000 mcg tablet
ipratropium bromide 0.02 % 2.5 ml inhalation R Q4 SOB 10/03/24 10/28/24 History
solution for inhalation
levalbuterol HCl 1.25 mg/3 mL 1.25 mg inhalation R TID sob 10/03/24 10/28/24 History
solution for nebulization
sodium phosphates 19 gram-7 118 ml LA DAILYPRN PRN if 10/03/24 10/28/24 History
gram/118 mL enema (Fleet Enema) Bisacodyl is ineffective
sorbitol 70 % solution 30 ml PO [id number] PRN if no bm x3 10/03/24 10/28/24 History
days
Lactobac no.2-Bifidobac no.1-S. 1 cap PO DAILY probiotic 10/19/24 10/28/24 History
thermo 112.5 billion cell capsule
(Visbiome)
acetaminophen 325 mg tablet 650 mg PO Q6HPRN PRN mild 10/28/24 10/28/24 History
pain/FEVER>100
midodrine 10 mg tablet 10 mg PO TID Blood Pressure 10/28/24 10/28/24 History
omeprazole 20 mg tablet,delayed 20 mg PO DAILY Gastrointestinal 10/28/24 10/28/24 History
release Issue
simethicone 125 mg capsule 125 mg PO BID Gastrointestinal 10/28/24 10/28/24 History
Issue
warfarin 1 mg tablet 2 mg PO HS Blood Clot Prevention/Tx 10/28/24 10/28/24 History
guaifenesin 600 mg tablet, 600 mg PO Q12 #20 tabs 10/31/24 Rx
extended release 12 hr
oseltamivir 30 mg capsule 30 mg PO MOWEFR #1 cap 10/31/24 Rx
polyethylene glycol 3350 17 gram 17 g PO DAILY #30 ea 10/31/24 Rx
oral powder packet
sennosides 8.6 mg-docusate sodium 1 tab PO BID #60 tabs 10/31/24 Rx
50 mg tablet
Review of Systems
-
History Source: Patient
All other systems: Negative unless noted
Constitutional: Fatigue
EENT: No Symptoms
Respiratory: Cough
Cardiac: Chest Pain (resolved)
Abdomen/GI: No Symptoms
: No Symptoms
Musculoskeletal: No Symptoms
Skin: No Symptoms
Neurological: No Symptoms
Endocrine: No Symptoms
Hematologic/Lymphatic: No Symptoms
Physical Exam
Vital Signs
Temp Pulse Resp BP Pulse Ox
98.2 F 98 21 97/58 100
11/02/24 06:31 11/02/24 09:00 11/02/24 09:00 11/02/24 07:00 11/02/24 08:45
Lab Results
11/02/24 07:44
11/02/24 09:40
Troponin I 0.432 ng/ml H* 11/02/24 09:40
Bgu-W-Pkamacqmckk Pept > 86282 pg/ml 11/02/24 09:40
Physical Exam
General: Well Developed, Well Nourished, No Apparent Distress and Comfortable
HEENT: Normocephalic, Anicteric and Moist Mucous Membranes
Respiratory: Other (Reduced inspiratory effort, there are some crackles at the left lower lobe, no wheezes or rhonchi)
Cardiac: Irregular Rhythm
Impression / Plan
-
Assessment:
Chest pain and abnormal troponin
Chest pain is atypical and spontaneously resolved
Active influenza (currently completing Tamiflu)
ESRD on HD
Recurrent Chest Pain
CAD/CABG x 3 vessel left internal mammary to LAD and saphenous vein graft to obtuse marginal 1 sequentially to obtuse marginal [address] Salmeron 03/26/2015.
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
Permanent atrial fibrillation
on warfarin anticoagulation
History of bradycardia on metoprolol during dialysis
BOBBY noncompliant CPAP
Chronic right-sided heart failure with pulmonary hypertension
Heart failure with reduced ejection fraction
Recurrent ascites
s/p paracentesis for 4900cc 10/08/24
Peripheral neuropathy
Gout
Anemia of chronic disease
Hyponatremia
ECHO 10/08/24: EF 42%, septal flattening due to RV pressure and volume overload, RV dilated, biatrial enlargement, mild to moderate MR, aortic sclerosis, moderate to severe TR, PASP 65 mmHg, mildly dilated ascending aorta 4.0 cm
Recommendations:
He did experience chest/shoulder and back discomfort earlier today which he tells me he is intermittently had on a chronic basis and relates mostly to musculoskeletal discomfort. However this time troponin is modestly elevated at 0.48 but without
clear ECG ischemic changes. His heart rate is mildly rapid in atrial fibrillation (permanent atrial fibrillation) and he does appear volume overloaded on exam.
He has been pain-free/symptom-free since presentation to the emergency department
- Plan for volume removal/hemodialysis. Nephrology has been consulted
- Maintain aspirin 81 mg daily
- At this point since he is pain-free I would not start heparin, would continue warfarin with goal INR between 2 and 3
- Trend troponin
- Trend ECGs
- While he has been bradycardic at times on beta-blockers in the past, he is tachycardic at present so we will try low-dose short acting beta-cristine
- Check echocardiogram in the morning
- Concern for infection/pneumonia given elevated procalcitonin and abnormal chest x-ray as well as recent diagnosis of influenza pneumonia. Further eval/treat as per primary service
Total time spent today was 78 minutes in preparing to see the patient, seeing the patient and coordination of care. This included review of recent laboratory evaluations, cardiac testing, imaging studies, primary care records, specialty
consultations, hospital records, as well as personally interviewing and examining the patient, which included discussion of their tests, review/ordering medications, and communicating with other healthcare professionals and also treatment planning
as well as counseling.
Data Reviewed
-
EKG: Tracing Personally Visualized and interpreted
Radiology: Image Personally Visualized and interpreted
CT Scan: Report Reviewed by me
Medical Tests (Nuc Med, Echo etc): Report Reviewed by me
Labs: Labs Reviewed by me
Old Records: Reviewed
--- NOTE | 2024-11-02 12:22 | HPS.HSE ---
Family Physician
-
Family Physician: * NONE
Chief Complaint
-
chest pain
History of Present Illness
84 y/o M hx of ESRD on HD, COPD / chronic hypoxemia and ASCVD presents to ER complaining of chest pain. Chest pain is mid chest, band-like, 4/10, radiating to both shoulders. Symptoms began this morning. He was being treated with tamiflu for
influenza and recently was hospitalized for chest pain and SOB with volume overloaded which improved with HD and paracentesis.
in ER, trop .4 and patient was admitted for further evaluation.
Medical History
Past Medical History
Past Medical History: Reports Other (ASCVD ESRD on HD Chronic Hypotension COPD Chronic Hypoxemic respiratory Failure (2lpm home O2) Chronic Hyponatremia HFrEF NSVT Permanet Atrial Fibrillation Anemia of CKD Peripheral Neuropathy Chronic Ambulatory
Dysfunction)
Past Surgical History: Reports None
Social History
Tobacco: Former Smoker
Alcohol: None
Living: Penitentiary
Employment: Retired
Family History
Family History: Not pertinent
Allergies / Home Medications
Allergies reflects when Allergies were last updated in [employer].
Home Medications with original date entered in [employer]
Allergy/Medication List:
Allergies
Allergy/AdvReac Type Severity Reaction Status Date / Time
No Known Allergies Allergy Verified 10/28/24 23:20
Home Medications
atorvastatin 40 mg tablet 40 mg PO HS High Cholesterol 03/09/15
aspirin 81 mg tablet,delayed release 81 mg PO DAILY ##0 04/01/15
allopurinol 100 mg tablet 100 mg PO DAILY Gout 10/03/24
bisacodyl 10 mg rectal suppository 10 mg CA DAILYPRN PRN if mom is ineffective 10/03/24
calcium acetate 667 mg tablet 1,334 mg PO AC Supplement 10/03/24
cyanocobalamin (vitamin B-12) 1,000 mcg tablet 1,000 mcg PO DAILY Supplement 10/03/24
ipratropium bromide 0.02 % solution for inhalation 2.5 ml inhalation R Q4 SOB 10/03/24
levalbuterol HCl 1.25 mg/3 mL solution for nebulization 1.25 mg inhalation R TID sob 10/03/24
sodium phosphates 19 gram-7 gram/118 mL enema (Fleet Enema) 118 ml CA DAILYPRN PRN if Bisacodyl is ineffective 10/03/24
sorbitol 70 % solution 30 ml PO [id number] PRN if no bm x3 days 10/03/24
Lactobac no.2-Bifidobac no.1-S. thermo 112.5 billion cell capsule (Visbiome) 1 cap PO DAILY probiotic 10/19/24
acetaminophen 325 mg tablet 650 mg PO Q6HPRN PRN mild pain/FEVER>100 10/28/24
midodrine 10 mg tablet 10 mg PO TID Blood Pressure 10/28/24
omeprazole 20 mg tablet,delayed release 20 mg PO DAILY Gastrointestinal Issue 10/28/24
simethicone 125 mg capsule 125 mg PO BID Gastrointestinal Issue 10/28/24
warfarin 1 mg tablet 2 mg PO HS Blood Clot Prevention/Tx 10/28/24
guaifenesin 600 mg tablet, extended release 12 hr 600 mg PO Q12 #20 tabs 10/31/24
oseltamivir 30 mg capsule 30 mg PO MOWEFR #1 cap 10/31/24
polyethylene glycol 3350 17 gram oral powder packet 17 g PO DAILY #30 ea 10/31/24
sennosides 8.6 mg-docusate sodium 50 mg tablet 1 tab PO BID #60 tabs 10/31/24
Review of Systems
-
A 12 point ROS was completed and negative except as noted: Yes
Physical Exam
Vital Signs
Vital Signs
Temp Pulse Resp BP Pulse Ox
98.2 F 98 21 97/58 100
11/02/24 06:31 11/02/24 09:00 11/02/24 09:00 11/02/24 07:00 11/02/24 08:45
Physical Exam
General: Appears Chronically Ill
HEENT: NormoCephalic and Anicteric
Respiratory: Clear
Cardiac: S1/S2 and Regular Rhythm
GI: Soft and Non Tender
Neuro: AO x 3
Psych: Calm
Laboratory Results
-
11/02/24 07:44
11/02/24 09:40
Laboratory Results
PT 31.5 Sec (11.4-14.6) H 11/02/24 10:28
INR 3.06 11/02/24 10:28
Total Bilirubin 1.8 mg/dl (0.2-1.3) H 11/02/24 09:40
AST 22 U/L (17-59) 11/02/24 09:40
ALT 10 U/L (0-50) 11/02/24 09:40
Alkaline Phosphatase 156 U/L (38-126) H 11/02/24 09:40
Troponin I 0.432 ng/ml H* 11/02/24 09:40
Data Reviewed
-
Lab Data: Labs Reviewed by me
Impression/Plan
-
Assessment:
Chest Pain in setting of volume overload
ASCVD
- EKG no evidence of acute ischemic. repeat EKG again now
- trop 0.4. trend to peak
- Cardiology consulted; recommended against IV heparin due to supratherapeutic INR.
- continue ASA/Statin
Acute on Chronic Hypoxemic Respiratory Failure
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
- currently on 6L NC
- Likely multifactorial and due to pulmonary edema/volume overload and influenza. Pneumonia (HAP)
- CXR with some left lower lobe subsegmental atelectasis and/or pneumonia and tiny left pleural effusion cannot be excluded
- CT Chest pending
- ST eval
- procal 8.21
- check blood cultures, sputum culture
- start empiric Vanco/Cefepime
Sepsis POA
- leukocytosis, tachycardia, tachypnea, pneumonia
- Abx as above
- will provide additional midodrine for BP Support, already volume overloaded and hypoxic, will defer IVF at present
Influenza
- Tamiflu 30mg after HD x 5 days (//) - last dose 11/03 as previously planned
- Follow proper precautions.
ESRD on HD
Volume Overload
Acute on Chronic HFrEF
acute Hyperkalemia
acute Hyponatremia
Hyperphosphatemia
- Patient is anuric by history.
- Nephrology following for HD/UF during hospital stay.
- Echo done last month with LVEF = 42% and evidence of RV dilation / overload.
- Follow daily weights. Follow for improvement in dyspnea.
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
History of orthostatic hypotension
- on Midodrine; additional 10mg now for hypotension with sepsis
history of recurrent ascites
- s/p paracentesis 10/31 - 5.3 L removed. no SBP at that time.
Permanent Atrial Fibrillation
- Stable. hold Coumadin acutely given supratherapeutic INR.
- Follow INR daily and re-dose/resume when appropriate.
Gout
- Stable. No current joint pain.
- Continue allopurinol.
Peripheral neuropathy
Constipation
- continue bowel regimen
DVT ppx: supratherapeutic INR
Code: Full
[2024-11-02 13:02] LABS: Troponin I 0.484 ng/ml
[2024-11-02 13:16] LABS: Procalcitonin 8.21 ng/ml (0.0-0.25)
[2024-11-02] MEDS: ProAmatine 10 MG PO ×2 (14:06→15:26)
[2024-11-02] MEDS: ATROVENT NEBULES 0.5 MG INH ×2 (14:09→19:51)
--- NOTE | 2024-11-02 15:14 | PHA.VAN.IN ---
Assessment
- Assessment
Renal Function: Patient has ESRD, on chronic Hemodialysis
Hemodialysis Schedule: MWF
Concomitant Antimicrobials: CEFEPIME
Plan
- Plan
Initial / Loading Dose: VANCO 1500MG X1
Monitoring: RANDOM 11/03 @0600
MRSA Screen: Ordered per protocol
Pharmacokinetics Vancomycin I
- -
Patient Age: 84
Patient Sex: Male
Vancomycin Day #: 1
Indication: Pulmonary/Respiratory
Requesting Provider: DR. MCKENZIE
Height / Weight:
Height 5 ft 6 in
Actual Weight 72.9 kg
Pertinent Past Medical History: ESRD HD
- Vital Signs / Lab Results
Temp Pulse Resp BP Pulse Ox
98.2 F 92 23 106/84 86
11/02/24 06:31 11/02/24 14:06 11/02/24 13:30 11/02/24 14:06 11/02/24 11:00
Lab Results - Hematology
11/02/24
07:44
WBC 16.1 H
Lab Results - Chemistry
11/02/24 11/02/24 11/02/24
07:44 08:15 09:40
BUN Cancelled Cancelled 24 H
Creatinine Cancelled Cancelled 2.4 H
Estimated Creat Clear Cancelled Cancelled 21
Albumin Cancelled Cancelled 2.9 L
[2024-11-02] MEDS: TYLENOL 650 MG PO (15:26)
[2024-11-02] MEDS: MUCINEX 600 MG PO (15:26)
[2024-11-02] MEDS: VANCOCIN 530 MG IV (17:11)
[2024-11-02] MEDS: PHOSLO 1334 MG PO (17:12)
[2024-11-02] MEDS: MAXIPIME 1000 MG IV (17:14)
[2024-11-02] MEDS: LOPRESSOR PO ×2 (17:14→23:57)
--- NOTE | 2024-11-02 18:44 | PTCARENOTE ---
Pt presented from the ER. Pt transfered from stretcher to bed. full head to assessment done, see nursing assessments for details. PT able to make needs known. Pt alert x2-3 drowsy very week at baseline. PT co 3/10 back pain that is chronic for him,
tylenol given with improved pain. Pt is a fall risk pt verbalized an understanidn and agreed to not get out of bed. The patient was oriented to the unit and knows how to call for nurse
[2024-11-02 19:15] LABS: Troponin I 0.484 ng/ml
--- NOTE | 2024-11-02 21:30 | PTCARENOTE ---
Patient states he wants medicine to help him sleep. [employer] CROP DUSTER Soumya Stockton notified. See MAR.
[2024-11-02] MEDS: MYLICON 80 MG PO (21:55)
[2024-11-02] MEDS: SENOKOT-S 1 TABLET PO (21:58)
[2024-11-02] MEDS: DESYREL 12.5 MG PO (21:59)
[2024-11-02] MEDS: LIPITOR 40 MG PO (22:01)
[2024-11-03] VITALS (7 sets, daily range): BP systolic 81–126; BP diastolic 51–69; BMI 26.7; BMI 26.6
[2024-11-03] MEDS: ATROVENT NEBULES 0.5 MG INH ×6 (00:15→19:40)
[2024-11-03 01:13] LABS: Troponin I 0.367 ng/ml
--- NOTE | 2024-11-03 01:20 | PTCARENOTE ---
Patient's troponin came back 0.367. SAILBOAT CAPTAIN Soumya Stockton notified. Will continue to monitor.
[2024-11-03] MEDS: LOPRESSOR PO ×3 (07:23→23:16)
[2024-11-03] MEDS: MUCINEX PO (09:00)
[2024-11-03] MEDS: ProAmatine 10 MG PO ×4 (09:03→16:02)
[2024-11-03] MEDS: VISBIOME 1 CAP PO (09:04)
[2024-11-03] MEDS: TAMIFLU 30 MG PO (09:04)
[2024-11-03] MEDS: ASPIR LOW (ENTERIC COATED) 81 MG PO (09:04)
[2024-11-03] MEDS: SENOKOT-S 1 TABLET PO ×2 (09:04→20:30)
[2024-11-03] MEDS: MIRALAX 17 GRAMS PO (09:04)
[2024-11-03] MEDS: PROTONIX 40 MG PO (09:04)
[2024-11-03] MEDS: VITAMIN B-12 1000 MCG PO (09:04)
[2024-11-03] MEDS: PHOSLO 1334 MG PO ×2 (09:04→16:01)
[2024-11-03] MEDS: MUCINEX 600 MG PO (09:05)
[2024-11-03] MEDS: MYLICON 80 MG PO ×2 (09:07→20:29)
[2024-11-03] MEDS: ZYLOPRIM 100 MG PO (09:07)
--- NOTE | 2024-11-03 09:17 | W.PN.HOSP.TC ---
Today's Communication/Plan
-
Frequent hospitalizations, failure to thrive , consult palliative care. Family was made aware of complicated medical problems and recurrent hospital care need with progressive decline
Follow-up with the blood culture, if negative, stop antibiotic. Known to have atelectasis/progressive pulmonary hypertension. Oxygen requirement back to baseline
Assessment / Plan
Assessment / Plan
Physical Exam
General: Appears Chronically Ill, not in distress
HEENT: Normocephalic and Anicteric
Respiratory: chronic rales
Cardiac: S1/S2
GI: Soft and Non Tender, not distended.
Neuro: AO x 3, he follows commands
Psych: Calm
# Goals of care discussion
Patient and family were informed on few occasions about poor prognosis and need for recurrent hospitalization. Patient has progressive disease with progressive secondary pulmonary hypertension/volume overload
Consulted palliative care
Chest Pain in setting of volume overload
ASCVD
- EKG no evidence of acute ischemic. Non myocardial injury troponin elevation.
- trop 0.4. then trend down
- Cardiology consulted; recommended against IV heparin due to supratherapeutic INR.
- continue ASA/Statin
Acute on Chronic Hypoxemic Respiratory Failure
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
-Back on 2 liters
- Likely multifactorial and due to pulmonary hypertension/volume overload and influenza.
- CXR with some left lower lobe subsegmental atelectasis and/or pneumonia and tiny left pleural effusion cannot be excluded
- CT Chest showed atelectasis more than infiltration
-Elevated procalcitonin can happen renal failure/cardiogenic shock
Follow-up with the blood cultures
Continue with empiric Vanco/Cefepime
SIRS
No obvious bacterial infection. CAT scan of the chest did not show definitive infiltrate. Recent viral infection. Will follow-up with the blood cultures
Clinically not toxic although he is cachectic and chronically ill looking
Elevated procalcitonin also reported renal failure/cardiogenic shock.
Continue to do pressure support
Empiric IV vancomycin and cefepime until blood culture returns
Influenza
- Tamiflu 30mg after HD x 5 days (//) - last dose 11/03 as previously planned
- Follow proper precautions.
ESRD on HD
Volume Overload
Acute on Chronic HFrEF
acute Hyperkalemia
acute Hyponatremia
Hyperphosphatemia
- Patient is anuric by history.
- Nephrology following for HD/UF during hospital stay.
- Echo done last month with LVEF = 42% and evidence of RV dilation / overload.
- Follow daily weights. Follow for improvement in dyspnea.
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
History of orthostatic hypotension
- on Midodrine; additional 10mg now for hypotension with sepsis
history of recurrent ascites
- s/p paracentesis 10/31 - 5.3 L removed. no SBP at that time.
No abdominal pain or tenderness. No distention on examination
Permanent Atrial Fibrillation
Follow-up with echocardiogram
- Follow INR daily and re-dose/resume when appropriate.
Gout
- Stable. No current joint pain.
- Continue allopurinol.
Peripheral neuropathy
Constipation
- continue bowel regimen
DVT ppx: supratherapeutic INR
Code: Full
Total time spent to see the patient, examine the patient, review data and lab results, discuss treatment plan with patient and nursing staff around 55 minutes
Anticipated Discharge: > 48 hours
Subjective/Interval History
-
Date of Service: November 03, 2024
Objective Data
-
Labs:
Laboratory Results
11/03/24 11/03/24
06:00 07:00
WBC Pending Pending
Hgb Pending Pending
Hct Pending Pending
Plt Count Pending Pending
PT Pending
INR Pending
Sodium Pending
Potassium Pending
Chloride Pending
Carbon Dioxide Pending
BUN Pending
Creatinine Pending
Glucose Pending
Calcium Pending
Total Bilirubin Pending
AST Pending
ALT Pending
Alkaline Phosphatase Pending
Vital Signs:
Vital Signs
Temp Pulse Resp BP Pulse Ox
98.1 F 92 18 126/55 100
11/03/24 07:44 11/03/24 09:07 11/03/24 07:44 11/03/24 09:07 11/03/24 07:44
I&O
11/02/24 11/03/24 11/04/24
06:59 06:59 06:59
Intake Total 120 / 120
Balance 120 / 120
--- NOTE | 2024-11-03 09:58 | PTOTSP ---
Speech Therapy Evaluation:
Pt with acute on chronic risk factors of dysphagia including acute on chronic respiratory failure, acute on chronic heart failure, COPD, and GERD. No s/sx of aspiration at bedside, however baseline cough present outside of PO trials, possibly
related to Flu vs. COPD vs. CHF. Pt remains at increased risk of aspiration and related complications due to concern for breathing swallow coordination. Pt passed 3oz swallow screen and chest CT favored to represent atelectasis.
Recommend:
1. Regular, Thin Liquids
2. Medications: whole versus crushed in puree
3. Strategies: upright to 90 degrees, small single sips/bites, slow rate w/ breaks for breathing, reflux precautions
4. Oral care 3-5x daily
5. YARD FOREMAN to follow to monitor tolerance of current diet level. If concerned for aspiration , could consider instrumental assessment study given risk factors.
--- NOTE | 2024-11-03 10:17 | W.PN.CARDCBS ---
Today's Communication / Plan
-
Chest pain resolved.
Trop peak at 0.4.
Echo pending.
He has hx of chronic chest/shoulder and back discomfort and relates mostly to musculoskeletal discomfort.
EKG is without acute changes.
Cont ASA
Cont coumadin with INR goal 2-3
Resume beta cristine with tachycardia, he does have hx of bradycardia at times with beta blockers in the past.
Cont volume control with HD, nephrology following
Impression / Plan
-
.
Impression:
Chest pain and abnormal troponin
Chest pain is atypical and spontaneously resolved
Active influenza (currently completing Tamiflu)
ESRD on HD
Recurrent Chest Pain
CAD/CABG x 3 vessel left internal mammary to LAD and saphenous vein graft to obtuse marginal 1 sequentially to obtuse marginal [address] Salmeron 03/26/2015.
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
Permanent atrial fibrillation
on warfarin anticoagulation
History of bradycardia on metoprolol during dialysis
BOBBY noncompliant CPAP
Chronic right-sided heart failure with pulmonary hypertension
Heart failure with reduced ejection fraction
Recurrent ascites
s/p paracentesis for 4900cc 10/08/24
Peripheral neuropathy
Gout
Anemia of chronic disease
Hyponatremia
ECHO 10/08/24: EF 42%, septal flattening due to RV pressure and volume overload, RV dilated, biatrial enlargement, mild to moderate MR, aortic sclerosis, moderate to severe TR, PASP 65 mmHg, mildly dilated ascending aorta 4.0 cm
Plan:
Chest pain resolved.
Trop peak at 0.4.
Echo pending.
He has hx of chronic chest/shoulder and back discomfort and relates mostly to musculoskeletal discomfort.
EKG is without acute changes.
Cont ASA
Cont coumadin with INR goal 2-3
Resume beta cristine with tachycardia, he does have hx of bradycardia at times with beta blockers in the past.
Cont volume control with HD, nephrology following
Concern for infection/pneumonia given elevated procalcitonin and abnormal chest x-ray as well as recent diagnosis of influenza pneumonia. Further eval/treat as per primary service
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
Subjective
Date of Service: November 03, 2024
Pt seen and examined. No complaints. No chest pain or shortness of breath.
Objective
Labs:
Labs
Hgb 11.3 g/dL (13.0-18.0) L 11/02/24 07:44
Hct 34.9 % (39.0-52.0) L 11/02/24 07:44
Plt Count 221 10^3/uL (130-400) 11/02/24 07:44
PT 31.5 Sec (11.4-14.6) H 11/02/24 10:28
INR 3.06 11/02/24 10:28
Sodium 130 mmol/L (135-145) L 11/02/24 09:40
Potassium 4.6 mmol/L (3.5-5.1) 11/02/24 09:40
BUN 24 mg/dl (9-20) H 11/02/24 09:40
Creatinine 2.4 mg/dL (0.7-1.3) H 11/02/24 09:40
Glucose 80 mg/dl (70-99) 11/02/24 09:40
Troponins
11/02/24 11/02/24 11/02/24
07:44 08:15 09:40
Troponin I Cancelled Cancelled 0.432 H*
11/02/24 11/02/24 11/03/24
12:24 18:37 00:40
Troponin I 0.484 H* 0.484 H* 0.367 H*
11/03/24
06:00
Troponin I Cancelled
Vital Signs and I&O:
Vital Signs
Temp Pulse Resp BP Pulse Ox
98.1 F 92 18 126/55 100
11/03/24 07:44 11/03/24 09:07 11/03/24 07:44 11/03/24 09:07 11/03/24 07:44
Vital Signs
Temp Pulse Resp BP Pulse Ox
98.1 F 92 18 126/55 100
11/03/24 07:44 11/03/24 09:07 11/03/24 07:44 11/03/24 09:07 11/03/24 07:44
Intake & Output
11/01/24 11/02/24 11/03/24 11/04/24
06:59 06:59 06:59 06:59
Intake Total 120 / 120
Balance 120 / 120
Physical Exam
Physical Exam
General: No acute distress, arousable, lethargic
Neck: Negative JVD
Heart: Irregularly irregular, Negative S3 positive S1/S2, Negative S4, No murmur
Lungs: CTA b/l, negative wheezes/rales/rhonchi
Abd: Positive BS, NT/ND, neg rebound/rigidity/guarding
Ext: Negative cyanosis/clubbing/edema
Neuro: nonfocal
--- NOTE | 2024-11-03 11:15 | WOUNDNOTE ---
HEELS(HEEL CLOSER TO BED HAS DIRT ON IT)
--- NOTE | 2024-11-03 11:16 | WOUNDNOTE ---
WO RN note: Patient admitted with NSTEMI-DE pleural effusion.
See H&P for complete history. Vanessa Carmona.
PMH: NIDDM, A fib, CHF,HTN, Hemodialysis, ex smoker and CAD.
Wound Location and type/assessment: Patient admitted with: Sacrum and heels with stage 1 non blanchable pink skin, foams in use. elbows with foam adhesives in use for protection, documented blanchable red.
Appetite: Good.
Pressure redistribution devices in place: Air overlay added to bed with assist of nurse Nikki and PCT. Pillow under calves
Plan: Silicone foam changed on sacrum and adhesive foams changed on heels.
Will confirm orders with hospitalist and updated nurse.
Updated care plan and will follow as needed.
Note to case management of equipment requested for discharge: air mattress.
[2024-11-03] MEDS: PHOSLO PO (11:56)
--- NOTE | 2024-11-03 12:08 | CM ---
Addendum entered by Irais Linder 11/03/24 15:00:
Message left with Daniela patient's daughter to review alternative skilled options.
Original Note:
traffic ii manager received a call from [facility] longterm admissions and they will not accept patient back patient has had multiple admissions and the cost of transport to outpatient HD at [facility] is too much for their facility. Prior to
[facility] patient was at [facility] and prior to that patient was at [facility], and a [facility].
Plan; To review with patient and family skilled options with HD.
--- NOTE | 2024-11-03 12:13 | W.CON.PAL ---
Consultation
-
Date/Time Consultation Requested: 11/03
Date/Time Consultation Performed: 11/03
Requesting Provider: Dr Peguero
Performing Provider: Flower Mcadams
Reason for Consult: Goals of Care Discussion
Primary Diagnosis: ESRD on HD, FTT
Consult Requested By: Patient's Physician
Reason for Admission
Illness Course/HPI
84 year old M with PMH of ESRD on HD, COPD/chronic hypoxemia admitted from SNF with chest pain. Of note, recent admission for which he was found to have the flu - that admission was also for chest pain and was found to be volume overloaded which
improved with HD and paracentesis.
Upon admisson, troponin was 4 so admitted for further management.
Per chart review, multiple admissions since the beginning of the year both here and at [facility] for volume overload, flu, sepsis from PNA.
Seen at bedside with no family present. Reports feeling better since being in the hospital, waiting for dialysis. Reports hes just had a bout of bad luck that ended up with him in the hospital a few times with the flu, etc. Tells me hes been on HD
for 2 years, thats its going well and is hoping he can eventually get back home. Has been back and forth to the hospital and SNF - prior to that was living alone and doing fine. Asked me to call his DIL Daniela. No answer, will await call back or try
again tomorrow.
Objective Data
-
Objective Data:
Vital Signs
Temp Pulse Resp BP Pulse Ox
98.2 F 89 18 109/69 100
11/03/24 11:24 11/03/24 11:55 11/03/24 11:24 11/03/24 11:55 11/03/24 11:24
PT 31.5 Sec (11.4-14.6) H 11/02/24 10:28
INR 3.06 11/02/24 10:28
Total Protein 5.3 g/dl (6.3-8.2) L 11/02/24 09:40
Albumin 2.9 g/dl (3.5-5.0) L 11/02/24 09:40
Palliative Performance Scale
Palliative Performance Scale:
PPS Level Ambulation Activity & Evidence of Disease Self Care Intake Conscious Level
100% Full Normal Activity & Work; Full Intake Full
No Evidence of Disease
90% Full Normal Activity & Work; Full Normal Full
Some Evidence of Disease
80% Full Normal Activity with Effort Full Normal or Full
Some Evidence of Disease Reduced
70% Reduced Unable Normal Job/Work Full Normal or Full
Significant Disease Reduced
60% Reduced Unable Hobby/Housework Occasional Normal or Full or Confusion
Significant Disease Assistance Reduced
50% Mainly Sit/Lie Unable to do Any Work Considerable Normal or Full or Confusion
Extensive Disease Assistance Req'd Reduced
40% Mainly in Bed Unable to do Most Activity Mainly Assistance Normal or Full or Drowsy;
Extensive Disease Reduced +/- Confusion
30% Totally Bed Unable to do Any Activity Total Care Normal or Full or Drowsy;
Bound Extensive Disease Reduced +/- Confusion
20% Totally Bed Bound Unable to do Any Activity Total Care Minimal to Full or Drowsy;
Extensive Disease Sips +/- Confusion
10% Totally Bed Bound Unable to do Any Activity Total Care Mouth Care Drowsy or Coma;
Extensive Disease Only +/- Confusion
0%
PPS Score Level:
Palliative Performance Score Response
Palliative Performance Score Response: 50%
Physical Exam
-
General: Appears Chronically Ill
HEENT: Normocephalic
Respiratory: Decreased Breath Sounds
Cardiac: Regular Rhythm
Peripheral Vascular: Edema, Right Lower Extremity and Edema, Left Lower Extremity
GI: Soft and Nondistended
Skin: Warm
Neuro: AO x 3
Psych: Calm
Assessment / Plan
-
Assessment/Plan:
84 year old M with PMH of ESRD on HD, pHTN.
- attempt to reach out to daughter again tomorrow
Care Reviewed
Data Reviewed
EKG Tracings: Tracing Reviewed
Radiology procedure: Image Reviewed
Medical Tests: I reviewed
Reviewed with: Patient, Family and Physician
[2024-11-03 13:17] LABS: Hematocrit 33.3 % (39.0-52.0); Hemoglobin 10.7 g/dL (13.0-18.0); Mean Corp Hgb Conc. 32.1 g/dL (33.0-37.0); Mean Corpuscular Hgb 30.9 pg (27.0-31.0); Mean Corpuscular Volume 96.2 fL (80.0-94.0); Mean Platelet Volume 10.7 fL (7.4-10.4); Platelet Count 229 10^3/uL (130-400); Red Blood Cell Count 3.46 10^6/uL (4.70-6.10); Red Cell Dist. Width 16.6 % (11.5-14.5); White Blood Cell Count 10.9 10^3/uL (4.8-10.8)
[2024-11-03 13:20] LABS: INR 4.17; PT 39.8 Sec (11.4-14.6)
[2024-11-03 13:51] LABS: ALT (SGPT) 12 U/L (0-50); AST (SGOT) 33 U/L (17-59); Albumin 3.1 g/dl (3.5-5.0); Alkaline Phosphatase 239 U/L (38-126); Blood Urea Nitrogen 38 mg/dl (9-20); Calcium 8.3 mg/dl (8.4-10.2); Carbon Dioxide 26 mmol/L (22-30); Chloride 89 mmol/L (98-107); Estimated Creatinine Clearance 16 ml/min; Glucose 104 mg/dl (70-99); Potassium 4.7 mmol/L (3.5-5.1); Sodium 128 mmol/L (135-145); Total Bilirubin 1.6 mg/dl (0.2-1.3); eGFR 18.38
[2024-11-03] MEDS: HEPARIN 5100 UNITS INTRACATH (14:17)
[2024-11-03 14:55] LABS: Total Protein 5.9 g/dl (6.3-8.2)
--- NOTE | 2024-11-03 15:23 | W.PN.UPDATE ---
Update Note
Progress Note Update
Addendum
Received a call from nurse to updated daughter in law ( Daniela)
I called and left . This happened before and never got a call back. Will follow and happy to give updates when she is available.
--- NOTE | 2024-11-03 16:17 | PHA.VAN.FU ---
Vancomycin Assessment / Plan
- Assessment
Hemodialysis Schedule: MWF
WBC's are: Trending Down
In the past 24 hrs, patient has been: Afebrile
Concomitant Antimicrobials: cefepime
- Assessment - Therapeutic Drug Monitoring
Random Level: 22 - drawn ~19.5H after 1500mg initial dose
- Dosing Plan
Dosing by Level: Hold off on dosing today
- Monitoring Plan
No level(s) ordered at this time: consider level prior to next HD
- Follow Up
Pharmacy will continue to follow.
Vancomycin Follow UP
- -
Patient Age: 84
Patient Sex: Male
Vancomycin Day #: 2
Indication: Pulmonary/Respiratory
Requesting Provider: Dr. Solis
Pertinent Antimicrobial Allergies:
NKDA
Height / Weight:
Height 5 ft 6 in
Actual Weight 75.098 kg
Pertinent Past Medical History: ESRD HD
- Vital Signs / Lab Results
Temp Pulse Resp BP Pulse Ox
97.5 F 88 18 120/56 100
11/03/24 15:25 11/03/24 16:02 11/03/24 15:34 11/03/24 16:02 11/03/24 15:34
Lab Results - Hematology
11/02/24 11/03/24 11/03/24
07:44 07:00 12:48
WBC 16.1 H Cancelled 10.9 H
Lab Results - Chemistry
11/02/24 11/02/24 11/02/24
07:44 08:15 09:40
BUN Cancelled Cancelled 24 H
Creatinine Cancelled Cancelled 2.4 H
Estimated Creat Clear Cancelled Cancelled 21
Albumin Cancelled Cancelled 2.9 L
11/03/24
12:48
BUN 38 H
Creatinine 3.2 H
Estimated Creat Clear 16
Albumin 3.1 L
Microbiology Results
11/02/24 14:24 Blood Culture - Preliminary
Blood/Venous No Growth in 24 hours- Final report to follow
11/02/24 14:12 Blood Culture - Preliminary
Blood/Venous No Growth in 24 hours- Final report to follow
11/02/24 18:15 Nasal Screen MRSA (PCR) - Final
Nose MRSA not detected - performed by PCR methodology.
Therapeutic Drug Monitoring
Random Vancomycin 22.0 ug/ml 11/03/24 12:48
[2024-11-03] MEDS: MAXIPIME 1000 MG IV (17:31)
[2024-11-03] MEDS: LOPRESSOR 12.5 MG PO (17:32)
[2024-11-03] MEDS: ZOFRAN 4 MG IV (19:58)
[2024-11-03] MEDS: MELATONIN 5 MG PO (20:31)
[2024-11-03] MEDS: TYLENOL 650 MG PO (20:36)
[2024-11-03] MEDS: LIPITOR 40 MG PO (20:42)
--- NOTE | 2024-11-03 22:10 | PTCARENOTE ---
Patient stats his 'throat is burning'. CURATOR Soumya Stockton notified. See MAR.
[2024-11-03] MEDS: TUMS CHEWABLE TABLET 200 MG PO (22:19)
[2024-11-03] MEDS: ATROVENT NEBULES INH (23:56)
[2024-11-04] VITALS (23 sets, daily range): BP systolic 73–124; BP diastolic 35–86
--- NOTE | 2024-11-04 02:30 | PTCARENOTE ---
Patient screaming out 'help me!'. This RN goes into patient's room and he states 'he is leaving' and 'I want to leave now'. He told this RN to call his grandson from patient's cell phone, 'he will come pick me up'. Patient talked with grandson on
phone stating things like 'they won't let me get up to the recliner'. This RN spoke with patient's daughter, Daniela. This RN educated both the patient and the family members on the risks of moving the patient at this time. Patient agreed to stay.
Will continue to monitor.
[2024-11-04] MEDS: ZOFRAN 4 MG IV (03:09)
[2024-11-04] MEDS: ATROVENT NEBULES INH ×2 (04:18→20:18)
[2024-11-04] MEDS: LOPRESSOR PO (05:44)
[2024-11-04 06:53] LABS: PT 46.2 Sec (11.4-14.6)
[2024-11-04 06:56] LABS: INR 5.07
[2024-11-04] MEDS: ATROVENT NEBULES 0.5 MG INH ×3 (07:11→15:25)
--- NOTE | 2024-11-04 07:11 | PTCARENOTE ---
Lab informed this RN of critical INR, result=5.07. made aware. Will cont to monitor.
--- NOTE | 2024-11-04 07:23 | W.PN.CARDCBS ---
Today's Communication / Plan
-
Cont medical therapy of nonMI troponin
Trop peak at 0.4.
Echo pending.
He also complains of back pain. Cont pain control.
EKG is without acute changes.
Cont ASA
INR supratherapeutic, resume coumadin once INR improved with goal INR goal 2-3
Cont beta cristine with tachycardia, he does have hx of bradycardia at times with beta blockers in the past.
Lower dose with hypotension
Cont volume control with HD, nephrology following
Eval for infection/pneumonia as per primary service, given elevated procalcitonin and abnormal chest x-ray as well as recent diagnosis of influenza pneumonia.
Further eval/treat as per primary service
He has significant deconditioning and agree with palliative care and eval. His prognosis is extremely poor and he has significant failure to thrive. His risk of recurrent admission is very high.
Goals of care ongoing.
Discussed with nursing and with primary service.
Impression / Plan
-
.
Impression:
Failure to thrive
Back pain
Chest pain and abnormal troponin
Chest pain is atypical and spontaneously resolved
Acute on chronic hypoxemic respiratory failure
Influenza, completed Tamiflu
ESRD on HD
Recurrent Chest Pain
CAD/CABG x 3 vessel left internal mammary to LAD and saphenous vein graft to obtuse marginal 1 sequentially to obtuse marginal [address] Salmeron 03/26/2015.
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
Permanent atrial fibrillation
on warfarin anticoagulation
History of bradycardia on metoprolol during dialysis
BOBBY noncompliant CPAP
Chronic right-sided heart failure with pulmonary hypertension
Heart failure with reduced ejection fraction
Recurrent ascites
s/p paracentesis for 4900cc 10/08/24
Peripheral neuropathy
Gout
Anemia of chronic disease
Hyponatremia
ECHO 10/08/24: EF 42%, septal flattening due to RV pressure and volume overload, RV dilated, biatrial enlargement, mild to moderate MR, aortic sclerosis, moderate to severe TR, PASP 65 mmHg, mildly dilated ascending aorta 4.0 cm
Plan:
Chest pain resolved. Cont medical therapy of nonMI troponin
Trop peak at 0.4.
Echo pending.
He has hx of chronic chest/shoulder and back discomfort and relates mostly to musculoskeletal discomfort.
He also complains of back pain. Cont pain control.
EKG is without acute changes.
Cont ASA
INR supratherapeutic, resume coumadin once INR improved with goal INR goal 2-3
Cont beta cristine with tachycardia, he does have hx of bradycardia at times with beta blockers in the past.
Lower dose with hypotension
Cont volume control with HD, nephrology following
Eval for infection/pneumonia as per primary service, given elevated procalcitonin and abnormal chest x-ray as well as recent diagnosis of influenza pneumonia.
Further eval/treat as per primary service
He has significant deconditioning and agree with palliative care and eval. His prognosis is extremely poor and he has significant failure to thrive. His risk of recurrent admission is very high.
Goals of care ongoing.
Discussed with nursing and with primary service.
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
Subjective
Date of Service: November 04, 2024
Pt seen and examined. Complaints of back pain. No chest pain or shortness of breath.
Objective
Labs:
11/03/24 12:48
11/03/24 12:48
Labs
Hgb 10.7 g/dL (13.0-18.0) L 11/03/24 12:48
Hct 33.3 % (39.0-52.0) L 11/03/24 12:48
Plt Count 229 10^3/uL (130-400) 11/03/24 12:48
PT 46.2 Sec (11.4-14.6) H 11/04/24 06:09
INR 5.07 H* 11/04/24 06:09
Sodium 128 mmol/L (135-145) L 11/03/24 12:48
Potassium 4.7 mmol/L (3.5-5.1) 11/03/24 12:48
BUN 38 mg/dl (9-20) H 11/03/24 12:48
Creatinine 3.2 mg/dL (0.7-1.3) H 11/03/24 12:48
Glucose 104 mg/dl (70-99) H 11/03/24 12:48
Troponins
11/02/24 11/02/24 11/02/24
07:44 08:15 09:40
Troponin I Cancelled Cancelled 0.432 H*
11/02/24 11/02/24 11/03/24
12:24 18:37 00:40
Troponin I 0.484 H* 0.484 H* 0.367 H*
11/03/24
06:00
Troponin I Cancelled
Vital Signs and I&O:
Vital Signs
Temp Pulse Resp BP Pulse Ox
97.5 F 72 16 82/44 95
11/04/24 03:10 11/04/24 07:12 11/04/24 07:12 11/04/24 03:10 11/04/24 03:10
Vital Signs
Temp Pulse Resp BP Pulse Ox
97.5 F 72 16 82/44 95
11/04/24 03:10 11/04/24 07:12 11/04/24 07:12 11/04/24 03:10 11/04/24 03:10
Intake & Output
11/02/24 11/03/24 11/04/24 11/05/24
06:59 06:59 06:59 06:59
Intake Total 120 / 120 220 / 220
Balance 120 / 120 220 / 220
Physical Exam
Physical Exam
General: No acute distress, arousable, lethargic
Neck: Negative JVD
Heart: Irregularly irregular, Negative S3 positive S1/S2, Negative S4, No murmur
Lungs: CTA b/l, negative wheezes/rales/rhonchi
Abd: Positive BS, NT/ND, neg rebound/rigidity/guarding
Ext: Negative cyanosis/clubbing/edema
Neuro: nonfocal
[2024-11-04] MEDS: ProAmatine 10 MG PO ×3 (07:42→15:57)
[2024-11-04] MEDS: TYLENOL 650 MG PO ×2 (07:43→18:23)
[2024-11-04] MEDS: PHOSLO PO (07:44)
[2024-11-04] MEDS: FLEXBUMIN 25% FOR HEMODIALYSIS 12.5 GRAMS IV ×2 (08:35→10:08)
[2024-11-04 08:36] LABS: Hematocrit 31.8 % (39.0-52.0); Hemoglobin 10.6 g/dL (13.0-18.0); Mean Corp Hgb Conc. 33.3 g/dL (33.0-37.0); Mean Corpuscular Hgb 30.7 pg (27.0-31.0); Mean Corpuscular Volume 92.2 fL (80.0-94.0); Mean Platelet Volume 10.3 fL (7.4-10.4); Platelet Count 206 10^3/uL (130-400); Red Blood Cell Count 3.45 10^6/uL (4.70-6.10); Red Cell Dist. Width 16.1 % (11.5-14.5); White Blood Cell Count 10.5 10^3/uL (4.8-10.8)
[2024-11-04] MEDS: MANNITOL 25% 12.5 GRAMS IV ×2 (08:40→10:08)
--- NOTE | 2024-11-04 09:06 | W.PN.HOSP.TC ---
Today's Communication/Plan
-
Called ANA Suarez and left VM this morning and no call back despite leaving her with my direct phone number.
Later called son based on pt's suggestion and spoke with Jeremy, son wanted to get updates, will call him again tomorrow.
D/w son poor prognosis, he was aware ( being told before)
Assessment / Plan
Assessment / Plan
Physical Exam
General: Appears Chronically Ill, not in distress
HEENT: Normocephalic and Anicteric
Respiratory: chronic rales
Cardiac: S1/S2
GI: Soft and Non Tender, not distended.
Neuro: AO x 3, he follows commands
Psych: Calm
# Goals of care discussion
Patient and family were informed on few occasions about poor prognosis and failure to thrive condition( noted on prior notes). Patient remains high risk for recurrent hospitalization and worsening condition. Patient has progressive disease with
slowly progressive multiple organ failure.
Called son based on pt's suggestion and spoke with Jeremy, son wanted to get updates, will call him again tomorrow. D/w son code status and explained DNR does not mean do not treat. Family has full understanding of poor prognosis situation and
inability to keep patient away from the hospital for reasonable time. Patient told me that he did not want to be on life support machines. Recommended DNR. Patient and son expressed same desire to continue treatments as possible knowing that
outcome will highly likely be unfavorable.
# Supre- therapeutic INR, likely due to use of IV Abx
Will give low dose vitamin K
Chest Pain in setting of volume overload
ASCVD
- EKG no evidence of acute ischemic. Non myocardial injury troponin elevation.
- trop 0.4. then trend down
- Cardiology consulted; recommended against IV heparin due to supratherapeutic INR.
- continue ASA/Statin
Acute on Chronic Hypoxemic Respiratory Failure
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
-Back on 2 liters
- Likely multifactorial and due to pulmonary hypertension/volume overload and influenza.
- CXR with some left lower lobe subsegmental atelectasis and/or pneumonia and tiny left pleural effusion cannot be excluded
- CT Chest showed atelectasis more than infiltration
-Elevated procalcitonin can happen renal failure/cardiogenic shock
Follow-up with the blood cultures
Continue with empiric Vanco/Cefepime
SIRS
No obvious bacterial infection. CAT scan of the chest did not show definitive infiltrate. Recent viral infection. NGTD on blood cultures
Clinically not toxic although he remains cachectic and chronically ill looking
Elevated procalcitonin also reported renal failure/cardiogenic shock.
Continue to do pressure support with high dose Midodrine.
Empiric IV vancomycin and cefepime until blood culture returns in 48 hours.
Influenza
- Tamiflu, finished.
ESRD on HD
Volume Overload
Acute on Chronic HFrEF
acute Hyperkalemia
acute Hyponatremia
Hyperphosphatemia
- Patient is anuric by history.
- Nephrology following for HD/UF during hospital stay.
- Echo done last month with LVEF = 42% and evidence of RV dilation / overload.
- Follow daily weights. Follow for improvement in dyspnea.
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
History of orthostatic hypotension
- on Midodrine; additional 10mg now for hypotension with sepsis
history of recurrent ascites
- s/p paracentesis 10/31 - 5.3 L removed. no SBP at that time.
No abdominal pain or tenderness. No distention on examination
Permanent Atrial Fibrillation
Follow-up with echocardiogram
- Follow INR daily and re-dose/resume when appropriate.
Gout
- Stable. No current joint pain.
- Continue allopurinol.
Peripheral neuropathy
Constipation
- continue bowel regimen
DVT ppx: supratherapeutic INR
Code: Full
Total time spent to see the patient, examine the patient, review data and lab results, discuss treatment plan with patient and nursing staff around 55 minutes
Anticipated Discharge: 24 - 48 hours
Subjective/Interval History
-
Date of Service: November 04, 2024
Reports feeling weak and not much better, reports back pain and discomfort
Reports reflux
Objective Data
-
Labs:
Laboratory Results
11/04/24 11/04/24
06:09 07:48
WBC 10.5
Hgb 10.6 L
Hct 31.8 L
Plt Count 206
PT 46.2 H
INR 5.07 H*
Sodium Pending
Potassium Pending
Chloride Pending
Carbon Dioxide Pending
BUN Pending
Creatinine Pending
Glucose Pending
Calcium Pending
Vital Signs:
Vital Signs
Temp Pulse Resp BP Pulse Ox
97.7 F 82 16 88/53 93
11/04/24 07:39 11/04/24 07:42 11/04/24 07:39 11/04/24 07:42 11/04/24 07:39
I&O
11/03/24 11/04/24 11/05/24
06:59 06:59 06:59
Intake Total 120 / 120 220 / 220
Balance 120 / 120 220 / 220
[2024-11-04 09:25] LABS: Blood Urea Nitrogen 47 mg/dl (9-20); Calcium 8.5 mg/dl (8.4-10.2); Carbon Dioxide 26 mmol/L (22-30); Chloride 89 mmol/L (98-107); Estimated Creatinine Clearance 13 ml/min; Glucose 80 mg/dl (70-99); Sodium 125 mmol/L (135-145); eGFR 14.49
--- NOTE | 2024-11-04 10:41 | W.PN.NEPH.HD ---
Assessment
-
Seen on dialysis today hypotensive isovolemic ultrafiltration
Midodrine
Albumin
Came back 300 cc of fluid with improved blood pressure
Progress Note - Hemodialysis
-
Date of Service: November 04, 2024
Duration: 30 minutes and 2 hours
Potassium Bath: 2
Calcium Bath: 2.5
Opti-Dialyzer: 160
Ultrafiltration: Other (1.5)
Blood Flow: 400
Dialysate Flow: 600
Heparin: 500x2
EPO: 0
--- NOTE | 2024-11-04 11:17 | W.PN.PAL2 ---
Today's Communication
-
delirium overnight
spoke with ANA Suarez
Goals of Care Discussion
-
Individuals Present for Discussion & Relationship to Patient:
spoke with patients ANA Suarez this AM via phone. Upset because she was told the team spoke with her and said her father isnt doing well. Discussed overall decline over recent months but that patient always told her he wanted to do everything
to stay alive. Per reports, patient upset overnight stating he wanted to go home and which she states isnt like him. States if thats what he wants, thats what they will do but would need to hear it from him and be of sound mind. Was in the
process of setting up palliative care for him.
Seen at bedside - patient reports feeling pain in back last night which made him say the things he did. He confirmed he wishes to continue with HD, does NOT want to stop to do hospice and go home to . Confirmed FC status as well.
Would continue to discuss with ANA about plans for discharge - patient would rather be home and do HD if possible and not go to SNF. Out of our service area for palliative but was in the process of setting up with [facility].
Objective Data
-
Objective Data:
Vital Signs
Temp Pulse Resp BP Pulse Ox
98.0 F 65 16 73/42 93
11/04/24 11:06 11/04/24 11:06 11/04/24 11:06 11/04/24 11:06 11/04/24 11:06
Laboratory Results
11/04/24 07:48
11/04/24 07:48
PT 46.2 Sec (11.4-14.6) H 11/04/24 06:09
INR 5.07 H* 11/04/24 06:09
Total Protein 5.9 g/dl (6.3-8.2) L 11/03/24 12:48
Albumin 3.1 g/dl (3.5-5.0) L 11/03/24 12:48
Palliative Performance Scale
Palliative Performance Scale:
PPS Level Ambulation Activity & Evidence of Disease Self Care Intake Conscious Level
100% Full Normal Activity & Work; Full Intake Full
No Evidence of Disease
90% Full Normal Activity & Work; Full Normal Full
Some Evidence of Disease
80% Full Normal Activity with Effort Full Normal or Full
Some Evidence of Disease Reduced
70% Reduced Unable Normal Job/Work Full Normal or Full
Significant Disease Reduced
60% Reduced Unable Hobby/Housework Occasional Normal or Full or Confusion
Significant Disease Assistance Reduced
50% Mainly Sit/Lie Unable to do Any Work Considerable Normal or Full or Confusion
Extensive Disease Assistance Req'd Reduced
40% Mainly in Bed Unable to do Most Activity Mainly Assistance Normal or Full or Drowsy;
Extensive Disease Reduced +/- Confusion
30% Totally Bed Unable to do Any Activity Total Care Normal or Full or Drowsy;
Bound Extensive Disease Reduced +/- Confusion
20% Totally Bed Bound Unable to do Any Activity Total Care Minimal to Full or Drowsy;
Extensive Disease Sips +/- Confusion
10% Totally Bed Bound Unable to do Any Activity Total Care Mouth Care Drowsy or Coma;
Extensive Disease Only +/- Confusion
0%
PPS Score Level:
Care Reviewed
Data Reviewed
Reviewed with: Patient, Family and Physician
--- NOTE | 2024-11-04 11:40 | PHA.VAN.FU ---
Vancomycin Assessment / Plan
- Assessment
Renal Function: SCR Increasing (3.9)
Hemodialysis Schedule: MWF
Last Hemodialysis performed: 11/03/24
WBC's are: WNL (10.5)
In the past 24 hrs, patient has been: Afebrile
Concomitant Antimicrobials: Cefepime
- Dosing Plan
Dosing by Level: Hold off on dosing today
- Monitoring Plan
Random Level: 11/05/24 Pre-HD level
- Follow Up
Pharmacy will continue to follow.
Vancomycin Follow UP
- -
Patient Age: 84
Patient Sex: Male
Vancomycin Day #: 4
Indication: Pulmonary/Respiratory
Requesting Provider: Dr. Solis
Pertinent Antimicrobial Allergies:
NKDA
Height / Weight:
Height 5 ft 6 in
Actual Weight 75.098 kg
Pertinent Past Medical History: ESRD HD
- Vital Signs / Lab Results
Temp Pulse Resp BP Pulse Ox
98.0 F 70 16 73/42 93
11/04/24 11:06 11/04/24 11:15 11/04/24 11:15 11/04/24 11:06 11/04/24 11:06
Lab Results - Hematology
11/02/24 11/03/24 11/03/24
07:44 07:00 12:48
WBC 16.1 H Cancelled 10.9 H
11/04/24
07:48
WBC 10.5
Lab Results - Chemistry
11/02/24 11/02/24 11/02/24
07:44 08:15 09:40
BUN Cancelled Cancelled 24 H
Creatinine Cancelled Cancelled 2.4 H
Estimated Creat Clear Cancelled Cancelled 21
Albumin Cancelled Cancelled 2.9 L
11/03/24 11/04/24
12:48 07:48
BUN 38 H 47 H
Creatinine 3.2 H 3.9 H
Estimated Creat Clear 16 13
Albumin 3.1 L
Microbiology Results
11/02/24 14:24 Blood Culture - Preliminary
Blood/Venous No Growth in 24 hours- Final report to follow
11/02/24 14:12 Blood Culture - Preliminary
Blood/Venous No Growth in 24 hours- Final report to follow
11/02/24 18:15 Nasal Screen MRSA (PCR) - Final
Nose MRSA not detected - performed by PCR methodology.
Therapeutic Drug Monitoring
Random Vancomycin 22.0 ug/ml 11/03/24 12:48
[2024-11-04] MEDS: SENOKOT-S 1 TABLET PO (11:47)
[2024-11-04] MEDS: ZYLOPRIM 100 MG PO (11:47)
[2024-11-04] MEDS: PHOSLO 1334 MG PO ×2 (11:47→15:57)
[2024-11-04] MEDS: ASPIR LOW (ENTERIC COATED) 81 MG PO (11:47)
[2024-11-04] MEDS: MUCINEX 600 MG PO (11:47)
[2024-11-04] MEDS: PROTONIX 40 MG PO (11:48)
[2024-11-04] MEDS: VISBIOME 1 CAP PO (11:48)
[2024-11-04] MEDS: MEPHYTON 2.5 MG PO (11:48)
[2024-11-04] MEDS: VITAMIN B-12 1000 MCG PO (11:49)
--- NOTE | 2024-11-04 13:44 | PTCARENOTE ---
Blood pressure decreased, pt drowsy. made aware, new order provided, see MAR. Will cont to monitor.
[2024-11-04] MEDS: ProAmatine 5 MG PO (13:46)
--- NOTE | 2024-11-04 14:57 | PTCARENOTE ---
Blood pressure rechecked, continues to be decreased. Pt drowsy. made aware.
[2024-11-04] MEDS: MAXIPIME 1000 MG IV (17:30)
[2024-11-04] MEDS: STERILE WATER FOR INJECTION 10 ML IV (17:31)
--- NOTE | 2024-11-04 18:55 | PTCARENOTE ---
site monitor alarmed bradycardia. Pt appeared pale and dusky. Pt unresponsive to sternal rub. Thready pulse. Rapid response called. Respirations not observed. Code called. CPR initiated. Code team at bedside.
[2024-11-04 19:12] LABS: Glucose - Point of Care 92 mg/dl (70-99)
--- NOTE | 2024-11-04 19:17 | W.PN.ANESINT ---
Anesthesia Intubation Note
- Intubation Note
Intubation Note:
Diagnosis: cardiac arrest
Blade: glidescope
Tube Size: 8.0 HiLo
Depth: 23cm at the lip
Side Taped: center
Drugs Used: none
Grade View: grade 1 view via live glidescope
EtCO2 Present: positive ETCO2 change on ETCO2 detector
Atraumatic: atraumatic
Attempts: 1
Insertion Start and Stop Time: 1903 start 1909
SaO2 Pre: unknown
SaO2 Post: uknown code in progress
Glidescope Used: yes
Other Airway Adjustments: none
Pre-Oxygenated: by respiratory therapy
Portable Chest X-Ray: ordered
RSI:code in progress
Suctioned: ETT suctioned for thick cloudy secretions
Bilateral Breath Sounds Confirmed: B/L breath sounds sounds, no breath sounds over abdomen
Vent Settings:
Settings per _X__Attending Physician
Lizz Vicente CRNA
--- NOTE | 2024-11-04 19:34 | W.PN.UPDATE ---
Update Note
Progress Note Update
at the time of switching shift
-WIRE STRANDER called for bradycardia, by the time team arrived code 9 was called for PEA arrest. Please see code 9 sheet for more details.
-Family contacted, spoke to the son, updated and confirmed code status as the patient full code.
-Patient was intubated on the floor and transfer to ICU.
[2024-11-04 20:04] LABS: Ionized Calcium 1.33 mMOL/L (1.15-1.33)
[2024-11-04 20:05] LABS: Hematocrit 34.3 % (39.0-52.0); Hemoglobin 10.7 g/dL (13.0-18.0); Mean Corp Hgb Conc. 31.2 g/dL (33.0-37.0); Mean Corpuscular Hgb 30.9 pg (27.0-31.0); Mean Corpuscular Volume 99.1 fL (80.0-94.0); Mean Platelet Volume 10.5 fL (7.4-10.4); Platelet Count 186 10^3/uL (130-400); Red Blood Cell Count 3.46 10^6/uL (4.70-6.10); Red Cell Dist. Width 16.8 % (11.5-14.5); White Blood Cell Count 12.8 10^3/uL (4.8-10.8)
[2024-11-04] MEDS: ADRENALIN 250 IV (20:05)
[2024-11-04] MEDS: PITRESSIN 100 IV (20:06)
[2024-11-04 20:09] LABS: B.E. -9.3 mmol/L; HCO3 20.5 mmol/L (21-28); O2 Saturation % 96.7 % (94-98); PCO2 63 mmHg (35-48); PO2 91 mmHg (83-108)
[2024-11-04 20:11] LABS: pH 7.12 (7.35-7.45)
[2024-11-04 20:16] LABS: Magnesium 2.3 mg/dl (1.6-2.3)
[2024-11-04 20:17] LABS: PT 46.9 Sec (11.4-14.6)
[2024-11-04 20:18] LABS: Blood Urea Nitrogen 20 mg/dl (9-20); Calcium 9.8 mg/dl (8.4-10.2); Carbon Dioxide 28 mmol/L (22-30); Chloride 93 mmol/L (98-107); Estimated Creatinine Clearance 26 ml/min; Glucose 92 mg/dl (70-99); Potassium 4.4 mmol/L (3.5-5.1); Sodium 137 mmol/L (135-145); eGFR 34.35
[2024-11-04 20:19] LABS: APTT 57.4 Sec (23.4-35.0)
[2024-11-04 20:20] LABS: INR 5.18
[2024-11-04] MEDS: LEVOPHED 250 IV (20:47)
[2024-11-04] MEDS: SOLU-CORTEF 100 MG IV (20:47)
[2024-11-04] MEDS: SENOKOT-S PO (21:10)
[2024-11-04] MEDS: CORDARONE 518 MG IV (21:11)
[2024-11-04] MEDS: CORDARONE 103 MG IV (21:12)
[2024-11-04] MEDS: LIPITOR PO (21:14)
[2024-11-04] MEDS: KCENTRA 100 UNIT IV (21:37)
[2024-11-04 21:50] LABS: AST (SGOT) 58 U/L (17-59); Albumin 2.5 g/dl (3.5-5.0); Alkaline Phosphatase 352 U/L (38-126); Direct Bilirubin 1.3 mg/dl (0.0-0.4); Total Bilirubin 1.8 mg/dl (0.2-1.3); Total Protein 4.6 g/dl (6.3-8.2)
--- NOTE | 2024-11-04 22:00 | PTCARENOTE ---
Rapid response called at change of shift which turned into a code 9, providers at bedside, see code sheet, pt achieved ROSC, intubated and transferred to ICU, family called and at bedside
[2024-11-04 22:09] LABS: ALT (SGPT) < 30 U/L (0-50)
[2024-11-04 23:03] LABS: Glucose - Point of Care 115 mg/dl (70-99)
[2024-11-05] VITALS: BP 137/86
--- NOTE | 2024-11-05 | PTCARENOTE ---
pt noted to have unequal pupils and unreactive, REFERENCE INVESTIGATOR made aware and at bedside, CT head ordered and completed
[2024-11-05 00:10] VITALS: BP 120/93
[2024-11-05 00:20] VITALS: BP 104/89
--- NOTE | 2024-11-05 00:20 | W.PN.UPDATE ---
Update Note
Progress Note Update
Operation/Procedure: left radial arterial line placement
Consent for operation or procedure: Emergent need due to patient condition - need for invasive monitoring per protocol
Indications: Hemodynamic monitoring
After properly positioning the patient's wrist in the standard fashion, the site was prepped and draped in a sterile fashion. The radial artery was entered, noting bright red, pulsatile flow. A guidewire was easily inserted, the needle removed,
and the catheter was then placed using the Seldinger technique. The guidewire was removed, with good flow present. The catheter was then connected to the transducer with a good waveform noted. The catheter was secured with an occlusive dressing
was placed after properly cleaning and prepping the site.
Complications: The patient tolerated the procedure well and no complications were noted.
Estimated Blood Loss: minimal
Plan: Arterial line to remain in place for hemodynamic monitoring.
[2024-11-05] MEDS: SOLU-CORTEF 50 MG IV ×4 (01:46→18:21)
[2024-11-05] MEDS: KEPPRA 1000 MG IV ×2 (01:52→08:58)
[2024-11-05] MEDS: ATIVAN 2 MG IV ×2 (01:52→20:09)
--- NOTE | 2024-11-05 01:57 | W.PN.UPDATE ---
Update Note
Progress Note Update
11/04/24
1899 Code 9 called, see code sheet for full details. Initially a rapid response was called due to hypotension, likely patient then slowed heart rate junctional rhythm and then lost pulse. CPR was immediately started, ACLS medications given:
epinephrine, bicarb, and calcium. Dr. Jacob Mckinnon, hospitalist at the bedside and recommendations received during code. Patient intubated during code by CHINA Vicente. Pulse was regained weak and thready was quickly lost and CPR
resumed. Pulse regained and rhythm noted wide complex tachycardia, Vtach and was shocked x1 at 200j. Rhythm then quickly changed from narrow complex tachycardia to Afib with multiple PVCs HR 130s-140s, and then junctional rhythm slowed down to
heart rate 40s. Epinephrine gtt was then initiated for the slower junctional rhythm. Dialysis catheter accessed to use as central access during code. The rhythm changed again to afib with multiple PVCs HR 140s, concern for possible tachy/vtach
arrhythmia vasopressor was changed to Levophed gtt. Patient was then transported to the ICU. Family was called by House DIAN Mireles and updated.
1944 Patient was noted to have rhythm changes and again slowing of heart rate to junctional constance arrhythmia (patient has underlying atrial fibrillation). Currently on levophed gtt, epinephrine gtt was restarted and bicarb IV push given. Wide
complex tachy arrhythmia/vtach noted, patient was shocked x1 at 200j. Patient then broke the rhythm but then heart rate started to slow with junctional rhythm and pulse was lost, CPR was initiated and epi IV push given; see Code 9 sheet for full
details. Spoke with pre press proofer Aneesh Cowan, advised check for electrolyte abnormalities and was updated dialysis catheter being used as central access at this time. Patient was able to receive dialysis and did get full treatment today,
but was hypotensive no extra fluid was removed and patient did receive IVF for hypotension, at this time patient may not be stable enough to continue hemodialysis. Also spoke with career based intervention coordinator Dr. Everett Briggs, advised to give amiodarone 150cc
bolus and initiate amio gtt per protocol at 1mg/min, agreed with checking electrolytes for possible causes, add/change vasopressor to levophed and vasopressin gtts, and add IV steroids if hypotension worsens. Patient continued with hypotension and
irregular rhythm with Afib and multiple PVCs; quickly increased vasopressor requirements to Levophed, peng, vasopressin, and epi gtts. Discussed case with Dr. Marroquin, displayer merchandise recommendations received: agreed with vasopressors, IV steroids, and
recommend give Kcentra for continued elevated INR >5 (risk of giving FFP due to volume overload vs Kcentra to reduce INR). ABG reviewed metabolic acidosis, adjusted ventilator settings to rate of 24 from 22. Chest xray shows ETT in place and acute
pulmonary edema, no pleural effusion or pneumonia. Noted there is also pink/blood tinged frothy sputum in ETT. Patient not a candidate for targeted temperature management due to unstable rhythm, goal will be to avoid fever, prn Ofirmev IV ordered.
Updated family and answered all questions, confirmed patient wishes to remain FULL CODE and would want everything done.
2245 Patient's pupils unequal left 6 and right 5, non reactive, eyes appear at times to look upwards to the left. Withdrawal slight to noxious stimuli appears decorticate in bilateral arms, no movement to noxious stimuli in the legs. Patient did
not receive any sedation, and has not woken up. INR concerning has been elevated >5. Will obtain STAT CTscan of the head to r/o intracranial abnormalities including hemorrhage, etc.
Ctscan 11/04/24 at 2300- No acute intracranial abnormality noted.
Patient remains on 4 vasopressors (levophed, peng, epi, and vasopressin). Left radial Karla inserted with good waveform.
11/05/24
0100- Patient having more abnormal eye movement, at times left upwards and now right at times; continues with no purposeful movements, pupils non reactive, withdrawal slight to noxious stimuli appears decorticate in bilateral arms, no movement to
noxious stimuli in the legs. Unclear if patient having seizure activity which could be triggered by anoxic event. Will initiate keppra IV and give Ativan 2mg IV, cautious if patient can tolerate propofol gtt due to hypotension. Will place consult
for neurologist Dr. Park.
0230- Maxed on 4 vasopressor, will give albumin for hypotension.
[2024-11-05 01:58] LABS: Triglycerides 104 mg/dl (10-149)
[2024-11-05 02:00] VITALS: BP 115/76
[2024-11-05] MEDS: FLEXBUMIN 100 IV (03:08)
[2024-11-05 03:30] LABS: B.E. -4.6 mmol/L; HCO3 20.3 mmol/L (21-28); O2 Saturation % 99.2 % (94-98); PCO2 36 mmHg (35-48); PO2 102 mmHg (83-108); pH 7.36 (7.35-7.45)
[2024-11-05 03:31] LABS: O2 Therapy VENT
[2024-11-05 03:48] LABS: Hematocrit 35.6 % (39.0-52.0); Hemoglobin 11.8 g/dL (13.0-18.0); Mean Corp Hgb Conc. 33.1 g/dL (33.0-37.0); Mean Corpuscular Hgb 31.1 pg (27.0-31.0); Mean Corpuscular Volume 93.7 fL (80.0-94.0); Mean Platelet Volume 10.3 fL (7.4-10.4); Platelet Count 206 10^3/uL (130-400); Red Cell Dist. Width 16.5 % (11.5-14.5); White Blood Cell Count 13.9 10^3/uL (4.8-10.8)
[2024-11-05 03:56] VITALS: BMI 26.9
[2024-11-05 04:01] LABS: INR 1.66; PT 19.8 Sec (11.4-14.6)
[2024-11-05 04:02] LABS: APTT 41.8 Sec (23.4-35.0)
[2024-11-05 04:09] LABS: Blood Urea Nitrogen 22 mg/dl (9-20); Calcium 9.1 mg/dl (8.4-10.2); Carbon Dioxide 21 mmol/L (22-30); Chloride 95 mmol/L (98-107); Estimated Creatinine Clearance 25 ml/min; Glucose 149 mg/dl (70-99); Phosphorus 3.5 mg/dl (2.5-4.5); Sodium 130 mmol/L (135-145)
[2024-11-05 04:12] LABS: Vancomycin Random 17.4 ug/ml
[2024-11-05 04:17] LABS: NT-proBNP > 27000 pg/ml
--- NOTE | 2024-11-05 04:36 | PTCARENOTE ---
pt noted to have seizure like activity and b/l eye deviations upon reassessment, METAL FABRICATOR WELDER made aware and at bedside, Keppra and Ativan given per orders
[2024-11-05 05:24] LABS: Glucose - Point of Care 132 mg/dl (70-99)
--- NOTE | 2024-11-05 05:35 | PTCARENOTE ---
medial chest wound noted post code, CONTACT CENTER PROFESSIONAL aware, foam dressing with small amount of drainage noted
[2024-11-05] MEDS: ATROVENT NEBULES 0.5 MG INH (07:32)
--- NOTE | 2024-11-05 07:33 | CON.NEURO ---
Consultation
Order
Date of Consultation: 11/05/24
Requesting Provider: Annette Story CRNP
Reason for Consult: Status post code, question with seizure activity
Neurology Consultation Note.
HPI: This is an 84-year-old man who presented to [facility] on November 02, 2024 with chest pain.
The patient suffered a witnessed inpatient Vtach arrest and had ACLS with ROSC on 11/04/2024 at 19:00. Based on EMR 'On 11/05/2024 at 01:00 am- Patient having more abnormal eye movement, at times left upwards and now right at times; continues with
no purposeful movements, pupils non reactive, withdrawal slight to noxious stimuli appears decorticate in bilateral arms, no movement to noxious stimuli in the legs. Will initiate keppra IV and give Ativan 2mg IV, cautious if patient can tolerate
propofol gtt due to hypotension'
Review of vital signs was notable for prolonged hypotension down to 73/42 on November 03-2024
PDMP: no recently prescribed medications
Labs: WBCs�13.9, hemoglobin�11.8, platelets�206, sodium�130, glucose�149, creatinine�2.0, total bili�1.8, normal Mg, INR�5.18�1.6, LDL�43,
CT head wo contrast(11/04/24) at 2300 no acute abnormalities, mild-moderate atrophy
Routine EEG(11/05/2024) severe generalized slowing.
PMH: A-fib, chronic hypoxemic/hypercapnic respiratory failure, ESRD on HD, orthostatic hypotension, CAD, severe PH, TR, BOBBY(non compliant with CPAP), gout, R=recurrent ascites, polyneuropathy
PSH:CABG, paracentesis 10/31,
SH: , before current admission patient lived at home with grandson and was ambulating with wheelchair and walker;
All:NKDA
ROS: Unable due to encephalopathy
General: intubated
Cardio: Regular rate
Mental Status: Eyes open, roving eye movements.
Cranial Nerves: OD 3mm, OS 2.5 mm, nonreactive. Negative oculocephalics, corneals, gag. RR=vent
Motor: Flaccid quadriplegia
Reflexes: Negative clonus at the ankles
Sensory: Unable to assess
Coordination: No tremors myoclonic movements
Gait: unable
Assessment and Plan:
I. Status postcardiac arrest
II. Multifactorial encephalopathy (hypoxic, metabolic, toxic)
III. Permanent A-fib
- Seizure precautions
-Please avoid cerebral hypoperfusion
-Please check CK, ammonia, TFTs
-Routine EEG
-Avoid medications known to lower seizure threshold (cefepime)
-Continue Keppra 500 mg once a day with additional dose of 250 mg postdialysis
-Brain MRI if consistent with goals of care
I personally reviewed all radiology and labs along with past medical records pertinent to current medical problems. Total time spent in patient care is 60 minutes.
Thank you for allowing us to participate in the care of this patient. We will continue to follow. Please do not hesitate to contact us with any questions or concerns.
Subjective/Objective
Subjective Data
Date of Service: November 05, 2024
Objective Data
Vital Signs
Temp Pulse Resp BP Pulse Ox
36.3 C 87 19 115/76 99
11/05/24 03:04 11/05/24 06:15 11/05/24 06:15 11/05/24 02:00 11/05/24 06:00
Lab Results
11/05/24 03:22
11/05/24 03:22
PT 19.8 Sec (11.4-14.6) H 11/05/24 03:22
INR 1.66 D 11/05/24 03:22
APTT 41.8 Sec (23.4-35.0) H 11/05/24 03:22
Sodium 130 mmol/L (135-145) L 04/16/25 03:22
Potassium 4.0 mmol/L (3.5-5.1) 11/05/24 03:22
BUN 22 mg/dl (9-20) H 11/05/24 03:22
Glucose 149 mg/dl (70-99) H 11/05/24 03:22
Calcium 9.1 mg/dl (8.4-10.2) 11/05/24 03:22
Phosphorus 3.5 mg/dl (2.5-4.5) 11/05/24 03:22
Ysg-G-Himagoubjal Pept > 09172 pg/ml 11/05/24 03:22
Patient Allergies
No Known Allergies Allergy (Verified 10/28/24 23:20)
Medications
-
Active Medications
Generic Name Dose Route Start Last Admin
Trade Name Freq PRN Reason Stop Dose Admin
Acetaminophen 650 mg 11/02/24 14:43 11/04/24 18:23
Acetaminophen 325 Mg Tablet PO 11/30/24 14:42 650 mg
Q4HPRN PRN Administration
mild pain/CURRAN/temp> 100.4F
Allopurinol 100 mg 11/05/24 00:26
Allopurinol 100 Mg Tablet TUBE 12/01/24 07:59
DAILY ISREAL
Aspirin 81 mg 11/03/24 08:00 11/04/24 11:47
Aspirin 81 Mg (Enteric Coated) Tablet PO 12/01/24 07:59 81 mg
DAILY ISREAL Administration
Atorvastatin Calcium 40 mg 11/05/24 00:26
Atorvastatin (Lipitor) 40 Mg Tablet TUBE 11/30/24 21:59
HS ISREAL
Bisacodyl 10 mg 11/04/24 22:18
Bisacodyl 10 Mg Rectal Suppository RECTAL 12/02/24 22:17
DAILYPRN PRN
no BM within 72 hours
Calcium Acetate 1,334 mg 11/05/24 07:30
Calcium Acetate 667 Mg Tablet TUBE 11/30/24 07:29
AC ISREAL
Carboxymethylcellulose Sodium 1 drops 11/05/24 08:00
Carboxymethylcellulose Ophth Gel (Celluvisc) Droperette BOTH EYES 12/03/24 07:59
Q12 ISREAL
Cefepime HCl 1,000 mg 11/02/24 18:00 11/04/24 17:30
Cefepime Hcl 1,000 Mg/11.3 Ml Vial IV 1,000 mg
Q24H ISREAL Administration
Cyanocobalamin 1,000 mcg 11/05/24 00:26
Cyanocobalamin 1,000 Mcg Tablet TUBE 12/01/24 07:59
DAILY ISREAL
Fentanyl Citrate 25 mcg 11/04/24 22:18
Fentanyl (50 Mcg/Ml) 100 Mcg/2 Ml Ampul IV 11/18/24 22:17
[id number] PRN
see protocol
Protocol
Hydrocortisone Sodium Succinate 50 mg 11/05/24 00:00 11/05/24 05:43
Hydrocortisone Sodium Succinate 100 Mg/2 Ml Vial IV 12/03/24 00:00 50 mg
Q6 ISREAL Administration
Vancomycin HCl 1 each/ Device 0 mls @ 0 mls/hr 11/02/24 14:43
IV
PER PROTOCOL ISREAL
Protocol
As Directed
Vasopressin 20 units in 100 mls @ 0 mls/hr 11/04/24 19:45 11/04/24 20:06
Pitressin IV 100 mls
PER PROTOCOL ISREAL Administration
Protocol
Per Protocol
Amiodarone HCl 900 mg/ 518 mls @ 0 mls/hr 11/04/24 20:15 11/04/24 21:11
Dextrose/Water IV 518 mls
PER PROTOCOL ISREAL Administration
Protocol
Per Protocol
Norepinephrine Bitartrate 8 mg 258 mls @ 0 mls/hr 11/04/24 21:00
/ Sodium Chloride IV
PER PROTOCOL ISREAL
Protocol
Per Protocol
Phenylephrine HCl 100 mg/ 260 mls @ 0 mls/hr 11/04/24 21:00
Sodium Chloride IV
PER PROTOCOL ISREAL
Protocol
Per Protocol
Epinephrine HCl 8 mg/ Sodium 258 mls @ 0 mls/hr 11/04/24 21:15
Chloride IV
PER PROTOCOL ISREAL
Protocol
Per Protocol
Acetaminophen 1,000 mg in 100 mls @ 400 mls/hr 11/04/24 23:47
Ofirmev IV 11/05/24 23:46
Q6HPRN PRN
fever>100.3/mild pain
Protocol
Propofol 1,000,000 mcg in 100 mls @ 0 mls/hr 11/05/24 00:30
Diprivan IV
PER PROTOCOL ISREAL
Protocol
Per Protocol
Ipratropium [place] 0.5 mg 11/04/24 12:00 11/04/24 20:18
Ipratropium Nebs 0.5 Mg/2.5 Ml Ampul INH Not Given
R QID ISREAL
Protocol
Lactobacillus/Bifidobacterium 1 cap 11/05/24 00:26
Lactobac/Bifidobac (Visbiome) TUBE 12/01/24 07:59
DAILY ISREAL
Levetiracetam 1,000 mg 11/05/24 08:00
Levetiracetam (100 Mg/Ml) 500 Mg/5 Ml Vial IV 12/03/24 07:59
Q12 ISREAL
Lorazepam 2 mg 11/05/24 01:30 11/05/24 01:52
Lorazepam 2 Mg/Ml Vial IV 12/03/24 01:29 2 mg
Q4HPRN PRN Administration
seizure/anxiety
Midodrine 10 mg 11/05/24 08:00
Midodrine 5 Mg Tablet TUBE 11/30/24 07:59
TID@0800,1200,1600 ISREAL
Ondansetron HCl 4 mg 11/02/24 14:43 11/04/24 03:09
Ondansetron 4 Mg/2 Ml Vial IV 11/30/24 14:42 4 mg
Q6HPRN PRN Administration
nausea and vomiting
Pantoprazole Sodium 40 mg 11/05/24 08:00
Pantoprazole Sodium 40 Mg/10 Ml Vial IV 12/03/24 07:59
DAILY ISREAL
Polyethylene Glycol 17 grams 11/05/24 00:26
Polyethylene Glycol Powder 17 Grams Packet TUBE 11/30/24 14:42
DAILYPRN PRN
constipation
Senna/Docusate Sodium 1 tablet 11/05/24 00:26
Docusate W/Senna (Martha-Colace) Tablet TUBE 11/30/24 14:42
BIDPRN PRN
constipation
Senna/Docusate Sodium 1 tablet 11/05/24 00:26
Docusate W/Senna (Martha-Colace) Tablet TUBE 11/30/24 19:59
BID ISREAL
Simethicone 80 mg 11/05/24 00:26
Simethicone 80 Mg Chewable Tablet TUBE 12/02/24 06:22
TIDPRN PRN
abdominal pain
Sodium Chloride 0 flush 11/02/24 15:00
Sodium Chloride 0.9% (Flush) Syringe IV 11/30/24 14:59
PER PROTOCOL ISREAL
Sodium Chloride 10 ml 11/05/24 08:00
Sodium Chloride 0.9% (Preservative Free) 10 Ml Vial IV 12/03/24 07:59
DAILY ISREAL
Sodium Chloride 1 ml 11/05/24 01:33
Nss (Pf) 10 Ml Vial For Ativan 2 Mg Dose IV 12/03/24 01:32
Q4HPRN PRN
IV LORAZEPAM DILUTION
Sterile Water 10 ml 11/04/24 18:00 11/04/24 17:31
Sterile Water For Injection 10 Ml Vial IV 12/02/24 17:59 10 ml
Q24H ISREAL Administration
Home Medications
�Medication �Instructions �Recorded
atorvastatin 40 mg tablet 40 mg PO HS High Cholesterol 03/09/15
aspirin 81 mg tablet,delayed 81 mg PO DAILY ##0 04/01/15
release
allopurinol 100 mg tablet 100 mg PO DAILY Gout 10/03/24
bisacodyl 10 mg rectal suppository 10 mg DE DAILYPRN PRN if mom is 10/03/24
ineffective
calcium acetate 667 mg tablet 1,334 mg PO AC Supplement 10/03/24
cyanocobalamin (vitamin B-12) 1,000 mcg PO DAILY Supplement 10/03/24
1,000 mcg tablet
ipratropium bromide 0.02 % 2.5 ml inhalation R Q4 SOB 10/03/24
solution for inhalation
levalbuterol HCl 1.25 mg/3 mL 1.25 mg inhalation R TID sob 10/03/24
solution for nebulization
sodium phosphates 19 gram-7 118 ml DE DAILYPRN PRN if 10/03/24
gram/118 mL enema (Fleet Enema) Bisacodyl is ineffective
sorbitol 70 % solution 30 ml PO [id number] PRN if no bm x3 10/03/24
days
Lactobac no.2-Bifidobac no.1-S. 1 cap PO DAILY probiotic 10/19/24
thermo 112.5 billion cell capsule
(Visbiome)
acetaminophen 325 mg tablet 650 mg PO Q6HPRN PRN mild 10/28/24
pain/FEVER>100
midodrine 10 mg tablet 10 mg PO TID Blood Pressure 10/28/24
omeprazole 20 mg tablet,delayed 20 mg PO DAILY Gastrointestinal 10/28/24
release Issue
simethicone 125 mg capsule 125 mg PO BID Gastrointestinal 10/28/24
Issue
warfarin 1 mg tablet 2 mg PO HS Blood Clot Prevention/Tx 10/28/24
oseltamivir 30 mg capsule 30 mg PO MOWEFR #1 cap 10/31/24
polyethylene glycol 3350 17 gram 17 g PO DAILY #30 ea 10/31/24
oral powder packet
sennosides 8.6 mg-docusate sodium 1 tab PO BID #60 tabs 10/31/24
50 mg tablet
guaifenesin 600 mg tablet, 600 mg PO Q12H 11/02/24
extended release 12 hr
Vital Signs and Labs
-
Vital Signs and Labs:
Vital Signs
Temp Pulse Resp BP Pulse Ox
36.6 C 87 19 115/76 99
11/05/24 07:48 11/05/24 06:15 11/05/24 06:15 11/05/24 02:00 11/05/24 06:00
Lab Results
11/05/24 03:22
11/05/24 03:22
PT 19.8 Sec (11.4-14.6) H 11/05/24 03:22
INR 1.66 D 11/05/24 03:22
APTT 41.8 Sec (23.4-35.0) H 11/05/24 03:22
Sodium 130 mmol/L (135-145) L 11/05/24 03:22
Potassium 4.0 mmol/L (3.5-5.1) 11/05/24 03:22
BUN 22 mg/dl (9-20) H 11/05/24 03:22
Glucose 149 mg/dl (70-99) H 11/05/24 03:22
Calcium 9.1 mg/dl (8.4-10.2) 11/05/24 03:22
Phosphorus 3.5 mg/dl (2.5-4.5) 11/05/24 03:22
Xip-M-Pkqdbmyusnl Pept > 49554 pg/ml 11/05/24 03:22
Medications
-
Medications:
Generic Name Dose Route Start Last Admin
Trade Name Freq PRN Reason Stop Dose Admin
Acetaminophen 650 mg 11/02/24 14:43 11/04/24 18:23
Acetaminophen 325 Mg Tablet PO 11/30/24 14:42 650 mg
Q4HPRN PRN Administration
mild pain/CURRAN/temp> 100.4F
Allopurinol 100 mg 11/05/24 00:26
Allopurinol 100 Mg Tablet TUBE 12/01/24 07:59
DAILY ISREAL
Aspirin 81 mg 11/03/24 08:00 11/04/24 11:47
Aspirin 81 Mg (Enteric Coated) Tablet PO 12/01/24 07:59 81 mg
DAILY ISREAL Administration
Atorvastatin Calcium 40 mg 11/05/24 00:26
Atorvastatin (Lipitor) 40 Mg Tablet TUBE 11/30/24 21:59
HS ISREAL
Bisacodyl 10 mg 11/04/24 22:18
Bisacodyl 10 Mg Rectal Suppository RECTAL 12/02/24 22:17
DAILYPRN PRN
no BM within 72 hours
Calcium Acetate 1,334 mg 11/05/24 07:30 11/05/24 07:40
Calcium Acetate 667 Mg Tablet TUBE 11/30/24 07:29 Not Given
AC ISREAL
Carboxymethylcellulose Sodium 1 drops 11/05/24 08:00
Carboxymethylcellulose Ophth Gel (Celluvisc) Droperette BOTH EYES 12/03/24 07:59
Q12 ISREAL
Cefepime HCl 1,000 mg 11/02/24 18:00 11/04/24 17:30
Cefepime Hcl 1,000 Mg/11.3 Ml Vial IV 1,000 mg
Q24H ISREAL Administration
Cyanocobalamin 1,000 mcg 11/05/24 00:26
Cyanocobalamin 1,000 Mcg Tablet TUBE 12/01/24 07:59
DAILY ISREAL
Fentanyl Citrate 25 mcg 11/04/24 22:18
Fentanyl (50 Mcg/Ml) 100 Mcg/2 Ml Ampul IV 11/18/24 22:17
[id number] PRN
see protocol
Protocol
Hydrocortisone Sodium Succinate 50 mg 11/05/24 00:00 11/05/24 05:43
Hydrocortisone Sodium Succinate 100 Mg/2 Ml Vial IV 12/03/24 00:00 50 mg
Q6 ISREAL Administration
Vancomycin HCl 1 each/ Device 0 mls @ 0 mls/hr 11/02/24 14:43
IV
PER PROTOCOL ISREAL
Protocol
As Directed
Vasopressin 20 units in 100 mls @ 0 mls/hr 11/04/24 19:45 11/04/24 20:06
Pitressin IV 100 mls
PER PROTOCOL ISREAL Administration
Protocol
Per Protocol
Amiodarone HCl 900 mg/ 518 mls @ 0 mls/hr 11/04/24 20:15 11/04/24 21:11
Dextrose/Water IV 518 mls
PER PROTOCOL ISREAL Administration
Protocol
Per Protocol
Norepinephrine Bitartrate 8 mg 258 mls @ 0 mls/hr 11/04/24 21:00
/ Sodium Chloride IV
PER PROTOCOL ISREAL
Protocol
Per Protocol
Phenylephrine HCl 100 mg/ 260 mls @ 0 mls/hr 11/04/24 21:00
Sodium Chloride IV
PER PROTOCOL ISREAL
Protocol
Per Protocol
Epinephrine HCl 8 mg/ Sodium 258 mls @ 0 mls/hr 11/04/24 21:15
Chloride IV
PER PROTOCOL ISREAL
Protocol
Per Protocol
Acetaminophen 1,000 mg in 100 mls @ 400 mls/hr 11/04/24 23:47
Ofirmev IV 11/05/24 23:46
Q6HPRN PRN
fever>100.3/mild pain
Protocol
Propofol 1,000,000 mcg in 100 mls @ 0 mls/hr 11/05/24 00:30
Diprivan IV
PER PROTOCOL ISREAL
Protocol
Per Protocol
Ipratropium [place] 0.5 mg 11/04/24 12:00 11/05/24 07:32
Ipratropium Nebs 0.5 Mg/2.5 Ml Ampul INH 0.5 mg
R QID ISREAL Administration
Protocol
Lactobacillus/Bifidobacterium 1 cap 11/05/24 00:26
Lactobac/Bifidobac (Visbiome) TUBE 12/01/24 07:59
DAILY ISREAL
Levetiracetam 1,000 mg 11/05/24 08:00
Levetiracetam (100 Mg/Ml) 500 Mg/5 Ml Vial IV 12/03/24 07:59
Q12 ISREAL
Lorazepam 2 mg 11/05/24 01:30 11/05/24 01:52
Lorazepam 2 Mg/Ml Vial IV 12/03/24 01:29 2 mg
Q4HPRN PRN Administration
seizure/anxiety
Midodrine 10 mg 11/05/24 08:00
Midodrine 5 Mg Tablet TUBE 11/30/24 07:59
TID@0800,1200,1600 ISREAL
Ondansetron HCl 4 mg 11/02/24 14:43 11/04/24 03:09
Ondansetron 4 Mg/2 Ml Vial IV 11/30/24 14:42 4 mg
Q6HPRN PRN Administration
nausea and vomiting
Pantoprazole Sodium 40 mg 11/05/24 08:00
Pantoprazole Sodium 40 Mg/10 Ml Vial IV 12/03/24 07:59
DAILY ISREAL
Polyethylene Glycol 17 grams 11/05/24 00:26
Polyethylene Glycol Powder 17 Grams Packet TUBE 11/30/24 14:42
DAILYPRN PRN
constipation
Senna/Docusate Sodium 1 tablet 11/05/24 00:26
Docusate W/Senna (Martha-Colace) Tablet TUBE 11/30/24 14:42
BIDPRN PRN
constipation
Senna/Docusate Sodium 1 tablet 11/05/24 00:26
Docusate W/Senna (Martha-Colace) Tablet TUBE 11/30/24 19:59
BID ISREAL
Simethicone 80 mg 11/05/24 00:26
Simethicone 80 Mg Chewable Tablet TUBE 12/02/24 06:22
TIDPRN PRN
abdominal pain
Sodium Chloride 0 flush 11/02/24 15:00
Sodium Chloride 0.9% (Flush) Syringe IV 11/30/24 14:59
PER PROTOCOL ISREAL
Sodium Chloride 10 ml 11/05/24 08:00
Sodium Chloride 0.9% (Preservative Free) 10 Ml Vial IV 12/03/24 07:59
DAILY ISREAL
Sodium Chloride 1 ml 11/05/24 01:33
Nss (Pf) 10 Ml Vial For Ativan 2 Mg Dose IV 12/03/24 01:32
Q4HPRN PRN
IV LORAZEPAM DILUTION
Sterile Water 10 ml 11/04/24 18:00 11/04/24 17:31
Sterile Water For Injection 10 Ml Vial IV 12/02/24 17:59 10 ml
Q24H ISREAL Administration
Home Medications
-
Home Medications
atorvastatin 40 mg tablet 40 mg PO HS High Cholesterol 03/09/15
aspirin 81 mg tablet,delayed release 81 mg PO DAILY ##0 04/01/15
allopurinol 100 mg tablet 100 mg PO DAILY Gout 10/03/24
bisacodyl 10 mg rectal suppository 10 mg DE DAILYPRN PRN if mom is ineffective 10/03/24
calcium acetate 667 mg tablet 1,334 mg PO AC Supplement 10/03/24
cyanocobalamin (vitamin B-12) 1,000 mcg tablet 1,000 mcg PO DAILY Supplement 10/03/24
ipratropium bromide 0.02 % solution for inhalation 2.5 ml inhalation R Q4 SOB 10/03/24
levalbuterol HCl 1.25 mg/3 mL solution for nebulization 1.25 mg inhalation R TID sob 10/03/24
sodium phosphates 19 gram-7 gram/118 mL enema (Fleet Enema) 118 ml DE DAILYPRN PRN if Bisacodyl is ineffective 10/03/24
sorbitol 70 % solution 30 ml PO [id number] PRN if no bm x3 days 10/03/24
Lactobac no.2-Bifidobac no.1-S. thermo 112.5 billion cell capsule (Visbiome) 1 cap PO DAILY probiotic 10/19/24
acetaminophen 325 mg tablet 650 mg PO Q6HPRN PRN mild pain/FEVER>100 10/28/24
midodrine 10 mg tablet 10 mg PO TID Blood Pressure 10/28/24
omeprazole 20 mg tablet,delayed release 20 mg PO DAILY Gastrointestinal Issue 10/28/24
simethicone 125 mg capsule 125 mg PO BID Gastrointestinal Issue 10/28/24
warfarin 1 mg tablet 2 mg PO HS Blood Clot Prevention/Tx 10/28/24
oseltamivir 30 mg capsule 30 mg PO MOWEFR #1 cap 10/31/24
polyethylene glycol 3350 17 gram oral powder packet 17 g PO DAILY #30 ea 10/31/24
sennosides 8.6 mg-docusate sodium 50 mg tablet 1 tab PO BID #60 tabs 10/31/24
guaifenesin 600 mg tablet, extended release 12 hr 600 mg PO Q12H 11/02/24
--- NOTE | 2024-11-05 08:17 | CON.INTV ---
Consultation
Consultation Request
Date/Time Consultation Requested: 11/04/2024 - 2212
Date/Time Consultation Performed: 11/05/2024808
Requesting Provider: DIAN Pickard
Performing Provider: Dr. Hannon
Reason for Consultation: Cardiac Arrest
Medical History
-
Chief Complaint: Chest pain
History of Present Illness:
84-year-old male former tobacco smoker with a past medical history of CAD s/p CABG, chronic HFrEF, nonsustained VT, ESRD on HD MWF, chronic hypotension on midodrine, history of COPD on home O2 at 2-3 L/min, A-fib on Coumadin, chronic hyponatremia,
ambulatory dysfunction, GERD and history of sleep apnea who presented with chest pain. Pain was described as pressure that radiated down both shoulders. Initially in the ER he was afebrile to 98.2 �F, pulse rate 100, respiratory rate 22, BP 90/47
and saturating 90% on 6 L/min nasal cannula. Initial labs showed leukocytosis to 16.1, Hb 11.3, INR 3.06, sodium 130, creatinine 2.4, T. bili 1.8, troponin 0.432, proBNP >27,000, + procalcitonin 8.21. Blood cultures were collected. CXR showed
left lower lobe succinyl atelectasis/pneumonia and he was admitted to telemetry for further care. He was started on antibiotics with cefepime/vancomycin. Of note he was recently hospitalized earlier this year at [facility] due to pneumonia + flu.
He has had multiple admissions over the last several months due to shortness of breath and volume overload. For this current hospitalization, cardiology was consulted given his chest pain and elevated troponin. Heparin drip was not recommended
given he was pain-free and there was concern for infection/pneumonia. An echo was rechecked on 11/04/2024 showing RV pressure and volume overload with reduced RV systolic function, severely dilated LA + RA, with mild MR/mild AI, and severe pulmonary
hypertension with PASP 55 to 60 mmHg. He had received dialysis on 11/04 but was hypotensive and 300 cc of fluid was given back with BP improved. He was being followed by palliative care and up until 11/04 he wanted to continue full medical
management and was not interested in hospice at the time. Overnight on 11/04, a rapid response was called due to hypotension with a slowed heart rate with suspected junctional rhythm and then he lost a pulse. CPR/ACLS protocol started. Patient was
intubated during the code. ROSC obtained but then quickly lost a pulse again. ROSC obtained which showed WCT with concern for VT and he was shocked x 1 at 200 J. He then developed narrow complex tachycardia which then degraded to A-fib with
multiple PVCs and then became bradycardic with heart rate in the 40s. Epinephrine drip then started. Patient then transferred to the ICU for further care with metal casket maker services consulted for additional management/recommendations.
Since being here in the ICU, he was started on Levophed in addition to epinephrine and pushes of bicarb were also given. He was shocked again at 200 J which then broke his wide-complex tachycardia but then he developed bradycardia again and then
pulse was lost. ROSC was eventually obtained. Cardiology + nephrology were contacted by the ICU DIRECTOR [place] at the time. Amiodarone bolus + drip was started. Family was updated and they confirmed that they wanted him to remain full code with full
medical management as they believe that that is what the patient would have wanted. During the evening hours on 11/04, he appeared decorticate with no movement to noxious stimuli in the legs and no sedation was given. CT head was obtained which
showed no acute intracranial abnormality. PCC had been given and an A-line was inserted with good waveform. Appears still appear to be decorticated posturing in the arms and Keppra was initiated. Neurology consulted. Ativan also given which
helped his posturing but dropped his BP.
This morning, patient was seen and evaluated. He remains off sedation. Currently on levo at 30mcg/min, vaso at 0.04 units/min, peng at 200 mcg/min, epi at 10 mcg/min, and amio at 0.5mg/min. NGT on LIWS. 200cc output since NGT was placed. He
remains unresponsive. Intubated on AC/CMV at 450/24/60%/5, with PIP 21 cmH2O, VTe 441 cc and breathing at 24 breaths/min. Heart rate 84, BP via A-line: 115/49, saturating 100% and end-tidal CO2: 35.
PMHx: CAD s/p CABG x3, chronic HFrEF, NSVT, ESRD on hemodialysis MWF, chronic hypotension on midodrine, Hx of COPD home O2 (2-3L/min), permanent atrial fibrillation on coumadin, chronic hyponatremia, peripheral neuropathy, ambulatory dysfunction,
former tobacco smoker, history of sleep apnea, GERD
PSHx: Kidney stone extraction (1970s), septoplasty of sinuses x 4
Past Medical History
Past Medical History: Other (Above as per HPI)
Past Surgical History: Other (Above as per HPI)
Social History
Tobacco: Former Smoker
Alcohol: None
Drug: None
Employment: Retired
Family History
Family History: Other (Father: Valvular heart disease)
Allergies / Home Medications
Allergies
Allergy/AdvReac Type Severity Reaction Status Date / Time
No Known Allergies Allergy Verified 10/28/24 23:20
Home Medications
�Medication �Instructions �Recorded �Confirmed �Last Taken �Type
atorvastatin 40 mg tablet 40 mg PO HS High Cholesterol 03/09/15 11/02/24 03/24/15 23:55 History
1
aspirin 81 mg tablet,delayed 81 mg PO DAILY ##0 04/01/15 11/02/24 Unknown Rx
release
allopurinol 100 mg tablet 100 mg PO DAILY Gout 10/03/24 11/02/24 Unknown History
bisacodyl 10 mg rectal suppository 10 mg MO DAILYPRN PRN if mom is 10/03/24 11/02/24 Unknown History
ineffective
calcium acetate 667 mg tablet 1,334 mg PO AC Supplement 10/03/24 11/02/24 Unknown History
cyanocobalamin (vitamin B-12) 1,000 mcg PO DAILY Supplement 10/03/24 11/02/24 Unknown History
1,000 mcg tablet
ipratropium bromide 0.02 % 2.5 ml inhalation R Q4 SOB 10/03/24 11/02/24 Unknown History
solution for inhalation
levalbuterol HCl 1.25 mg/3 mL 1.25 mg inhalation R TID sob 10/03/24 11/02/24 Unknown History
solution for nebulization
sodium phosphates 19 gram-7 118 ml MO DAILYPRN PRN if 10/03/24 11/02/24 Unknown History
gram/118 mL enema (Fleet Enema) Bisacodyl is ineffective
sorbitol 70 % solution 30 ml PO [id number] PRN if no bm x3 10/03/24 11/02/24 Unknown History
days
Lactobac no.2-Bifidobac no.1-S. 1 cap PO DAILY probiotic 10/19/24 11/02/24 Unknown History
thermo 112.5 billion cell capsule
(Visbiome)
acetaminophen 325 mg tablet 650 mg PO Q6HPRN PRN mild 10/28/24 11/02/24 Unknown History
pain/FEVER>100
midodrine 10 mg tablet 10 mg PO TID Blood Pressure 10/28/24 11/02/24 Unknown History
omeprazole 20 mg tablet,delayed 20 mg PO DAILY Gastrointestinal 10/28/24 11/02/24 Unknown History
release Issue
simethicone 125 mg capsule 125 mg PO BID Gastrointestinal 10/28/24 11/02/24 Unknown History
Issue
warfarin 1 mg tablet 2 mg PO HS Blood Clot Prevention/Tx 10/28/24 11/02/24 Unknown History
oseltamivir 30 mg capsule 30 mg PO MOWEFR #1 cap 10/31/24 11/02/24 Unknown Rx
polyethylene glycol 3350 17 gram 17 g PO DAILY #30 ea 10/31/24 11/02/24 Unknown Rx
oral powder packet
sennosides 8.6 mg-docusate sodium 1 tab PO BID #60 tabs 10/31/24 11/02/24 Unknown Rx
50 mg tablet
guaifenesin 600 mg tablet, 600 mg PO Q12H 11/02/24 11/02/24 Unknown History
extended release 12 hr
Review of Systems
-
Unable to Obtain full review of systems at this time due to: Patient Intubation and Other (Unresponsive)
Vitals / Labs / Diagnostic Testing
Vital Signs
Temp Pulse Resp BP Pulse Ox
97.9 F 103 24 115/76 98
11/05/24 07:48 11/05/24 08:00 11/05/24 08:00 11/05/24 02:00 11/05/24 07:58
Lab Data
11/05/24 03:22
11/05/24 03:22
Laboratory Results
11/04/24 11/04/24 11/05/24
19:53 20:04 03:22
PT 46.9 H 19.8 H
INR 5.18 H* 1.66 D
APTT 57.4 H 41.8 H
pH 7.12 L* 7.36
pCO2 63 H 36
pO2 91 102
HCO3 20.5 L 20.3 L
O2 Delivery Level Vent
Microbiology
11/04/24 09:09 Sputum Respiratory Culture - Final
11/04/24 09:09 Sputum Gram Stain - Final
11/02/24 14:24 Blood/Venous Blood Culture - Preliminary
No Growth in 48 hours- Final report to follow
11/02/24 14:12 Blood/Venous Blood Culture - Preliminary
No Growth in 48 hours- Final report to follow
11/02/24 18:15 Nose Nasal Screen MRSA (PCR) - Final
MRSA not detected - performed by PCR methodology.
Diagnostic Testing:
Physical Exam
-
HEENT: Normocephalic, Anicteric and Other (ETT in place)
Cardiovascular: Irregular Rhythm and Peripheral Edema (+2 LE edema)
Respiratory: Wheeze (negative), Rales (Bilateral), Rhonchi (negative), Non-Labored Respirations and Other (Mechanical breath sounds heard bilaterally)
GI: Soft, Non Distended, Non Tender and Normal Bowel Sounds
Neurology: Tremors (negative), Other (Unresponsive, weak cough/gag, minimal corneal reflex, pupils are +3 mm bilaterally and unreactive) and Other (Steady horizontal wandering of eyes)
Skin: Warm, Dry and Other (Left anterior chest wall HD catheter)
General: Respiratory Distress (negative), Fever (negative) and Chills (negative)
Assessment
-
Assessment: 84-year-old male former tobacco smoker with a PMHx of CAD s/p CABG, chronic HFrEF, nonsustained VT, ESRD on HD MWF, chronic hypotension on midodrine, history of COPD on home O2 at 2-3 L/min, A-fib on Coumadin, chronic hyponatremia,
ambulatory dysfunction, GERD and history of sleep apnea who presented with chest pain. Pain was described as pressure that radiated down both shoulders. He has been hospitalized here at multiple times for SOB and volume overload. He was
admitted to telemetry and started on antibiotics for possible pneumonia. He received dialysis on 11/04 but was hypotensive and fluid was given back with improvement in BP. He suffered a in-hospital cardiac arrest on the evening of 11/04, with
CPR/ACLS protocol started. Patient intubated during code. He regained ROSC and lost, and then eventually regained ROSC again. Patient transferred to the ICU for further care with metal casket maker services consulted for additional
management/recommendations.
Chronic conditions NEGATIVE CLEANER: CAD s/p CABG x3, chronic HFrEF, NSVT, ESRD on hemodialysis MWF, chronic hypotension on midodrine, Hx of COPD home O2 (2-3L/min), permanent atrial fibrillation on coumadin, chronic hyponatremia, peripheral neuropathy,
ambulatory dysfunction, former tobacco smoker, history of sleep apnea, GERD
Impression:
#In-hospital cardiac arrest - suspected to be an arrhythmia (appeared that he became bradycardic which then led to PEA versus asystole, and he also had periods of WCT requiring shock x 2 total)
#Ventilator dependent respiratory failure
#Acute respiratory failure with hypoxia + hypercapnia with interstitial edema/pulmonary vascular congestion
#Aspiration pneumonia involving RLL on recent CT Chest from 11/02/2024 (new compared to prior CTA Chest on 10/08/2024)
#Chronic retrocardiac opacification (seen as remotely as March 2015)
#Acute HFmrEF
#Leukocytosis
#Chronic anemia of CKD
#Chronic Coumadin use with supratherapeutic INR
#Metabolic acidosis with increased anion gap
#Chronic hyponatremia with baseline Na: 128�132
#ESRD on HD
#Former tobacco smoker
#Physical deconditioning/chronic ambulatory dysfunction
Plan:
- Patient is critically ill maxed out on multiple vasopressors with no intentional movements seen and off sedation
- He was not cooled given his significant hemodynamic instability as well as coagulopathy with supratherapeutic INR
- Avoid fever at all costs for next 2-3 days, unless family decides to withdraw care sooner
- Neurology on board; EEG obtained today shows generalized slowing equally across hemispheres with no epileptiform features seen
- Keep off all sedation to have prognosticate
- CT head obtained on 11/04/2024 showed no acute intracranial abnormality
- Recommend MRI brain if able to pass screen; defer additional CAR BODY DESIGNER imaging to neurology
- Keep MAP >65-70 to help perfuse brain
- Continue with broad-spectrum antibiotics, currently cefepime/vancomycin
- Follow-up sputum culture (collected 11/04), as well as blood cultures (collected 11/02); peritoneal fluid culture from 10/31 (last admission) shows NGTD
- If we are able to get urine then we will check for urine antigens for Legionella + strep pneumonia
- Trend WBC and monitor temperature
- Continue with mechanical ventilation
- Patient is off sedation and not awakening, hence highly unlikely we can do an SBT
- Titrate FiO2 + PEEP to keep SpO2 >94%
- Keep plateau pressure <30
- Frequent deep ETT/subglottic suctioning as needed
- prn nebulized bronchodilators - not currently bronchospastic
- Defer HD to nephrology; unable to do CRRT given his profound shock state; re-assess daily
- Replete electrolytes with K>4, Mg>2
- Renally dose all meds/Abx
- Maintain euglycemia with goal BG 140-180; re-check A1C
- Trend H/H and transfuse if needed to keep Hb>7-8g/dL; keep plt>50k
- Early nutrition if vasopressor requirements improve; currently has NGT on LIWS
- DVT ppx - was given PCC last night in order to insert arterial catheter safely. If patient is to continue with full medical management then we will need to start heparin drip given his history of A-fib
- Guarded prognosis - I called and spoke with the [id number], Daniela, as well as the son, Jeremy, and explained the critically ill state that Ralf is in. We discussed code status, and they agreed to make him DNR/DNI, rachid since Ralf is not
awakening off sedation. They plan to come in to the hospital later today and withdraw care. All questions were answered, and emotional support was provided.
Continue ICU level care for this critically ill patient
Critical care statement: A total of 47 minutes of critical care time was provided for this patient today. This includes management of unstable vital signs, evaluation of the patient at bedside, reviewing the patient's pertinent medical records
including radiographs, microbiology, laboratory evaluations, and discussion with primary team, consultants, pharmacy, nutrition, physical therapy, case management, charge nurse, critical care nursing, and respiratory therapy.
Data:
CT Chest w/o contrast 11/02/2024:
Small bilateral pleural effusions with bibasilar opacities favored to represent atelectasis.
Pronounced four-chamber cardiomegaly. The main pulmonary artery is mildly enlarged suggesting pulmonary arterial hypertension.
Partially visualized moderate volume upper abdominal ascites.
Transthoracic echocardiogram 11/04/2024:
Normal left ventricular chamber size. Left ventricular ejection fraction is 45-
50%.
Flattened septum in systole and diastole consistent with RV pressure and volume
overload.
Enlarged right ventricular size. Reduced right ventricular systolic function.
Severely dilated left atrium.
Severely dilated right atrium.
Mild mitral regurgitation.
Mild aortic regurgitation.
Severe tricuspid regurgitation.
Severe pulmonary hypertension with estimated pulmonary artery pressure of 55-60
mmHg assuming a right atrial pressure of 15 mmHg.
Ascites present.
Compared to prior study from October 08, 2024, there is no significant change.
--- NOTE | 2024-11-05 08:45 | W.PN.CARDCBS ---
Today's Communication / Plan
-
IV pressor support
Check echo and trop for prognostic information
EKG stable
prognosis grim
Appropriate for comfort as meaningful recovery unlikely, neuro eval ongoing
Impression / Plan
-
.
Impression:
s/p code PEA/VT
Significant hypotension on 4 pressors
Anoxic encephalopathy
Supratherapeutic INR, improved
Failure to thrive
Back pain
CM EF 45-50% by echo November 04
Chest pain and abnormal troponin
Chest pain is atypical and spontaneously resolved
Acute on chronic hypoxemic respiratory failure
Influenza, completed Tamiflu
ESRD on HD
CAD/CABG x 3 vessel left internal mammary to LAD and saphenous vein graft to obtuse marginal 1 sequentially to obtuse marginal [address] Salmeron 03/26/2015.
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
Permanent atrial fibrillation
on warfarin anticoagulation
History of bradycardia on metoprolol during dialysis
BOBBY noncompliant CPAP
Chronic right-sided heart failure with pulmonary hypertension
Heart failure with reduced ejection fraction
Recurrent ascites
s/p paracentesis for 4900cc 10/08/24
Peripheral neuropathy
Gout
Anemia of chronic disease
Hyponatremia
ECHO 10/08/24: EF 42%, septal flattening due to RV pressure and volume overload, RV dilated, biatrial enlargement, mild to moderate MR, aortic sclerosis, moderate to severe TR, PASP 65 mmHg, mildly dilated ascending aorta 4.0 cm
Echo October 2024:EF 45-50%. Flattened septum in systole and diastole consistent with RV pressure and volume
overload. Enlarged right ventricular size. Reduced right ventricular systolic function. Severely dilated left atrium. Severely dilated right atrium. Mild mitral regurgitation. Mild aortic regurgitation. Severe tricuspid regurgitation.
Severe pulmonary hypertension with estimated pulmonary artery pressure of 55-60 mmHg assuming a right atrial pressure of 15 mmHg. Ascites present.
Plan:
Events overnight reviewed. Remains critically ill on 4 pressors
EEG and neuro eval ongoing for anoxic encephalopathy
Beta cristine held with hypotension
Cont IV amio for VT and replete lytes as needed. Maintain K>4 and Mg>2
Could check limited echo for prognostic information as this would not likely acid changer.
Consider check trop for prognostic information
EKG afib with PVCs and nonspecific ST-T changes, no change from prior EKG
pBNP >47813, HD for volume as tolerated
Reviewed nephrology note and with inability to get CRRT and poorly tolerating HD, prognosis is grim and comfort care discussions needed
Pt appears appropriate for comfort care as recovery appears unlikely
Discussed with nursing.
CCT: 33 min
Progress Note - [employer]
Subjective
Date of Service: November 05, 2024
pt seen and examined. Sedated on vent
Objective
Labs:
11/05/24 03:22
11/05/24 03:22
Labs
Hgb 11.8 g/dL (13.0-18.0) L 11/05/24 03:22
Hct 35.6 % (39.0-52.0) L 11/05/24 03:22
Plt Count 206 10^3/uL (130-400) 11/05/24 03:22
PT 19.8 Sec (11.4-14.6) H 11/05/24 03:22
INR 1.66 D 11/05/24 03:22
APTT 41.8 Sec (23.4-35.0) H 11/05/24 03:22
Sodium 130 mmol/L (135-145) L 11/05/24 03:22
Potassium 4.0 mmol/L (3.5-5.1) 11/05/24 03:22
BUN 22 mg/dl (9-20) H 11/05/24 03:22
Creatinine 2.0 mg/dL (0.7-1.3) H 11/05/24 03:22
Glucose 149 mg/dl (70-99) H 11/05/24 03:22
Troponins
11/02/24 11/02/24 11/02/24
09:40 12:24 18:37
Troponin I 0.432 H* 0.484 H* 0.484 H*
11/03/24 11/03/24
00:40 06:00
Troponin I 0.367 H* Cancelled
Vital Signs and I&O:
Vital Signs
Temp Pulse Resp BP Pulse Ox
97.9 F 103 24 115/76 98
11/05/24 07:48 11/05/24 08:00 11/05/24 08:00 11/05/24 02:00 11/05/24 07:58
Vital Signs
Temp Pulse Resp BP Pulse Ox
97.9 F 103 24 115/76 98
11/05/24 07:48 11/05/24 08:00 11/05/24 08:00 11/05/24 02:00 11/05/24 07:58
Intake & Output
11/03/24 11/04/24 11/05/24 11/06/24
06:59 06:59 06:59 06:59
Intake Total 120 / 120 220 / 220 861.4 / 995.2 267.6 / 267.6
Output Total 150 / 150
Balance 120 / 120 220 / 220 711.4 / 845.2 267.6 / 267.6
Physical Exam
Physical Exam
General: sedated on vent
Neck: Negative JVD
Heart: Irregularly irregular, Negative S3 positive S1/S2, Negative S4, No murmur
Lungs: CTA b/l, negative wheezes/rales/rhonchi
Abd: Positive BS, NT/ND, neg rebound/rigidity/guarding
Ext: Negative cyanosis/clubbing/edema
Neuro: eyes leftward gaze
--- NOTE | 2024-11-05 08:51 | PHA.VAN.FU ---
Vancomycin Assessment / Plan
- Assessment
Hemodialysis Schedule: TThSa
Last Hemodialysis performed: 11/04/24
WBC's are: Trending Up (12.8->13.9)
In the past 24 hrs, patient has been: Afebrile
Concomitant Antimicrobials: Cefepime
- Assessment - Therapeutic Drug Monitoring
Random Level: 17.4 - Last dose 1500mg load 11/02/24 1711
- Dosing Plan
Dosing by Level: Hold off on dosing today
- Monitoring Plan
No level(s) ordered at this time: Can extrapolate from R lvl today (11/05) to dose tomorrow if needed
- Follow Up
Pharmacy will continue to follow.
Vancomycin Follow UP
- -
Patient Age: 84
Patient Sex: Male
Vancomycin Day #: 5
Indication: Pulmonary/Respiratory
Requesting Provider: Dr. Solis
Pertinent Antimicrobial Allergies:
NKDA
Height / Weight:
Height 5 ft 6 in
Actual Weight 75.6 kg
Pertinent Past Medical History: ESRD HD
- Vital Signs / Lab Results
Temp Pulse Resp BP Pulse Ox
97.9 F 103 24 115/76 98
11/05/24 07:48 11/05/24 08:00 11/05/24 08:00 11/05/24 02:00 11/05/24 07:58
Lab Results - Hematology
11/03/24 11/03/24 11/04/24
07:00 12:48 07:48
WBC Cancelled 10.9 H 10.5
11/04/24 11/05/24
19:53 03:22
WBC 12.8 H 13.9 H
Lab Results - Chemistry
11/02/24 11/03/24 11/04/24
09:40 12:48 07:48
BUN 24 H 38 H 47 H
Creatinine 2.4 H 3.2 H 3.9 H
Estimated Creat Clear 21 16 13
Albumin 2.9 L 3.1 L
11/04/24 11/04/24 11/05/24
19:53 20:09 03:22
BUN 20 22 H
Creatinine 1.9 H 2.0 H
Estimated Creat Clear 26 25
Albumin 2.5 L Cancelled
Microbiology Results
11/04/24 09:09 Respiratory Culture - Final
Sputum Gram Stain - Final
11/02/24 14:24 Blood Culture - Preliminary
Blood/Venous No Growth in 48 hours- Final report to follow
11/02/24 14:12 Blood Culture - Preliminary
Blood/Venous No Growth in 48 hours- Final report to follow
11/02/24 18:15 Nasal Screen MRSA (PCR) - Final
Nose MRSA not detected - performed by PCR methodology.
Therapeutic Drug Monitoring
Random Vancomycin 17.4 ug/ml 11/05/24 03:22
[2024-11-05] MEDS: PITRESSIN 100 IV ×2 (08:58→16:41)
[2024-11-05] MEDS: PROTONIX IV 40 MG IV (08:58)
[2024-11-05] MEDS: NSS (PRESERVATIVE FREE) 10 ML IV (08:59)
[2024-11-05] MEDS: REFRESH CELLUVISC GEL 1 DROPS BOTH EYES ×2 (08:59→19:54)
[2024-11-05] MEDS: LEVOPHED 258 MG IV ×3 (09:14→18:36)
[2024-11-05] MEDS: ASPIR LOW (ENTERIC COATED) PO (09:25)
[2024-11-05 09:38] LABS: Creatine Phosphokinase 245 U/L (55-170)
--- NOTE | 2024-11-05 09:50 | W.PN.NEPH.PH ---
Today's Communication / Plan
-
Supportive care
Discuss with family about comfort care
Assessment/Plan
-
Assessment:
Presentation is with shortness of breath and CP
ESRD TTS @[place]
Volume overload vs PNA
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
Coronary artery disease with history of CAD
hypotension on chronic midodrine
Recurrent ascites
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
Peripheral neuropathy
Atrial fibrillation
Gout
Hyperphosphatemia
Plan:
Regular dialysis treatment TTS
Last treatment yesterday completed full treatment although hypotensive had to return about a liter of fluid and blood pressure improved.
Status post cardiac arrest 11/04 in the ICU intubated.
Maintain pressor support
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
Total Time Spent with Patient (in minutes): 32
-
-
Date of Service: November 05, 2024
CC / HPI / ROS
-
Chief Complaint:
ESRD
History of Present Illness:
Status postcardiac arrest intubated in the ICU on pressor support
Review of Systems:
Unobtainable as patient is intubated
Labs
-
Labs:
WBC 13.9 10^3/uL (4.8-10.8) H 11/05/24 03:22
RBC 3.80 10^6/uL (4.70-6.10) L 11/05/24 03:22
Hgb 11.8 g/dL (13.0-18.0) L 11/05/24 03:22
Hct 35.6 % (39.0-52.0) L 11/05/24 03:22
Plt Count 206 10^3/uL (130-400) 11/05/24 03:22
Sodium 130 mmol/L (135-145) L 11/05/24 03:22
Potassium 4.0 mmol/L (3.5-5.1) 11/05/24 03:22
Chloride 95 mmol/L (98-107) L 11/05/24 03:22
Carbon Dioxide 21 mmol/L (22-30) L 11/05/24 03:22
BUN 22 mg/dl (9-20) H 11/05/24 03:22
Creatinine 2.0 mg/dL (0.7-1.3) H 11/05/24 03:22
eGFR 32.30 11/05/24 03:22
Glucose 149 mg/dl (70-99) H 11/05/24 03:22
Calcium 9.1 mg/dl (8.4-10.2) 11/05/24 03:22
Phosphorus 3.5 mg/dl (2.5-4.5) 11/05/24 03:22
Ohx-[id number] Pept > 56438 pg/ml 11/05/24 03:22
Albumin Cancelled 11/04/24 20:09
Physical Exam
-
Vital Signs:
Vital Signs
Temp Pulse Resp BP Pulse Ox
97.9 F 103 24 115/76 98
11/05/24 07:48 11/05/24 08:00 11/05/24 08:00 11/05/24 02:00 11/05/24 07:58
[2024-11-05 09:52] LABS: Free T4 2.31 ng/dl (0.78-2.19)
[2024-11-05] MEDS: NEO-SYNEPHRINE 1% 260 MG IV ×2 (09:53→18:35)
--- NOTE | 2024-11-05 10:03 | EEG.RPT ---
Electroencephalogram Report
Recording
Date of EE11/05/24
Type of EEG: Routine
Length of EEG recordin minutes
Done with Video Recording: Yes
Patient Status: Inpatient
Recording Conditions: Awake and Drowsy
Hyperventilation Performed: No
Photic Stimulation Performed: Yes
Report
LESS THAN 1 HOUR EEG REPORT
LESS THAN 1 HOUR EEG INTERPRETATION:
Severely abnormal study for age based on low amplitude even for age, generalized slowing demonstrated bihemispherically equally
CLINICAL CORRELATION:
Although normative values not been established for a person of this advanced age the patient�s symmetry of the background suggests that this study was suggestive of moderate bihemispheric cortical dysfunction. No epileptiform features were
demonstrated.
If concerns remain regarding epilepsy, prolonged monitoring may be of assistance.
Clinical correlation is advised.
METHODS:
A 21-channel digital electroencephalogram (EEG) was performed in the ICU. The 10/20 international system of electrode placement was used with ECG and lateral/vertical eye movements recorded.
IMPRESSION(S):
Quality of study
Fair
Background
Medium amplitude
Anterior-posterior voltage gradient differentiation: minimal
Delta frequency maximal background demonstrated
Sleep
Drowsiness present
Hyperventilation
Not performed
Photic Stimulation
Failed to activate the record
ECG
No clear arrhythmias
Abnormal Activity
None
[2024-11-05 10:06] LABS: TSH 1.77 uIU/ml (0.47-4.68)
--- NOTE | 2024-11-05 10:14 | WOUNDNOTE ---
WON RN NOTE: Followed up today s/p code for chest bruising and skin tears. bruise and 2 small open areas with clotted blood at base. Applied adaptic and silicone foam after cleaning. Nurse Shannan requested that we not turn him at this time, patient
is too unstable. Family to decide on code status. Will update wound care orders and follow as needed.
--- NOTE | 2024-11-05 10:25 | W.PN.HOSP.TC ---
Today's Communication/Plan
-
Unfortunate situation with multiple organ failure, patient was informed about his prognosis and he expressed wishes to avoid CPR/ ventilatory support but wanted to continue with treatments/ HD,. He also expressed to few staff his wish to at home
few times during this hospitalization.
Now on ventilatory support/ Pressure support
Unable to tolerate HD due to severe right sided heart failure
Poor prognosis
Recommend comfort care.
Assessment / Plan
Assessment / Plan
Physical Exam
General: Appears Chronically Ill, intubated
HEENT: Normocephalic and Anicteric. ET tube
Respiratory: Rales,
Cardiac: S1/S2 , murmur
GI: Soft and Non Tender, not distended.
Neuro: Sedated
Psych: No agitation
# s/p code PEA/VT, Cardiopulmonary arrest
s/p pressure support and intubation.
# Goals of care discussion
Patient and family were informed on multiple occasions about poor prognosis and failure to thrive condition( noted on prior notes). Patient remained high risk for recurrent hospitalization and worsening condition. Patient has progressive disease
with slowly progressive multiple organ failure. I d/w pt code status on 11/04 and wishes if cardiac arrest and he said he wouldn't want to be on life support measures.
Called son based on pt's suggestion and spoke with Jeremy 11/04 , gave updated and encouraged the family to discuss code status with patient directly due to poor prognosis. Son verbalized understanding.
# Cardiogenic shock
Acute on chronic right sided Hear failure with reduced EF
4 pressors
On IV pressure support medications
# Supre- therapeutic INR, likely due to use of IV Abx
Given vitamin K
#hx of Chest Pain in setting of volume overload
ASCVD
- EKG no evidence of acute ischemic. Non myocardial injury troponin elevation.
- trop 0.4. re-check
- Cardiology consulted; recommended against IV heparin due to supratherapeutic INR.
- continue ASA/Statin
Acute on Chronic Hypoxemic Respiratory Failure
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
Now intubated
- Likely multifactorial and due to pulmonary hypertension/volume overload and influenza.
- CXR with some left lower lobe subsegmental atelectasis and/or pneumonia and tiny left pleural effusion cannot be excluded
- CT Chest showed atelectasis more than infiltration
-Elevated procalcitonin can happen renal failure/cardiogenic shock
Follow-up with the blood cultures
Stop empiric Vanco/Cefepime
SIRS
No obvious bacterial infection. CAT scan of the chest did not show definitive infiltrate. Recent viral infection. NGTD on blood cultures
Clinically not toxic although he remained cachectic and chronically ill looking
Elevated procalcitonin also reported renal failure/cardiogenic shock.
was on pressure support with high dose Midodrine.
Empiric IV vancomycin and cefepime until blood culture returns in 48 hours.
Influenza
- Tamiflu, finished.
ESRD on HD
Volume Overload
Unable to dialyze fully due to hypotension/ R heart failure
Acute on Chronic HFrEF
acute Hyperkalemia
acute Hyponatremia
Hyperphosphatemia
- Patient is anuric by history.
- Nephrology following for HD/UF during hospital stay.
- Echo done last month with LVEF = 42% and evidence of RV dilation / overload.
- Follow daily weights. Follow for improvement in dyspnea.
#Severe progressive Pulmonary hypertension/[employer] EF ~40%/severe reduced RV function with severe TR
#History of orthostatic hypotension
#history of recurrent ascites
- s/p paracentesis 10/31 - 5.3 L removed. no SBP at that time.
No abdominal pain or tenderness. No distention on examination
#Permanent Atrial Fibrillation
Follow INR daily and re-dose/resume when appropriate.
Gout
- Stable. No current joint pain.
- Continue allopurinol.
Peripheral neuropathy
Constipation
- continue bowel regimen
DVT ppx: supratherapeutic INR
Code: Full
Total time spent to see the patient, examine the patient, review data and lab results, discuss treatment plan with patient and nursing staff around 55 minutes
Anticipated Discharge: > 48 hours
Subjective/Interval History
-
Date of Service: November 05, 2024
Objective Data
-
Labs:
Laboratory Results
11/05/24
03:22
WBC 13.9 H
Hgb 11.8 L
Hct 35.6 L
Plt Count 206
PT 19.8 H
INR 1.66 D
APTT 41.8 H
HCO3 20.3 L
Sodium 130 L
Potassium 4.0
Chloride 95 L
Carbon Dioxide 21 L
BUN 22 H
Creatinine 2.0 H
Glucose 149 H
Calcium 9.1
Vital Signs:
Vital Signs
Temp Pulse Resp BP Pulse Ox
97.9 F 103 24 115/76 98
11/05/24 07:48 11/05/24 08:00 11/05/24 08:00 11/05/24 02:00 11/05/24 07:58
I&O
11/04/24 11/05/24 11/06/24
06:59 06:59 06:59
Intake Total 220 / 220 861.4 / 995.2 535.2 / 535.2
Output Total 150 / 150
Balance 220 / 220 711.4 / 845.2 535.2 / 535.2
[2024-11-05 11:22] LABS: Glucose - Point of Care 138 mg/dl (70-99)
[2024-11-05 11:42] LABS: Ammonia 28 umol/L (9-30)
--- NOTE | 2024-11-05 12:00 | W.PN.PAL2 ---
Today's Communication
-
coded overnight
in ICU on pressors, not a CCRT candidate
tried to call DIL - no answer
Assessment / Plan
-
Assessment/Plan:
84 year old M with ESRD, s/p code last night now intubated in ICU
- comfort care discussions with family
- attempted to call DIL, no answer
Objective Data
-
Objective Data:
Vital Signs
Temp Pulse Resp BP Pulse Ox
97.7 F 103 24 115/76 100
11/05/24 11:21 11/05/24 08:00 11/05/24 08:00 11/05/24 02:00 11/05/24 11:21
Laboratory Results
11/05/24 03:22
11/05/24 03:22
PT 19.8 Sec (11.4-14.6) H 11/05/24 03:22
INR 1.66 D 11/05/24 03:22
APTT 41.8 Sec (23.4-35.0) H 11/05/24 03:22
Ammonia 28 umol/L (9-30) 11/05/24 11:13
Total Protein Cancelled 11/04/24 20:09
Albumin Cancelled 11/04/24 20:09
TSH 1.77 uIU/ml (0.47-4.68) 11/05/24 03:22
Free T4 2.31 ng/dl (0.78-2.19) H 11/05/24 03:22
Palliative Performance Scale
Palliative Performance Scale:
PPS Level Ambulation Activity & Evidence of Disease Self Care Intake Conscious Level
100% Full Normal Activity & Work; Full Intake Full
No Evidence of Disease
90% Full Normal Activity & Work; Full Normal Full
Some Evidence of Disease
80% Full Normal Activity with Effort Full Normal or Full
Some Evidence of Disease Reduced
70% Reduced Unable Normal Job/Work Full Normal or Full
Significant Disease Reduced
60% Reduced Unable Hobby/Housework Occasional Normal or Full or Confusion
Significant Disease Assistance Reduced
50% Mainly Sit/Lie Unable to do Any Work Considerable Normal or Full or Confusion
Extensive Disease Assistance Req'd Reduced
40% Mainly in Bed Unable to do Most Activity Mainly Assistance Normal or Full or Drowsy;
Extensive Disease Reduced +/- Confusion
30% Totally Bed Unable to do Any Activity Total Care Normal or Full or Drowsy;
Bound Extensive Disease Reduced +/- Confusion
20% Totally Bed Bound Unable to do Any Activity Total Care Minimal to Full or Drowsy;
Extensive Disease Sips +/- Confusion
10% Totally Bed Bound Unable to do Any Activity Total Care Mouth Care Drowsy or Coma;
Extensive Disease Only +/- Confusion
0%
PPS Score Level:
Physical Exam
-
General: Appears Chronically Ill and Unresponsive
HEENT: Normocephalic
Respiratory: Decreased Breath Sounds
GI: Soft
Neuro: Sedated
Care Reviewed
Data Reviewed
Medical Tests: I reviewed
Reviewed with: Patient
--- NOTE | 2024-11-05 12:18 | PTCARENOTE ---
Pt unresponsive. Pupils unequal and sluggish. Tolerating vent. No cough noted. Afib with frequent PVCs. Remains on Levo, Epi, Shalom, Vaso, Amio gtts. OG tube to low intermittent suction. All other assessments per charting.
--- NOTE | 2024-11-05 12:45 | PN.CDI ---
Addendum entered and electronically signed by Ginette Peguero MD 11/05/24 13:02:
Sacral and bilateral heels pressure injury POA
Original Note:
CDI
- -
CDI:
Physician Documentation Request
Admit Date: 11/02/24 13:29
Dear Doctor Sudhir,
Please review the following and provide your response in the progress notes.
Clinical Indicators:
Pt admitted with chest pain and acute on chronic respiratory failure.
11/03 [facility] RN : 'Patient admitted with: Sacrum and heels with stage 1 ...'
Physician documentation of the type and location of wounds is required for compliant documentation. Based on the above clinical findings and your assessment, please provide the following in your progress note:
1. Location of the ulcer/wound, including laterality.
2. Type (etiology) of ulcer/wound:
Sacral and bilateral heels pressure injury POA
Sacral and bilateral heels non-pressure injury POA
Other
Use of terms such as suspected, likely, concern for, or probable (associated with a specific diagnosis that is being evaluated, monitored, or treated as if it exists) are acceptable and can be coded in the inpatient setting, when documented at the
time of discharge.
Thank you,
Radha Pierson RN, BSN
CDI Specialist
[place] text
Please use your independent medical judgment in providing your response.
*Source: National Pressure Ulcer Advisory Panel (NPUAP)
--- NOTE | 2024-11-05 12:54 | W.PN.UPDATE ---
Update Note
Progress Note Update
attemptted to call son allen and daughter Daniela . no answer with son and VM with Daughter as pt is not HD candidate unfortunately
[2024-11-05] MEDS: ADRENALIN 258 MG IV (14:01)
--- NOTE | 2024-11-05 14:28 | CM ---
CM following re: discharge planning.
Discussed in Rounds reviewed pt's chart, met with pt.
Pt is s/p code last night, intubated yesterday, remains intubated, on pressors, not a CCRT candidate, continue supportive care, discussion with family regarding comfort care.
D/C plan: uncertain at this time. Goals of care discussion with the family.
CM will follow with discharge plan updates as hospitalization progresses
[2024-11-05] MEDS: STERILE WATER FOR INJECTION 10 ML IV (18:21)
[2024-11-05] MEDS: MAXIPIME 1000 MG IV (18:21)
--- NOTE | 2024-11-05 19:12 | PTCARENOTE ---
family at bedside to terminally extubate, TICKET MAKER made aware
[2024-11-05] MEDS: SUBLIMAZE 25 MCG IV (20:10)
[2024-11-05] MEDS: NSS (PRESERVATIVE FREE) 1 ML IV (20:11)
--- NOTE | 2024-11-05 20:16 | W.PN.UPDATE ---
Update Note
Progress Note Update
2014- Discussed with family at bedside, they would like to move to comfort measures and terminal extubation. Offered support to family and answered all questions. Placed comfort measures prn medications and extubate to comfort measures, RN and
respiratory therapist updated on plan of care.
[2024-11-05] MEDS: MORPHINE SULFATE 2 MG IV (20:25)
--- NOTE | 2024-11-05 20:29 | RESPNOTE ---
Pt terminally extubated with RN at bedside. Pt placed on 4 LPM NC for comfort.
[2024-11-05] MEDS: SUBLIMAZE 50 MCG IV (20:38)
--- NOTE | 2024-11-05 21:23 | W.PN.DEATH ---
Pronouncement of
-
Called to see patient to pronounce.
No spontaneous heart tones or respirations noted.
Patient not responsive to verbal stimuli.
Patient is pronounced .
Time of : 20:48
Date of : 11/05/24
Cause of : acute hypoxemic respiratory failure, acute pulmonary edema
Family Notified: Yes (family at bedside at time of )
--- NOTE | 2024-11-05 21:31 | PTCARENOTE ---
SUPERVISOR [employer]ESS at bedside and gave time of 2047, family at bedside, all belongings sent with family, GOL called and notified.
--- NOTE | 2024-11-06 06:29 | W.DCSUMMARY ---
Discharge Summary
Discharge Data
Date of Admission: 11/02/24
Date of Discharge: 11/05/24
-
Pending Results: No
Hospital Course
84 years old male with history of multiple hospitalizations, failure to thrive, heart failure, respiratory failure, renal failure, recurrent ascites admitted [facility] the hospital from [facility] with respiratory distress and chest pain. Patient was
recently diagnosed with influenza A and was receiving Tamiflu treatment. Patient was noted to have significant shortness of breath on mild exertion which was progressive over the last few months. He received empiric intravenous antibiotics.
Blood culture did not show any growth. Patient was evaluated by senior maintenance mechanic for chest pain. Patient had history of coronary artery disease and ischemic cardiomyopathy. His chest pain resolved. Patient had chronic hypotension and could not
tolerate cardiac medications including beta-blockers. Patient had a chronic right-sided heart failure with progressive secondary pulmonary hypertension. Patient had history of obstructive sleep apnea but noncompliant with CPAP treatment. He
finished Tamiflu treatment but continued to have progressive weakness and started to show signs of multiple organ failure. He had significant hypotension that preventing efficient hemodialysis. Patient and family were made aware of progressive
overall decline and failure to thrive situation. Patient wanted to continue treatment and his goal was to go home and peacefully at home. Patient had history of chronic hypoxemic respiratory failure. His oxygen requirement remained stable but
he remained high risk for recurrent hospitalization. Patient had in-hospital cardiac arrest that included PEA and V. tach. He received CPR and was intubated. He was admitted to ICU. Patient was followed by senior maintenance mechanic, neurologist, nephrology
and welding engineer. He had significant hypotension and needed multiple pressors to maintain his blood pressure, he received stress dose of systemic steroid, amiodarone drip to prevent further ventricular arrhythmias, intravenous Keppra and intravenous
antibiotics. Patient did not show improvement and was unable to show responses despite being off sedation. Patient could not receive hemodialysis due to hemodynamic instability. Goal of care was discussed with family and they decided to pursue
withdrawal of care and DNR status. Patient on 11/05 surrounded by his family.
Discharge Plan
-
Patient Disposition:
Date/Time
Date/Time: 11/05/24 20:48
Discharge Date and Time
Discharge Date/Time: 11/05/24 20:48
Print Language: GRENADI[place]
== END 2024-11-05 20:48 | disposition expired | DRG 208 ==
LOC: ICU 13:29
PROVIDERS: Internal Medicine Nephrology; Nuclear Medicine Nuclear Cardiology; Nurse Practitioner Family; Physician Assistant; ADMITTING PHYSICIAN Internal Medicine; ATTENDING PHYSICIAN Internal Medicine; CONSULT PHYSICIAN Internal Medicine Cardiovascular Disease; CONSULT PHYSICIAN Internal Medicine Critical Care Medicine; CONSULT PHYSICIAN Nurse Practitioner Gerontology; CONSULT PHYSICIAN Psychiatry & Neurology Neurology; EMERGENCY PHYSICIAN Emergency Medicine
PROC: 5A1935Z Respiratory Ventilation, Less than 24 Consecutive Hours (ICD-10-PCS; 2024-11-04)
PROC: 5A1D70Z Performance of Urinary Filtration, Intermittent, Less than 6 Hours Per Day (ICD-10-PCS; 2024-11-04)
DX: J96.21 Acute and chronic respiratory failure with hypoxia (principal); J11.00 Influenza due to unidentified influenza virus with unspecified type of pneumonia; I50.23 Acute on chronic systolic (congestive) heart failure; N18.6 End stage renal disease; J69.0 Pneumonitis due to inhalation of food and vomit; J44.0 Chronic obstructive pulmonary disease with (acute) lower respiratory infection; I47.20 Ventricular tachycardia, unspecified; R65.10 Systemic inflammatory response syndrome (SIRS) of non-infectious origin without acute organ dysfunction; E87.1 Hypo-osmolality and hyponatremia; R18.8 Other ascites; I48.21 Permanent atrial fibrillation; J98.11 Atelectasis; G93.1 Anoxic brain damage, not elsewhere classified; I5A Non-ischemic myocardial injury (non-traumatic); R64 Cachexia; E87.20 Acidosis, unspecified; I46.9 Cardiac arrest, cause unspecified; R62.7 Adult failure to thrive; E11.22 Type 2 diabetes mellitus with diabetic chronic kidney disease; Z99.2 Dependence on renal dialysis; E87.5 Hyperkalemia; E83.39 Other disorders of phosphorus metabolism; I95.1 Orthostatic hypotension; Z79.01 Long term (current) use of anticoagulants; M10.9 Gout, unspecified; E11.40 Type 2 diabetes mellitus with diabetic neuropathy, unspecified; K59.00 Constipation, unspecified; I25.10 Atherosclerotic heart disease of native coronary artery without angina pectoris; Z95.1 Presence of aortocoronary bypass graft; Z87.891 Personal history of nicotine dependence; Z79.82 Long term (current) use of aspirin; E78.00 Pure hypercholesterolemia, unspecified; I27.29 Other secondary pulmonary hypertension; G89.29 Other chronic pain; Z79.899 Other long term (current) drug therapy; G47.33 Obstructive sleep apnea (adult) (pediatric); D63.1 Anemia in chronic kidney disease; Z51.5 Encounter for palliative care; I49.3 Ventricular premature depolarization; Z68.26 Body mass index [BMI] 26.0-26.9, adult; I08.0 Rheumatic disorders of both mitral and aortic valves; Z91.199 Patient's noncompliance with other medical treatment and regimen due to unspecified reason; Z99.81 Dependence on supplemental oxygen; L89.151 Pressure ulcer of sacral region, stage 1; L89.611 Pressure ulcer of right heel, stage 1; L89.621 Pressure ulcer of left heel, stage 1
CPT/HCPCS: 93308; 36600; 70450; 71045; 71046; 71250; 80048; 80053; 80076; 80202; 82140; 82330; 82550; 82805; 82962; 83735; 83880; 84100; 84145; 84439; 84443; 84478; 84484; 85025; 85027; 85610; 85730; 86850; 86900; 86901; 87040; 87205; 87641; 92610; 93005; 93321; 93325; 94002; 94003; 94640; 95816; 99291; G0257; J7168; P9047